=== PATIENT | female | born 1980 | race Caucasian/White ===

== ENCOUNTER 2016-05-07 18:23 | Inpatient (IN) | payer MEDICAID, OTHER ==
--- NOTE | 2016-05-07 19:07 | ED ---
Psych HPI - General Chief Complaint: Psychiatric Symptoms Stated Complaint: mental health Time Seen by Provider: 05/07/16 18:38 Source: patient, RN notes reviewed Mode of arrival: ambulatory - History of Present Illness Initial Comments: 35-year-old female presents emergency Department chief complaint of depression. Patient has had depression for the last month or so. Patient states it originally started when her children taken from her by CPS. She states now that she'll never get her children back. Patient states she has been abusing alcohol throughout this time.. Patient states that she started doctor and referred her here for evaluation. Patient states that this time she has no suicidal thoughts that she has had amount off throughout the last month. Patient denies any plan. Patient denies any homicidal ideation. Patient states she is not currently having any health concerns.Patient denies any recent fever, chills, shortness of breath, chest pain, back pain, abdominal pain , nausea vomiting, numbness or tingling, dysuria or hematuria, constipation or diarrhea, headaches or visual changes, or any other current symptoms. - Related Data Home Medications Medication Instructions Recorded Confirmed Cariprazine Hydrochloride [Vraylar] 3 mg PO DAILY 05/07/16 05/07/16 Diclofenac Potassium [Cataflam] 50 mg PO TID 05/07/16 05/07/16 Divalproex Sodium [Depakote] 1,000 mg PO DAILY 05/07/16 05/07/16 Furosemide [Lasix] 20 mg PO DAILY 05/07/16 05/07/16 Gabapentin [Neurontin] 300 mg PO TID 05/07/16 05/07/16 Naratriptan HCl 2.5 mg PO DAILY PRN 05/07/16 05/07/16 Venlafaxine HCl [Effexor XR] 150 mg PO DAILY 05/07/16 05/07/16 Allergies Allergy/AdvReac Type Severity Reaction Status Date / Time latex Allergy Rash/Hives Verified 05/07/16 19:25 Review of Systems ROS Statement: Those systems with pertinent positive or pertinent negative responses have been documented in the HPI. ROS Other: All systems not noted in ROS Statement are negative. Past Medical History Past Medical History: Fibromyalgia, Hypertension Additional Past Medical History / Comment(s): Arnold-Chiari malformation, migraine headaches, irritable bowel syndrome History of Any Multi-Drug Resistant Organisms: None Reported Past Surgical History: Tubal Ligation Additional Past Surgical History / Comment(s): brain sx- 2011 at [facility], uterine ablation Past Psychological History: Bipolar, Depression Smoking Status: Former smoker Past Alcohol Use History: Occasional Additional Past Alcohol Use History / Comment(s): Patient states that she smokes on and off for one pack per month and quit October 2014. She denies any street drugs, medical marijuana, marijuana use. She has history of alcohol abuse and quit drinking in October 2014 and recently relapsed. Patient is single and has 3 sons. Past Drug Use History: None Reported - Past Family History Father Family Medical History: Coronary Artery Disease (CAD) Additional Family Medical History / Comment(s): Father is age 65 and has history of coronary artery disease and depression Mother Additional Family Medical History / Comment(s): Mother is age 59 has clotting disorder. Patient has 1 brother with no major medical problems. She has 3 sons and one has bipolar disorder. General Exam Limitations: no limitations General appearance: alert, in no apparent distress Head exam: Present: atraumatic, normocephalic, normal inspection ENT exam: Present: normal exam, mucous membranes moist Neck exam: Present: normal inspection. Absent: tenderness, meningismus, lymphadenopathy Respiratory exam: Present: normal lung sounds bilaterally. Absent: respiratory distress, wheezes, rales, rhonchi, stridor Cardiovascular Exam: Present: regular rate, normal rhythm, normal heart sounds. Absent: systolic murmur, diastolic murmur, rubs, gallop, clicks Back exam: Present: normal inspection Neurological exam: Present: alert, oriented X3, CN II-XII intact. Absent: motor sensory deficit Psychiatric exam: Present: depressed. Absent: homicidal ideation, suicidal ideation Skin exam: Present: warm, dry, intact, normal color. Absent: rash Course Vital Signs 05/07/16 05/07/16 18:33 19:14 Temperature 98.4 F Pulse Rate 81 81 Respiratory 18 16 Rate Blood Pressure 178/118 153/95 O2 Sat by Pulse 99 98 Oximetry Medical Decision Making - Medical Decision Making 35-year-old female presents to the emergency Department chief complaint of depression. At this time the patient does not appear to be suffering from any acute medical emergencies. The patient is cleared to be evaluated by psychiatry. At this time the patient was evaluated by psychiatry. At this time the patient will be admitted. Discussed with the patient who is in agreement with the plan. - Lab Data Lab Results 05/07/16 Range/Units 19:15 Urine Opiates Screen Not Detected (NotDetected) Ur Oxycodone Screen Not Detected (NotDetected) Urine Methadone Screen Not Detected (NotDetected) Ur Propoxyphene Screen Not Detected (NotDetected) Ur Barbiturates Screen Not Detected (NotDetected) U Tricyclic Antidepress Not Detected (NotDetected) Ur Phencyclidine Scrn Not Detected (NotDetected) Ur Amphetamines Screen Not Detected (NotDetected) U Methamphetamines Scrn Not Detected (NotDetected) U Benzodiazepines Scrn Not Detected (NotDetected) Urine Cocaine Screen Not Detected (NotDetected) U Marijuana (THC) Screen Not Detected (NotDetected) Disposition Clinical Impression: Depression Disposition: TRANSFER TO PSYCH HOSP/UNIT Time of Disposition: 20:43
[2016-05-07] MEDS ORDERED: MAGNESIUM HYDROXIDE 2,400 MG/10 ML CUP PO PRN (23:02)
[2016-05-07] MEDS ORDERED: MAG HYDROX/AL HYDROX/SIMETH 30 ML CUP PO PRN (23:02)
[2016-05-07 23:38] VITALS: BMI 41.1
[2016-05-08] MEDS: ACETAMINOPHEN TAB 325 MG TAB PO PRN ×2 (08:19→13:28)
[2016-05-08 09:35] LABS: Basophils # (A) 0.1 k/uL (0-0.2); Basophils % (A) 2 %; CH 33.4; CHCM 35.1; Eosinophils # (A) 0.2 k/uL (0-0.7); Eosinophils % (A) 3 %; HCT 46.4 % (34.0-46.0); HDW 3.06; HGB 15.7 gm/dL (11.4-16.0); Luc # (Auto) 0.09; Luc % (Auto) 1; Lymphocytes # (A) 1.8 k/uL (1.0-4.8); Lymphocytes % (A) 27 %; MCH 32.3 pg (25.0-35.0); MCHC 33.8 g/dL (31.0-37.0); MCV 95.6 fL (80.0-100.0); Mean Platelet Volume 7.6; Monocytes # (A) 0.3 k/uL (0-1.0); Monocytes % (A) 5 %; Neutrophils # (A) 4.1 k/uL (1.3-7.7); Neutrophils % (A) 62 %; RBC 4.86 m/uL (3.80-5.40); RDW 13.5 % (11.5-15.5); WBC 6.6 k/uL (3.8-10.6); WBC (Perox) 6.53
[2016-05-08 10:09] LABS: ALT 34 U/L (9-52); AST 16 U/L (14-36); Alkaline Phosphatase 68 U/L (38-126); Anion Gap 14 mmol/L; Blood Urea Nitrogen 13 mg/dL (7-17); Calcium 9.3 mg/dL (8.4-10.2); Carbon Dioxide 26 mmol/L (22-30); Chloride 105 mmol/L (98-107); Glucose 108 mg/dL (74-99); Non-African American GFR(MDRD) >60 (>60 ml/min/1.73 sqM); Potassium 4.4 mmol/L (3.5-5.1); Sodium 145 mmol/L (137-145); Total Bilirubin 1.6 mg/dL (0.2-1.3); Total Protein 7.1 g/dL (6.3-8.2)
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
[2016-05-08] MEDS: VENLAFAXINE HCL ER 150 MG CAP PO SCH (11:38)
[2016-05-08] MEDS: LITHIUM CARBONATE 300 MG CAP PO SCH ×2 (11:38→20:47)
[2016-05-08] MEDS ORDERED: SUMAtriptan SUCCINATE 50 MG TAB PO PRN (16:58)
--- NOTE | 2016-05-08 20:17 | CONS ---
DATE OF CONSULTATION: 05/08/2016 Patient is a 35-year-old female who came in for bipolar depression and medicine was consulted regarding medical clearance and patient denied any chest pain, nausea, vomiting. Patient does have migraine. Patient is complaining of migrainous headache and I did order her Gabapentin and ( ) which is a migraine rescue medication and ( ). The patient denied any fever, chills. The patient denied any nausea, vomiting. Patient denied any abdominal pain. Patient denied any dysuria. REVIEW OF SYSTEMS: CONSTITUTIONAL: No fever, no malaise, no fatigue. HEENT: No recent visual problems or hearing problems. Denied any sore throat. CARDIOVASCULAR: No chest pain, orthopnea, PND, no palpitations, no syncope. PULMONARY: No shortness of breath, no cough, no hemoptysis. GASTROINTESTINAL: No diarrhea, no nausea, no vomiting, no abdominal pain. Normoactive bowel sounds. NEUROLOGICAL: No headaches, no weakness, no numbness. HEMATOLOGICAL: Denies any bleeding or petechiae. GENITOURINARY: Denies any burning micturition, frequency, or urgency. MUSCULOSKELETAL/RHEUMATOLOGICAL: Denies any joint pain, swelling, or any muscle pain. ENDOCRINE: Denies any polyuria or polydipsia. The rest of the 14 point review of systems is negative. Home medications include: 1. ( ) . 2. Divalproex. 3. Lasix. 4. Gabapentin. 5. Nortriptyline. 6. ( ). 7. Venlafaxine. ALLERGIES: LATEX. Past medical history is significant for fibromyalgia, hypertension, migraine and tubal ligation surgery. SOCIAL HISTORY: Former smoker. Quit smoking about a week ago. Denied any alcohol abuse and denied any drug abuse. Psychological history: Bipolar depression. FAMILY HISTORY: Father had coronary disease and mother age 59 with clotting disorder. PHYSICAL EXAMINATION: VITAL SIGNS: Temperature 98.4, pulse 71, respiratory rate of 18, blood pressure is 153/75, saturating at 98% on room air. GENERAL: The patient is alert and oriented x3, not in any acute distress. Well developed, well nourished. HEENT: Pupils are round and equally reacting to light. EOMI. No scleral icterus. No conjunctival pallor. Normocephalic, atraumatic. No pharyngeal erythema. No thyromegaly. CARDIOVASCULAR: S1 and S2 present. No murmurs, rubs, or gallops. PULMONARY: Chest is clear to auscultation, no wheezing or crackles. ABDOMEN: Soft, nontender, nondistended, normoactive bowel sounds. No palpable organomegaly. MUSCULOSKELETAL: No joint swelling or deformity. EXTREMITIES: No cyanosis, clubbing, or pedal edema. NEUROLOGICAL: Gross neurological examination did not reveal any focal deficits. SKIN: No rashes. LABORATORY DATA: CBC, CMP are essentially within normal limits except for mildly elevated WBC. No further testing necessary at this point of time. ASSESSMENT AND PLAN: 1. Depression, bipolar depression management as per primary service. 2. Migraine management as mentioned above, patient will be resumed on Gabapentin and ( ) as well as NSAID. 3. Hypertension with mildly elevated blood pressures not on any antihypertensives. 4. I recommend just monitoring. I do not recommend any medications at this point of time. Thank you for letting me participate in this patient's care. We will sign off at this point of time. Call back if needed.
[2016-05-08] MEDS: DIVALPROEX ER 500 MG TAB.ER.24H PO SCH (20:47)
[2016-05-08] MEDS: ETODOLAC 200 MG CAPSULE PO SCH (20:47)
[2016-05-08] MEDS: GABAPENTIN 300 MG CAP PO SCH (20:48)
[2016-05-08] MEDS: LORazepam 1 MG TAB PO PRN (20:51)
[2016-05-09] MEDS: FUROSEMIDE 20 MG TAB PO SCH (08:30)
[2016-05-09] MEDS: LITHIUM CARBONATE 300 MG CAP PO SCH ×2 (08:30→20:15)
[2016-05-09] MEDS: ETODOLAC 200 MG CAPSULE PO SCH ×3 (08:30→20:17)
[2016-05-09] MEDS: GABAPENTIN 300 MG CAP PO SCH ×3 (08:30→20:16)
[2016-05-09] MEDS: VENLAFAXINE HCL ER 150 MG CAP PO SCH (08:31)
[2016-05-09] MEDS ORDERED: VENLAFAXINE HCL ER 150 MG CAP PO SCH (09:00)
[2016-05-09] MEDS ORDERED: DIVALPROEX 500 MG TABLET.DR PO SCH (09:00)
[2016-05-09] MEDS: LOSARTAN 50 MG TAB PO SCH (13:13)
[2016-05-09] MEDS: LORazepam 1 MG TAB PO PRN (16:17)
--- NOTE | 2016-05-09 19:26 | P.PN ---
Progress Note - Text Interval history: Patient seen in cross coverage today for Dr. Byrd. She reports that her blood pressure was high literally her and she received a dose of Ativan. She feels like someone this may be referred have been related to anxiety. She has just been started on lithium. She does not seem to voice any current adverse psychotropic medication side effects. She does describe some this depression today and describes some mood fluctuations. Mental status exam: Patient is seen in the interview room with a visitor who she would like to accompany her during the interview. Her mood she describes some depression describe some mood fluctuation. She denies any current thoughts of harm to self or others. There is no evidence of active psychosis or agitation. Speech is fluent, not rapid or pressured. Plan: At this time we will maintain current psychotropic medications. We will monitor for any medication side effects we will look at rechecking her blood pressure after the administration of Ativan. We'll continue to cover this patient for Dr. Byrd through the weekend.
[2016-05-09] MEDS: DIVALPROEX ER 500 MG TAB.ER.24H PO SCH (20:15)
[2016-05-10] MEDS: LORazepam 1 MG TAB PO PRN (03:35)
[2016-05-10] MEDS: LOSARTAN 50 MG TAB PO SCH (08:48)
[2016-05-10] MEDS: GABAPENTIN 300 MG CAP PO SCH ×3 (08:49→20:51)
[2016-05-10] MEDS: ETODOLAC 200 MG CAPSULE PO SCH ×3 (08:49→20:50)
[2016-05-10] MEDS: LITHIUM CARBONATE 300 MG CAP PO SCH ×2 (08:49→20:51)
[2016-05-10] MEDS: FUROSEMIDE 20 MG TAB PO SCH (08:50)
[2016-05-10] MEDS: VENLAFAXINE HCL ER 150 MG CAP PO SCH (08:50)
--- NOTE | 2016-05-10 19:54 | P.PN ---
Progress Note - Text Interval history: Patient seen in cross coverage today in for Dr. Byrd. She states that she was having nightmares last night and states that today she woke up and had some thoughts of suicide until about noon. She did use her coping skills, was able to verbalize about things in a family meeting and then also did some journaling which helped her. She is encouraged regarding using coping skills. She does describe some lightheadedness/dizziness which may be a medication side effect but it does seem to be tolerable. Mental status exam: She is alert and cooperative with the interview. Her affect does show range. Her mood currently appears to be improved. She does not voice any current thoughts of suicide. She does not voice any thoughts of harm to others. She does relate that she had thoughts of suicide earlier today but used her coping skills to good effect. She does not show any active evidence of psychosis or agitation. Plan: We'll maintain current psychotropic medications. Continue to monitor for psychotropic medication side effects. Dr. Byrd resumed care this patient starting tomorrow continue to monitor regarding any thoughts of suicide.
[2016-05-10] MEDS: DIVALPROEX ER 500 MG TAB.ER.24H PO SCH (20:51)
[2016-05-11] MEDS: LOSARTAN 50 MG TAB PO SCH (08:33)
[2016-05-11] MEDS: VENLAFAXINE HCL ER 150 MG CAP PO SCH (08:33)
[2016-05-11] MEDS: FUROSEMIDE 20 MG TAB PO SCH (08:33)
[2016-05-11] MEDS: GABAPENTIN 300 MG CAP PO SCH ×3 (08:33→20:46)
[2016-05-11] MEDS: LITHIUM CARBONATE 300 MG CAP PO SCH ×2 (08:33→20:46)
[2016-05-11] MEDS: ETODOLAC 200 MG CAPSULE PO SCH ×3 (08:33→20:46)
--- NOTE | 2016-05-11 11:50 | P.PN ---
Progress Note - Text Interval history: The patient is found in her room she follows me to an interview room. She reports that her mood is been more down she's been having more suicidal thoughts and has had some bad dreams. She has been compliant with groups intermittently and feels that they are not helpful. She describes having some symptoms of constipation and we discussed that further. She did have a visit with a male friend and found that supportive. Mental status exam: The patient is an overweight female appearing her stated age. She is dressed in her own clothing hygiene adequate grooming fair. Eye contact is appropriate speech is fluent not very spontaneous today but does answer questions asked of her. She reports recent suicidal thoughts and she is concerned that her mood will not improve she endorses a depressed mood. She is reporting no homicidal ideation. Thought process is linear and there is no evidence of tangential thinking loose associations or flight of ideas. There is no evidence of psychosis. Insight and judgment limited. She demonstrates no verbal or physical aggressiveness. Affect is constricted to blunted. Plan: The patient will continue on her current medications we have recently started lithium we will anticipate getting a lithium level Wednesday. She is reporting continued hopelessness thoughts with suicidal ideation. She requires continued hospitalization. She is encouraged to fully participate in the milieu we will continue to monitor for safety.
[2016-05-11] MEDS: DIVALPROEX ER 500 MG TAB.ER.24H PO SCH (20:46)
[2016-05-12] MEDS: ETODOLAC 200 MG CAPSULE PO SCH ×3 (08:55→20:12)
[2016-05-12] MEDS: GABAPENTIN 300 MG CAP PO SCH ×3 (08:55→20:12)
[2016-05-12] MEDS: VENLAFAXINE HCL ER 150 MG CAP PO SCH (08:55)
[2016-05-12] MEDS: LOSARTAN 50 MG TAB PO SCH (08:55)
[2016-05-12] MEDS: FUROSEMIDE 20 MG TAB PO SCH (08:55)
[2016-05-12] MEDS: LITHIUM CARBONATE 300 MG CAP PO SCH ×2 (08:55→20:13)
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
[2016-05-12] MEDS: DIVALPROEX ER 500 MG TAB.ER.24H PO SCH (20:12)
[2016-05-12] MEDS: LORazepam 1 MG TAB PO PRN (20:13)
[2016-05-12 21:04] LABS: Appearance,Urine Cloudy (Clear); Bacteria,Urine Rare /hpf; Bilirubin,Urine 3+ (Negative); Glucose,Urine (UA) Negative (Negative); Ketones,Urine 1+ (Negative); Leukocyte Esterase,Urine Trace (Negative); Mucus,Urine Moderate /hpf; Nitrite,Urine Negative (Negative); PH, Urine 5.5 (5.0-8.0); Particle Count 10619; Protein,Urine Trace (Negative); RBC,Urine 2 /hpf (0-5); Specific Gravity,Urine 1.028 (1.001-1.035); Squamous Epithelial Cell,Urine 13 /hpf (0-4); UA Billing (MACRO vs. MICRO) MICRO; WBC,Urine 6 /hpf (0-5)
[2016-05-13] MEDS: ETODOLAC 200 MG CAPSULE PO SCH ×3 (08:35→20:39)
[2016-05-13] MEDS: FUROSEMIDE 20 MG TAB PO SCH (08:35)
[2016-05-13] MEDS: LOSARTAN 50 MG TAB PO SCH (08:36)
[2016-05-13] MEDS: VENLAFAXINE HCL ER 150 MG CAP PO SCH (08:36)
[2016-05-13] MEDS: LITHIUM CARBONATE 300 MG CAP PO SCH ×2 (08:36→20:38)
[2016-05-13] MEDS: GABAPENTIN 300 MG CAP PO SCH ×3 (08:36→20:40)
[2016-05-13] MEDS ORDERED: IBUPROFEN 800 MG TAB PO PRN (10:00)
[2016-05-13] MEDS ORDERED: VENLAFAXINE HCL ER 75 MG CAP PO ONE (10:01)
--- NOTE | 2016-05-13 10:06 | P.PN ---
Progress Note - Text Interval history: The patient is found in her room she follows me to an interview room. She reports her mood continues to be depressed she lacks energy and lacks motivation. She spoke with her outpatient therapist via phone and was encouraged to journal. She states she did not attend groups this morning as she has no goals to set. We discussed her medications further we are awaiting the lithium level result. We discussed titrating the Effexor XR further. She describes having some discomfort in her neck and asked for ice pack. Urinalysis came back suspicious for urinary tract infection. Mental status exam: The patient is an overweight female appearing her stated age. She is dressed in her own clothing. Hygiene grooming adequate. She endorses a depressed mood with hopelessness thinking and suicidal thoughts. She maintains a bland affect. She is not tearful during the session. Eye contact is appropriate speech is fluent spontaneous nonpressured. Thought process is linear there is no evidence of tangential thinking loose associations or flight of ideas. She reports no homicidal ideation. There is no evidence of hypomanic or manic symptoms there is no evidence of psychosis. Insight and judgment remain limited. There is no verbal or physical aggressiveness. Initially she demonstrates some psychomotor slowing. Plan: We will await the lithium level result. We may cautiously titrate that further keeping in mind that she is on Lasix. We will go ahead and treat for presumed UTI with Bactrim. I will increase her Effexor XR to 225 mg daily. We discussed appropriate goalsetting each day and the need for her to continue to push to try to develop coping skills when she is depressed. She requires continued psychiatric hospitalization for suicidal ideation. Vital signs reviewed.
[2016-05-13 10:30] LABS: Blood Urea Nitrogen 20 mg/dL (7-17); Lithium 0.3 mmol/L; Non-African American GFR(MDRD) >60 (>60 ml/min/1.73 sqM)
[2016-05-13] MEDS: SULFAMETHOX-TMP 800-160MG 1 EACH TAB PO SCH ×2 (11:12→20:38)
[2016-05-13] MEDS: DIVALPROEX ER 500 MG TAB.ER.24H PO SCH (20:39)
[2016-05-14] MEDS: ETODOLAC 200 MG CAPSULE PO SCH ×3 (09:16→20:15)
[2016-05-14] MEDS: SULFAMETHOX-TMP 800-160MG 1 EACH TAB PO SCH ×2 (09:16→20:15)
[2016-05-14] MEDS: GABAPENTIN 300 MG CAP PO SCH ×3 (09:16→20:15)
[2016-05-14] MEDS: LOSARTAN 50 MG TAB PO SCH (09:17)
[2016-05-14] MEDS: FUROSEMIDE 20 MG TAB PO SCH (09:17)
[2016-05-14] MEDS: LITHIUM CARBONATE 300 MG CAP PO SCH ×2 (09:17→20:15)
[2016-05-14] MEDS: VENLAFAXINE HCL ER 75 MG CAP PO SCH (09:17)
--- NOTE | 2016-05-14 09:50 | P.PN ---
Progress Note - Text Interval history: The patient is found at the front desk representative she follows me to an interview room. She states that her mood is improving. She reports having no suicidal thoughts today. She reports feeling more equipped to "handle the drama at home" we reviewed the recent lithium level which was 0.3. She is tolerating the titration of the Effexor XR. We discussed tapering down/ removing the Depakote ER but she would prefer to do that on an outpatient basis. She reports attending 2 groups yesterday and plans on attending groups today. Mental status exam: The patient is an overweight female she is dressed in her own clothing eye contact is appropriate. Speech is fluent and spontaneous nonpressured. Thought process is linear and goal directed there is no evidence of tangential thinking loose associations or flight of ideas. She is reporting a resolution of acute suicidal ideation she feels her mood is improving. Her affect is demonstrating a more appropriate range. Insight and judgment slowly improving. There is no evidence of hypomanic or manic symptoms no evidence of psychosis. There is no demonstration of verbal or physical aggressiveness. Plan: The patient will continue on her current medications we will monitor her for safety. If she remains clinically stable and demonstrates further clinical improvement over the next 24 hours we will consider discharge back to outpatient care. Social work will arrange outpatient follow-up. Vital signs reviewed.
[2016-05-14 11:47] VITALS: RESP 16
[2016-05-14] MEDS: DIVALPROEX ER 500 MG TAB.ER.24H PO SCH (20:15)
[2016-05-15 06:55] VITALS: BP 129/87; PULSE 70; TEMP 97.6
[2016-05-15] MEDS: ETODOLAC 200 MG CAPSULE PO SCH (08:26)
[2016-05-15] MEDS: FUROSEMIDE 20 MG TAB PO SCH (08:26)
[2016-05-15] MEDS: LOSARTAN 50 MG TAB PO SCH (08:27)
[2016-05-15] MEDS: LITHIUM CARBONATE 300 MG CAP PO SCH (08:27)
[2016-05-15] MEDS: VENLAFAXINE HCL ER 75 MG CAP PO SCH (08:27)
[2016-05-15] MEDS: SULFAMETHOX-TMP 800-160MG 1 EACH TAB PO SCH (08:27)
[2016-05-15] MEDS: GABAPENTIN 300 MG CAP PO SCH (08:27)
--- NOTE | 2016-05-15 09:29 | P.DS ---
Providers Date of admission: 05/07/16 20:46 Expected date of discharge: 05/15/16 Attending physician: Joaquin Byrd Consults: 05/07/16 23:02 Consult Physician Routine Consulting Provider: Sharon Hope Consult Reason/Comments: medical management Do you want consulting provider notified?: Already Contacted Primary care physician: Chidi Bolivar - Discharge Diagnosis(es) (1) Bipolar 2 disorder Current Visit: Yes Status: Acute Priority: High (2) Alcohol use disorder Current Visit: Yes Status: Acute Priority: High Hospital Course: This patient is a 35-year-old single female who was admitted to the mental health unit through the emergency room for suicidal ideation. The patient presented from her primary care physician's office. She endorsed a recently depressed mood with hopelessness thinking and feeling overwhelmed. She stated that her mood was on a "roller coaster". She endorsed tearfulness crying spells increased anxiety and sleep disturbance. She described a history of bipolar disorder specifically hypomanic episodes and history of depressive episodes. She recently describes having panic attacks in the context of her 9- year-old being taken away by child protective services. For full details please refer to my psychiatric evaluation dated 05/08/2016. Summary of hospital course: The patient was admitted to the mental health unit she did sign in voluntarily. We reviewed her medications and medication options. We decided to initiate lithium carbonate 300 mg twice daily to assist with stabilizing mood and trying to reduce suicidal thinking. She was maintained on her Depakote ER and we did titrate her Effexor XR to 225 mg daily. [place] level during hospitalization was 0.3. She tolerated the medication changes without any reported side effects. During the course of hospitalization she reported a progressive improvement of symptoms to the point of having no suicidal ideation and feeling hopeful again. She is now demonstrating future oriented thinking. She is willing to follow up with [facility] in that outpatient management will be arranged. She did have an abnormal urinalysis and was prescribed Bactrim DS. She demonstrated no agitated behavior she required no use of seclusion or restraint. We discussed her use of alcohol and recommended inpatient chemical dependency treatment. She states she will give this consideration as an outpatient but does not wish to commit to attending inpatient chemical dependency treatment. Mental status exam: The patient is an overweight female appearing her stated age. Hygiene grooming adequate. She is dressed in her own clothing she is wearing eyeglasses. Speech is fluent spontaneous nonpressured. Thought process is linear she demonstrates no circumstantial thinking tangential thinking loose associations or flight of ideas. She is reporting no suicidal or homicidal ideation intent or plan. There is no report or evidence of hallucinations or specific delusions. She does not appear hypomanic or manic. Insight and judgment grossly intact. Cognitively she remains stable she is alert and oriented to person place and date. Attention concentration and short- term memory appear to be grossly intact. There is no verbal or physical aggressiveness. Impressions 1. Bipolar 2 disorder most recent depressed, rule out panic disorder, history of learning disorder, alcohol use disorder 2. Borderline personality disorder traits 3. History of Arnold-Chiari malformation, hypertension, fibromyalgia, cephalgia , urinary tract infection 4. Psychosocial dysfunction due to psychiatric symptoms alcohol use termination of relationship with fianc and involvement of child protective services Plan: The patient will be discharged from mental health unit to return home. She will continue on Effexor XR 225 mg daily, lithium carbonate 300 mg twice daily, Depakote ER 1000 mg at bedtime. She will be scheduled for an intake with [facility] early next week. She is instructed not to use any alcohol or illicit drugs. Again she does not wish to attend inpatient chemical dependency treatment for her alcohol use. It is recommended that she attend at a minimum. She is reporting no firearms at home. There is no imminent safety risk she is appropriate for transition to outpatient psychiatric care. She is instructed to return to hospital if any acute safety concerns and she is agreeable. Patient Condition at Discharge: Stable Plan - Discharge Summary New Discharge Prescriptions: Divalproex ER [Depakote ER] 1,000 mg PO HS #60 tab.er.24h [place] Carbonate 300 mg PO BID #60 cap Sulfamethox-Tmp 800-160Mg [Bactrim DS 800-160 mg] 1 each PO BID #8 tab Venlafaxine HCl ER [Effexor XR] 225 mg PO DAILY #90 cap.er.24h Discharge Medication List Cariprazine Hydrochloride [Vraylar] 3 mg PO DAILY 05/07/16 [History] Diclofenac Potassium [Cataflam] 50 mg PO TID 05/07/16 [History] Furosemide [Lasix] 20 mg PO DAILY 05/07/16 [History] Gabapentin [Neurontin] 300 mg PO TID 05/07/16 [History] Naratriptan HCl 2.5 mg PO DAILY PRN 05/07/16 [History] Losartan Potassium [Cozaar] 100 mg PO DAILY 05/09/16 [History] Divalproex ER [Depakote ER] 1,000 mg PO HS #60 tab.er.24h 05/15/16 [Rx] [place] Carbonate 300 mg PO BID #60 cap 05/15/16 [Rx] Sulfamethox-Tmp 800-160Mg [Bactrim DS 800-160 mg] 1 each PO BID #8 tab 05/15/16 [Rx] Venlafaxine HCl ER [Effexor XR] 225 mg PO DAILY #90 cap.er.24h 05/15/16 [Rx] Follow up Appointment(s)/Referral(s): [facility] [Outside] - 05/21/16 9:00 am ([facility]) Chidi Bolivar MD [Primary Care Provider] - 1-2 days
== END 2016-05-15 10:20 | disposition home or self-care (01) | DRG 885 ==
LOC: EC 18:23 → 3MHU 20:46
PROVIDERS: ADMIT Psychiatry & Neurology Psychiatry; ATTEND Psychiatry & Neurology Psychiatry
DX: F31.81 Bipolar II disorder (principal); R45.851 Suicidal ideations; I10 Essential (primary) hypertension; N39.0 Urinary tract infection, site not specified; F41.0 Panic disorder [episodic paroxysmal anxiety]; F60.3 Borderline personality disorder; G43.909 Migraine, unspecified, not intractable, without status migrainosus; K58.9 Irritable bowel syndrome, unspecified; M79.7 Fibromyalgia; Z62.810 Personal history of physical and sexual abuse in childhood; Z81.8 Family history of other mental and behavioral disorders; Z82.49 Family history of ischemic heart disease and other diseases of the circulatory system; Z87.891 Personal history of nicotine dependence
CPT/HCPCS: 80053; 80178; 80306; 81001; 81025; 82075; 82565; 84443; 84520; 85025; 99285

== ENCOUNTER 2016-06-17 18:06 | Emergency (ER) | payer OTHER ==
[2016-06-17 18:47] VITALS: RESP 20
--- NOTE | 2016-06-17 19:47 | ED ---
General Adult HPI - General Chief complaint: Psychiatric Symptoms Stated complaint: mental health Time Seen by Provider: 06/17/16 19:27 Source: patient, RN notes reviewed, old records reviewed Mode of arrival: ambulatory Limitations: no limitations - History of Present Illness Initial comments: Chief complaint and history of present illness is a 35-year-old female here because she is depressed. Her counselors and [facility] people told her to come the emergency room for evaluation and possible admission to [facility] Patient spent one week in [facility] last month. Patient reports she is depressed , states many traumatic things have happened or including losing her children, fiance leaving her. She also reports that she self medicates with alcohol and is not taking her antipsychotic medications properly. - Related Data Home Medications Medication Instructions Recorded Confirmed Diclofenac Potassium [Cataflam] 50 mg PO TID 05/07/16 05/07/16 Furosemide [Lasix] 20 mg PO DAILY 05/07/16 05/07/16 Gabapentin [Neurontin] 300 mg PO TID 05/07/16 05/07/16 Naratriptan HCl 2.5 mg PO DAILY PRN 05/07/16 05/07/16 Losartan Potassium [Cozaar] 100 mg PO DAILY 05/09/16 05/09/16 Previous Rx's Medication Instructions Recorded Divalproex ER [Depakote ER] 1,000 mg PO HS #60 tab.er.24h 05/15/16 [place] Carbonate 300 mg PO BID #60 cap 05/15/16 Sulfamethox-Tmp 800-160Mg [Bactrim 1 each PO BID #8 tab 05/15/16 DS 800-160 mg] Venlafaxine HCl ER [Effexor XR] 225 mg PO DAILY #90 cap.er.24h 05/15/16 Allergies Allergy/AdvReac Type Severity Reaction Status Date / Time latex Allergy Rash/Hives Verified 06/17/16 18:46 Review of Systems ROS Statement: Those systems with pertinent positive or pertinent negative responses have been documented in the HPI. Review of systems. No visual acuity changes no headache no chest pain or shortness breath GI/ problems. Patient reports she is depressed over situational things as noted in the chief complaint. All systems were otherwise reviewed. Past medical problems significant for depression, fibromyalgia, hypertension, Arnold-Chiari malformation. Frequent headaches. Surgeries include brain surgery for Arnold-Chiari malformation, and tubal ligation. The patient's family history significant for mother's side having breast cancer. She has ALLERGIES to latex. She does smoke strongly encouraged stop, she drinks alcohol to self medicate herself she states she overuses it. States she does go to Alcoholics Anonymous ROS Other: All systems not noted in ROS Statement are negative. Past Medical History Past Medical History: Fibromyalgia, Hypertension Additional Past Medical History / Comment(s): Arnold-Chiari malformation, migraine headaches, irritable bowel syndrome History of Any Multi-Drug Resistant Organisms: None Reported Past Surgical History: Tubal Ligation Additional Past Surgical History / Comment(s): brain sx- 2011 at [facility], uterine ablation Past Psychological History: Bipolar, Depression Smoking Status: Current every day smoker Past Alcohol Use History: Daily Additional Past Alcohol Use History / Comment(s): Patient states that she smokes on and off for one pack per month and quit October 2014. She denies any street drugs, medical marijuana, marijuana use. She has history of alcohol abuse and quit drinking in October 2014 and recently relapsed. Patient is single and has 3 sons. Past Drug Use History: None Reported - Past Family History Father Family Medical History: Coronary Artery Disease (CAD) Additional Family Medical History / Comment(s): Father is age 65 and has history of coronary artery disease and depression Mother Additional Family Medical History / Comment(s): Mother is age 59 has clotting disorder. Patient has 1 brother with no major medical problems. She has 3 sons and one has bipolar disorder. General Exam - General Exam Comments Initial Comments: General: The patient is awake and alert, complains of being depressed, suicidal. Her plan would be to overdose on medications. Vital signs are temperature 98.1 pulse 74 story rate 20 pulse ox 90% room air blood pressure 133/88. Noted. Patient hospital evaluated by her family physician Eye: Pupils are equal, round and reactive to light, extra-ocular movements are intact ; there is normal conjunctiva bilaterally. No signs of icterus. Ears, nose, mouth and throat: There are moist mucous membranes and no oral lesions. Neck: The neck is supple, there is no tenderness , no anterior cervical lymphadenopathy, no carotid bruit, thyroid not palpable. Cardiovascular: There is a regular rate and rhythm. No murmur, rub or gallop is appreciated. Respiratory: Lungs are clear to auscultation, respirations are non-labored, breath sounds are equal. No wheezes, stridor, rales, or rhonchi. Gastrointestinal: Soft, non-distended, non-tender abdomen without masses or organomegaly noted. There is no rebound or guarding present. No CVA tenderness. Bowel sounds are unremarkable. Back: There is no tenderness to palpation in the midline. There is no obvious deformity. No rashes noted. Musculoskeletal: Normal ROM, no tenderness, There is no pedal edema. There is no calf tenderness or swelling. Sensation intact. Pulses equal bilaterally 2+. Neurological: CN II-XII intact, There are no obvious motor or sensory deficits. Coordination appears grossly intact. Speech is normal. No neuro deficits. Skin: Skin is warm and dry and no rashes or lesions are noted. Psychiatric: Cooperative, states she is depressed, suicidal, plan will be to overdose on medications. Denies drinking any alcohol today but she does self medicate using alcohol and abuses her scripture medications for depression. Limitations: no limitations Course Vital Signs 06/17/16 18:45 Temperature 98.1 F Pulse Rate 74 Respiratory 20 Rate Blood Pressure 133/88 O2 Sat by Pulse 98 Oximetry Medical Decision Making - Medical Decision Making Urine was clean no signs of infection. The patient's drug screen was negative. Negative for aspirin negative for Tylenol. A she had a long conversation with psychiatric nurse she spoke with the psychiatrist Kirstie times for the patient be discharged she will be following up with [facility]. Patient denies being depressed or suicidal at this time. - Lab Data Lab Results 06/17/16 06/17/16 Range/Units 19:51 19:51 Urine Color Yellow Urine Appearance Cloudy H (Clear) Urine pH 6.0 (5.0-8.0) Ur Specific [place] 1.027 (1.001-1.035) Urine Protein Trace H (Negative) Urine Glucose (UA) Negative (Negative) Urine Ketones 1+ H (Negative) Urine Blood Negative (Negative) Urine Nitrate Negative (Negative) Urine Bilirubin Negative (Negative) Urine Urobilinogen 6.0 (<2.0) mg/dL Ur Leukocyte Esterase Negative (Negative) Urine RBC 2 (0-5) /hpf Urine WBC 3 (0-5) /hpf Ur Squamous Epith Cells 13 H (0-4) /hpf Urine Mucus Few H (None) /hpf Salicylates <1.0 mg/dL Urine Opiates Screen Not Detected (NotDetected) Ur Oxycodone Screen Not Detected (NotDetected) Urine Methadone Screen Not Detected (NotDetected) Ur Propoxyphene Screen Not Detected (NotDetected) Acetaminophen <10.0 ug/mL Ur Barbiturates Screen Not Detected (NotDetected) U Tricyclic Antidepress Not Detected (NotDetected) Ur Phencyclidine Scrn Not Detected (NotDetected) Ur Amphetamines Screen Not Detected (NotDetected) U Methamphetamines Scrn Not Detected (NotDetected) U Benzodiazepines Scrn Not Detected (NotDetected) Urine Cocaine Screen Not Detected (NotDetected) U Marijuana (THC) Screen Not Detected (NotDetected) Disposition Clinical Impression: Depression Disposition: HOME SELF-CARE Condition: Fair Instructions: Depression (ED), Depression (ED) Additional Instructions: Return emergency room as needed. Follow-up with your counselor at [facility]. Continue with Alcoholics Anonymous. Do not smoke do not drink Time of Disposition: 21:11
[2016-06-17 20:00] LABS: Appearance,Urine Cloudy (Clear); Bilirubin,Urine Negative (Negative); Glucose,Urine (UA) Negative (Negative); Ketones,Urine 1+ (Negative); Leukocyte Esterase,Urine Negative (Negative); Mucus,Urine Few /hpf; Nitrite,Urine Negative (Negative); Particle Count 10664; Protein,Urine Trace (Negative); RBC,Urine 2 /hpf (0-5); Specific Gravity,Urine 1.027 (1.001-1.035); Squamous Epithelial Cell,Urine 13 /hpf (0-4); UA Billing (MACRO vs. MICRO) MICRO; WBC,Urine 3 /hpf (0-5)
[2016-06-17 20:12] LABS: Acetaminophen <10.0 ug/mL; Salicylate <1.0 mg/dL
[2016-06-17 21:28] VITALS: BP 124/60; PULSE 80; TEMP 98.7
== END 2016-06-17 21:28 | disposition home or self-care (01) ==
LOC: EC 18:06
DX: F53 Mental and behavioral disorders associated with the puerperium, not elsewhere classified (principal); M79.7 Fibromyalgia; I10 Essential (primary) hypertension; Z87.891 Personal history of nicotine dependence; Z79.899 Other long term (current) drug therapy; Z91.040 Latex allergy status
CPT/HCPCS: 36415; 80306; 81001; 82075; 83520; 99285

== ENCOUNTER 2016-07-16 15:34 | Emergency (ER) | payer OTHER ==
[2016-07-16 16:00] VITALS: BP 179/114; PULSE 74; RESP 16; TEMP 97.9
[2016-07-16] MEDS ORDERED: KETOROLAC 60 MG/2 ML VIAL IM STA (16:45)
[2016-07-16] MEDS ORDERED: ORPHENADRINE 30 MG/ML 2 ML VIAL IM STA (16:45)
--- NOTE | 2016-07-16 16:54 | ED ---
Headache HPI - General Chief Complaint: Headache Stated Complaint: Headache Time Seen by Provider: 07/16/16 16:40 Source: patient, RN notes reviewed Mode of arrival: ambulatory Limitations: no limitations - History of Present Illness Initial Comments: 35-year-old female presents emergency Department with chief complaint of muscle spasm and cervical region. Patient states she is getting a headache from this. Patient's chronic migraine headaches. Patient states that she does not have any nausea, vomiting, blurred vision, focal weakness. Patient states that this is on for last 2 days. Patient states that stretching does help. Patient states he might does help also. Patient has fever, chills. Patient has no chest pain or shortness breath. - Related Data Home Medications Medication Instructions Recorded Confirmed Diclofenac Potassium [Cataflam] 50 mg PO TID 05/07/16 05/07/16 Furosemide [Lasix] 20 mg PO DAILY 05/07/16 05/07/16 Gabapentin [Neurontin] 300 mg PO TID 05/07/16 05/07/16 Naratriptan HCl 2.5 mg PO DAILY PRN 05/07/16 05/07/16 Losartan Potassium [Cozaar] 100 mg PO DAILY 05/09/16 05/09/16 Previous Rx's Medication Instructions Recorded Divalproex ER [Depakote ER] 1,000 mg PO HS #60 tab.er.24h 05/15/16 [place] Carbonate 300 mg PO BID #60 cap 05/15/16 Sulfamethox-Tmp 800-160Mg [Bactrim 1 each PO BID #8 tab 05/15/16 DS 800-160 mg] Venlafaxine HCl ER [Effexor XR] 225 mg PO DAILY #90 cap.er.24h 05/15/16 Cyclobenzaprine [Flexeril] 10 mg PO TID PRN #15 tab 07/16/16 Allergies Allergy/AdvReac Type Severity Reaction Status Date / Time latex Allergy Rash/Hives Verified 07/16/16 16:00 Review of Systems ROS Statement: Those systems with pertinent positive or pertinent negative responses have been documented in the HPI. ROS Other: All systems not noted in ROS Statement are negative. Past Medical History Past Medical History: Fibromyalgia, Hypertension Additional Past Medical History / Comment(s): Arnold-Chiari malformation, migraine headaches, irritable bowel syndrome History of Any Multi-Drug Resistant Organisms: None Reported Past Surgical History: Tubal Ligation Additional Past Surgical History / Comment(s): brain sx- 2011 at [facility], uterine ablation Past Psychological History: Bipolar, Depression Smoking Status: Former smoker Past Alcohol Use History: None Reported Additional Past Alcohol Use History / Comment(s): Patient states that she smokes on and off for one pack per month and quit October 2014. She denies any street drugs, medical marijuana, marijuana use. She has history of alcohol abuse and quit drinking in October 2014 and recently relapsed. Patient is single and has 3 sons. Past Drug Use History: None Reported - Past Family History Father Family Medical History: Coronary Artery Disease (CAD) Additional Family Medical History / Comment(s): Father is age 65 and has history of coronary artery disease and depression Mother Additional Family Medical History / Comment(s): Mother is age 59 has clotting disorder. Patient has 1 brother with no major medical problems. She has 3 sons and one has bipolar disorder. General Exam Limitations: no limitations General appearance: alert, in no apparent distress Head exam: Present: atraumatic, normocephalic, normal inspection Eye exam: Present: normal appearance, PERRL, EOMI. Absent: scleral icterus, conjunctival injection, periorbital swelling ENT exam: Present: normal exam, normal oropharynx, mucous membranes moist, TM's normal bilaterally Neck exam: Present: normal inspection, tenderness (Mild right paraspinal tenderness, trapezius), full ROM. Absent: meningismus, lymphadenopathy Respiratory exam: Present: normal lung sounds bilaterally. Absent: respiratory distress, wheezes, rales, rhonchi, stridor Cardiovascular Exam: Present: regular rate, normal rhythm, normal heart sounds. Absent: systolic murmur, diastolic murmur, rubs, gallop, clicks Neurological exam: Present: alert, oriented X3, CN II-XII intact, reflexes normal. Absent: motor sensory deficit Course Vital Signs 07/16/16 15:58 Temperature 97.9 F Pulse Rate 74 Respiratory 16 Rate Blood Pressure 179/114 O2 Sat by Pulse 97 Oximetry Medical Decision Making - Medical Decision Making 35-year-old female presented for neck, headache. Patient has trapezius muscle spasm noted. Patient was given Toradol, Norflex. Patient be discharged with muscle relaxers. Patient has no neurological deficits. Patient has no meningismus and no fever. Patient will be discharged Disposition Clinical Impression: Cervical paraspinal muscle spasm, Headache Disposition: HOME SELF-CARE Condition: Stable Instructions: Spasmodic Torticollis (ED) Additional Instructions: Please return to the Emergency Department if symptoms worsen or any other concerns. Prescriptions: Cyclobenzaprine [Flexeril] 10 mg PO TID PRN #15 tab PRN Reason: Muscle Spasm Time of Disposition: 16:54
== END 2016-07-16 17:18 | disposition home or self-care (01) ==
LOC: EC 15:34
DX: G24.3 Spasmodic torticollis (principal); R51 Headache; M79.7 Fibromyalgia; I10 Essential (primary) hypertension; Z87.891 Personal history of nicotine dependence; Z79.899 Other long term (current) drug therapy; Z91.040 Latex allergy status; M62.838 Other muscle spasm
CPT/HCPCS: 99283; 96372 ×2; J2360; J1885

== ENCOUNTER 2016-08-23 18:16 | Emergency (ER) | payer OTHER ==
[2016-08-23] MEDS ORDERED: ORPHENADRINE 30 MG/ML 2 ML VIAL IVP STA (18:58)
[2016-08-23] MEDS ORDERED: SODIUM CHLORIDE 0.9% 1,000 ML IV STA (18:58)
[2016-08-23] MEDS ORDERED: KETOROLAC 30 MG/ML 1 ML VIAL IVP STA (18:58)
[2016-08-23] MEDS ORDERED: diphenhydrAMINE 50 MG/ML 1 ML VIAL IVP STA (18:58)
[2016-08-23] MEDS ORDERED: METOCLOPRAMIDE 5 MG/ML 2 ML VIAL IVP STA (18:58)
--- NOTE | 2016-08-23 19:01 | ED ---
Headache HPI - General Chief Complaint: Headache Stated Complaint: headache, vomiting Time Seen by Provider: 08/23/16 18:49 Source: RN notes reviewed, old records reviewed Mode of arrival: ambulatory Limitations: no limitations - History of Present Illness Initial Comments: Visit the 35-year-old patient with a chief complaint of a headache for approximately one day. Patient reports that she's also had a couple episodes of vomiting. This is consistent with her usual migraines. 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 Patient states that she did not take any Motrin Tylenol for headache as she was unable to hold anything down. Patient states that he is nauseated. States her headaches worse with bright lights or loud noises. She states that she has no changes in vision, dizziness, chest pain, shortness of breath. She states that usually she requires IV fluids swell some nausea medication. Medications through the IV. Patient states that she does have some spasms over her mid back which she attributes to the cause of the headache. She sees also had some sinus congestion over the past few days which may have made her headache worse today 2. - Related Data Home Medications Medication Instructions Recorded Confirmed [place] Carbonate 300 mg PO DAILY@1200 08/23/16 08/23/16 [place] Carbonate [[place] 450 mg PO BID 08/23/16 08/23/16 Carbonate ER] Naltrexone HCl [Revia] 50 mg PO DAILY 08/23/16 08/23/16 QUEtiapine [SEROquel] 100 mg PO HS 08/23/16 08/23/16 Venlafaxine HCl [Effexor XR] 150 mg PO BID 08/23/16 08/23/16 hydrOXYzine PAMOATE [Vistaril] 25 mg PO TID 08/23/16 08/23/16 Previous Rx's Medication Instructions Recorded Divalproex ER [Depakote ER] 1,000 mg PO HS #60 tab.er.24h 05/15/16 Allergies Allergy/AdvReac Type Severity Reaction Status Date / Time latex Allergy Rash/Hives Verified 08/23/16 19:16 Review of Systems ROS Statement: Those systems with pertinent positive or pertinent negative responses have been documented in the HPI. ROS Other: All systems not noted in ROS Statement are negative. Past Medical History Past Medical History: Fibromyalgia, Hypertension Additional Past Medical History / Comment(s): Amiari malformation, migraine headaches, irritable bowel syndrome History of Any Multi-Drug Resistant Organisms: None Reported Past Surgical History: Tubal Ligation Additional Past Surgical History / Comment(s): brain sx- 2011 at [facility], uterine ablation Past Psychological History: Bipolar, Depression Smoking Status: Former smoker Past Alcohol Use History: None Reported Additional Past Alcohol Use History / Comment(s): Patient states that she smokes on and off for one pack per month and quit October 2014. She denies any street drugs, medical marijuana, marijuana use. She has history of alcohol abuse and quit drinking in October 2014 and recently relapsed. Patient is single and has 3 sons. Past Drug Use History: None Reported - Past Family History Father Family Medical History: Coronary Artery Disease (CAD) Additional Family Medical History / Comment(s): Father is age 65 and has history of coronary artery disease and depression Mother Additional Family Medical History / Comment(s): Mother is age 59 has clotting disorder. Patient has 1 brother with no major medical problems. She has 3 sons and one has bipolar disorder. General Exam - General Exam Comments Initial Comments: Well-appearing 35-year-old female. Patient does not appear to be in any acute distress. Limitations: no limitations General appearance: alert, in no apparent distress Head exam: Present: atraumatic, normocephalic, normal inspection Eye exam: Present: normal appearance, PERRL, EOMI. Absent: scleral icterus, conjunctival injection, periorbital swelling ENT exam: Present: normal exam, normal oropharynx, mucous membranes moist Neck exam: Present: normal inspection. Absent: tenderness, meningismus, lymphadenopathy Respiratory exam: Present: normal lung sounds bilaterally. Absent: respiratory distress, wheezes, rales, rhonchi, stridor Cardiovascular Exam: Present: regular rate, normal rhythm, normal heart sounds. Absent: systolic murmur, diastolic murmur, rubs, gallop, clicks GI/Abdominal exam: Present: soft, normal bowel sounds. Absent: distended, tenderness, guarding, rebound, rigid Extremities exam: Present: normal inspection, full ROM, normal capillary refill. Absent: tenderness, pedal edema, joint swelling, calf tenderness Back exam: Present: normal inspection Neurological exam: Present: alert, oriented X3, CN II-XII intact Expanded Patient oriented to: Present: person, place, time Speech: Present: fluid speech Cranial nerves: EOM's Intact: Normal, Gag Reflex: Normal, Tongue Deviation: Normal, Facial Sensation: Normal Cerebellar function: Finger to Nose: Normal Upper motor neuron: Pronator Drift: Normal Sensory exam: Upper Extremity Light Touch: Normal, Lower Extremity Light Touch: Normal Motor strength exam: RUE: 5, LUE: 5, RLE: 5, LLE: 5 Eye Response: (4) open spontaneously Motor Response: (6) obeys commands Verbal Response: (5) oriented Julio Total: 15 Psychiatric exam: Present: normal affect, normal mood Skin exam: Present: warm, dry, intact, normal color. Absent: rash Course Vital Signs 08/23/16 08/23/16 18:30 20:00 Temperature 97.0 F L 98.0 F Pulse Rate 71 78 Respiratory 20 18 Rate Blood Pressure 180/110 167/80 O2 Sat by Pulse 98 99 Oximetry Medical Decision Making - Medical Decision Making Is a 35-year-old female history of migraines presenting with 1 day of nausea vomiting and migraine. Patient is given IV fluids, Reglan Benadryl and Toradol. Patient was reevaluated states her headache is much improved. blood pressure was reevaluated and is now 139/86. Patient had a lengthy discussion about appropriate medications for migraines. Discussed she may want a maintenance medication and to follow-up with her neurologist. Patient's neurological deficits or any other concerning signs shortness of time. Patient is comfortable the home. Patient received treatment plan will comply. Return parameters were discussed. Disposition Clinical Impression: Migraine Disposition: HOME SELF-CARE Condition: Good Instructions: Acute Headache (ED) Additional Instructions: Rest, remain hydrated. Follow-up with primary care provider regards to maintenance medications for migraine. Return to emergency Department if any alarming signs or symptoms occur. Referrals: Chidi Bolivar MD [Primary Care Provider] - 1-2 days Time of Disposition: 19:46
[2016-08-23 20:01] VITALS: BP 167/80; PULSE 78; RESP 18; TEMP 98
== END 2016-08-23 20:00 | disposition home or self-care (01) ==
LOC: EC 18:16
DX: G43.909 Migraine, unspecified, not intractable, without status migrainosus (principal); R11.2 Nausea with vomiting, unspecified; F31.9 Bipolar disorder, unspecified; Z87.891 Personal history of nicotine dependence; Z79.899 Other long term (current) drug therapy; Z91.040 Latex allergy status
CPT/HCPCS: 99283; 96374; 96375 ×3; 96361; J1200; J2360; J2765; J1885

== ENCOUNTER 2016-09-19 15:07 | Emergency (ER) | payer OTHER ==
[2016-09-19] MEDS ORDERED: KETOROLAC 60 MG/2 ML VIAL IM STA (15:24)
[2016-09-19] MEDS ORDERED: ORPHENADRINE 30 MG/ML 2 ML VIAL IM STA (15:24)
--- NOTE | 2016-09-19 15:27 | ED ---
Extremity Problem HPI - General Chief complaint: Extremity Problem,Nontraumatic Stated complaint: Right arm numbness/Light headed Time Seen by Provider: 09/19/16 15:17 Source: patient, RN notes reviewed Mode of arrival: ambulatory Limitations: no limitations - History of Present Illness Initial comments: 35-year-old female presents to the emergency room chief complaint of right- sided neck pain with radiation into the right arm. Patient states movement or touch seems to make the pain worse. There is been no nausea or vomiting. She states that is causing a mild headache. Patient states she went to her doctor they said it was a pinched nerve and she was sent home. Patient states it just is not getting any better so she thought that she should be seen. Patient denies any falls traumas or injuries. Patient denies history of this in the past. Patient denies any recent fever, chills, shortness of breath, chest pain, back pain, abdominal pain, nausea vomiting, dysuria or hematuria, constipation or diarrhea, headaches or visual changes, or any other current symptoms. - Related Data Home Medications Medication Instructions Recorded Confirmed [place] Carbonate 300 mg PO DAILY@1200 08/23/16 09/19/16 [place] Carbonate [[place] 450 mg PO BID 08/23/16 09/19/16 Carbonate ER] Naltrexone HCl [Revia] 50 mg PO DAILY 08/23/16 09/19/16 QUEtiapine [SEROquel] 100 mg PO HS 08/23/16 09/19/16 Venlafaxine HCl [Effexor XR] 150 mg PO BID 08/23/16 09/19/16 hydrOXYzine PAMOATE [Vistaril] 25 mg PO TID 08/23/16 09/19/16 Previous Rx's Medication Instructions Recorded Divalproex ER [Depakote ER] 1,000 mg PO HS #60 tab.er.24h 05/15/16 Ibuprofen [Motrin] 600 mg PO Q6HR PRN #20 tab 09/19/16 Orphenadrine [Norflex] 100 mg PO Q12H #10 tablet.er 09/19/16 predniSONE 50 mg PO DAILY #5 tab 09/19/16 Allergies Allergy/AdvReac Type Severity Reaction Status Date / Time latex Allergy Rash/Hives Verified 09/19/16 15:23 Review of Systems ROS Statement: Those systems with pertinent positive or pertinent negative responses have been documented in the HPI. ROS Other: All systems not noted in ROS Statement are negative. Past Medical History Past Medical History: Fibromyalgia, Hypertension Additional Past Medical History / Comment(s): Arnold-Chiari malformation, migraine headaches, irritable bowel syndrome History of Any Multi-Drug Resistant Organisms: None Reported Past Surgical History: Tubal Ligation Additional Past Surgical History / Comment(s): brain sx- 2011 at [facility], uterine ablation Past Psychological History: Bipolar, Depression Smoking Status: Former smoker Past Alcohol Use History: None Reported Additional Past Alcohol Use History / Comment(s): Patient states that she smokes on and off for one pack per month and quit October 2014. She denies any street drugs, medical marijuana, marijuana use. She has history of alcohol abuse and quit drinking in October 2014 and recently relapsed. Patient is single and has 3 sons. Past Drug Use History: None Reported - Past Family History Father Family Medical History: Coronary Artery Disease (CAD) Additional Family Medical History / Comment(s): Father is age 65 and has history of coronary artery disease and depression Mother Additional Family Medical History / Comment(s): Mother is age 59 has clotting disorder. Patient has 1 brother with no major medical problems. She has 3 sons and one has bipolar disorder. General Exam Limitations: no limitations General appearance: alert, in no apparent distress Head exam: Present: atraumatic, normocephalic, normal inspection ENT exam: Present: normal exam, mucous membranes moist Neck exam: Present: normal inspection, tenderness (Right lateral aspect of the neck), full ROM. Absent: lymphadenopathy Respiratory exam: Present: normal lung sounds bilaterally. Absent: respiratory distress, wheezes, rales, rhonchi, stridor Cardiovascular Exam: Present: regular rate, normal rhythm, normal heart sounds. Absent: systolic murmur, diastolic murmur, rubs, gallop, clicks Extremities exam: Present: normal inspection, full ROM, tenderness (Along the top of the right trapezius along the top shoulder with pain with full range of motion to the shoulder of the right.), normal capillary refill. Absent: pedal edema, joint swelling, calf tenderness Neurological exam: Present: alert, oriented X3 Psychiatric exam: Present: normal affect, normal mood Skin exam: Present: warm, dry, intact, normal color. Absent: rash Course Vital Signs 09/19/16 15:09 Temperature 97.3 F L Pulse Rate 78 Respiratory 18 Rate Blood Pressure 136/84 O2 Sat by Pulse 98 Oximetry Medical Decision Making - Medical Decision Making 35-year-old female presents with what appears to be cervical radiculopathy. At this time we'll start her on anti-inflammatories steroids and muscle relaxer home. We discussed close follow-up with her Dr. return parameters all the patient's questions. She stated she understood and she is negative plan. She will be discharged home. - Radiology Data Radiology results: report reviewed, image reviewed Disposition Clinical Impression: Cervical radiculopathy Disposition: HOME SELF-CARE Condition: Stable Instructions: Cervical Radiculopathy (ED) Additional Instructions: Please use medication as discussed. Please follow up with family doctor if symptoms have not improved over the next two days. Please return to the emergency room if your symptoms increase or worsen or for any other concerns. Prescriptions: Ibuprofen [Motrin] 600 mg PO Q6HR PRN #20 tab PRN Reason: Pain Orphenadrine [Norflex] 100 mg PO Q12H #10 tablet.er predniSONE 50 mg PO DAILY #5 tab Referrals: Chidi Bolivar MD [Primary Care Provider] - 1-2 days Time of Disposition: 16:07
--- NOTE | 2016-09-19 15:54 | XR ---
EXAMINATION TYPE: XR cervical spine comp DATE OF EXAM: 09/19/2016 3:43 PM COMPARISON: 05/14/2015 HISTORY: 35-year-old female right arm pain/tingling/numbness TECHNIQUE: 6 views FINDINGS: No predental space widening or prevertebral soft tissue swelling. On the left, there is mild bony neuroforaminal narrowing at C3-C4. On the right, there is mild to mod erate bony neuroforaminal narrowing at C3-C4. This is secondary to facet spurring. Normal odontoid view. There is normal alignment of the cervical spine. IMPRESSION: No acute osseous abnormality seen. Alignment is maintained. There is mild to moderate right C3-C4 travon roforaminal narrowing and mild on the left.
[2016-09-19 16:26] VITALS: BP 174/106; PULSE 83; RESP 20; TEMP 97.1
== END 2016-09-19 16:25 | disposition home or self-care (01) ==
LOC: EC 15:07
DX: M54.12 Radiculopathy, cervical region (principal); R51 Headache; M79.7 Fibromyalgia; I10 Essential (primary) hypertension; K58.9 Irritable bowel syndrome, unspecified; Q07.00 Arnold-Chiari syndrome without spina bifida or hydrocephalus; F31.9 Bipolar disorder, unspecified; Z87.891 Personal history of nicotine dependence; Z79.899 Other long term (current) drug therapy
CPT/HCPCS: 72050; 99283; 96372 ×2; J2360; J1885

== ENCOUNTER → 2016-10-16 | Outpatient (CLI) | payer OTHER ==
[2016-10-16 10:33] LABS: ALT 37 U/L (9-52); AST 21 U/L (14-36); Alkaline Phosphatase 75 U/L (38-126); Anion Gap 7 mmol/L; Blood Urea Nitrogen 14 mg/dL (7-17); Carbon Dioxide 27 mmol/L (22-30); Chloride 109 mmol/L (98-107); Cholesterol 124 mg/dL (<200); Glucose 79 mg/dL (74-99); HDL Cholesterol 39 mg/dL (40-60); Lithium 0.7 mmol/L; Non-African American GFR(MDRD) 57 (>60 ml/min/1.73 sqM); Potassium 4.5 mmol/L (3.5-5.1); Sodium 143 mmol/L (137-145); Total Protein 6.3 g/dL (6.3-8.2); Triglycerides 118 mg/dL (<150)
== END | disposition home or self-care (01) ==
LOC: LABWHC1 07:37
PROVIDERS: ATTEND Internal Medicine Endocrinology, Diabetes & Metabolism
DX: E55.9 Vitamin D deficiency, unspecified (principal); I10 Essential (primary) hypertension; E11.65 Type 2 diabetes mellitus with hyperglycemia; R53.82 Chronic fatigue, unspecified; Z79.899 Other long term (current) drug therapy
CPT/HCPCS: 36415; 80053; 80061; 80164; 80178; 82306; 84443

== ENCOUNTER 2016-11-06 18:09 | Emergency (ER) | payer OTHER ==
--- NOTE | 2016-11-06 20:18 | ED ---
Back Pain HPI - General Chief Complaint: Back Pain/Injury Stated Complaint: lower back pain, rt side Time Seen by Provider: 11/06/16 19:36 Source: patient Limitations: no limitations - History of Present Illness Initial Comments: This is a 35-year-old female with medical history significant for fibromyalgia and chronic pain syndrome presenting to the emergency department with complaints of right sided lumbar back pain. Patient states symptoms started approximately 10 days ago and has progressively gotten worse to the point where she has a difficult time sleeping secondary to pain. Patient currently rates pain 8 out of 10, described as sharp, exacerbated with walking and standing up, relieved with rest. Patient states she is taking Motrin for pain relief and has used a heating pad. No history of fevers, chills, nausea, vomiting, shortness of breath, chest pain, abdominal pain, urinary frequency, dysuria, hematuria. Patient denies urinary fecal incontinence. Patient denies numbness or tingling. Patient denies trauma. - Related Data Home Medications Medication Instructions Recorded Confirmed [place] Carbonate 300 mg PO DAILY@1200 08/23/16 09/19/16 [place] Carbonate [[place] 450 mg PO BID 08/23/16 09/19/16 Carbonate ER] Naltrexone HCl [Revia] 50 mg PO DAILY 08/23/16 09/19/16 QUEtiapine [SEROquel] 100 mg PO HS 08/23/16 09/19/16 Venlafaxine HCl [Effexor XR] 150 mg PO BID 08/23/16 09/19/16 hydrOXYzine PAMOATE [Vistaril] 25 mg PO TID 08/23/16 09/19/16 Cholecalciferol [Vitamin D3] 2,000 unit PO DAILY 09/19/16 09/19/16 Furosemide [Lasix] 10 mg PO DAILY PRN 09/19/16 09/19/16 Losartan Potassium [Cozaar] 100 mg PO DAILY 09/19/16 09/19/16 Previous Rx's Medication Instructions Recorded Divalproex ER [Depakote ER] 1,000 mg PO HS #60 tab.er.24h 05/15/16 Ibuprofen [Motrin] 600 mg PO Q6HR PRN #20 tab 09/19/16 Orphenadrine [Norflex] 100 mg PO Q12H #10 tablet.er 09/19/16 predniSONE 50 mg PO DAILY #5 tab 09/19/16 Ciprofloxacin HCl [Cipro] 500 mg PO Q12HR #13 tablet 11/06/16 Allergies Allergy/AdvReac Type Severity Reaction Status Date / Time latex Allergy Rash/Hives Verified 11/06/16 18:34 Review of Systems ROS Statement: Those systems with pertinent positive or pertinent negative responses have been documented in the HPI. ROS Other: All systems not noted in ROS Statement are negative. Past Medical History Past Medical History: Fibromyalgia, Hypertension Additional Past Medical History / Comment(s): Arnold-Chiari malformation, migraine headaches, irritable bowel syndrome History of Any Multi-Drug Resistant Organisms: None Reported Past Surgical History: Tubal Ligation Additional Past Surgical History / Comment(s): brain sx- 2011 at [facility], uterine ablation Past Psychological History: Bipolar, Depression Smoking Status: Former smoker Past Alcohol Use History: None Reported Past Drug Use History: None Reported - Past Family History Father Family Medical History: Coronary Artery Disease (CAD) Additional Family Medical History / Comment(s): Father is age 65 and has history of coronary artery disease and depression Mother Additional Family Medical History / Comment(s): Mother is age 59 has clotting disorder. Patient has 1 brother with no major medical problems. She has 3 sons and one has bipolar disorder. General Exam Limitations: no limitations General appearance: alert, in no apparent distress Head exam: Present: atraumatic, normocephalic, normal inspection Eye exam: Present: normal appearance. Absent: scleral icterus, conjunctival injection, periorbital swelling, periorbital tenderness ENT exam: Present: normal exam, mucous membranes moist, normal external ear exam Neck exam: Present: normal inspection, full ROM. Absent: tenderness, lymphadenopathy Respiratory exam: Present: normal lung sounds bilaterally. Absent: respiratory distress, wheezes, rales, rhonchi, stridor, chest wall tenderness Cardiovascular Exam: Present: regular rate, tachycardia, normal heart sounds. Absent: systolic murmur GI/Abdominal exam: Present: soft, normal bowel sounds. Absent: tenderness Extremities exam: Present: normal inspection Back exam: Present: full ROM (Painful), CVA tenderness (R), paraspinal tenderness. Absent: CVA tenderness (L), muscle spasm, vertebral tenderness, rash noted Expanded Back exam: Present: other (No foot drop noted). Absent: saddle anesthesia Back exam: Sciatic Notch Tenderness: Right, Negative Straight Leg Raising: Left , Right Neurological exam: Present: alert, oriented X3, abnormal gait, other (No foot drop noted) Psychiatric exam: Present: normal affect, normal mood Skin exam: Present: warm, dry, intact, normal color Course Vital Signs 11/06/16 11/06/16 18:32 21:26 Temperature 98.7 F 97.9 F Pulse Rate 104 H 91 Respiratory 20 18 Rate Blood Pressure 140/98 159/93 O2 Sat by Pulse 99 100 Oximetry Medical Decision Making - Medical Decision Making Urinary tract infection with possibly early pyelonephritis. Patient started on Cipro with first dose given in the emergency department. Patient instructed to increase fluid intake and continue Tylenol or Motrin with warm compresses for pain. Patient instructed to follow-up with primary care physician. Patient instructed to return to the emergency department with any new or worsening symptoms. Patient agrees to treatment plan. Discharged instructions and return parameters reviewed. - Lab Data Lab Results 11/06/16 11/06/16 Range/Units 19:57 19:57 Urine Color Yellow Urine Appearance Cloudy H (Clear) Urine pH 5.5 (5.0-8.0) Ur Specific [place] 1.021 (1.001-1.035) Urine Protein 1+ H (Negative) Urine Glucose (UA) Negative (Negative) Urine Ketones Negative (Negative) Urine Blood Moderate H (Negative) Urine Nitrite Negative (Negative) Urine Bilirubin Negative (Negative) Urine Urobilinogen <2.0 (<2.0) mg/dL Ur Leukocyte Esterase Large H (Negative) Urine RBC 3 (0-5) /hpf Urine WBC 32 H (0-5) /hpf Ur Squamous Epith Cells 28 H (0-4) /hpf Amorphous Sediment Rare H (None) /hpf Urine Bacteria Many H (None) /hpf Urine Mucus Many H (None) /hpf Urine HCG, Qual Not Detected (Not Detectd) - Radiology Data Radiology results: report reviewed X-ray lumbosacral spine: Lumbar vertebrae have normal spacing and alignment. Posterior elements are intact. Sacroiliac joints appear normal. Impression normal lumbar spine. There is 3 mm calcification inferior to the right transverse process of L2 on one view of uncertain significance per radiologist. Disposition Clinical Impression: Urinary tract infection Disposition: HOME SELF-CARE Condition: Good Instructions: Urinary Tract Infection in Women (ED) Additional Instructions: Please antibiotic as prescribed. Increase water intake to 6-8 glasses of water a day. Continue Motrin and heating pads for pain. Please follow-up with primary care physician. Please return to the emergency department with any new or worsening symptoms. Prescriptions: Ciprofloxacin HCl [Cipro] 500 mg PO Q12HR #13 tablet Referrals: Chidi Bolivar MD [Primary Care Provider] - 1-2 days Time of Disposition: 21:19
[2016-11-06 20:27] LABS: Amorphous Sediment,Urine Rare /hpf; Appearance,Urine Cloudy (Clear); Bacteria,Urine Many /hpf; Bilirubin,Urine Negative (Negative); Glucose,Urine (UA) Negative (Negative); Ketones,Urine Negative (Negative); Leukocyte Esterase,Urine Large (Negative); Mucus,Urine Many /hpf; Nitrite,Urine Negative (Negative); PH, Urine 5.5 (5.0-8.0); Particle Count 30364; Protein,Urine 1+ (Negative); RBC,Urine 3 /hpf (0-5); Specific Gravity,Urine 1.021 (1.001-1.035); Squamous Epithelial Cell,Urine 28 /hpf (0-4); UA Billing (MACRO vs. MICRO) MICRO; Urobilinogen,Urine <2.0 mg/dL (<2.0); WBC,Urine 32 /hpf (0-5)
--- NOTE | 2016-11-06 21:01 | XR ---
EXAMINATION TYPE: XR lumbosacral spine min 4V DATE OF EXAM: 11/06/2016 COMPARISON: NONE HISTORY: Back pain TECHNIQUE: 5 views FINDINGS: Lumbar vertebra have normal spacing and alignment. Posterior elements are intact. Sacroilia c joints appear normal. IMPRESSION: Normal lumbar spine. There is a 3 mm calcification inferior to the right transverse process of L2 on one view of uncertain significance.
[2016-11-06] MEDS ORDERED: CIPROFLOXACIN HCL 500 MG TAB PO STA (21:15)
[2016-11-06 21:27] VITALS: BP 159/93; PULSE 91; RESP 18; TEMP 97.9
== END 2016-11-06 21:28 | disposition home or self-care (01) ==
LOC: EC 18:09
DX: N39.0 Urinary tract infection, site not specified (principal); G89.4 Chronic pain syndrome; M79.7 Fibromyalgia; F31.9 Bipolar disorder, unspecified; I10 Essential (primary) hypertension; Z87.891 Personal history of nicotine dependence; Z79.891 Long term (current) use of opiate analgesic; Z79.899 Other long term (current) drug therapy; Z91.040 Latex allergy status
CPT/HCPCS: 72110; 81001; 81025; 87086; 99283

== ENCOUNTER → 2016-11-24 | Outpatient (CLI) | payer OTHER ==
--- NOTE | 2016-11-24 16:49 | US ---
EXAMINATION TYPE: US kidneys/renal and bladder DATE OF EXAM: 11/24/2016 COMPARISON: CT CLINICAL HISTORY: R10.9 ABD PAIN. rt flank pain EXAM MEASUREMENTS: Right Kidney: 11.0 x 4.1 x 5.2 cm Left Kidney: 10.0 x 5.0 x 5.2 cm Right Kidney: No hydronephrosis or masses seen Left Kidney: No hydronephrosis or masses seenlower pole partially obscured by bowel Bladder: wnl Bilateral Jets seen: Yes There is no evidence for hydronephrosis at this point in time. No nephrolithiasis is seen. No jorge a s are identified. The urinary bladder is anechoic. Bilateral ureteral jets are seen. IMPRESSION: Unremarkable study
== END | disposition home or self-care (01) ==
LOC: RADUSWWP 15:05
PROVIDERS: ATTEND Family Medicine
DX: R10.9 Unspecified abdominal pain (principal)
CPT/HCPCS: 76770

== ENCOUNTER → 2016-11-30 | Outpatient (CLI) | payer OTHER ==
[2016-11-30 10:55] LABS: Blood Urea Nitrogen 18 mg/dL (7-17); Lithium 0.2 mmol/L; Non-African American GFR(MDRD) >60 (>60 ml/min/1.73 sqM)
== END | disposition home or self-care (01) ==
LOC: LABWHC1 07:22
PROVIDERS: ATTEND Nurse Practitioner Family
DX: Z51.81 Encounter for therapeutic drug level monitoring (principal); Z79.899 Other long term (current) drug therapy
CPT/HCPCS: 36415; 80164; 80178; 82565; 84520

== ENCOUNTER 2017-01-13 08:34 | Emergency (ER) | payer OTHER ==
[2017-01-13] MEDS ORDERED: cloNIDine HCL 0.1 MG TAB PO STA (09:17)
--- NOTE | 2017-01-13 09:18 | ED ---
General Adult HPI - General Chief complaint: Extremity Injury, Lower Stated complaint: R ankle injury Time Seen by Provider: 01/13/17 08:59 Source: patient, RN notes reviewed Mode of arrival: ambulatory Limitations: no limitations - History of Present Illness Initial comments: Patient 36-year-old female who presents emergency room today with a chief complaint of right ankle pain. Patient states that she was walking out of her house yesterday twisted her right ankle. This pain to the lateral and medial aspect. Denies any other complaints or symptoms at this time. Patient admits to history of hypertension. Patient denies any recent fever, chills, shortness of breath, chest pain, back pain, abdominal pain, nausea or vomiting, numbness or tingling, dysuria or hematuria, constipation or diarrhea, headaches or visual changes, or any other complaints. - Related Data Home Medications Medication Instructions Recorded Confirmed [place] Carbonate 300 mg PO DAILY@1200 08/23/16 01/13/17 Bland Carbonate [Bland 450 mg PO BID 08/23/16 01/13/17 Carbonate ER] Naltrexone HCl [Revia] 50 mg PO DAILY 08/23/16 01/13/17 QUEtiapine [SEROquel] 100 mg PO HS 08/23/16 01/13/17 Venlafaxine HCl [Effexor XR] 150 mg PO BID 08/23/16 01/13/17 hydrOXYzine PAMOATE [Vistaril] 25 mg PO TID 08/23/16 01/13/17 Cholecalciferol [Vitamin D3] 2,000 unit PO DAILY 09/19/16 01/13/17 Furosemide [Lasix] 10 mg PO DAILY PRN 09/19/16 01/13/17 Losartan Potassium [Cozaar] 100 mg PO DAILY 09/19/16 01/13/17 Previous Rx's Medication Instructions Recorded Divalproex ER [Depakote ER] 1,000 mg PO HS #60 tab.er.24h 05/15/16 Ibuprofen [Motrin] 600 mg PO Q6HR PRN #20 tab 09/19/16 Orphenadrine [Norflex] 100 mg PO Q12H #10 tablet.er 09/19/16 Ibuprofen [Motrin] 600 mg PO Q6HR PRN #40 day 01/13/17 Allergies Allergy/AdvReac Type Severity Reaction Status Date / Time latex Allergy Rash/Hives Verified 01/13/17 09:02 Review of Systems ROS Statement: Those systems with pertinent positive or pertinent negative responses have been documented in the HPI. ROS Other: All systems not noted in ROS Statement are negative. Past Medical History Past Medical History: Fibromyalgia, Hypertension Additional Past Medical History / Comment(s): Arnold-Chiari malformation, migraine headaches, irritable bowel syndrome History of Any Multi-Drug Resistant Organisms: None Reported Past Surgical History: Tubal Ligation Additional Past Surgical History / Comment(s): brain sx- 2011 at [facility], uterine ablation Past Psychological History: Bipolar, Depression Smoking Status: Former smoker Past Alcohol Use History: None Reported Past Drug Use History: None Reported - Past Family History Father Family Medical History: Coronary Artery Disease (CAD) Additional Family Medical History / Comment(s): Father is age 65 and has history of coronary artery disease and depression Mother Additional Family Medical History / Comment(s): Mother is age 59 has clotting disorder. Patient has 1 brother with no major medical problems. She has 3 sons and one has bipolar disorder. General Exam - General Exam Comments Initial Comments: General: The patient is awake and alert, in no distress, and does not appear acutely ill. Neck: The neck is supple, there is no tenderness or JVD. Cardiovascular: There is a regular rate and rhythm. No murmur, rub or gallop is appreciated. Respiratory: Lungs are clear to auscultation, respirations are non-labored, breath sounds are equal. No wheezes, stridor, rales, or rhonchi. Musculoskeletal: Patient does have moderate swelling to the lateral aspect of the right ankle. She shows limited range of motion with both plantar and dorsiflexion due to pain. She does have tenderness over both medial and lateral malleolus. Mild tenderness over the fibular head and no tenderness on the right foot. Sensations intact with pulses equal bilaterally 2+. Neurological: A&O x 3. CN II-XII intact, There are no obvious motor or sensory deficits. Coordination appears grossly intact. Speech is normal. Skin: Skin is warm and dry and no rashes or lesions are noted. Psychiatric: Normal mood and affect. Limitations: no limitations Course Vital Signs 01/13/17 01/13/17 01/13/17 08:45 08:52 10:00 Temperature 98.0 F Pulse Rate 91 Respiratory 18 Rate Blood Pressure 211/131 175/102 213/119 O2 Sat by Pulse 99 Oximetry Medical Decision Making - Medical Decision Making X-ray reviewed negative for any acute fracture dislocation. Results were discussed with the patient. Patient's blood pressure just with patient given ankle brace here in emergency room and advised follow-up family doctor or orthopedics in 710 days for repeat x-rays symptoms persist. Advised continued ice elevate the affected area. Advised follow-up the family doctor states she has an appointment tomorrow. Advised to discuss blood pressure.Please use medication as discussed. Please follow-up with family doctor in the next 2 days of symptoms have not improved. Please return to emergency room if the symptoms increase or worsen or for any other concerns. States understanding and is in agreement. Disposition Clinical Impression: Ankle sprain, Hypertension Disposition: HOME SELF-CARE Condition: Good Instructions: Ankle Sprain (ED) Additional Instructions: Please follow-up with family doctor about blood pressure with your appointment tomorrow. Please follow-up the family doctor or orthopedics in 7-10 days if symptoms persist right ankle pain for repeat x-rays as discussed. Please continue to ice elevate and use brace when up and moving around. Please do not sleep with brace on. Please return for any other concerns Prescriptions: Ibuprofen [Motrin] 600 mg PO Q6HR PRN #40 day PRN Reason: Pain Referrals: Chidi Bolivar MD [Primary Care Provider] - 1-2 days Tray Kathleen MD [STAFF PHYSICIAN] - 1-2 days Time of Disposition: 10:19
--- NOTE | 2017-01-13 09:38 | XR ---
Right ankle and right leg HISTORY: Trauma and pain 3 views of the right ankle, 2 views of the right leg submitted on a total of 5 images. There is soft tissue swelling of the right ankle and right leg. Small ossific fragments are present d istal to the medial malleolus which are well corticated and not felt likely to be acute. Alignment an d bone mineralization are maintained. Spurring present at the tibiotalar joint and talar neck. Planta r calcaneal spur is noted. Difficult to exclude a small loose body on the oblique view of the ankle. IMPRESSION: No acute fracture or dislocation. Osteoarthritis may be due to remote trauma. Plantar stacey caneal spur. Possible loose bodies
[2017-01-13 10:24] VITALS: BP 180/103; PULSE 77; RESP 20; TEMP 98
== END 2017-01-13 10:36 | disposition home or self-care (01) ==
LOC: EC 08:34
DX: S93.401A Sprain of unspecified ligament of right ankle, initial encounter (principal); I10 Essential (primary) hypertension; F31.9 Bipolar disorder, unspecified; Z86.69 Personal history of other diseases of the nervous system and sense organs; Z98.890 Other specified postprocedural states; Z87.891 Personal history of nicotine dependence; Z79.899 Other long term (current) drug therapy; Z91.040 Latex allergy status; X50.1XXA Overexertion from prolonged static or awkward postures, initial encounter; Y93.01 Activity, walking, marching and hiking
CPT/HCPCS: 73590; 73610; 99283; L4350

== ENCOUNTER 2017-01-30 08:11 | Emergency (ER) | payer OTHER ==
[2017-01-30 08:18] VITALS: TEMP 98
[2017-01-30] MEDS ORDERED: LORazepam 1 MG TAB PO STA (08:35)
--- NOTE | 2017-01-30 08:38 | ED ---
General Adult HPI - General Chief complaint: Recheck/Abnormal Lab/Rx Stated complaint: HIGH BLOOD PRESSURE Time Seen by Provider: 01/30/17 08:15 Source: patient, RN notes reviewed Mode of arrival: wheelchair Limitations: no limitations - History of Present Illness Initial comments: This is a 36-year-old female who presents to the emergency department stating that she is under quite a bit of stress is having quite a bit of anxiety. Patient states she woke up throughout the night and kept taking her blood pressure was mildly high in the next time she took it was higher than expected was even higher and she believes it was related to the fact that she was becoming more and more anxious. Patient states she has a mild headache but it which is typical when she has high blood pressure. Patient states she had no chest pain no difficulty breathing or shortness of breath. Patient denies any recent fever chills or cough. Patient denies any numbness weakness. Patient denies any lightheadedness dizziness or near syncopal episode. Patient denies any abdominal pain patient denies nausea vomiting diarrhea. - Related Data Home Medications Medication Instructions Recorded Confirmed [place] Carbonate 300 mg PO DAILY@1200 08/23/16 01/13/17 [place] Carbonate [[place] 450 mg PO BID 08/23/16 01/13/17 Carbonate ER] Naltrexone HCl [Revia] 50 mg PO DAILY 08/23/16 01/13/17 QUEtiapine [SEROquel] 100 mg PO HS 08/23/16 01/13/17 Venlafaxine HCl [Effexor XR] 150 mg PO BID 08/23/16 01/13/17 hydrOXYzine PAMOATE [Vistaril] 25 mg PO TID 08/23/16 01/13/17 Cholecalciferol [Vitamin D3] 2,000 unit PO DAILY 09/19/16 01/13/17 Furosemide [Lasix] 10 mg PO DAILY PRN 09/19/16 01/13/17 Losartan Potassium [Cozaar] 100 mg PO DAILY 09/19/16 01/13/17 Previous Rx's Medication Instructions Recorded Divalproex ER [Depakote ER] 1,000 mg PO HS #60 tab.er.24h 05/15/16 Ibuprofen [Motrin] 600 mg PO Q6HR PRN #20 tab 09/19/16 Orphenadrine [Norflex] 100 mg PO Q12H #10 tablet.er 09/19/16 Ibuprofen [Motrin] 600 mg PO Q6HR PRN #40 day 01/13/17 Allergies Allergy/AdvReac Type Severity Reaction Status Date / Time latex Allergy Rash/Hives Verified 01/30/17 08:18 Review of Systems ROS Statement: Those systems with pertinent positive or pertinent negative responses have been documented in the HPI. ROS Other: All systems not noted in ROS Statement are negative. Past Medical History Past Medical History: Fibromyalgia, Hypertension Additional Past Medical History / Comment(s): Arnold-Chiari malformation, migraine headaches, irritable bowel syndrome History of Any Multi-Drug Resistant Organisms: None Reported Past Surgical History: Tubal Ligation Additional Past Surgical History / Comment(s): brain sx- [address] [facility], uterine ablation Past Psychological History: Bipolar, Depression Smoking Status: Former smoker Past Alcohol Use History: None Reported Past Drug Use History: None Reported - Past Family History Father Family Medical History: Coronary Artery Disease (CAD) Additional Family Medical History / Comment(s): Father is age 65 and has history of coronary artery disease and depression Mother Additional Family Medical History / Comment(s): Mother is age 59 has clotting disorder. Patient has 1 brother with no major medical problems. She has 3 sons and one has bipolar disorder. General Exam - General Exam Comments Initial Comments: GENERAL: Patient is well-developed and well-nourished. Patient is nontoxic and well- hydrated and is in no acute distress. ENT: Neck is soft and supple. No significant lymphadenopathy is noted. Oropharynx is clear. Moist mucous membranes. Neck has full range of motion without eliciting any pain. EYES: The sclera were anicteric and conjunctiva were pink and moist. Extraocular movements were intact and pupils were equal round and reactive to light. Eyelids were unremarkable. PULMONARY: Unlabored respirations. Good breath sounds bilaterally. No audible rales rhonchi or wheezing was noted. CARDIOVASCULAR: There is a regular rate and rhythm without any murmurs gallops or rubs. ABDOMEN: Soft and nontender with normal bowel sounds. No palpable organomegaly was noted. There is no palpable pulsatile mass. SKIN: Skin is clear with no lesions or rashes and otherwise unremarkable. NEUROLOGIC: Patient is alert and oriented x3. Cranial nerves II through XII are grossly intact. Motor and sensory are also intact. Normal speech, volume and content. Symmetrical smile. MUSCULOSKELETAL: Normal extremities with adequate strength and full range of motion. No lower extremity swelling or edema. No calf tenderness. LYMPHATICS: No significant lymphadenopathy is noted PSYCHIATRIC: Patient is moderately anxious Limitations: no limitations Course Vital Signs 01/30/17 01/30/17 01/30/17 08:16 08:23 09:16 Temperature 98.0 F Pulse Rate 82 89 Respiratory 18 16 20 Rate Blood Pressure 186/122 139/83 178/111 O2 Sat by Pulse 99 98 Oximetry Medical Decision Making - Medical Decision Making EKG shows normal sinus rhythm at 75 bpm LA interval is 150 QRS is 92 QT interval 398 QTC is 444. Patient's EKG shows some slight T-wave inversions in precordial leads. - Lab Data Result diagrams: 01/30/17 09:19 01/30/17 09:19 Lab Results 01/30/17 01/30/17 01/30/17 Range/Units 09:19 09:19 09:19 WBC 8.9 (3.8-10.6) k/uL RBC 4.57 (3.80-5.40) m/uL Hgb 15.7 (11.4-16.0) gm/dL Hct 44.5 (34.0-46.0) % MCV 97.5 (80.0-100.0) fL MCH 34.4 (25.0-35.0) pg MCHC 35.3 (31.0-37.0) g/dL RDW 14.7 (11.5-15.5) % Plt Count 279 (150-450) k/uL Neutrophils % 60 % Lymphocytes % 27 % Monocytes % 5 % Eosinophils % 5 % Basophils % 1 % Neutrophils # 5.3 (1.3-7.7) k/uL Lymphocytes # 2.4 (1.0-4.8) k/uL Monocytes # 0.4 (0-1.0) k/uL Eosinophils # 0.4 (0-0.7) k/uL Basophils # 0.1 (0-0.2) k/uL Sodium 144 (137-145) mmol/L Potassium 3.7 (3.5-5.1) mmol/L Chloride 108 H (98-107) mmol/L Carbon Dioxide 21 L (22-30) mmol/L Anion Gap 15 mmol/L BUN 12 (7-17) mg/dL Creatinine 0.80 (0.52-1.04) mg/dL Est GFR (MDRD) Af Amer >60 (>60 ml/min/1.73 sqM) Est GFR (MDRD) Non-Af >60 (>60 ml/min/1.73 sqM) Glucose 126 H (74-99) mg/dL Calcium 9.1 (8.4-10.2) mg/dL Magnesium 1.7 (1.6-2.3) mg/dL Total Bilirubin 1.0 (0.2-1.3) mg/dL AST 34 (14-36) U/L ALT 73 H (9-52) U/L Alkaline Phosphatase 84 (38-126) U/L Total Creatine Kinase 91 (30-135) U/L CK-MB (CK-2) 1.1 (0.0-2.4) ng/mL CK-MB (CK-2) Rel Index 1.2 Troponin I <0.012 (0.000-0.034) ng/mL Total Protein 7.3 (6.3-8.2) g/dL Albumin 4.2 (3.5-5.0) g/dL Disposition Clinical Impression: Anxiety, History of hypertension Disposition: HOME SELF-CARE Condition: Good Instructions: Anxiety (ED) Referrals: Chidi Bolivar MD [Primary Care Provider] - 1-2 days Time of Disposition: 11:03
[2017-01-30 09:43] LABS: Basophils # (A) 0.1 k/uL (0-0.2); Basophils % (A) 1 %; CH 34.4; CHCM 35.5; Eosinophils # (A) 0.4 k/uL (0-0.7); Eosinophils % (A) 5 %; HCT 44.5 % (34.0-46.0); HDW 3.07; HGB 15.7 gm/dL (11.4-16.0); Luc % (Auto) 2; Lymphocytes # (A) 2.4 k/uL (1.0-4.8); Lymphocytes % (A) 27 %; MCH 34.4 pg (25.0-35.0); MCHC 35.3 g/dL (31.0-37.0); MCV 97.5 fL (80.0-100.0); Monocytes # (A) 0.4 k/uL (0-1.0); Monocytes % (A) 5 %; Neutrophils # (A) 5.3 k/uL (1.3-7.7); Neutrophils % (A) 60 %; RBC 4.57 m/uL (3.80-5.40); RDW 14.7 % (11.5-15.5); WBC 8.9 k/uL (3.8-10.6); WBC (Perox) 8.56
[2017-01-30 09:47] LABS: ALT 73 U/L (9-52); AST 34 U/L (14-36); Alkaline Phosphatase 84 U/L (38-126); Anion Gap 15 mmol/L; Blood Urea Nitrogen 12 mg/dL (7-17); Calcium 9.1 mg/dL (8.4-10.2); Carbon Dioxide 21 mmol/L (22-30); Chloride 108 mmol/L (98-107); Glucose 126 mg/dL (74-99); Magnesium 1.7 mg/dL (1.6-2.3); Non-African American GFR(MDRD) >60 (>60 ml/min/1.73 sqM); Potassium 3.7 mmol/L (3.5-5.1); Sodium 144 mmol/L (137-145); Total Protein 7.3 g/dL (6.3-8.2)
[2017-01-30 09:59] LABS: Creatine Kinase 91 U/L (30-135)
[2017-01-30 10:11] LABS: Creatine Kinase MB 1.1 ng/mL (0.0-2.4); Troponin I <0.012 ng/mL (0.000-0.034)
[2017-01-30 11:05] VITALS: RESP 18
[2017-01-30 11:06] VITALS: BP 140/82; PULSE 88
== END 2017-01-30 11:11 | disposition home or self-care (01) ==
LOC: EC 08:11
DX: F41.9 Anxiety disorder, unspecified (principal); I10 Essential (primary) hypertension; F31.9 Bipolar disorder, unspecified; Z91.040 Latex allergy status; Z79.899 Other long term (current) drug therapy; Z87.891 Personal history of nicotine dependence
CPT/HCPCS: 36415; 80053; 82550; 82553; 83735; 84484; 85025; 93005; 99283

== ENCOUNTER → 2017-03-18 | Outpatient (CLI) | payer OTHER ==
--- NOTE | 2017-03-18 13:23 | CT ---
EXAMINATION TYPE: CT abdomen wo/w con DATE OF EXAM: 03/18/2017 COMPARISON: 11/04/2015 INDICATION: Hypertension DLP: 3843.5 mGycm, Automated exposure control for dose reduction was used. CONTRAST: 100 mL of Omnipaque 300. Study performed with Oral Contrast TECHNIQUE: Axial images are obtained from above the diaphragm to the iliac crests. Images were obtain ed at 5 mm thick sections. Pre and postcontrast imaging is performed. Delayed images were obtained. A drenal gland protocol was utilized. FINDINGS: Limited CT sections are obtained the lung bases. The lung bases are clear. CT ABDOMEN: Adrenal glands: The adrenal glands are normal. No masses are evident. No hyperdense or hypodense lesi ons are evident. No suspicious enhancement is evident. Findings appear stable from 11/04/2015. Liver: There is diminished density within the liver compatible with moderate fatty infiltration liver . No discrete masses or cysts are evident. Spleen: Normal Pancreas: Normal Gallbladder: Normal Kidneys: No masses are evident. No hydronephrosis is present. No cysts are present. Delayed images were obtained through the kidneys, which remain unremarkable. Aorta: Normal Inferior vena cava: Normal. Loops of bowel distended with oral contrast within the abdomen and pelvis appear normal. The appendix appears normal within the [id number]. There are loops of bowel lacking oral contrast limiting the ir evaluation. IMPRESSIONS: 1. Normal adrenal glands. 2. Moderate fatty infiltration liver.
== END | disposition home or self-care (01) ==
LOC: RADCTMAIN 07:33
PROVIDERS: ATTEND Internal Medicine Cardiovascular Disease
DX: I10 Essential (primary) hypertension (principal); K76.0 Fatty (change of) liver, not elsewhere classified; Z91.040 Latex allergy status
CPT/HCPCS: 74170; Q9967

== ENCOUNTER 2017-04-20 08:49 | Emergency (ER) | payer OTHER ==
[2017-04-20] MEDS ORDERED: METOCLOPRAMIDE 5 MG/ML 2 ML VIAL IVP STA (09:01)
[2017-04-20] MEDS ORDERED: KETOROLAC 30 MG/ML 1 ML VIAL IVP STA (09:01)
[2017-04-20] MEDS ORDERED: ORPHENADRINE 30 MG/ML 2 ML VIAL IVP STA (09:01)
[2017-04-20] MEDS ORDERED: SODIUM CHLORIDE 0.9% 500 ML IV ONE (09:01)
[2017-04-20] MEDS ORDERED: diphenhydrAMINE 50 MG/ML 1 ML VIAL IVP STA (09:01)
--- NOTE | 2017-04-20 09:03 | ED ---
Headache HPI - General Chief Complaint: Headache Stated Complaint: headache Time Seen by Provider: 04/20/17 08:56 Source: patient, RN notes reviewed Mode of arrival: ambulatory Limitations: no limitations - History of Present Illness Initial Comments: This is a 36-year-old female presents emergency Department with chief complaint migraine headache. Patient has chronic headaches and states that she's had surgery for Chiari malformation and thousand 13. Patient denies any fever, chills, dizziness, chest pain, shortness breath. She states she had she has a typical migraine headache not the worst headache of her life. She has not tried taking anything for for for the headache. She does not the some photophobia and nausea. Denies any focal weakness. - Related Data Home Medications Medication Instructions Recorded Confirmed [place] Carbonate 300 mg PO DAILY@1200 08/23/16 04/20/17 Percival Carbonate [Percival 450 mg PO BID 08/23/16 04/20/17 Carbonate ER] Naltrexone HCl [Revia] 50 mg PO DAILY 08/23/16 04/20/17 QUEtiapine [SEROquel] 100 mg PO HS 08/23/16 04/20/17 Venlafaxine HCl [Effexor XR] 150 mg PO BID 08/23/16 04/20/17 hydrOXYzine PAMOATE [Vistaril] 25 mg PO TID 08/23/16 04/20/17 Cholecalciferol [Vitamin D3] 2,000 unit PO DAILY 09/19/16 04/20/17 Furosemide [Lasix] 10 mg PO DAILY PRN 09/19/16 04/20/17 Losartan Potassium [Cozaar] 100 mg PO DAILY 09/19/16 04/20/17 Previous Rx's Medication Instructions Recorded Divalproex ER [Depakote ER] 1,000 mg PO HS #60 tab.er.24h 05/15/16 Orphenadrine [Norflex] 100 mg PO Q12H #10 tablet.er 09/19/16 Ibuprofen [Motrin] 600 mg PO Q6HR PRN #40 day 01/13/17 Allergies Allergy/AdvReac Type Severity Reaction Status Date / Time latex Allergy Rash/Hives Verified 04/20/17 08:55 Review of Systems ROS Statement: Those systems with pertinent positive or pertinent negative responses have been documented in the HPI. ROS Other: All systems not noted in ROS Statement are negative. Past Medical History Past Medical History: Fibromyalgia, Hypertension Additional Past Medical History / Comment(s): Arnold-Chiari malformation, migraine headaches, irritable bowel syndrome History of Any Multi-Drug Resistant Organisms: None Reported Past Surgical History: Tubal Ligation Additional Past Surgical History / Comment(s): brain sx- 2011 at [facility], uterine ablation Past Psychological History: Bipolar, Depression Smoking Status: Former smoker Past Alcohol Use History: None Reported Past Drug Use History: None Reported - Past Family History Father Family Medical History: Coronary Artery Disease (CAD) Additional Family Medical History / Comment(s): Father is age 65 and has history of coronary artery disease and depression Mother Additional Family Medical History / Comment(s): Mother is age 59 has clotting disorder. Patient has 1 brother with no major medical problems. She has 3 sons and one has bipolar disorder. General Exam Limitations: no limitations General appearance: alert, in no apparent distress Head exam: Present: atraumatic, normocephalic, normal inspection Eye exam: Present: normal appearance, PERRL, EOMI. Absent: scleral icterus, conjunctival injection, periorbital swelling ENT exam: Present: normal exam, normal oropharynx, mucous membranes moist, TM's normal bilaterally, normal external ear exam Neck exam: Present: full ROM. Absent: normal inspection (Old posterior neck scar noted), tenderness, meningismus, lymphadenopathy Respiratory exam: Present: normal lung sounds bilaterally. Absent: respiratory distress, wheezes, rales, rhonchi, stridor Cardiovascular Exam: Present: regular rate, normal rhythm, normal heart sounds. Absent: systolic murmur, diastolic murmur, rubs, gallop, clicks Extremities exam: Present: normal inspection, full ROM, normal capillary refill. Absent: tenderness, pedal edema, joint swelling, calf tenderness Back exam: Present: full ROM. Absent: tenderness Neurological exam: Present: alert, oriented X3, CN II-XII intact, reflexes normal, other (Finger to nose intact bilaterally without over shooting). Absent : motor sensory deficit Skin exam: Present: warm, dry, intact, normal color. Absent: rash Course Vital Signs 04/20/17 08:52 Temperature 97.0 F L Pulse Rate 82 Respiratory 18 Rate Blood Pressure 171/92 O2 Sat by Pulse 100 Oximetry Medical Decision Making - Medical Decision Making 36-year-old female presented from for headache. Patient states she feels improved at this time. Patient will be discharged. Disposition Clinical Impression: Migraine Disposition: HOME SELF-CARE Condition: Stable Instructions: Acute Headache (ED) Additional Instructions: Please return to the Emergency Department if symptoms worsen or any other concerns. Referrals: Chidi Bolivar MD [Primary Care Provider] - 1-2 days Time of Disposition: 10:14
[2017-04-20 10:28] VITALS: BP 168/100; PULSE 66; RESP 20; TEMP 97
== END 2017-04-20 10:28 | disposition home or self-care (01) ==
LOC: EC 08:49
DX: G43.909 Migraine, unspecified, not intractable, without status migrainosus (principal); I10 Essential (primary) hypertension; F32.9 Major depressive disorder, single episode, unspecified; Z87.891 Personal history of nicotine dependence; Z98.890 Other specified postprocedural states; Z79.899 Other long term (current) drug therapy; Z91.040 Latex allergy status
CPT/HCPCS: 99283; 96374; 96375 ×3; 96361; J1200; J2360; J2765; J1885

== ENCOUNTER → 2017-05-14 | Outpatient (CLI) | payer OTHER ==
[2017-05-14 08:44] VITALS: PULSE 76; RESP 16; TEMP 97.6
[2017-05-14 08:54] VITALS: BP 202/107
== END | disposition home or self-care (01) ==
LOC: PROCWHC3 07:52
PROVIDERS: ATTEND Internal Medicine Cardiovascular Disease
DX: I10 Essential (primary) hypertension (principal)
CPT/HCPCS: 82533; 36415; G0463; 82384; 99213

== ENCOUNTER 2017-05-19 00:55 | Emergency (ER) | payer OTHER ==
[2017-05-19 01:04] VITALS: RESP 20
[2017-05-19] MEDS ORDERED: IPRATROPIUM-ALBUTEROL 3 ML NEB INHALATION STA (01:20)
--- NOTE | 2017-05-19 01:30 | XR ---
EXAMINATION TYPE: XR chest 2V DATE OF EXAM: 05/19/2017 COMPARISON: NONE HISTORY: Cough and chest pain TECHNIQUE: Frontal and lateral views of the chest are obtained. FINDINGS: Heart and mediastinum are normal. Lungs are clear. Costophrenic angles are clear. Bony tho rax is intact. The pulmonary vascularity is normal. IMPRESSION: Normal chest
--- NOTE | 2017-05-19 01:38 | ED ---
URI HPI - General Chief Complaint: Upper Respiratory Infection Stated Complaint: ASAD Time Seen by Provider: 05/19/17 01:15 Source: patient, RN notes reviewed Mode of arrival: ambulatory Limitations: no limitations - History of Present Illness Initial Comments: This a 36-year-old female presents emergency Department chief complaint of cough congestion shortness with the last 4 days. Patient states that she is progressively getting worse cough is productive with phlegm. She denies any known fever chills or body aches. Patient's has not had any known exposure to influenza. Patient points of ear pressure, facial pressure and sore throat. Patient has not tried any [id number] cough and cold medications. Patient offers no other complaints at this time. - Related Data Home Medications Medication Instructions Recorded Confirmed [place] Carbonate 300 mg PO DAILY@1200 08/23/16 05/14/17 [place] Carbonate [[place] 450 mg PO BID 08/23/16 05/14/17 Carbonate ER] Naltrexone HCl [Revia] 50 mg PO DAILY 08/23/16 05/14/17 QUEtiapine [SEROquel] 100 mg PO HS 08/23/16 05/14/17 Venlafaxine HCl [Effexor XR] 150 mg PO BID 08/23/16 05/14/17 hydrOXYzine PAMOATE [Vistaril] 25 mg PO TID 08/23/16 05/14/17 Cholecalciferol [Vitamin D3] 2,000 unit PO DAILY 09/19/16 05/14/17 Furosemide [Lasix] 10 mg PO DAILY PRN 09/19/16 05/14/17 Losartan Potassium [Cozaar] 100 mg PO DAILY 09/19/16 05/14/17 Previous Rx's Medication Instructions Recorded Divalproex ER [Depakote ER] 1,000 mg PO HS #60 tab.er.24h 05/15/16 Orphenadrine [Norflex] 100 mg PO Q12H #10 tablet.er 09/19/16 Ibuprofen [Motrin] 600 mg PO Q6HR PRN #40 day 01/13/17 Levofloxacin [Levaquin] 500 mg PO DAILY #10 tab 05/19/17 predniSONE 50 mg PO DAILY #3 tab 05/19/17 Allergies Allergy/AdvReac Type Severity Reaction Status Date / Time latex Allergy Rash/Hives Verified 05/19/17 01:04 Review of Systems ROS Statement: Those systems with pertinent positive or pertinent negative responses have been documented in the HPI. ROS Other: All systems not noted in ROS Statement are negative. Past Medical History Past Medical History: Fibromyalgia, Hypertension Additional Past Medical History / Comment(s): Arnold-Chiari malformation, migraine headaches, irritable bowel syndrome History of Any Multi-Drug Resistant Organisms: None Reported Past Surgical History: Tubal Ligation Additional Past Surgical History / Comment(s): brain sx- 2011 at [facility], uterine ablation Past Psychological History: Bipolar, Depression Smoking Status: Former smoker Past Alcohol Use History: None Reported Past Drug Use History: None Reported - Past Family History Father Family Medical History: Coronary Artery Disease (CAD) Additional Family Medical History / Comment(s): Father is age 65 and has history of coronary artery disease and depression Mother Additional Family Medical History / Comment(s): Mother is age 59 has clotting disorder. Patient has 1 brother with no major medical problems. She has 3 sons and one has bipolar disorder. General Exam Limitations: no limitations General appearance: alert, in no apparent distress Head exam: Present: atraumatic, normocephalic, normal inspection Eye exam: Present: normal appearance, PERRL, EOMI. Absent: scleral icterus, conjunctival injection, periorbital swelling ENT exam: Present: mucous membranes moist, other (Sinus tenderness). Absent: normal oropharynx (Postnasal drainage ) Neck exam: Present: normal inspection, full ROM. Absent: tenderness, meningismus, lymphadenopathy Respiratory exam: Present: rhonchi (On the right mid to lower). Absent: respiratory distress, wheezes, rales, stridor Cardiovascular Exam: Present: regular rate, normal rhythm, normal heart sounds. Absent: systolic murmur, diastolic murmur, rubs, gallop, clicks Skin exam: Present: warm, dry, intact, normal color. Absent: rash Course Vital Signs 05/19/17 01:00 Temperature 98.9 F Pulse Rate 100 Respiratory 20 Rate Blood Pressure 198/96 O2 Sat by Pulse 99 Oximetry Medical Decision Making - Medical Decision Making 36-year-old female presents emergency Department chief complaint of cough congestion. Chest x-ray shows possible early infiltrate on the right. Patient was treated for pneumonia at this time. Patient given antibiotics, steroids. Return parameters discussed. Disposition Clinical Impression: Pneumonia, Bronchospasm, Sinusitis Disposition: HOME SELF-CARE Condition: Stable Instructions: Pneumonia (ED) Additional Instructions: Please return to the Emergency Department if symptoms worsen or any other concerns. Prescriptions: Levofloxacin [Levaquin] 500 mg PO DAILY #10 tab predniSONE 50 mg PO DAILY #3 tab Referrals: Chidi Bolivar MD [Primary Care Provider] - 1-2 days Time of Disposition: 01:36
[2017-05-19] MEDS ORDERED: LEVOFLOXACIN 500 MG TAB PO STA (01:41)
[2017-05-19 02:18] VITALS: BP 173/77; PULSE 97; TEMP 98.2
== END 2017-05-19 02:17 | disposition home or self-care (01) ==
LOC: EC 00:55
DX: J18.9 Pneumonia, unspecified organism (principal); J98.01 Acute bronchospasm; J32.9 Chronic sinusitis, unspecified; I10 Essential (primary) hypertension; F31.9 Bipolar disorder, unspecified; Z87.891 Personal history of nicotine dependence; Z91.040 Latex allergy status; Z79.899 Other long term (current) drug therapy
CPT/HCPCS: 71046; 94640; 99283

== ENCOUNTER 2017-05-21 23:14 | Emergency (ER) | payer OTHER ==
[2017-05-21 23:26] VITALS: TEMP 97.9
[2017-05-22] MEDS ORDERED: METOCLOPRAMIDE 5 MG/ML 2 ML VIAL IVP STA (00:06)
[2017-05-22] MEDS ORDERED: ACETAMINOPHEN TAB 500 MG TAB PO STA (00:06)
[2017-05-22] MEDS ORDERED: SODIUM CHLORIDE 0.9% 1,000 ML IV STA (00:06)
[2017-05-22] MEDS ORDERED: diphenhydrAMINE 50 MG/ML 1 ML VIAL IVP STA (00:06)
[2017-05-22] MEDS ORDERED: IPRATROPIUM-ALBUTEROL 3 ML NEB INHALATION STA (00:06)
[2017-05-22] MEDS ORDERED: KETOROLAC 30 MG/ML 1 ML VIAL IVP STA (00:06)
[2017-05-22] MEDS ORDERED: cloNIDine HCL 0.1 MG TAB PO STA (00:10)
--- NOTE | 2017-05-22 00:10 | ED ---
Headache HPI - General Chief Complaint: Headache Stated Complaint: Migraine Time Seen by Provider: 05/21/17 23:42 Source: RN notes reviewed, old records reviewed Mode of arrival: ambulatory Limitations: no limitations - History of Present Illness Initial Comments: This patient is a 36-year-old female presents to the ED to complain of migraine headache for the past day. She reports she was diagnosed with bronchitis. She was started on Levaquin, steroids and albuterol breathing treatments. She reports that she is continuing to cough. She states that she is still taking the anabiotic but is out of her steroids. Patient states that she has history of migraines. She reports of wraps from the occipital area of the scalp towards right denominational. She states she was seen in PCP and given 2 shots which helped her headache, but it continued afterward. MD Complaint: headache, "migraine" Onset/Timin -: days(s) Onset Description: gradual Location: diffuse Severity scale (1-10): 7 Quality: aching, throbbing Improves With: nothing Worsens With: none Context: occurred at rest Treatments Prior to Arrival: none - Related Data Home Medications Medication Instructions Recorded Confirmed [place] Carbonate 300 mg PO DAILY@1200 08/23/16 05/21/17 [place] Carbonate [[place] 450 mg PO BID 08/23/16 05/21/17 Carbonate ER] Naltrexone HCl [Revia] 50 mg PO DAILY 08/23/16 05/21/17 QUEtiapine [SEROquel] 100 mg PO HS 08/23/16 05/21/17 Venlafaxine HCl [Effexor XR] 150 mg PO BID 08/23/16 05/21/17 hydrOXYzine PAMOATE [Vistaril] 25 mg PO TID 08/23/16 05/21/17 Cholecalciferol [Vitamin D3] 2,000 unit PO DAILY 09/19/16 05/21/17 Furosemide [Lasix] 10 mg PO DAILY PRN 09/19/16 05/21/17 Losartan Potassium [Cozaar] 100 mg PO DAILY 09/19/16 05/21/17 Previous Rx's Medication Instructions Recorded Divalproex ER [Depakote ER] 1,000 mg PO HS #60 tab.er.24h 05/15/16 Orphenadrine [Norflex] 100 mg PO Q12H #10 tablet.er 09/19/16 Ibuprofen [Motrin] 600 mg PO Q6HR PRN #40 day 01/13/17 Albuterol Nebulized [Ventolin 2.5 mg INHALATION Q4H PRN #25 nebu 05/19/17 Nebulized] Levofloxacin [Levaquin] 500 mg PO DAILY #10 tab 05/19/17 predniSONE 50 mg PO DAILY #3 tab 05/19/17 predniSONE 50 mg PO DAILY #3 tab 05/22/17 Allergies Allergy/AdvReac Type Severity Reaction Status Date / Time latex Allergy Rash/Hives Verified 05/21/17 23:26 Review of Systems ROS Statement: Those systems with pertinent positive or pertinent negative responses have been documented in the HPI. ROS Other: All systems not noted in ROS Statement are negative. Past Medical History Past Medical History: Fibromyalgia, Hypertension Additional Past Medical History / Comment(s): Arnold-Chiari malformation, migraine headaches, irritable bowel syndrome History of Any Multi-Drug Resistant Organisms: None Reported Past Surgical History: Tubal Ligation Additional Past Surgical History / Comment(s): brain sx- 2010 at [facility], uterine ablation Past Psychological History: Bipolar, Depression Smoking Status: Former smoker Past Alcohol Use History: None Reported Past Drug Use History: None Reported - Past Family History Father Family Medical History: Coronary Artery Disease (CAD) Additional Family Medical History / Comment(s): Father is age 65 and has history of coronary artery disease and depression Mother Additional Family Medical History / Comment(s): Mother is age 59 has clotting disorder. Patient has 1 brother with no major medical problems. She has 3 sons and one has bipolar disorder. General Exam - General Exam Comments Initial Comments: This is a 36 year old female, no distress. Limitations: no limitations General appearance: alert, in no apparent distress Head exam: Present: atraumatic, normocephalic, normal inspection Eye exam: Present: normal appearance, PERRL, EOMI. Absent: scleral icterus, conjunctival injection, periorbital swelling ENT exam: Present: normal exam, mucous membranes moist Neck exam: Present: normal inspection. Absent: tenderness, meningismus, lymphadenopathy Respiratory exam: Present: normal lung sounds bilaterally, wheezes. Absent: rales, rhonchi, stridor Cardiovascular Exam: Present: regular rate, normal rhythm, normal heart sounds. Absent: systolic murmur, diastolic murmur, rubs, gallop, clicks GI/Abdominal exam: Present: soft, normal bowel sounds. Absent: distended, tenderness, guarding, rebound, rigid Extremities exam: Present: normal inspection, full ROM, normal capillary refill. Absent: tenderness, pedal edema, joint swelling, calf tenderness Back exam: Present: normal inspection Neurological exam: Present: alert, oriented X3, CN II-XII intact Course Vital Signs 05/21/17 05/22/17 05/22/17 23:22 00:19 00:22 Temperature 97.9 F Pulse Rate 82 78 84 Respiratory 18 18 Rate Blood Pressure 195/105 179/111 O2 Sat by Pulse 98 99 Oximetry 05/22/17 05/22/17 00:39 01:42 Temperature Pulse Rate 76 77 Respiratory 16 Rate Blood Pressure 148/76 O2 Sat by Pulse 97 Oximetry Medical Decision Making - Medical Decision Making This patient is a 36-year-old female presents to the ED to complain of migraine headache for the past day. She reports she was diagnosed with bronchitis. She was started on Levaquin, steroids and albuterol breathing treatments. She reports that she is continuing to cough. Patient has wheezing bilaterally. Given Duoneb treatment, IV fluids and migraine cocktail medication. Paitent CXR was reviewed and normal. Patient WBC within normal limits. No neurological deficits noted. PAtient reports she feels better after medication and wheezing improved. At this time I will continue patient steriods and have patient follow up with PCP. Return parameters discussed. - Lab Data Result diagrams: 05/22/17 00:20 05/22/17 00:20 Lab Results 05/22/17 05/22/17 Range/Units 00:20 00:20 WBC 6.9 (3.8-10.6) k/uL RBC 4.56 (3.80-5.40) m/uL Hgb 14.6 (11.4-16.0) gm/dL Hct 42.3 (34.0-46.0) % MCV 92.8 (80.0-100.0) fL MCH 32.0 (25.0-35.0) pg MCHC 34.5 (31.0-37.0) g/dL RDW 15.7 H (11.5-15.5) % Plt Count 204 (150-450) k/uL Neutrophils % 53 % Lymphocytes % 38 % Monocytes % 5 % Eosinophils % 2 % Basophils % 1 % Neutrophils # 3.6 (1.3-7.7) k/uL Lymphocytes # 2.6 (1.0-4.8) k/uL Monocytes # 0.4 (0-1.0) k/uL Eosinophils # 0.1 (0-0.7) k/uL Basophils # 0.1 (0-0.2) k/uL Sodium 141 (137-145) mmol/L Potassium 4.3 (3.5-5.1) mmol/L Chloride 109 H (98-107) mmol/L Carbon Dioxide 23 (22-30) mmol/L Anion Gap 9 mmol/L BUN 13 (7-17) mg/dL Creatinine 0.90 (0.52-1.04) mg/dL Est GFR (MDRD) Af Amer >60 (>60 ml/min/1.73 sqM) Est GFR (MDRD) Non-Af >60 (>60 ml/min/1.73 sqM) Glucose 111 H (74-99) mg/dL Calcium 8.8 (8.4-10.2) mg/dL - Radiology Data Radiology results: report reviewed CXR reviewed and within normal limits. Disposition Clinical Impression: Migraine, Bronchitis Disposition: HOME SELF-CARE Condition: Good Instructions: Acute Bronchitis (ED), Acute Headache (ED) Additional Instructions: Patient advised to follow-up with primary care physician. Continue to take the steroids. Recommended continue your breathing treatments as directed. Return to the emergency department if any alarming signs or symptoms occur. Prescriptions: predniSONE 50 mg PO DAILY #3 tab Referrals: Chidi Bolivar MD [Primary Care Provider] - 1-2 days Time of Disposition: 01:35
[2017-05-22 00:37] LABS: Basophils # (A) 0.1 k/uL (0-0.2); Basophils % (A) 1 %; Eosinophils # (A) 0.1 k/uL (0-0.7); Eosinophils % (A) 2 %; HCT 42.3 % (34.0-46.0); HGB 14.6 gm/dL (11.4-16.0); Lymphocytes # (A) 2.6 k/uL (1.0-4.8); Lymphocytes % (A) 38 %; MCHC 34.5 g/dL (31.0-37.0); MCV 92.8 fL (80.0-100.0); Mean Platelet Volume 7.6; Monocytes # (A) 0.4 k/uL (0-1.0); Monocytes % (A) 5 %; Neutrophils # (A) 3.6 k/uL (1.3-7.7); Neutrophils % (A) 53 %; Platelet Count 204 k/uL (150-450); RBC 4.56 m/uL (3.80-5.40); RDW 15.7 % (11.5-15.5); WBC 6.9 k/uL (3.8-10.6)
[2017-05-22 00:40] LABS: Anion Gap 9 mmol/L; Blood Urea Nitrogen 13 mg/dL (7-17); Calcium 8.8 mg/dL (8.4-10.2); Carbon Dioxide 23 mmol/L (22-30); Chloride 109 mmol/L (98-107); Glucose 111 mg/dL (74-99); Potassium 4.3 mmol/L (3.5-5.1); Sodium 141 mmol/L (137-145)
--- NOTE | 2017-05-22 00:51 | XR ---
EXAMINATION TYPE: XR chest 2V DATE OF EXAM: 05/22/2017 COMPARISON: 05/19/2017 HISTORY: Bronchitis TECHNIQUE: Frontal and lateral views of the chest are obtained. FINDINGS: Heart and mediastinum are normal. Lungs are clear. Diaphragm is normal. Bony thorax appear s normal. IMPRESSION: Normal chest. No change.
[2017-05-22 01:45] VITALS: BP 148/76; PULSE 77; RESP 16
== END 2017-05-22 01:47 | disposition home or self-care (01) ==
LOC: EC 23:14
DX: G43.909 Migraine, unspecified, not intractable, without status migrainosus (principal); J40 Bronchitis, not specified as acute or chronic; I10 Essential (primary) hypertension; F31.9 Bipolar disorder, unspecified; Z87.891 Personal history of nicotine dependence; Z91.040 Latex allergy status; Z79.899 Other long term (current) drug therapy
CPT/HCPCS: 99284; 96374; 96375 ×2; 96361; 36415; 94640; 80048; 85025; 87040; 71046; J1200; J2765; J1885

== ENCOUNTER 2017-06-24 15:45 | Emergency (ER) | payer OTHER ==
[2017-06-24] MEDS ORDERED: KETOROLAC 30 MG/ML 1 ML VIAL IVP STA (15:59)
[2017-06-24] MEDS ORDERED: METOCLOPRAMIDE 5 MG/ML 2 ML VIAL IVP STA (15:59)
[2017-06-24] MEDS ORDERED: diphenhydrAMINE 50 MG/ML 1 ML VIAL IVP STA (15:59)
[2017-06-24] MEDS ORDERED: SODIUM CHLORIDE 0.9% 1,000 ML IV STA (15:59)
--- NOTE | 2017-06-24 16:04 | ED ---
General Adult HPI - General Chief complaint: Headache Stated complaint: Migraine Time Seen by Provider: 06/24/17 15:55 Source: patient, RN notes reviewed Mode of arrival: ambulatory - History of Present Illness Initial comments: 36 yo female presents to the ER with cc of headache. Patient has a long history of migraines. She states that her migraine flared up this morning around 11:00 this am. She states that she tried her machine at home that they gave her to help with headaches with no improvement. She states sensitivity to light and sound. There is been no nausea or vomiting. Patient states that she otherwise is feeling well. She was concerned due to the continued headache so she thought that she should be seen. Patient denies any recent fever, chills, shortness of breath, chest pain, back pain, abdominal pain, nausea vomiting, numbness or tingling, dysuria or hematuria, constipation or diarrhea, visual changes, or any other current symptoms. - Related Data Home Medications Medication Instructions Recorded Confirmed Venlafaxine HCl [Effexor XR] 150 mg PO BID 08/23/16 05/21/17 hydrOXYzine PAMOATE [Vistaril] 25 mg PO TID 08/23/16 05/21/17 Carvedilol [Coreg] 25 mg PO BID 06/24/17 06/24/17 Diclofenac Potassium [Cataflam] 50 mg PO TID PRN 06/24/17 06/24/17 Diphenox-Atrop 2.5-0.025 mg 2 tab PO QID 06/24/17 06/24/17 [Lomotil] Ibuprofen [Motrin] 800 mg PO Q8H PRN 06/24/17 06/24/17 Ipratropium-Albuterol Nebulize 3 ml INHALATION QID 06/24/17 06/24/17 [Duoneb 0.5 mg-3 mg/3 ml Soln] [place] Carbonate 1,200 mg PO HS 06/24/17 06/24/17 Losartan/Hydrochlorothiazide 1 tab PO DAILY 06/24/17 06/24/17 [Hyzaar 100-25 Tablet] Metoclopramide [Reglan] 5 mg PO QID 06/24/17 06/24/17 QUEtiapine [SEROquel] 50 mg PO HS 06/24/17 06/24/17 amLODIPine [Norvasc] 10 mg PO DAILY 06/24/17 06/24/17 cloNIDine HCL [Catapres] 0.1 mg PO TID 06/24/17 06/24/17 Previous Rx's Medication Instructions Recorded Divalproex ER [Depakote ER] 1,000 mg PO HS #60 tab.er.24h 05/15/16 Allergies Allergy/AdvReac Type Severity Reaction Status Date / Time latex Allergy Rash/Hives Verified 06/24/17 16:07 Review of Systems ROS Statement: Those systems with pertinent positive or pertinent negative responses have been documented in the HPI. ROS Other: All systems not noted in ROS Statement are negative. Past Medical History Past Medical History: Fibromyalgia, Hypertension Additional Past Medical History / Comment(s): Arnold-Chiari malformation, migraine headaches, irritable bowel syndrome History of Any Multi-Drug Resistant Organisms: None Reported Past Surgical History: Tubal Ligation Additional Past Surgical History / Comment(s): brain sx- 2010 at [facility], uterine ablation Past Psychological History: Bipolar, Depression Smoking Status: Former smoker Past Alcohol Use History: None Reported Past Drug Use History: None Reported - Past Family History Father Family Medical History: Coronary Artery Disease (CAD) Additional Family Medical History / Comment(s): Father is age 65 and has history of coronary artery disease and depression Mother Additional Family Medical History / Comment(s): Mother is age 59 has clotting disorder. Patient has 1 brother with no major medical problems. She has 3 sons and one has bipolar disorder. General Exam General appearance: alert, in no apparent distress Eye exam: Present: normal appearance, PERRL, EOMI. Absent: scleral icterus, conjunctival injection, periorbital swelling Neck exam: Present: normal inspection. Absent: tenderness, meningismus, lymphadenopathy Respiratory exam: Present: normal lung sounds bilaterally. Absent: respiratory distress, wheezes, rales, rhonchi, stridor Cardiovascular Exam: Present: regular rate, normal rhythm, normal heart sounds. Absent: systolic murmur, diastolic murmur, rubs, gallop, clicks Neurological exam: Present: alert, oriented X3 Psychiatric exam: Present: normal affect, normal mood Skin exam: Present: warm, dry, intact, normal color. Absent: rash Course Vital Signs 06/24/17 15:49 Temperature 96.7 F L Pulse Rate 70 Respiratory 14 Rate Blood Pressure 190/105 O2 Sat by Pulse 99 Oximetry Medical Decision Making - Medical Decision Making 36-year-old female presents to the emergency department with a chief complaint of headache. Patient has long history of headaches much like her normal headache today. This time she has improved with the medications. We discussed continued follow-up with her neurologist as well as return parameters all questions. Patient stated that she understood and she is agreement this plan. All questions have been answered. She will be discharged. Disposition Clinical Impression: Migraine Disposition: HOME SELF-CARE Condition: Stable Instructions: Acute Headache (ED) Additional Instructions: Please use medication as discussed. Please follow up with family doctor if symptoms have not improved over the next two days. Please return to the emergency room if your symptoms increase or worsen or for any other concerns. Referrals: Chidi Bolivar MD [Primary Care Provider] - 1-2 days Time of Disposition: 17:26
[2017-06-24] MEDS ORDERED: ORPHENADRINE 30 MG/ML 2 ML VIAL IVP STA (17:26)
[2017-06-24] MEDS ORDERED: methylPREDNISolone SOD SUCCI 125 MG/2 ML VIAL IV STA (17:26)
[2017-06-24 18:50] VITALS: BP 170/102; PULSE 64; RESP 20; TEMP 97.8
== END 2017-06-24 18:49 | disposition home or self-care (01) ==
LOC: EC 15:45
DX: G43.909 Migraine, unspecified, not intractable, without status migrainosus (principal); I10 Essential (primary) hypertension; F31.9 Bipolar disorder, unspecified; Z87.891 Personal history of nicotine dependence; Z91.040 Latex allergy status; Z79.51 Long term (current) use of inhaled steroids; Z79.899 Other long term (current) drug therapy
CPT/HCPCS: 99283; 96374; 96375 ×4; 96361 ×2; J1200; J2360; J2765; J2930; J1885

== ENCOUNTER 2017-06-26 09:00 | Emergency (ER) | payer OTHER ==
[2017-06-26] MEDS ORDERED: KETOROLAC 30 MG/ML 1 ML VIAL IVP STA (09:27)
[2017-06-26] MEDS ORDERED: diphenhydrAMINE 50 MG/ML 1 ML VIAL IVP STA (09:27)
[2017-06-26] MEDS ORDERED: SODIUM CHLORIDE 0.9% 1,000 ML IV STA (09:27)
[2017-06-26] MEDS ORDERED: METOCLOPRAMIDE 5 MG/ML 2 ML VIAL IVP STA (09:27)
--- NOTE | 2017-06-26 09:50 | ED ---
General Adult HPI - General Chief complaint: Headache Stated complaint: migraine,dizziness Time Seen by Provider: 06/26/17 09:22 Source: patient, RN notes reviewed Mode of arrival: ambulatory Limitations: no limitations - History of Present Illness Initial comments: 36-year-old female presents to the emergency department with a chief complaint of flareup of her migraine. Patient chronically gets migraines and states that it flared up today. Patient states much like her normal migraine sensory light sound some dizziness. She's had nausea without vomiting. Patient was concerned due to her continued pain so she thought that she should be seen. She did not take anything at home to help the headache. Patient states she is not currently having any other symptoms. Patient states exactly like her typical migraine. Patient denies any recent fever, chills, shortness of breath, chest pain, back pain, abdominal pain, nausea vomiting, numbness or tingling, dysuria or hematuria, constipation or diarrhea, visual changes, or any other current symptoms. - Related Data Home Medications Medication Instructions Recorded Confirmed Venlafaxine HCl [Effexor XR] 150 mg PO BID 08/23/16 06/24/17 hydrOXYzine PAMOATE [Vistaril] 25 mg PO TID PRN 08/23/16 06/24/17 Carvedilol [Coreg] 25 mg PO BID 06/24/17 06/24/17 Diclofenac Potassium [Cataflam] 50 mg PO TID PRN 06/24/17 06/24/17 Diphenox-Atrop 2.5-0.025 mg 2 tab PO QID 06/24/17 06/24/17 [Lomotil] Ibuprofen [Motrin] 800 mg PO Q8H PRN 06/24/17 06/24/17 Ipratropium-Albuterol Nebulize 3 ml INHALATION QID 06/24/17 06/24/17 [Duoneb 0.5 mg-3 mg/3 ml Soln] [place] Carbonate 1,200 mg PO HS 06/24/17 06/24/17 Losartan/Hydrochlorothiazide 1 tab PO DAILY 06/24/17 06/24/17 [Hyzaar 100-25 Tablet] Metoclopramide [Reglan] 5 mg PO QID 06/24/17 06/24/17 QUEtiapine [SEROquel] 50 mg PO HS 06/24/17 06/24/17 amLODIPine [Norvasc] 10 mg PO DAILY 06/24/17 06/24/17 cloNIDine HCL [Catapres] 0.1 mg PO TID 06/24/17 06/24/17 Previous Rx's Medication Instructions Recorded Divalproex ER [Depakote ER] 1,000 mg PO HS #60 tab.er.24h 05/15/16 Allergies Allergy/AdvReac Type Severity Reaction Status Date / Time latex Allergy Rash/Hives Verified 06/26/17 09:04 Review of Systems ROS Statement: Those systems with pertinent positive or pertinent negative responses have been documented in the HPI. ROS Other: All systems not noted in ROS Statement are negative. Past Medical History Past Medical History: Fibromyalgia, Hypertension Additional Past Medical History / Comment(s): Arnold-Chiari malformation, migraine headaches, irritable bowel syndrome History of Any Multi-Drug Resistant Organisms: None Reported Past Surgical History: Tubal Ligation Additional Past Surgical History / Comment(s): brain sx- 2010 at [facility], uterine ablation Past Psychological History: Bipolar, Depression Smoking Status: Former smoker Past Alcohol Use History: None Reported Past Drug Use History: None Reported - Past Family History Father Family Medical History: Coronary Artery Disease (CAD) Additional Family Medical History / Comment(s): Father is age 65 and has history of coronary artery disease and depression Mother Additional Family Medical History / Comment(s): Mother is age 59 has clotting disorder. Patient has 1 brother with no major medical problems. She has 3 sons and one has bipolar disorder. General Exam - General Exam Comments Initial Comments: General: The patient is awake and alert, in no distress, and does not appear acutely ill. Eye: Pupils are equal, round and reactive to light, extra-ocular movements are intact; there is normal conjunctiva bilaterally. No signs of icterus. Ears, nose, mouth and throat: There are moist mucous membranes. Neck: The neck is supple, there is no tenderness. Cardiovascular: There is a regular rate and rhythm. No murmur, rub or gallop is appreciated. Respiratory: Lungs are clear to auscultation, respirations are non-labored, breath sounds are equal. No wheezes, stridor, rales, or rhonchi. Gastrointestinal: Soft, non-distended, non-tender abdomen without masses or organomegaly noted. There is no rebound or guarding present. No CVA tenderness. Bowel sounds are unremarkable. Back: There is no tenderness to palpation in the midline. There is no obvious deformity. No rashes noted. Musculoskeletal: Normal ROM, no tenderness, There is no pedal edema. There is no calf tenderness or swelling. Sensation intact. Pulses equal bilaterally 2+. Neurological: CN II-XII intact, There are no obvious motor or sensory deficits. Coordination appears grossly intact. Speech is normal. Skin: Skin is warm and dry and no rashes or lesions are noted. Psychiatric: Cooperative, appropriate mood & affect, normal judgment. Limitations: no limitations Course Vital Signs 06/26/17 09:02 Temperature 97.0 F L Pulse Rate 70 Respiratory 20 Rate Blood Pressure 177/94 O2 Sat by Pulse 100 Oximetry Medical Decision Making - Medical Decision Making 36-year-old female presents to the emergency department with chief complaint of headache. Patient states this is much like her typical headache. This time the patient is requesting discharge because she is feeling better. At this time we will discharge the patient home. We did discuss follow-up return parameters all questions. Patient stated that she understood and she is in agreement this plan. All questions have been answered. She will be discharged. Disposition Clinical Impression: Headache Disposition: HOME SELF-CARE Condition: Stable Instructions: Acute Headache (ED) Additional Instructions: Please use medication as discussed. Please follow up with family doctor if symptoms have not improved over the next two days. Please return to the emergency room if your symptoms increase or worsen or for any other concerns. Referrals: Chidi Bolivar MD [Primary Care Provider] - 1-2 days Time of Disposition: 10:35
[2017-06-26 10:46] VITALS: BP 172/79; PULSE 67; RESP 18; TEMP 97.7
== END 2017-06-26 10:46 | disposition home or self-care (01) ==
LOC: EC 09:00
DX: R51 Headache (principal); R42 Dizziness and giddiness; R11.0 Nausea; Q07.00 Arnold-Chiari syndrome without spina bifida or hydrocephalus; I10 Essential (primary) hypertension; F31.9 Bipolar disorder, unspecified; Z87.891 Personal history of nicotine dependence; Z79.899 Other long term (current) drug therapy; Z91.040 Latex allergy status
CPT/HCPCS: 99283; 96374; 96375 ×2; 96361; J1200; J2765; J1885

== ENCOUNTER 2017-06-27 15:28 | Emergency (ER) | payer OTHER ==
[2017-06-27 15:48] VITALS: RESP 18
[2017-06-27] MEDS ORDERED: SODIUM CHLORIDE 0.9% 1,000 ML IV STA (16:51)
[2017-06-27] MEDS ORDERED: METOCLOPRAMIDE 5 MG/ML 2 ML VIAL IVP STA (16:51)
[2017-06-27] MEDS ORDERED: KETOROLAC 30 MG/ML 1 ML VIAL IVP STA (16:51)
[2017-06-27] MEDS ORDERED: diphenhydrAMINE 50 MG/ML 1 ML VIAL IVP STA (16:51)
[2017-06-27] MEDS ORDERED: PROCHLORPERAZINE 5 MG TAB PO STA (16:56)
--- NOTE | 2017-06-27 17:04 | ED ---
General Adult HPI - General Chief complaint: Headache Stated complaint: migraine-revisit Time Seen by Provider: 06/27/17 16:17 Source: patient, RN notes reviewed, old records reviewed Mode of arrival: ambulatory Limitations: no limitations - History of Present Illness Initial comments: This is a 36-year-old female to the ER for evaluation of migraine headache. History of migraines. Rate is recent ER visit for migraine. PATIENT presents today for headache, no trauma. No neurological complaints. Patient states her headache is just persisted and returned even though to help better before discharge - Related Data Home Medications Medication Instructions Recorded Confirmed Venlafaxine HCl [Effexor XR] 150 mg PO BID 08/23/16 06/27/17 hydrOXYzine PAMOATE [Vistaril] 25 mg PO TID PRN 08/23/16 06/27/17 Carvedilol [Coreg] 25 mg PO BID 06/24/17 06/27/17 Diclofenac Potassium [Cataflam] 50 mg PO TID PRN 06/24/17 06/27/17 Diphenox-Atrop 2.5-0.025 mg 2 tab PO QID 06/24/17 06/27/17 [Lomotil] [place] Carbonate 1,200 mg PO HS 06/24/17 06/27/17 Losartan/Hydrochlorothiazide 1 tab PO DAILY 06/24/17 06/27/17 [Hyzaar 100-25 Tablet] Metoclopramide [Reglan] 5 mg PO QID 06/24/17 06/27/17 QUEtiapine [SEROquel] 50 mg PO HS 06/24/17 06/27/17 amLODIPine [Norvasc] 10 mg PO DAILY 06/24/17 06/27/17 cloNIDine HCL [Catapres] 0.1 mg PO TID 06/24/17 06/27/17 Previous Rx's Medication Instructions Recorded Divalproex ER [Depakote ER] 1,000 mg PO HS #60 tab.er.24h 05/15/16 Allergies Allergy/AdvReac Type Severity Reaction Status Date / Time latex Allergy Rash/Hives Verified 06/27/17 16:29 Review of Systems ROS Statement: Those systems with pertinent positive or pertinent negative responses have been documented in the HPI. ROS Other: All systems not noted in ROS Statement are negative. Past Medical History Past Medical History: Fibromyalgia, Hypertension Additional Past Medical History / Comment(s): Arnold-Chiari malformation, migraine headaches, irritable bowel syndrome History of Any Multi-Drug Resistant Organisms: None Reported Past Surgical History: Tubal Ligation Additional Past Surgical History / Comment(s): brain sx- 2011 at [facility], uterine ablation Past Psychological History: Bipolar, Depression Smoking Status: Former smoker Past Alcohol Use History: None Reported Past Drug Use History: None Reported - Past Family History Father Family Medical History: Coronary Artery Disease (CAD) Additional Family Medical History / Comment(s): Father is age 65 and has history of coronary artery disease and depression Mother Additional Family Medical History / Comment(s): Mother is age 59 has clotting disorder. Patient has 1 brother with no major medical problems. She has 3 sons and one has bipolar disorder. General Exam Limitations: no limitations General appearance: alert, in no apparent distress Head exam: Present: atraumatic, normocephalic, normal inspection Eye exam: Present: normal appearance, PERRL, EOMI. Absent: scleral icterus, conjunctival injection, periorbital swelling ENT exam: Present: normal exam, mucous membranes moist Neck exam: Present: normal inspection. Absent: tenderness, meningismus, lymphadenopathy Respiratory exam: Present: normal lung sounds bilaterally. Absent: respiratory distress, wheezes, rales, rhonchi, stridor Cardiovascular Exam: Present: regular rate, normal rhythm, normal heart sounds. Absent: systolic murmur, diastolic murmur, rubs, gallop, clicks GI/Abdominal exam: Present: soft, normal bowel sounds. Absent: distended, tenderness, guarding, rebound, rigid Extremities exam: Present: normal inspection, full ROM, normal capillary refill. Absent: tenderness, pedal edema, joint swelling, calf tenderness Back exam: Present: normal inspection Neurological exam: Present: alert, oriented X3, CN II-XII intact Psychiatric exam: Present: normal affect, normal mood Skin exam: Present: warm, dry, intact, normal color. Absent: rash Course Vital Signs 06/27/17 06/27/17 15:46 17:09 Temperature 97 F L 98.7 F Pulse Rate 81 84 Respiratory 18 18 Rate Blood Pressure 200/114 199/100 O2 Sat by Pulse 99 100 Oximetry Medical Decision Making - Medical Decision Making 36 female the ER for return and recurrent migraine headache, patient states that she needs to go home before prior treatment or testing. Patient discharged home Disposition Clinical Impression: Migraine Disposition: HOME SELF-CARE Condition: Good Instructions: Acute Headache (ED) Referrals: Chidi Bolivar MD [Primary Care Provider] - 1-2 days
[2017-06-27 17:11] VITALS: BP 199/100; PULSE 84; TEMP 98.7
[2017-06-27] MEDS ORDERED: methylPREDNISolone SOD SUCCI 250 MG in SODIUM CHLORIDE 0.9% 100 ML IVPB ONE (17:30)
== END 2017-06-27 17:09 | disposition home or self-care (01) ==
LOC: EC 15:28
DX: G43.909 Migraine, unspecified, not intractable, without status migrainosus (principal); Q07.00 Arnold-Chiari syndrome without spina bifida or hydrocephalus; I10 Essential (primary) hypertension; F31.9 Bipolar disorder, unspecified; Z87.891 Personal history of nicotine dependence; Z79.899 Other long term (current) drug therapy; Z91.040 Latex allergy status
CPT/HCPCS: 99283

== ENCOUNTER 2017-07-21 18:49 | Emergency (ER) | payer OTHER ==
[2017-07-21 18:56] VITALS: RESP 18
[2017-07-21] MEDS ORDERED: KETOROLAC 30 MG/ML 1 ML VIAL IVP STA (19:03)
[2017-07-21] MEDS ORDERED: diphenhydrAMINE 50 MG/ML 1 ML VIAL IVP STA (19:03)
[2017-07-21] MEDS ORDERED: METOCLOPRAMIDE 5 MG/ML 2 ML VIAL IVP STA (19:03)
[2017-07-21] MEDS ORDERED: SODIUM CHLORIDE 0.9% 1,000 ML IV STA (19:03)
--- NOTE | 2017-07-21 19:05 | ED ---
Headache HPI - General Chief Complaint: Headache Stated Complaint: MIGRAINE Time Seen by Provider: 07/21/17 18:58 Source: RN notes reviewed Mode of arrival: ambulatory Limitations: no limitations - History of Present Illness Initial Comments: This is a 36-year-old female who presents to the emergency department chief complaint of migraine headache. Patient reports a chronic history of migraines. Patient states that her migraine began this morning at 9 AM. It is constant and throbbing and is located in the back of her head. This is the same as patient's normal migraines. She states that she has a history of Arnold -Chiari and has physical therapy 2 times per week. She states that she usually has migraines after going through therapy. Patient states that lights and sound make the headache worse. Denies fevers or chills, chest pain shortness breath, nausea or vomiting. - Related Data Home Medications Medication Instructions Recorded Confirmed Venlafaxine HCl [Effexor XR] 150 mg PO BID 08/23/16 06/27/17 hydrOXYzine PAMOATE [Vistaril] 25 mg PO TID PRN 08/23/16 06/27/17 Carvedilol [Coreg] 25 mg PO BID 06/24/17 06/27/17 Diclofenac Potassium [Cataflam] 50 mg PO TID PRN 06/24/17 06/27/17 Diphenox-Atrop 2.5-0.025 mg 2 tab PO QID 06/24/17 06/27/17 [Lomotil] [place] Carbonate 1,200 mg PO HS 06/24/17 06/27/17 Losartan/Hydrochlorothiazide 1 tab PO DAILY 06/24/17 06/27/17 [Hyzaar 100-25 Tablet] Metoclopramide [Reglan] 5 mg PO QID 06/24/17 06/27/17 QUEtiapine [SEROquel] 50 mg PO HS 06/24/17 06/27/17 amLODIPine [Norvasc] 10 mg PO DAILY 06/24/17 06/27/17 cloNIDine HCL [Catapres] 0.1 mg PO TID 06/24/17 06/27/17 Previous Rx's Medication Instructions Recorded Divalproex ER [Depakote ER] 1,000 mg PO HS #60 tab.er.24h 05/15/16 Allergies Allergy/AdvReac Type Severity Reaction Status Date / Time latex Allergy Rash/Hives Verified 07/21/17 18:56 Review of Systems ROS Statement: Those systems with pertinent positive or pertinent negative responses have been documented in the HPI. ROS Other: All systems not noted in ROS Statement are negative. Past Medical History Past Medical History: Fibromyalgia, Hypertension Additional Past Medical History / Comment(s): Arnold-Chiari malformation, migraine headaches, irritable bowel syndrome History of Any Multi-Drug Resistant Organisms: None Reported Past Surgical History: Tubal Ligation Additional Past Surgical History / Comment(s): brain sx- 2011 at [facility], uterine ablation Past Psychological History: Bipolar, Depression Smoking Status: Former smoker Past Alcohol Use History: None Reported Past Drug Use History: None Reported - Past Family History Father Family Medical History: Coronary Artery Disease (CAD) Additional Family Medical History / Comment(s): Father is age 65 and has history of coronary artery disease and depression Mother Additional Family Medical History / Comment(s): Mother is age 59 has clotting disorder. Patient has 1 brother with no major medical problems. She has 3 sons and one has bipolar disorder. General Exam - General Exam Comments Initial Comments: General: Awake and alert, well-developed; in no apparent distress. HEENT: Head atraumatic, normocephalic. Pupils are equal, round and reactive to light. Extraocular movements intact. Oropharynx moist without erythema or exudate. Neck: Supple. Normal ROM. Cardiovascular: Regular rate and rhythm. No murmurs, rubs or gallops. Chest symmetrical. Respiratory: Lungs clear to auscultation bilaterally. No wheezes, rales or rhonchi. Normal respiratory effort with no use of accessory muscles. Musculoskeletal: Normal ROM, no tenderness bilateral upper and lower extremities. Ambulating normally. Skin: [place], warm and dry without rashes or lesions. Neurological: Alert and oriented x3. CN II-XII grossly intact. Speech is fluent and answers are appropriate. No focal neuro deficits. Psychiatric: Normal mood and affect. No overt signs of depression or anxiety noted. Limitations: no limitations Course Vital Signs 07/21/17 18:54 Temperature 97.9 F Pulse Rate 80 Respiratory 18 Rate Blood Pressure 177/112 O2 Sat by Pulse 99 Oximetry Medical Decision Making - Medical Decision Making This is a 36-year-old female with history of chronic migraines who presents to the emergency department with chief complaint of acute migraine. Patient states that current headache is same as her previous headaches. She was given IV fluids and headache cocktail in the emergency department. On reevaluation, patient states that she is feeling much better and would like to go home. Patient's vital signs have been stable and she is in no acute distress. She will be discharged home at this time. She is in agreement with plan and voices understanding. All questions were answered. Disposition Clinical Impression: Headache Disposition: HOME SELF-CARE Condition: Good Instructions: Acute Headache (ED) Additional Instructions: Please follow up with primary care provider within 1-2 days. Return to emergency department if symptoms should worsen or any concerns arise. Referrals: Chidi Bolivar MD [Primary Care Provider] - 1-2 days Time of Disposition: 19:52
[2017-07-21 20:11] VITALS: BP 155/88; PULSE 67; TEMP 98.2
== END 2017-07-21 20:15 | disposition home or self-care (01) ==
LOC: EC 18:49
DX: R51 Headache (principal); Q07.00 Arnold-Chiari syndrome without spina bifida or hydrocephalus; I10 Essential (primary) hypertension; F31.9 Bipolar disorder, unspecified; Z87.891 Personal history of nicotine dependence; Z79.899 Other long term (current) drug therapy; Z91.040 Latex allergy status; Z98.890 Other specified postprocedural states
CPT/HCPCS: 99283; 96374; 96375 ×2; 96361; J1200; J2765; J1885

== ENCOUNTER 2017-07-22 18:03 | Emergency (ER) | payer OTHER ==
[2017-07-22 18:24] VITALS: RESP 18; TEMP 98.9
[2017-07-22] MEDS ORDERED: ACETAMINOPHEN TAB 500 MG TAB PO STA (18:34)
[2017-07-22] MEDS ORDERED: METOCLOPRAMIDE 5 MG TAB PO STA (18:34)
[2017-07-22] MEDS ORDERED: cloNIDine HCL 0.1 MG TAB PO STA (18:52)
--- NOTE | 2017-07-22 18:52 | ED ---
General Adult HPI - General Source: patient, RN notes reviewed Mode of arrival: ambulatory Limitations: no limitations <Kandis Wei - Last Filed: 07/22/17 20:02> <Nathanael Mcgrath - Last Filed: 07/22/17 21:17> - General Chief complaint: Psychiatric Symptoms Stated complaint: mental health - depression Time Seen by Provider: 07/22/17 18:29 - History of Present Illness Initial comments: 36-year-old female presents to the emergency department with a chief complaint of depression. Patient states that leaving group today she just started feel very sad and depressed. She denies any suicidal homicidal ideation. She does see a counselor states she has appointment in the morning but she was concerned because of how depressed she felt today. Patient denies any homicidal or suicidal thoughts. Patient states that she does have history of migraines and does have a migraine at this time. We will treat her with oral medication. She denies any significant health concerns.Patient denies any recent fever, chills, shortness of breath, chest pain, back pain, abdominal pain, nausea vomiting, numbness or tingling, dysuria or hematuria, constipation or diarrhea, headaches or visual changes, or any other current symptoms. (Kandis Wei) - Related Data Home Medications Medication Instructions Recorded Confirmed Carvedilol [Coreg] 25 mg PO BID 06/24/17 07/22/17 Losartan/Hydrochlorothiazide 1 tab PO DAILY 06/24/17 07/22/17 [Hyzaar 100-25 Tablet] [place] Carbonate ER [Lithobid] 450 mg PO BID 07/21/17 07/22/17 Allergies Allergy/AdvReac Type Severity Reaction Status Date / Time latex Allergy Rash/Hives Verified 07/22/17 19:32 Review of Systems ROS Other: All systems not noted in ROS Statement are negative. <Kandis Wei - Last Filed: 07/22/17 20:02> ROS Other: All systems not noted in ROS Statement are negative. <Nathanael Mcgrath - Last Filed: 07/22/17 21:17> ROS Statement: Those systems with pertinent positive or pertinent negative responses have been documented in the HPI. Past Medical History Past Medical History: Fibromyalgia, Hypertension Additional Past Medical History / Comment(s): Arnold-Chiari malformation, migraine headaches, irritable bowel syndrome History of Any Multi-Drug Resistant Organisms: None Reported Past Surgical History: Tubal Ligation Additional Past Surgical History / Comment(s): brain sx- 2011 at [facility], uterine ablation Past Psychological History: Bipolar, Depression Smoking Status: Former smoker Past Alcohol Use History: None Reported Past Drug Use History: None Reported - Past Family History Father Family Medical History: Coronary Artery Disease (CAD) Additional Family Medical History / Comment(s): Father is age 65 and has history of coronary artery disease and depression Mother Additional Family Medical History / Comment(s): Mother is age 59 has clotting disorder. Patient has 1 brother with no major medical problems. She has 3 sons and one has bipolar disorder. <Kandis Wei - Last Filed: 07/22/17 20:02> General Exam Limitations: no limitations General appearance: alert, in no apparent distress Neck exam: Present: normal inspection. Absent: tenderness, meningismus, lymphadenopathy Respiratory exam: Present: normal lung sounds bilaterally. Absent: respiratory distress, wheezes, rales, rhonchi, stridor Cardiovascular Exam: Present: regular rate, normal rhythm, normal heart sounds. Absent: systolic murmur, diastolic murmur, rubs, gallop, clicks Neurological exam: Present: alert, oriented X3 Psychiatric exam: Present: depressed. Absent: homicidal ideation, suicidal ideation Skin exam: Present: warm, dry, intact, normal color. Absent: rash <Kandis Wei - Last Filed: 07/22/17 20:02> Course <Kandis Wei - Last Filed: 07/22/17 20:02> <Nathanael Mcgrath - Last Filed: 07/22/17 21:17> Vital Signs 07/22/17 07/22/17 18:19 19:58 Temperature 98.9 F Pulse Rate 84 Respiratory 18 Rate Blood Pressure 181/122 188/81 O2 Sat by Pulse 99 Oximetry - Reevaluation(s) Reevaluation #1: 07/22/17 20:02 This case will be signed out to Dr. Mcgrath. (Kandis Wei) Reevaluation #2: 07/22/17 21:17 The patient was evaluated by the psychiatric service found not to be wrist herself or anyone else at this time she'll be referred outpatient counseling. He is not suicidal (Nathanael Mcgrath) Medical Decision Making <Kandis Wei - Last Filed: 07/22/17 20:02> <Nathanael Mcgrath - Last Filed: 07/22/17 21:17> - Medical Decision Making 36-year-old female presents for depression. At this time she does not appear to be suffering from any acute medical emergencies. At this time the patient is cleared to be evaluated by psychiatry. (Kandis Wei) - Lab Data Lab Results 07/22/17 Range/Units 19:04 Urine Opiates Screen Not Detected (NotDetected) Ur Oxycodone Screen Not Detected (NotDetected) Urine Methadone Screen Not Detected (NotDetected) Ur Propoxyphene Screen Not Detected (NotDetected) Ur Barbiturates Screen Not Detected (NotDetected) U Tricyclic Antidepress Not Detected (NotDetected) Ur Phencyclidine Scrn Not Detected (NotDetected) Ur Amphetamines Screen Not Detected (NotDetected) U Methamphetamines Scrn Not Detected (NotDetected) U Benzodiazepines Scrn Not Detected (NotDetected) Urine Cocaine Screen Not Detected (NotDetected) U Marijuana (THC) Screen Not Detected (NotDetected) Disposition <Kandis Wei - Last Filed: 07/22/17 20:02> <Nathanael Mcgrath - Last Filed: 07/22/17 21:17> Clinical Impression: Depression Disposition: HOME SELF-CARE Condition: Good Instructions: Depression (ED) Referrals: Chidi Bolivar MD [Primary Care Provider] - 1-2 days
[2017-07-22 19:21] LABS: Amphetamine Screen,Urine Not Detected (NotDetected); Barbiturate Screen,Urine Not Detected (NotDetected); Benzodiazepines Screen,Urine Not Detected (NotDetected); Cocaine Screen,Urine Not Detected (NotDetected); Methadone Screen, Urine Not Detected (NotDetected); Opiate Screen,Urine Not Detected (NotDetected); Oxycodone Screen, Urine Not Detected (NotDetected); Phencyclidine Screen,Urine Not Detected (NotDetected); Tricyclic Antidepressant,Urine Not Detected (NotDetected); Urn Cannabinoid Scrn Not Detected (NotDetected)
[2017-07-22 21:31] VITALS: BP 160/70; PULSE 76
== END 2017-07-22 21:31 | disposition home or self-care (01) ==
LOC: EC 18:03
DX: F32.9 Major depressive disorder, single episode, unspecified (principal); G43.909 Migraine, unspecified, not intractable, without status migrainosus; I10 Essential (primary) hypertension; Z87.891 Personal history of nicotine dependence; Z79.02 Long term (current) use of antithrombotics/antiplatelets; Z79.899 Other long term (current) drug therapy
CPT/HCPCS: 80306; 82075; 99284

== ENCOUNTER 2017-08-18 17:35 | Emergency (ER) | payer OTHER ==
--- NOTE | 2017-08-18 19:34 | ED ---
Psych HPI - General Chief Complaint: Psychiatric Symptoms Stated Complaint: suicidal Time Seen by Provider: 08/18/17 18:32 Source: patient Mode of arrival: ambulatory - History of Present Illness Initial Comments: 36-year-old female patient presents to the emergency department today complaining of increased depression and anxiety. Patient states the symptoms have been worsening since Wednesday. States that she did see her counselor and her primary care physician today and does not feel any better after those visits. Patient states that she has been having suicidal thoughts, has contemplated crashing her car drinking bleach. She denies any homicidal ideation. Denies any hallucinations. States that she is not eating, states that she is not sleeping very much. States that she is taking medication however she restarted them last Wednesday after taking a self decided hiatus from the medications. She denies any alcohol or drug use. States that she has been admitted multiple times for mental health reasons. States that she has been diagnosed with depression, bipolar disorder, and anxiety. She denies any current physical symptoms. Patient denies any recent rash, fever, chills, shortness breath, chest pain, abdominal pain, nausea, vomiting, diarrhea, constipation, back pain, numbness, tingling, dizziness, weakness, hematuria, dysuria, urinary urgency, urinary frequency, headache, visual changes, or any other complaints. - Related Data Home Medications Medication Instructions Recorded Confirmed Carvedilol [Coreg] 25 mg PO BID 06/24/17 07/22/17 Losartan/Hydrochlorothiazide 1 tab PO DAILY 06/24/17 07/22/17 [Hyzaar 100-25 Tablet] [place] Carbonate ER [Lithobid] 450 mg PO BID 07/21/17 07/22/17 Allergies Allergy/AdvReac Type Severity Reaction Status Date / Time latex Allergy Rash/Hives Verified 08/18/17 18:09 Review of Systems ROS Statement: Those systems with pertinent positive or pertinent negative responses have been documented in the HPI. ROS Other: All systems not noted in ROS Statement are negative. Past Medical History Past Medical History: Fibromyalgia, Hypertension Additional Past Medical History / Comment(s): Arnold-Chiari malformation, migraine headaches, irritable bowel syndrome History of Any Multi-Drug Resistant Organisms: None Reported Past Surgical History: Tubal Ligation Additional Past Surgical History / Comment(s): brain sx- 2010 at [facility], uterine ablation Past Psychological History: Bipolar, Depression Smoking Status: Former smoker Past Alcohol Use History: None Reported Past Drug Use History: None Reported - Past Family History Father Family Medical History: Coronary Artery Disease (CAD) Additional Family Medical History / Comment(s): Father is age 65 and has history of coronary artery disease and depression Mother Additional Family Medical History / Comment(s): Mother is age 59 has clotting disorder. Patient has 1 brother with no major medical problems. She has 3 sons and one has bipolar disorder. General Exam Limitations: no limitations General appearance: alert, in no apparent distress, other (This is a well- developed, well-nourished adult female patient in no acute distress. Vital signs upon presentation are temperature 99.8F, pulse 79, respirations 18, blood pressure 180/91, pulse ox 96% on room air.) Eye exam: Present: normal appearance, PERRL, EOMI. Absent: scleral icterus, conjunctival injection, periorbital swelling ENT exam: Present: normal exam, normal oropharynx, mucous membranes moist Respiratory exam: Present: normal lung sounds bilaterally. Absent: respiratory distress, wheezes, rales, rhonchi, stridor Cardiovascular Exam: Present: regular rate, normal rhythm, normal heart sounds. Absent: systolic murmur, diastolic murmur, rubs, gallop, clicks Neurological exam: Present: alert, oriented X3, CN II-XII intact Psychiatric exam: Present: normal affect, normal mood Skin exam: Present: warm, dry, intact, normal color. Absent: rash Course Vital Signs 08/18/17 08/18/17 18:09 21:20 Temperature 99.8 F H 98.5 F Pulse Rate 79 75 Respiratory 18 16 Rate Blood Pressure 180/91 170/75 O2 Sat by Pulse 96 98 Oximetry Medical Decision Making - Medical Decision Making 36 year-old female patient presented to the emergency department today for complaints of increased depression and anxiety. Physical examination was unremarkable. Emergency psychiatric services was in to evaluate the patient. Patient is currently denying any suicidal ideation. Reported to EPS that she just wanted a break from her children. The psychiatrist does not feel she meets inpatient criteria at this time. Patient does follow with [facility] and emergency psych services has set up an appointment with a psychiatrist at their facility. Patient will be given the number for the mobile crisis unit. Return parameters discussed in detail. She is instructed to keep her appointment with Dr. Aldridge and her counselor. She is instructed to follow-up with her primary care physician. She verbalizes understanding and agrees this plan. - Lab Data Lab Results 08/18/17 08/18/17 Range/Units 19:00 19:00 Urine HCG, Qual Not Detected (Not Detectd) Urine Opiates Screen Not Detected (NotDetected) Ur Oxycodone Screen Not Detected (NotDetected) Urine Methadone Screen Not Detected (NotDetected) Ur Propoxyphene Screen Not Detected (NotDetected) Ur Barbiturates Screen Not Detected (NotDetected) U Tricyclic Antidepress Not Detected (NotDetected) Ur Phencyclidine Scrn Not Detected (NotDetected) Ur Amphetamines Screen Not Detected (NotDetected) U Methamphetamines Scrn Not Detected (NotDetected) U Benzodiazepines Scrn Not Detected (NotDetected) Urine Cocaine Screen Not Detected (NotDetected) U Marijuana (THC) Screen Not Detected (NotDetected) Disposition Clinical Impression: Depression, Anxiety Disposition: HOME SELF-CARE Condition: Good Instructions: Depression (ED), Suicide Prevention for Adults (ED) Additional Instructions: Follow up with [facility] as planned. Return immediately for any new, worsening, or concerning symptoms. Is patient prescribed a controlled substance at discharge?: No Referrals: Chidi Bolivar MD [Primary Care Provider] - 1-2 days Time of Disposition: 20:50
[2017-08-18 19:41] LABS: Amphetamine Screen,Urine Not Detected (NotDetected); Barbiturate Screen,Urine Not Detected (NotDetected); Benzodiazepines Screen,Urine Not Detected (NotDetected); Cocaine Screen,Urine Not Detected (NotDetected); Methadone Screen, Urine Not Detected (NotDetected); Opiate Screen,Urine Not Detected (NotDetected); Oxycodone Screen, Urine Not Detected (NotDetected); Phencyclidine Screen,Urine Not Detected (NotDetected); Tricyclic Antidepressant,Urine Not Detected (NotDetected); Urn Cannabinoid Scrn Not Detected (NotDetected)
[2017-08-18 21:21] VITALS: BP 170/75; PULSE 75; RESP 16; TEMP 98.5
== END 2017-08-18 21:26 | disposition home or self-care (01) ==
LOC: EC 17:35
DX: F41.9 Anxiety disorder, unspecified (principal); F31.9 Bipolar disorder, unspecified; R45.851 Suicidal ideations; I10 Essential (primary) hypertension; Z87.891 Personal history of nicotine dependence; Z91.040 Latex allergy status; Z79.899 Other long term (current) drug therapy; Z81.8 Family history of other mental and behavioral disorders
CPT/HCPCS: 80306; 81025; 82075; 99285

== ENCOUNTER → 2017-09-21 | Outpatient (CLI) | payer OTHER ==
--- NOTE | 2017-09-21 10:48 | MM ---
Reason for exam: screening (asymptomatic). Baseline mammogram. History: Family history of breast cancer in maternal grandmother. Took hormonal contraceptives beginning at age 15. Physical Findings: Nurse did not find any significant physical abnormalities on exam. MG Screening Mammo w CAD Bilateral CC and MLO view(s) were taken. There are scattered fibroglandular densities. There is no discrete abnormality. These results were verbally communicated with the patient and result sheet given to the patient on 09/21/17. ASSESSMENT: Negative, BI-RAD 1 RECOMMENDATION: Routine screening mammogram of both breasts at age 41.
== END | disposition home or self-care (01) ==
LOC: RADMAMWWP 08:50
PROVIDERS: ATTEND Obstetrics & Gynecology
DX: Z12.31 Encounter for screening mammogram for malignant neoplasm of breast (principal)
CPT/HCPCS: 77067

== ENCOUNTER → 2017-09-21 | Outpatient (CLI) | payer OTHER ==
--- NOTE | 2017-09-21 11:37 | US ---
EXAMINATION TYPE: US thyroid st tissue head/neck DATE OF EXAM: 09/21/2017 COMPARISON: NONE CLINICAL HISTORY: E04.1 Thyroid nodule. GLAND SIZE: Right Lobe: 4.8 x 1.4 x 1.6 cm Overall Parenchyma: homogenous Left Lobe: 4.7 x 1.2 x 1.3 cm Overall Parenchyma: homogeneous Isthmus Thickness: 0.4 cm NODULES RIGHT: # of nodules measured on right: 0 LEFT: # of nodules measured on left: 0 ISTHMUS: # of nodules measured in the isthmus: 0 Bilateral neck scanned, no evidence of lymphadenopathy. IMPRESSION: 1. Normal thyroid ultrasound
== END | disposition home or self-care (01) ==
LOC: RADUSWWP 08:53
PROVIDERS: ATTEND Family Medicine
DX: E04.1 Nontoxic single thyroid nodule (principal)
CPT/HCPCS: 76536

== ENCOUNTER 2017-10-02 21:05 | Emergency (ER) | payer OTHER ==
--- NOTE | 2017-10-02 21:39 | ED ---
SOB HPI - General Chief Complaint: Shortness of Breath Stated Complaint: HTN/ASAD Time Seen by Provider: 10/02/17 21:35 Source: patient Mode of arrival: ambulatory Limitations: no limitations - History of Present Illness Initial Comments: This patient is 36-year-old woman who presents to be evaluated for pain that she was having when she would take a deep breath. She states that the symptoms had started about 45 minutes ago, shortly after she had eaten a piece of pizza. She noticed that she was having pain to the area below the right scapula when she would take a deep breath. She states it felt like it was limiting her ability to breathe. The pain was an aching, moderate intensity, it has subsequently resolved. She states now she is symptom-free. She denies any other associated symptoms. MD Complaint: pain with inspiration Onset/Timin -: minutes(s) Radiation: back Severity: moderate Quality: aching Consistency: now resolved Improves With: nothing Worsens With: inspiration Associated Symptoms: denies other symptoms Treatments Prior to Arrival: none - Related Data Home Medications Medication Instructions Recorded Confirmed No Known Home Medications [No 10/02/17 10/02/17 Known Home Medications] Allergies Allergy/AdvReac Type Severity Reaction Status Date / Time latex Allergy Rash/Hives Verified 10/02/17 21:27 Review of Systems ROS Statement: Those systems with pertinent positive or pertinent negative responses have been documented in the HPI. ROS Other: All systems not noted in ROS Statement are negative. Constitutional: Denies: fever, chills Respiratory: Reports: as per HPI, dyspnea. Denies: cough Cardiovascular: Denies: chest pain, palpitations, dyspnea on exertion, orthopnea , edema, syncope Gastrointestinal: Denies: abdominal pain, vomiting, diarrhea Genitourinary: Denies: dysuria, hematuria Musculoskeletal: Reports: as per HPI, back pain Skin: Denies: rash Neurological: Denies: headache, weakness, numbness Past Medical History Past Medical History: Fibromyalgia, Hypertension Additional Past Medical History / Comment(s): Arnold-Chiari malformation, migraine headaches, irritable bowel syndrome History of Any Multi-Drug Resistant Organisms: None Reported Past Surgical History: Tubal Ligation Additional Past Surgical History / Comment(s): brain sx- 2010 at [facility], uterine ablation Past Psychological History: Bipolar, Depression Smoking Status: Former smoker Past Alcohol Use History: None Reported Past Drug Use History: None Reported - Past Family History Father Family Medical History: Coronary Artery Disease (CAD) Additional Family Medical History / Comment(s): Father is age 65 and has history of coronary artery disease and depression Mother Additional Family Medical History / Comment(s): Mother is age 59 has clotting disorder. Patient has 1 brother with no major medical problems. She has 3 sons and one has bipolar disorder. General Exam Limitations: no limitations General appearance: alert, in no apparent distress, obese Head exam: Present: atraumatic, normocephalic Eye exam: Present: normal appearance. Absent: scleral icterus, conjunctival injection ENT exam: Present: normal oropharynx Neck exam: Present: normal inspection Respiratory exam: Present: normal lung sounds bilaterally. Absent: respiratory distress, wheezes, rales, rhonchi, stridor, chest wall tenderness, accessory muscle use, decreased breath sounds, prolonged expiratory Cardiovascular Exam: Present: regular rate, normal rhythm, normal heart sounds. Absent: systolic murmur, diastolic murmur, rubs, gallop GI/Abdominal exam: Present: soft. Absent: distended, tenderness, guarding, rebound, mass, pulsatile mass Extremities exam: Present: normal inspection, normal capillary refill. Absent: pedal edema, calf tenderness Back exam: Present: normal inspection. Absent: CVA tenderness (R), CVA tenderness (L) Neurological exam: Present: alert Skin exam: Present: warm, dry, intact, normal color. Absent: rash Course Vital Signs 10/02/17 10/02/17 10/02/17 21:23 22:54 23:36 Temperature 98.2 F Pulse Rate 65 66 67 Respiratory 20 18 18 Rate Blood Pressure 218/135 210/97 173/96 O2 Sat by Pulse 99 99 100 Oximetry 10/03/17 00:33 Temperature 98.3 F Pulse Rate 87 Respiratory 18 Rate Blood Pressure 163/98 O2 Sat by Pulse 96 Oximetry Medical Decision Making - Medical Decision Making Patient's a 36-year-old woman presenting to be evaluated for subscapular pain developed shortly after she had eaten pizza. The pain has resolved. The workup is essentially negative. Discussed further care and follow-up as well as return parameters. The patient's urine does show a few white blood cells, but she denies any urinary symptoms. As she is following up in the next couple of days, will have the urine rechecked as well. - Lab Data Result diagrams: 10/02/17 21:57 10/02/17 21:57 Lab Results 10/02/17 10/02/17 10/02/17 Range/Units 21:57 21:57 21:57 WBC 8.2 (3.8-10.6) k/uL RBC 5.15 (3.80-5.40) m/uL Hgb 16.3 H (11.4-16.0) gm/dL Hct 48.4 H (34.0-46.0) % MCV 94.0 (80.0-100.0) fL MCH 31.7 (25.0-35.0) pg MCHC 33.8 (31.0-37.0) g/dL RDW 13.0 (11.5-15.5) % Plt Count 217 (150-450) k/uL Neutrophils % 54 % Lymphocytes % 35 % Monocytes % 5 % Eosinophils % 3 % Basophils % 1 % Neutrophils # 4.4 (1.3-7.7) k/uL Lymphocytes # 2.8 (1.0-4.8) k/uL Monocytes # 0.4 (0-1.0) k/uL Eosinophils # 0.3 (0-0.7) k/uL Basophils # 0.1 (0-0.2) k/uL D-Dimer (<0.60) mg/L FEU Sodium 143 (137-145) mmol/L Potassium 3.9 (3.5-5.1) mmol/L Chloride 110 H (98-107) mmol/L Carbon Dioxide 17 L (22-30) mmol/L Anion Gap 16 mmol/L BUN 10 (7-17) mg/dL Creatinine 0.90 (0.52-1.04) mg/dL Est GFR (CKD-EPI)AfAm >90 (>60 ml/min/1.73 sqM) Est GFR (CKD-EPI)NonAf 84 (>60 ml/min/1.73 sqM) Glucose 98 (74-99) mg/dL Calcium 9.2 (8.4-10.2) mg/dL Total Bilirubin 1.4 H (0.2-1.3) mg/dL AST 37 H (14-36) U/L ALT 50 (9-52) U/L Alkaline Phosphatase 79 (38-126) U/L Troponin I <0.012 (0.000-0.034) ng/mL Total Protein 6.8 (6.3-8.2) g/dL Albumin 4.0 (3.5-5.0) g/dL Amylase 57 (30-110) U/L Lipase 143 (23-300) U/L Urine Color Urine Appearance (Clear) Urine pH (5.0-8.0) Ur Specific [place] (1.001-1.035) Urine Protein (Negative) Urine Glucose (UA) (Negative) Urine Ketones (Negative) Urine Blood (Negative) Urine Nitrite (Negative) Urine Bilirubin (Negative) Urine Urobilinogen (<2.0) mg/dL Ur Leukocyte Esterase (Negative) Urine RBC (0-5) /hpf Urine WBC (0-5) /hpf Ur Squamous Epith Cells (0-4) /hpf Amorphous Sediment (None) /hpf Urine Bacteria (None) /hpf Urine Mucus (None) /hpf 10/02/17 10/02/17 Range/Units 22:10 22:48 WBC (3.8-10.6) k/uL RBC (3.80-5.40) m/uL Hgb (11.4-16.0) gm/dL Hct (34.0-46.0) % MCV (80.0-100.0) fL MCH (25.0-35.0) pg MCHC (31.0-37.0) g/dL RDW (11.5-15.5) % Plt Count (150-450) k/uL Neutrophils % % Lymphocytes % % Monocytes % % Eosinophils % % Basophils % % Neutrophils # (1.3-7.7) k/uL Lymphocytes # (1.0-4.8) k/uL Monocytes # (0-1.0) k/uL Eosinophils # (0-0.7) k/uL Basophils # (0-0.2) k/uL D-Dimer <0.17 (<0.60) mg/L FEU Sodium (137-145) mmol/L Potassium (3.5-5.1) mmol/L Chloride (98-107) mmol/L Carbon Dioxide (22-30) mmol/L Anion Gap mmol/L BUN (7-17) mg/dL Creatinine (0.52-1.04) mg/dL Est GFR (CKD-EPI)AfAm (>60 ml/min/1.73 sqM) Est GFR (CKD-EPI)NonAf (>60 ml/min/1.73 sqM) Glucose (74-99) mg/dL Calcium (8.4-10.2) mg/dL Total Bilirubin (0.2-1.3) mg/dL AST (14-36) U/L ALT (9-52) U/L Alkaline Phosphatase (38-126) U/L Troponin I (0.000-0.034) ng/mL Total Protein (6.3-8.2) g/dL Albumin (3.5-5.0) g/dL Amylase (30-110) U/L Lipase (23-300) U/L Urine Color Yellow Urine Appearance Cloudy H (Clear) Urine pH 5.0 (5.0-8.0) Ur Specific [place] 1.026 (1.001-1.035) Urine Protein 1+ H (Negative) Urine Glucose (UA) Negative (Negative) Urine Ketones Negative (Negative) Urine Blood Negative (Negative) Urine Nitrite Negative (Negative) Urine Bilirubin Negative (Negative) Urine Urobilinogen <2.0 (<2.0) mg/dL Ur Leukocyte Esterase Trace H (Negative) Urine RBC 3 (0-5) /hpf Urine WBC 12 H (0-5) /hpf Ur Squamous Epith Cells 15 H (0-4) /hpf Amorphous Sediment Rare H (None) /hpf Urine Bacteria Few H (None) /hpf Urine Mucus Many H (None) /hpf - EKG Data -: EKG Interpreted by Ak EKG shows normal: sinus rhythm, axis (normal), intervals (Normal ), QRS complexes (normal), ST-T waves (normal) Rate: normal (Rate 69 bpm) Interpretation: normal EKG Disposition Clinical Impression: Back pain, Hypertension Disposition: HOME SELF-CARE Condition: Good Instructions: Biliary Colic (ED), Hypertension (ED), Back Pain (ED) Is patient prescribed a controlled substance at d/c from ED?: No Referrals: Chidi Bolivar MD [Primary Care Provider] - 1-2 days
[2017-10-02 22:22] LABS: Basophils # (A) 0.1 k/uL (0-0.2); Basophils % (A) 1 %; Eosinophils # (A) 0.3 k/uL (0-0.7); Eosinophils % (A) 3 %; HCT 48.4 % (34.0-46.0); HGB 16.3 gm/dL (11.4-16.0); Lymphocytes # (A) 2.8 k/uL (1.0-4.8); Lymphocytes % (A) 35 %; MCH 31.7 pg (25.0-35.0); MCHC 33.8 g/dL (31.0-37.0); Mean Platelet Volume 7.5; Monocytes # (A) 0.4 k/uL (0-1.0); Monocytes % (A) 5 %; Neutrophils # (A) 4.4 k/uL (1.3-7.7); Neutrophils % (A) 54 %; Platelet Count 217 k/uL (150-450); RBC 5.15 m/uL (3.80-5.40); WBC 8.2 k/uL (3.8-10.6)
[2017-10-02 22:28] LABS: ALT 50 U/L (9-52); AST 37 U/L (14-36); Alkaline Phosphatase 79 U/L (38-126); Amylase 57 U/L (30-110); Anion Gap 16 mmol/L; Blood Urea Nitrogen 10 mg/dL (7-17); Calcium 9.2 mg/dL (8.4-10.2); Carbon Dioxide 17 mmol/L (22-30); Chloride 110 mmol/L (98-107); Glucose 98 mg/dL (74-99); Lipase 143 U/L (23-300); Potassium 3.9 mmol/L (3.5-5.1); Sodium 143 mmol/L (137-145); Total Bilirubin 1.4 mg/dL (0.2-1.3); Total Protein 6.8 g/dL (6.3-8.2)
[2017-10-02 22:55] VITALS: RESP 18
--- NOTE | 2017-10-02 22:58 | XR ---
EXAM: XR Chest, 2 Views CLINICAL HISTORY: ITS.REASON XR Reason: Pain TECHNIQUE: Frontal and lateral views of the chest. COMPARISON: No urinary 2017 FINDINGS: Lungs: Unremarkable. No consolidation. Pleural space: Unremarkable. No pneumothorax. Heart: Unremarkable. No cardiomegaly. Mediastinum: Unremarkable. Bones/joints: Unremarkable. IMPRESSION: Unremarkable chest x-ray. No significant change from prior study
[2017-10-02 23:45] LABS: Amorphous Sediment,Urine Rare /hpf; Appearance,Urine Cloudy (Clear); Bacteria,Urine Few /hpf; Bilirubin,Urine Negative (Negative); Blood,Urine Negative (Negative); Color,Urine Yellow; Glucose,Urine (UA) Negative (Negative); Ketones,Urine Negative (Negative); Leukocyte Esterase,Urine Trace (Negative); Mucus,Urine Many /hpf; Nitrite,Urine Negative (Negative); Protein,Urine 1+ (Negative); RBC,Urine 3 /hpf (0-5); Specific Gravity,Urine 1.026 (1.001-1.035); Squamous Epithelial Cell,Urine 15 /hpf (0-4); Urobilinogen,Urine <2.0 mg/dL (<2.0); WBC,Urine 12 /hpf (0-5)
[2017-10-03 00:34] VITALS: BP 163/98; PULSE 87; TEMP 98.3
== END 2017-10-03 00:33 | disposition home or self-care (01) ==
LOC: EC 21:05
DX: I10 Essential (primary) hypertension (principal); M54.9 Dorsalgia, unspecified; Z87.891 Personal history of nicotine dependence; Z91.040 Latex allergy status
CPT/HCPCS: 36415; 71046; 80053; 81001; 82150; 83690; 84484; 85025; 85379; 93005; 99285

== ENCOUNTER → 2017-10-13 | Outpatient (CLI) | payer OTHER ==
--- NOTE | 2017-10-13 09:16 | US ---
EXAMINATION TYPE: US abdomen complete DATE OF EXAM: 10/13/2017 COMPARISON: CT 03/18/17, US 06/19/15 CLINICAL HISTORY: R10.9 Abdominal Pain. Elevated liver enzymes, Chest/shoulder pain, SOB EXAM MEASUREMENTS: Liver Length: 16.9 cm Gallbladder Wall: 0.1 cm CBD: 0.4 cm Spleen: 11.4 cm Right Kidney: 10.6 x 5.2 x 4.3 cm Left Kidney: 11.6 x 5.0 x 4.8 cm Pancreas: wnl Liver: There is hyperechoic hepatic echotexture creating poor visualization of the portal triads, mo st commonly related to hepatic steatosis appearing mild in degree. This limits evaluation for underly ing hepatic masses. Gallbladder: wnl Evidence for sonographic Tan's sign: no CBD: wnl Spleen: wnl Right Kidney: wnl Left Kidney: wnl Upper IVC: wnl Abd Aorta: Unremarkable as imaged. The liver is homogenous. The intrahepatic portion of the IVC and proximal abdominal aorta are within normal limits. There is no evidence of cholelithiasis. Common bile duct is unremarkable. The visu alized portions of the pancreas are homogenous. The spleen is unremarkable. Kidneys are symmetric a nd free of hydronephrosis. No renal lesions are seen. IMPRESSION: Sonographic findings most compatible with mild degree hepatic steatosis.
== END | disposition home or self-care (01) ==
LOC: RADUSWWP 07:24
PROVIDERS: ATTEND Family Medicine
DX: R10.9 Unspecified abdominal pain (principal)
CPT/HCPCS: 76700

== ENCOUNTER 2017-10-19 17:48 | Emergency (ER) | payer OTHER ==
[2017-10-19] MEDS ORDERED: KETOROLAC 30 MG/ML 1 ML VIAL IVP STA (18:11)
[2017-10-19] MEDS ORDERED: SODIUM CHLORIDE 0.9% 1,000 ML IV STA (18:11)
--- NOTE | 2017-10-19 18:15 | ED ---
General Adult HPI - General Chief complaint: Extremity Problem,Nontraumatic Stated complaint: syncope, palpitations Time Seen by Provider: 10/19/17 17:58 Source: patient Mode of arrival: wheelchair Limitations: no limitations - History of Present Illness Initial comments: 36-year-old female patient presents the emergency department today for multiple complaints. Patient states that she is having some numbness and weakness to the right upper arm. States this started approximately one hour prior to arrival here. She states that she has also been lightheaded and dizzy throughout the day today. States that she has been recently diagnosed with gallbladder disease and is having outpatient workup, waiting for her HIDA scan to be scheduled. She states that she is having right upper quadrant abdominal pain. States that she is having right posterior shoulder pain. States that she has been nauseated however she does have a prescription for Zofran which does work for the nausea. She denies any vomiting. States that she has been tolerating a clear liquid diet. She denies any fevers or chills. States that she has been having sweats. States that she is urinating without difficulty and having normal bowel movements. Patient denies any recent rash, shortness breath, chest pain, diarrhea, constipation, back pain, hematuria, dysuria, urinary urgency, urinary frequency, headache, visual changes, or any other complaints. - Related Data Home Medications Medication Instructions Recorded Confirmed Diclofenac Sodium [Voltaren] 75 mg PO BID 10/19/17 10/19/17 [place] Carbonate 300 mg PO DAILY 10/19/17 10/19/17 Ondansetron HCl [Zofran] 8 mg PO BID 10/19/17 10/19/17 amLODIPine [Norvasc] 5 mg PO DAILY 10/19/17 10/19/17 Allergies Allergy/AdvReac Type Severity Reaction Status Date / Time latex Allergy Rash/Hives Verified 10/19/17 18:12 Review of Systems ROS Statement: Those systems with pertinent positive or pertinent negative responses have been documented in the HPI. ROS Other: All systems not noted in ROS Statement are negative. Past Medical History Past Medical History: Fibromyalgia, Hypertension Additional Past Medical History / Comment(s): Arnold-Chiari malformation, migraine headaches, irritable bowel syndrome History of Any Multi-Drug Resistant Organisms: None Reported Past Surgical History: Tubal Ligation Additional Past Surgical History / Comment(s): brain sx- 2010 at [facility], uterine ablation Past Psychological History: Bipolar, Depression Smoking Status: Former smoker Past Alcohol Use History: None Reported Past Drug Use History: None Reported - Past Family History Father Family Medical History: Coronary Artery Disease (CAD) Additional Family Medical History / Comment(s): Father is age 65 and has history of coronary artery disease and depression Mother Additional Family Medical History / Comment(s): Mother is age 59 has clotting disorder. Patient has 1 brother with no major medical problems. She has 3 sons and one has bipolar disorder. General Exam Limitations: no limitations General appearance: alert, in no apparent distress, other (This is a well- developed, well-nourished adult female patient in no acute distress. Vital signs upon presentation are temperature 98.4F, pulse 75, respirations 18, blood pressure 225/132, pulse ox 99% on room air.) Eye exam: Present: normal appearance, PERRL, EOMI. Absent: scleral icterus, conjunctival injection, periorbital swelling ENT exam: Present: normal exam, normal oropharynx, mucous membranes moist Respiratory exam: Present: normal lung sounds bilaterally. Absent: respiratory distress, wheezes, rales, rhonchi, stridor Cardiovascular Exam: Present: regular rate, normal rhythm, normal heart sounds. Absent: systolic murmur, diastolic murmur, rubs, gallop, clicks GI/Abdominal exam: Present: soft, tenderness (Midepigastric and right upper quadrant tenderness), normal bowel sounds. Absent: distended, guarding, rebound , rigid Back exam: Present: normal inspection Neurological exam: Present: alert, oriented X3, CN II-XII intact Expanded Speech: Present: fluid speech Cranial nerves: EOM's Intact: Normal, Tongue Deviation: Normal, Facial Sensation : Normal, Facial Palsy with Forehead Movement: Normal Upper motor neuron: Nikko Neglect: Normal, Pronator Drift: Normal, Sensory Extinction: Normal Motor strength exam: RUE: 4, LUE: 5, RLE: 5, LLE: 5 Eye Response: (4) open spontaneously Motor Response: (6) obeys commands Verbal Response: (5) oriented Julio Total: 15 Psychiatric exam: Present: normal affect, normal mood Skin exam: Present: warm, dry, intact, normal color. Absent: rash Course Vital Signs 06/10/19/17 10/19/17 17:54 18:34 19:10 Temperature 98.4 F Pulse Rate 75 62 65 Respiratory 18 18 18 Rate Blood Pressure 225/132 194/110 179/97 O2 Sat by Pulse 99 98 99 Oximetry 10/19/17 19:33 Temperature Pulse Rate 60 Respiratory 18 Rate Blood Pressure 166/91 O2 Sat by Pulse 98 Oximetry EKG Findings - EKG Comments: EKG Findings:: EKG obtained at 1817 shows normal sinus rhythm with a ventricular rate of 64, AR interval 144, QR holiness 94, QTc 412, QTC 425. No evidence of ST elevation or depression. Medical Decision Making - Medical Decision Making 36-year-old female patient presents the emergency department today for complaints of right upper quadrant and right shoulder pain. Physical examination is relatively unremarkable, she does report some mild tenderness to the right upper quadrant but no evidence of Tan's sign. Labs reviewed and did show mildly elevated bilirubin, liver enzymes are normal. Pancreatic enzymes are normal. Patient is afebrile, vital signs stable. I did discuss results and findings with the patient. She does have a HIDA scan scheduled, she is urged to keep this appointment. I did give Dr. Balderrama surgeon director council on aging all up. Return parameters discussed in detail. She verbalizes understanding and agrees with this plan. - Lab Data Result diagrams: 10/19/17 18:36 10/19/17 18:36 Lab Results 10/19/17 10/19/17 10/19/17 Range/Units 18:36 18:36 18:36 WBC 7.4 (3.8-10.6) k/uL RBC 4.77 (3.80-5.40) m/uL Hgb 15.7 (11.4-16.0) gm/dL Hct 43.9 (34.0-46.0) % MCV 91.9 (80.0-100.0) fL MCH 32.8 (25.0-35.0) pg MCHC 35.7 (31.0-37.0) g/dL RDW 13.8 (11.5-15.5) % Plt Count 192 (150-450) k/uL Neutrophils % 54 % Lymphocytes % 34 % Monocytes % 5 % Eosinophils % 3 % Basophils % 1 % Neutrophils # 4.0 (1.3-7.7) k/uL Lymphocytes # 2.5 (1.0-4.8) k/uL Monocytes # 0.4 (0-1.0) k/uL Eosinophils # 0.2 (0-0.7) k/uL Basophils # 0.0 (0-0.2) k/uL PT 10.0 (9.0-12.0) sec INR 1.0 (<1.2) APTT 25.1 (22.0-30.0) sec Sodium 141 (137-145) mmol/L Potassium 3.7 (3.5-5.1) mmol/L Chloride 109 H (98-107) mmol/L Carbon Dioxide 22 (22-30) mmol/L Anion Gap 10 mmol/L BUN 9 (7-17) mg/dL Creatinine 1.00 (0.52-1.04) mg/dL Est GFR (CKD-EPI)AfAm 85 (>60 ml/min/1.73 sqM) Est GFR (CKD-EPI)NonAf 74 (>60 ml/min/1.73 sqM) Glucose 85 (74-99) mg/dL Calcium 9.1 (8.4-10.2) mg/dL Total Bilirubin 1.6 H (0.2-1.3) mg/dL AST 22 (14-36) U/L ALT 43 (9-52) U/L Alkaline Phosphatase 77 (38-126) U/L Total Protein 6.6 (6.3-8.2) g/dL Albumin 4.0 (3.5-5.0) g/dL Amylase 46 (30-110) U/L Lipase 103 (23-300) U/L Urine Color Urine Appearance (Clear) Urine pH (5.0-8.0) Ur Specific [place] (1.001-1.035) Urine Protein (Negative) Urine Glucose (UA) (Negative) Urine Ketones (Negative) Urine Blood (Negative) Urine Nitrite (Negative) Urine Bilirubin (Negative) Urine Urobilinogen (<2.0) mg/dL Ur Leukocyte Esterase (Negative) Urine RBC (0-5) /hpf Urine WBC (0-5) /hpf Ur Squamous Epith Cells (0-4) /hpf Urine Bacteria (None) /hpf Urine Mucus (None) /hpf 10/19/17 Range/Units 19:00 WBC (3.8-10.6) k/uL RBC (3.80-5.40) m/uL Hgb (11.4-16.0) gm/dL Hct (34.0-46.0) % MCV (80.0-100.0) fL MCH (25.0-35.0) pg MCHC (31.0-37.0) g/dL RDW (11.5-15.5) % Plt Count (150-450) k/uL Neutrophils % % Lymphocytes % % Monocytes % % Eosinophils % % Basophils % % Neutrophils # (1.3-7.7) k/uL Lymphocytes # (1.0-4.8) k/uL Monocytes # (0-1.0) k/uL Eosinophils # (0-0.7) k/uL Basophils # (0-0.2) k/uL PT (9.0-12.0) sec INR (<1.2) APTT (22.0-30.0) sec Sodium (137-145) mmol/L Potassium (3.5-5.1) mmol/L Chloride (98-107) mmol/L Carbon Dioxide (22-30) mmol/L Anion Gap mmol/L BUN (7-17) mg/dL Creatinine (0.52-1.04) mg/dL Est GFR (CKD-EPI)AfAm (>60 ml/min/1.73 sqM) Est GFR (CKD-EPI)NonAf (>60 ml/min/1.73 sqM) Glucose (74-99) mg/dL Calcium (8.4-10.2) mg/dL Total Bilirubin (0.2-1.3) mg/dL AST (14-36) U/L ALT (9-52) U/L Alkaline Phosphatase (38-126) U/L Total Protein (6.3-8.2) g/dL Albumin (3.5-5.0) g/dL Amylase (30-110) U/L Lipase (23-300) U/L Urine Color Yellow Urine Appearance Cloudy H (Clear) Urine pH 5.5 (5.0-8.0) Ur Specific [place] 1.011 (1.001-1.035) Urine Protein 1+ H (Negative) Urine Glucose (UA) Negative (Negative) Urine Ketones Negative (Negative) Urine Blood Trace H (Negative) Urine Nitrite Negative (Negative) Urine Bilirubin Negative (Negative) Urine Urobilinogen <2.0 (<2.0) mg/dL Ur Leukocyte Esterase Negative (Negative) Urine RBC 5 (0-5) /hpf Urine WBC 3 (0-5) /hpf Ur Squamous Epith Cells 14 H (0-4) /hpf Urine Bacteria Occasional H (None) /hpf Urine Mucus Many H (None) /hpf - Radiology Data Radiology results: report reviewed, image reviewed Two-view x-ray of the chest was obtained. Heart and mediastinum are normal. Lungs are clear. Diaphragm is normal. Bony thorax appears normal. Impression by Dr. Singh shows normal chest with no change. Disposition Clinical Impression: Abdominal pain Disposition: HOME SELF-CARE Condition: Good Instructions: Low Fat Diet (ED), Abdominal Pain (ED) Additional Instructions: Follow-up with surgery for further evaluation. Have your HIDA scan as scheduled. Avoid fatty or greasy foods. Return here immediately for any new, worsening, or concerning symptoms. Is patient prescribed a controlled substance at d/c from ED?: No Referrals: Chidi Bolivar MD [Primary Care Provider] - 1-2 days Maryana Balderrama MD [STAFF PHYSICIAN] - 1-2 days Time of Disposition: 20:51
[2017-10-19 19:00] LABS: Basophils % (A) 1 %; Eosinophils # (A) 0.2 k/uL (0-0.7); Eosinophils % (A) 3 %; HCT 43.9 % (34.0-46.0); HGB 15.7 gm/dL (11.4-16.0); Lymphocytes # (A) 2.5 k/uL (1.0-4.8); Lymphocytes % (A) 34 %; MCH 32.8 pg (25.0-35.0); MCHC 35.7 g/dL (31.0-37.0); MCV 91.9 fL (80.0-100.0); Mean Platelet Volume 7.3; Monocytes # (A) 0.4 k/uL (0-1.0); Monocytes % (A) 5 %; Neutrophils % (A) 54 %; Platelet Count 192 k/uL (150-450); RBC 4.77 m/uL (3.80-5.40); RDW 13.8 % (11.5-15.5); WBC 7.4 k/uL (3.8-10.6)
[2017-10-19 19:10] LABS: Partial Thromboplastin Time 25.1 sec (22.0-30.0)
[2017-10-19 19:12] LABS: Calcium 9.1 mg/dL (8.4-10.2); Potassium 3.7 mmol/L (3.5-5.1); Total Bilirubin 1.6 mg/dL (0.2-1.3); Total Protein 6.6 g/dL (6.3-8.2)
[2017-10-19 19:19] LABS: Appearance,Urine Cloudy (Clear); Bacteria,Urine Occasional /hpf; Bilirubin,Urine Negative (Negative); Blood,Urine Trace (Negative); Color,Urine Yellow; Glucose,Urine (UA) Negative (Negative); Ketones,Urine Negative (Negative); Leukocyte Esterase,Urine Negative (Negative); Mucus,Urine Many /hpf; Nitrite,Urine Negative (Negative); PH, Urine 5.5 (5.0-8.0); Protein,Urine 1+ (Negative); RBC,Urine 5 /hpf (0-5); Specific Gravity,Urine 1.011 (1.001-1.035); Squamous Epithelial Cell,Urine 14 /hpf (0-4); Urobilinogen,Urine <2.0 mg/dL (<2.0); WBC,Urine 3 /hpf (0-5)
[2017-10-19] MEDS ORDERED: ENALAPRILAT 1.25 MG/ML 1 ML VIAL IVP STA (19:20)
--- NOTE | 2017-10-19 20:40 | XR ---
EXAMINATION TYPE: XR chest 2V DATE OF EXAM: 10/19/2017 COMPARISON: EXAMINATION TYPE: XR chest 2V DATE OF EXAM: 10/19/2017 COMPARISON: October 02, 2017 HISTORY: Chest pain TECHNIQUE: 2 views FINDINGS: Heart and mediastinum are normal. Lungs are clear. Diaphragm is normal. Bony thorax appears normal. IMPRESSION: Normal chest. No change.
[2017-10-19] MEDS ORDERED: amLODIPine 5 MG TAB PO STA (21:42)
[2017-10-19 21:48] VITALS: RESP 16
[2017-10-19 22:00] VITALS: BP 177/97; PULSE 69; TEMP 97.6
== END 2017-10-19 22:00 | disposition home or self-care (01) ==
LOC: EC 17:48
DX: R10.11 Right upper quadrant pain (principal); R10.13 Epigastric pain; M25.511 Pain in right shoulder; R00.2 Palpitations; R55 Syncope and collapse; R53.1 Weakness; R20.0 Anesthesia of skin; M79.7 Fibromyalgia; I10 Essential (primary) hypertension; Z86.69 Personal history of other diseases of the nervous system and sense organs; Z91.040 Latex allergy status; Z79.1 Long term (current) use of non-steroidal anti-inflammatories (NSAID); Z79.899 Other long term (current) drug therapy; Z87.891 Personal history of nicotine dependence
CPT/HCPCS: 99285; 96374; 96361; 36415; 93005; 80053; 82150; 83690; 85025; 85610; 85730; 81001; 71046; J1885

== ENCOUNTER → 2017-10-25 | Outpatient (CLI) | payer OTHER ==
--- NOTE | 2017-10-25 09:13 | NM ---
EXAMINATION TYPE: NM hepatobiliary w EF DATE OF EXAM: 10/25/2017 COMPARISON: NONE INDICATION: Abdominal pain TECHNIQUE: After the intravenous administration of 5.2 mCi Tc 99m Mebrofenin hepatobiliary scintigrap hy is performed. Images are obtained following injection. Ejection fraction was obtained following th e oral administration of ensure. FINDINGS: There is prompt uptake and excretion of radiotracer by the liver. Extrahepatic ducts are identified at 7 minutes. The gallbladder is visualized within 7 minutes. Small bowel activity is noted within 15 minutes. At one hour 8 ounces of oral ensure plus is given to mimic CCK and gallbladder ejection fraction is c alculated at 93 %, which is in the elevated range. Correlate for biliary hyperkinesia. (Normal >35% and <80%.). IMPRESSION: 1. Biliary hyperkinesia with an ejection fraction of 93%.
== END | disposition home or self-care (01) ==
LOC: RADNMMAIN 06:19
PROVIDERS: ATTEND Family Medicine
DX: R10.9 Unspecified abdominal pain (principal)
CPT/HCPCS: 78226; A9537

== ENCOUNTER 2017-11-19 11:23 | Day surgery (SDC) | payer OTHER ==
[2017-11-18 11:01] VITALS: BMI 42.3
--- NOTE | 2017-11-19 07:40 | P.GSHP ---
History of Present Illness H&P Date: 11/19/17 CHIEF COMPLAINT: Cholecystitis HISTORY OF PRESENT ILLNESS: The patient is a 37-year-old female who presents with history of epigastric including right upper quadrant abdominal pain. She underwent diagnostic studies for her gallbladder. Separately her clinical picture was consistent with cholecystitis. Now she presents for surgical intervention. PAST MEDICAL HISTORY: Please see list PAST SURGICAL HISTORY: Please see list MEDICATIONS: Please see list ALLERGIES: Denies. SOCIAL HISTORY: No illicit drug use or recent tobacco use FAMILY HISTORY: Pertinent for gallbladder disease REVIEW OF ORGAN SYSTEMS: CONSTITUTIONAL: No reports of fevers or chills. HEENT: Denies any troubles with the vision or hearing. ENDOCRINE: No reports of hypothyroidism. No diabetes. RESPIRATORY: No recent pneumonias. CARDIOVASCULAR: Denies chest pain or palpitations GI: No blood in stools or constipation. MUSCULOSKELETAL: Has occasional joint pain including back pain. NEURO: No seizure disorders or headaches. No recent stroke. PSYCH: No depression or suicidal ideation. HEMATOLOGIC: No personal or family history of DVTs or pulmonary emboli. PHYSICAL EXAM: VITAL SIGNS: Afebrile vital signs stable GENERAL: Well-developed pleasant in no acute distress. HEENT: No scleral icterus. Extraocular movements grossly intact. Moist buccal mucosa. NECK: Supple without lymphadenopathy. CHEST: Unlabored respirations. Equal bilateral excursions. CARDIOVASCULAR: Regular rate regular rhythm rhythm. Distal 2+ pulses. ABDOMEN: Soft, nondistended. Tender along the epigastrium and right upper quadrant. MUSCULOSKELETAL: No clubbing, cyanosis, or edema. NEURO: Cranial nerves II to XII within normal limits. No focal or lateralizing signs. PSYCH: Alert and oriented to person, place and time. ASSESSMENT: 1. Epigastric and right upper quadrant abdominal pain 2. Chronic cholecystitis 3. Symptomatic gallstones. PLAN: 1. Will need a robotic cholecystectomy possible open. Benefits and risks were described. 2. Heparin for DVT prophylaxis 5000 units. 3. Antibiotic prophylaxis. Past Medical History Past Medical History: Fibromyalgia, Hypertension, Sleep Apnea/CPAP/BIPAP Additional Past Medical History / Comment(s): Arnold-Chiari malformation, migraine headaches, irritable bowel syndrome, CPAP use, no meds for BP. History of Any Multi-Drug Resistant Organisms: None Reported Past Surgical History: Tubal Ligation, Uterine Ablation Additional Past Surgical History / Comment(s): Brain surgery for Arnold-Chiari Malformation - 2011 at [facility]. Past Anesthesia/Blood Transfusion Reactions: No Reported Reaction Past Psychological History: Anxiety, Bipolar, Depression Smoking Status: Former smoker Past Alcohol Use History: None Reported Additional Past Alcohol Use History / Comment(s): Quit smoking October 2014. Hx of alcohol abuse, quit drinking 18 months ago. Past Drug Use History: None Reported - Past Family History Father Family Medical History: Coronary Artery Disease (CAD) Additional Family Medical History / Comment(s): Father is age 65 and has history of coronary artery disease and depression Mother Family Medical History: Blood Disorder Additional Family Medical History / Comment(s): Mother is age 59 has clotting disorder. Patient has 1 brother with no major medical problems. She has 3 sons and one has bipolar disorder. Medications and Allergies Home Medications Medication Instructions Recorded Confirmed Type No Known Home Medications 11/18/17 11/18/17 History Allergies Allergy/AdvReac Type Severity Reaction Status Date / Time latex Allergy Rash/Hives Verified 11/18/17 11:02
[~2017-11-19 11:23] MED LIST: HEPARIN SODIUM,PORCINE 5,000 UNIT/ML 1 ML VIAL SQ ONE; INDOCYANINE GREEN 25 MG VIAL IV STA; LACTATED RINGERS 1,000 ML IV SCH; LIDOCAINE 1% 20 ML VIAL (10MG/ML) FOR IV START INTRADERMA PRN; ceFAZolin 3 GM in SODIUM CHLORIDE 0.9% 100 ML IVPB ONE
[2017-11-19 11:36] VITALS: RESP 16
[2017-11-19] MEDS ORDERED: DEXAMETHASONE SOD PHOS (MDV) 100 MG/10 ML VIAL IVP ONE (11:39)
[2017-11-19] MEDS ORDERED: ONDANSETRON 4 MG/2 ML VIAL IVP ONE (11:40)
[2017-11-19] MEDS ORDERED: MIDAZOLAM 2 MG/2 ML VIAL IVP ONE (11:50)
[2017-11-19] MEDS ORDERED: BUPIVACAINE (PF) 0.5% 30 ML VIAL SQ ONE ×2 (11:52→12:54)
--- NOTE | 2017-11-19 13:48 | P.OP ---
Date of Procedure: 11/19/17 Description of Procedure: SURGEON: MARYANA BALDERRAMA MD [employer]OMOTIONS ASSISTANT SALES MARKETING: PREOPERATIVE DIAGNOSES: 1. Chronic cholecystitis 2. Obstructive sleep apnea 3. Hypertensive heart disease 4. Morbid obesity due to excess calories, BMI 42.3 POSTOPERATIVE DIAGNOSES: 1. Chronic cholecystitis 2. Obstructive sleep apnea 3. Hypertensive heart disease 4. Morbid obesity due to excess calories, BMI 42.3 5. Fatty liver disease OPERATION: Robotic-assisted da King Xi laparoscopic cholecystectomy, multiport with FIREFLY ESTIMATED BLOOD LOSS: 5 mL. SPECIMENS REMOVED: Gallbladder. COMPLICATIONS: None. OPERATIVE FINDINGS: 1. Chronic cholecystitis INDICATIONS: The patient is a 37-year-old female who presents with cholelcystitis. Surgical intervention with a laparoscopic cholecystectomy was described at length including injury to the biliary tree, bleeding, infection, need for further surgery. Informed consent was obtained. Robotic assisted laparoscopic approach was described. Benefits and risks of the procedure including but not limited to bleeding, infection, injury to the biliary tree was described. Informed consent was obtained. DESCRIPTION OF PROCEDURE: Patient was brought to the operating room, placed in supine position. After general induction, the abdomen had been prepped and draped in standard sterile fashion. The robotic da King XI system was primed. After a timeout protocol was performed, the patient had been prepped and draped in standard sterile fashion. The patient was injected with indocyanine green. A 5 mm 0 degrees laparoscopic trocar entry was performed along the left upper quadrant. The abdomen insufflated to 15 mmHg pressure which she tolerated well. Diagnostic laparoscopy demonstrated no injury to bowel viscera or mesentery. The liver surface was unremarkable. Next, two 8 mm robotic ports were placed along the right upper abdomen. The camera 8-mm port was maintained along the epigastrium. Another 8 mm port was placed along the left upper abdominal wall after exchanging the 5 mm port. Please note that the ports were placed at least 10 to 15 cm away from the target anatomy of the gallbladder. The robot was docked along the left lateral abdomen. The patient was repositioned in reverse Trendelenburg position. Using a grasper for arm 3, a grasper for arm 4, including hook cautery for arm 1 , the robotic system was docked and primed as described. Instruments were interchanged by the supply assistant including hook cautery, Bovie cautery and clip appliers. I had sat at the console. Adhesions were identified along the infundibulum of the gallbladder and addressed using hook cautery. The gallbladder fundus was retracted over the dome of the liver. Initial attention was brought to the infundibulum which was gently retracted in the inferior lateral approach. Using a grasper, the cystic duct including the cystic artery was carefully skeletonized. FIREFLY was used to identify the cystic artery and cystic structures. Large PLASTIC clips were used throughout the entire case. Using a clip head waiter/waitress 2 clips were placed proximally, and 1 clip was placed distally along the cystic duct and then cauterized with the cautery. Again care was taken to avoid any injury to the biliary tree as the common bile duct was clearly visualized during this portion of dissection. Next, the cystic artery was similarly clipped and cauterized. Electro-Bovie cautery was used to remove the gallbladder from the hepatic fossa. Hemostasis was checked and found to be adequate. The robot was undocked. I re-scrubbed into the case. Using a 10 mm Endo Catch bag via the left upper quadrant incision, the specimen was removed from the abdominal cavity. All pneumoperitoneum instruments were evacuated from the abdominal cavity. The incisions were reapproximated using 4-0 Monocryl in an interrupted subcuticular fashion. Fascial defects were less than 8 mm in size. Please note along the trocar sites, local anesthetic was placed as a field block prior to insertion of all instruments. Liquid glue was applied to the skin. At the end of the procedure needle, sponge, and instrument count had been verified correct by the surgical coder. The patient was transferred to postanesthesia care unit in stable condition. Intraoperative films were shared with the patient's family who were very pleased with the level of care. Console time 14 minutes Plan - Discharge Summary Discharge Rx Participant: Yes New Discharge Prescriptions: New HYDROcodone/APAP 5-325MG [[place] 5-325] 1 tab PO Q4HR PRN 3 Days #18 tab PRN Reason: Pain Ibuprofen [Motrin] 600 mg PO Q8HR PRN #30 tab PRN Reason: Pain Discharge Medication List HYDROcodone/APAP 5-325MG [[place] 5-325] 1 tab PO Q4HR PRN 3 Days #18 tab [Rx] Ibuprofen [Motrin] 600 mg PO Q8HR PRN #30 tab 11/19/17 [Rx] Follow up Appointment(s)/Referral(s): Maryana Balderrama MD [STAFF PHYSICIAN] - 11/30/17 Patient Instructions/Handouts: Laparoscopic Cholecystectomy (DC) Activity/Diet/Wound Care/Special Instructions: Low-fat diet today. May shower. No bath tub soaks. No lifting over 4 pounds 2 weeks. Discharge Disposition: HOME SELF-CARE
[2017-11-19 13:58] VITALS: TEMP 97.7
[2017-11-19] MEDS: HYDROmorphone 0.5 MG/0.5 ML SYRINGE IVP PRN ×2 (14:40→14:51)
[2017-11-19] MEDS ORDERED: HYDROcodone/APAP 5-325MG 1 EACH TAB PO ONE (15:30)
[2017-11-19 15:53] VITALS: BP 137/84; PULSE 58
== END 2017-11-19 16:20 | disposition home or self-care (01) ==
LOC: OR 11:23
PROVIDERS: ATTEND Surgery Plastic and Reconstructive Surgery
DX: K81.1 Chronic cholecystitis (principal); G47.33 Obstructive sleep apnea (adult) (pediatric); I11.9 Hypertensive heart disease without heart failure; E66.01 Morbid (severe) obesity due to excess calories; Z68.41 Body mass index [BMI] 40.0-44.9, adult; K76.0 Fatty (change of) liver, not elsewhere classified; K66.0 Peritoneal adhesions (postprocedural) (postinfection); M79.7 Fibromyalgia; I10 Essential (primary) hypertension; G43.909 Migraine, unspecified, not intractable, without status migrainosus; K58.9 Irritable bowel syndrome, unspecified; F41.9 Anxiety disorder, unspecified; F31.9 Bipolar disorder, unspecified; Z99.89 Dependence on other enabling machines and devices; Z91.040 Latex allergy status; Z98.51 Tubal ligation status; Z87.891 Personal history of nicotine dependence
CPT/HCPCS: 81025; 88304; 47562; J2250; J1644; J0690; J2405; J1100; J1170

== ENCOUNTER 2018-01-09 08:47 | Emergency (ER) | payer OTHER ==
[2018-01-09 08:51] VITALS: TEMP 98.2
[2018-01-09] MEDS ORDERED: ORPHENADRINE 30 MG/ML 2 ML VIAL IM STA (09:22)
--- NOTE | 2018-01-09 09:25 | ED ---
Neck Injury/Pain HPI - General Chief Complaint: Neck Pain/Injury Stated Complaint: NECK AND BACK PAIN Time Seen by Provider: 01/09/18 09:06 Source: patient, RN notes reviewed Mode of arrival: ambulatory Limitations: no limitations - History of Present Illness Initial Comments: 37-year-old female presented to emergency Department chief complaint of right neck shoulder pain. Patient states has been present for 1 week it hurts worse with movement. 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 Patient denies any focal weakness denies any current headache she states she has chronic migraine headaches but is not bothered by it at this time. Patient denies any blurred vision, focal weakness, paresthesias. Patient did see PCP a couple days ago who gave her Toradol. Patient states that initially helped. But states that she feels stiff. She did notice when she puts ice on her neck and shoulder region and helps. - Related Data Previous Rx's Medication Instructions Recorded HYDROcodone/APAP 5-325MG [[place] 1 tab PO Q4HR PRN 3 Days #18 tab 11/19/17 5-325] Ibuprofen [Motrin] 600 mg PO Q8HR PRN #30 tab 11/19/17 Cyclobenzaprine [Flexeril] 10 mg PO TID PRN #15 tab 01/09/18 Allergies Allergy/AdvReac Type Severity Reaction Status Date / Time latex Allergy Rash/Hives Verified 01/09/18 08:51 Review of Systems ROS Statement: Those systems with pertinent positive or pertinent negative responses have been documented in the HPI. ROS Other: All systems not noted in ROS Statement are negative. Past Medical History Past Medical History: Fibromyalgia, Hypertension, Sleep Apnea/CPAP/BIPAP Additional Past Medical History / Comment(s): Arnold-Chiari malformation, migraine headaches, irritable bowel syndrome, CPAP use, no meds for BP. History of Any Multi-Drug Resistant Organisms: None Reported Past Surgical History: Tubal Ligation, Uterine Ablation Additional Past Surgical History / Comment(s): Brain surgery for Arnold-Chiari Malformation - 2012 at [facility]. Past Anesthesia/Blood Transfusion Reactions: No Reported Reaction Past Psychological History: Anxiety, Bipolar, Depression Smoking Status: Former smoker Past Alcohol Use History: None Reported Past Drug Use History: None Reported - Past Family History Father Family Medical History: Coronary Artery Disease (CAD) Additional Family Medical History / Comment(s): Father is age 65 and has history of coronary artery disease and depression Mother Family Medical History: Blood Disorder Additional Family Medical History / Comment(s): Mother is age 59 has clotting disorder. Patient has 1 brother with no major medical problems. She has 3 sons and one has bipolar disorder. General Exam Limitations: no limitations General appearance: alert, in no apparent distress Head exam: Present: atraumatic, normocephalic, normal inspection Eye exam: Present: normal appearance, PERRL, EOMI. Absent: scleral icterus, conjunctival injection, periorbital swelling ENT exam: Present: normal exam, normal oropharynx, mucous membranes moist, TM's normal bilaterally Neck exam: Present: normal inspection, full ROM (Moderate discomfort with left rotation and bending her neck to the right). Absent: tenderness, meningismus, lymphadenopathy Respiratory exam: Present: normal lung sounds bilaterally. Absent: respiratory distress, wheezes, rales, rhonchi, stridor Cardiovascular Exam: Present: regular rate, normal rhythm, normal heart sounds. Absent: systolic murmur, diastolic murmur, rubs, gallop, clicks Extremities exam: Present: normal inspection, full ROM, normal capillary refill , other (Mild discomfort with right shoulder range of motion ). Absent: tenderness, pedal edema, joint swelling, calf tenderness Neurological exam: Present: alert, oriented X3, CN II-XII intact, reflexes normal. Absent: motor sensory deficit Course Vital Signs 01/09/18 08:49 Temperature 98.2 F Pulse Rate 100 Respiratory 20 Rate Blood Pressure 185/118 O2 Sat by Pulse 99 Oximetry Medical Decision Making - Medical Decision Making Patient is a 37 show female presented for right shoulder neck pain. Patient has muscle spasm over her right trapezius tenderness of the right trapezius muscle. She has a normal neuro exam normal extremity exam. Patient will be given Norflex in the emergency Department discharge on Flexeril advised to apply warm compresses and to do daily gentle stretching. Return parameters were discussed. Disposition Clinical Impression: Strain of neck muscle, Trapezius muscle spasm Disposition: HOME SELF-CARE Condition: Stable Instructions: Cervical Strain (ED), Muscle Spasm (ED) Additional Instructions: Please return to the Emergency Department if symptoms worsen or any other concerns. Prescriptions: Cyclobenzaprine [Flexeril] 10 mg PO TID PRN #15 tab PRN Reason: Muscle Spasm Is patient prescribed a controlled substance at d/c from ED?: No Referrals: Chidi Bolivar MD [Primary Care Provider] - 1-2 days Time of Disposition: 09:25
[2018-01-09] MEDS ORDERED: LISINOPRIL 10 MG TAB PO STA (09:38)
[2018-01-09] MEDS ORDERED: cloNIDine HCL 0.1 MG TAB PO STA (09:39)
[2018-01-09 09:44] VITALS: RESP 16
[2018-01-09 10:15] VITALS: BP 204/98; PULSE 75
== END 2018-01-09 10:15 | disposition home or self-care (01) ==
LOC: EC 08:47
DX: S16.1XXA Strain of muscle, fascia and tendon at neck level, initial encounter (principal); M62.838 Other muscle spasm; G47.30 Sleep apnea, unspecified; Z99.89 Dependence on other enabling machines and devices; Z87.891 Personal history of nicotine dependence; Z91.040 Latex allergy status
CPT/HCPCS: 99283; 96372; J2360

== ENCOUNTER → 2018-01-13 | Outpatient (CLI) | payer OTHER ==
[2018-01-13 15:04] VITALS: BP 162/78; PULSE 78; TEMP 98.2; BMI 40.6
--- NOTE | 2018-01-13 15:25 | P.HPBAR ---
Bariatric H&P - History & Physicial H&P Date: 01/13/18 History & Physicial: Visit/CC: Patient initial contact: Initial weight: Initial weight in pounds: Height: Initial BMI: Last weight: Current weight: Current weight in pounds: Current BMI: Berk[place] body weight (based on NIH guidelines): Excess body weight loss: The patient is a 37 year-old F who presents for Bariatric Assessment. HPI: She presents for the bariatric evaluation. She recently had her gallbladder removed. She presents 252 pounds. Her highest weight was 310 pounds in 2016. She has asthma. She has lower back pain, hips, ankles, and knee pain from her weight. She wears a back brace for comfort. Her son also has troubles with his weight. She is looking for skin removal. No family history of stomach/esopheal cancer. No DVTs. She has intolerance to milk, soy, celery as she saw a food volunteer recruiter. She reports chronic diarrhea. She has Crohns, IBS in the family. She has sleep apnea. Has neck pain, lower back pain EXAM: MS: 1+ edema PLAN: 1. All options reviewed Past Medical History Past Medical History: Fibromyalgia, Hypertension, Sleep Apnea/CPAP/BIPAP Additional Past Medical History / Comment(s): Arnold-Chiari malformation, migraine headaches, irritable bowel syndrome, CPAP use, no meds for BP. History of Any Multi-Drug Resistant Organisms: None Reported Past Surgical History: Tubal Ligation, Uterine Ablation Additional Past Surgical History / Comment(s): Brain surgery for Arnold-Chiari Malformation - 2011 at [facility]. Past Anesthesia/Blood Transfusion Reactions: No Reported Reaction Past Psychological History: Anxiety, Bipolar, Depression Smoking Status: Former smoker Past Alcohol Use History: None Reported Past Drug Use History: None Reported - Past Family History Father Family Medical History: Coronary Artery Disease (CAD) Additional Family Medical History / Comment(s): Father is age 65 and has history of coronary artery disease and depression Mother Family Medical History: Blood Disorder Additional Family Medical History / Comment(s): Mother is age 59 has clotting disorder. Patient has 1 brother with no major medical problems. She has 3 sons and one has bipolar disorder. Bariatric Checklist Checklist: Plan: Checklist: EGD: 1. Hiatal hernia: 2. H. Pylori: HgbA1c: Vitamin D: Smoking: Former smoker Primary care physician referral: Chidi Bolivar MD Psychiatry clearance: Cardiology clearance: Sleep study: Diet journal: VTE risk score: VTE risk level: Rehab needs at discharge:
== END | disposition home or self-care (01) ==
LOC: BARWHC3 14:27
PROVIDERS: ATTEND Surgery Plastic and Reconstructive Surgery
DX: Z48.815 Encounter for surgical aftercare following surgery on the digestive system (principal); J45.909 Unspecified asthma, uncomplicated; M54.5 Low back pain; M25.559 Pain in unspecified hip; G47.30 Sleep apnea, unspecified; R19.7 Diarrhea, unspecified; M54.2 Cervicalgia; M25.579 Pain in unspecified ankle and joints of unspecified foot; M25.569 Pain in unspecified knee; Z90.49 Acquired absence of other specified parts of digestive tract; Z87.891 Personal history of nicotine dependence
CPT/HCPCS: 99211

== ENCOUNTER → 2018-01-26 | Outpatient (CLI) | payer OTHER ==
[2018-01-26 13:34] LABS: HCT 50.2 % (34.0-46.0); HGB 16.7 gm/dL (11.4-16.0); MCH 30.8 pg (25.0-35.0); MCHC 33.3 g/dL (31.0-37.0); MCV 92.7 fL (80.0-100.0); Platelet Count 248 k/uL (150-450); RBC 5.42 m/uL (3.80-5.40); RDW 13.4 % (11.5-15.5)
[2018-01-26 13:48] LABS: ALT 38 U/L (9-52); AST 25 U/L (14-36); Albumin 4.2 g/dL (3.5-5.0); Alkaline Phosphatase 81 U/L (38-126); Anion Gap 8 mmol/L; Blood Urea Nitrogen 9 mg/dL (7-17); Calcium 9.7 mg/dL (8.4-10.2); Carbon Dioxide 28 mmol/L (22-30); Chloride 108 mmol/L (98-107); Cholesterol 139 mg/dL (<200); Glucose 85 mg/dL (74-99); HDL Cholesterol 44 mg/dL (40-60); LDL Cholesterol,Calculated 58 mg/dL (0-99); Potassium 4.1 mmol/L (3.5-5.1); Sodium 144 mmol/L (137-145); Total Bilirubin 1.7 mg/dL (0.2-1.3); Total Protein 7.4 g/dL (6.3-8.2); Triglycerides 186 mg/dL (<150)
[2018-01-26 19:01] LABS: Iron Saturation 27.09 (12.00-45.00)
[2018-01-26 19:10] LABS: Vitamin D 25 Hydroxy 27.6 ng/mL (30.0-100.0)
[2018-01-26 19:13] LABS: Folate, Serum 6.2 ng/mL
[2018-01-26 21:36] LABS: Hemoglobin A1C 4.4 % (4.0-6.0)
[2018-01-29 14:04] LABS: Anabasine Urine <2.0 ng/mL (<2.0)
== END ==
LOC: LABWHC1 12:31
PROVIDERS: ATTEND Surgery Plastic and Reconstructive Surgery
DX: Z48.815 Encounter for surgical aftercare following surgery on the digestive system (principal); E66.01 Morbid (severe) obesity due to excess calories; D50.8 Other iron deficiency anemias; E44.0 Moderate protein-calorie malnutrition; I11.9 Hypertensive heart disease without heart failure; G47.33 Obstructive sleep apnea (adult) (pediatric); Z68.42 Body mass index [BMI] 45.0-49.9, adult; Z98.84 Bariatric surgery status
CPT/HCPCS: 84425; 80061; 80053; 82607; 82728; 82746; 83540; 83550; 84443; 85027; 82306; 83036; 36415; G0480; 80323

== ENCOUNTER → 2018-02-10 | Outpatient (CLI) | payer OTHER | END | disposition home or self-care (01) | LOC: LABWHC1 07:19 | PROVIDERS: ATTEND Surgery Plastic and Reconstructive Surgery | DX: E88.81 Metabolic syndrome and other insulin resistance (principal); D50.8 Other iron deficiency anemias; E44.0 Moderate protein-calorie malnutrition; I11.9 Hypertensive heart disease without heart failure; G47.30 Sleep apnea, unspecified | CPT/HCPCS: 36415; 93005 ==

== ENCOUNTER 2018-03-01 22:30 | Emergency (ER) | payer OTHER ==
[2018-03-01 22:37] VITALS: RESP 16
--- NOTE | 2018-03-01 22:54 | ED ---
Headache HPI - General Chief Complaint: Headache Stated Complaint: Migraine Time Seen by Provider: 03/01/18 22:51 Mode of arrival: ambulatory Limitations: no limitations - History of Present Illness Initial Comments: Ernestina is a 37-year-old female with a history of chronic headaches and hypertension who presents the emergency department today for evaluation of headache. Patient reports that she has suffered from migraines for a long period of time, she had Chiari malformation 1 surgery in 2011 with no improvement in her chronic migraines. Patient reports that she's been having a migraine for the past 2 days. The headache began suddenly and is identical in nature to her previous migraines. She described as a throbbing in her occiput. Patient reports that this is similar to every migraine she's had in the past. Patient states that she has taken [id number] Tylenol with no improvement in her pain. She is not tried any other medications. Patient reports that in the past years she is followed with neurology and been on multiple medications but none have improved her chronic headaches. Patient states that she has a history of hypertension but has not been on medications. She states that she is just noncompliant with her medications. Patient does report that she is under a lot of social stress at this time. Patient states that on Wednesday of this week her children were removed from her home by child protective services. Patient is scheduled to enroll in alcohol rehab on Wednesday of next week. Patient reports that she has a chronic alcoholic her last drink was 2 days ago but she does not feel she is going through withdrawal. - Related Data Home Medications Medication Instructions Recorded Confirmed No Known Home Medications 03/01/18 03/01/18 Allergies Allergy/AdvReac Type Severity Reaction Status Date / Time latex Allergy Rash/Hives Verified 03/01/18 22:47 Review of Systems ROS Statement: Those systems with pertinent positive or pertinent negative responses have been documented in the HPI. ROS Other: All systems not noted in ROS Statement are negative. Past Medical History Past Medical History: Fibromyalgia, Hypertension, Sleep Apnea/CPAP/BIPAP Additional Past Medical History / Comment(s): Arnold-Chiari malformation, migraine headaches, irritable bowel syndrome, sleep apnea with CPAP use, History of Any Multi-Drug Resistant Organisms: None Reported Past Surgical History: Tubal Ligation, Uterine Ablation Additional Past Surgical History / Comment(s): Brain surgery for Arnold-Chiari Malformation - 2012 at [facility]. Past Anesthesia/Blood Transfusion Reactions: No Reported Reaction Past Psychological History: Anxiety, Bipolar, Depression Smoking Status: Former smoker Past Alcohol Use History: None Reported Past Drug Use History: None Reported - Past Family History Father Family Medical History: Coronary Artery Disease (CAD) Additional Family Medical History / Comment(s): Father is age 65 and has history of coronary artery disease and depression Mother Family Medical History: Blood Disorder Additional Family Medical History / Comment(s): Mother is age 59 has clotting disorder. Patient has 1 brother with no major medical problems. She has 3 sons and one has bipolar disorder. General Exam - General Exam Comments Initial Comments: Physical Exam GENERAL: Patient is well-developed and well-nourished. Patient is nontoxic and well- hydrated and is in no distress. HENT: Normocephalic, Atraumatic. EYES: PERRL, EOMI PULMONARY: Unlabored respirations. No audible rales rhonchi or wheezing was noted. CARDIOVASCULAR: There is a regular rate and rhythm without any murmurs gallops or rubs. ABDOMEN: Obese, Soft and nontender with normal bowel sounds. SKIN: Skin is clear with no lesions or rashes and otherwise unremarkable. : Deferred NEUROLOGIC: Patient is alert and oriented x3. Cranial nerves II through XII grossly intact Moving all extremities spontaneously MUSCULOSKELETAL: Normal extremities with adequate strength and full range of motion. No lower extremity swelling or edema. No calf tenderness. PSYCHIATRIC: Depressed, not suicidal, not homicidal Limitations: no limitations Limitations: no limitations Course Vital Signs 03/01/18 03/01/18 03/02/18 22:35 23:32 00:40 Temperature 98.4 F 98.2 F Pulse Rate 80 72 Respiratory 16 Rate Blood Pressure 199/129 153/134 147/87 O2 Sat by Pulse 100 97 96 Oximetry 03/02/18 03/02/18 03/02/18 01:00 01:20 01:58 Temperature 98.0 F Pulse Rate 76 Respiratory 16 Rate Blood Pressure 140/91 146/89 129/84 O2 Sat by Pulse 98 97 Oximetry Medical Decision Making - Medical Decision Making Patient was seen and evaluated, history is obtained from the patient She with a history of chronic migraines. Reports that they have resolved in the past with IM Toradol. Patient also with a history of hypertension for which she admits to being noncompliant with her home lisinopril. Patient complaining of a headache but no vision changes, headache was not sudden in onset, not associated with any focal neurologic deficits. Patient describes it as feeling as though her occipital scalp is tender. Reports this is identical to previous headaches. Treat the patient's headache with IM Toradol and will treat her uncontrolled hypertension with by mouth clonidine Patient received medications, was noted to be sleeping comfortably in the ER gurney Blood pressure improved significantly. Patient was reevaluated and states that she is feeling much better. Patient states that she has lisinopril at home, she was encouraged to take it. Patient states she like to be discharged home to sleep at this time her headache has improved and she is feeling comfortable. All questions pertaining to care were answered best my ability patient was discharged home in stable condition. Disposition Clinical Impression: Migraine, Headache, Hypertension Disposition: HOME SELF-CARE Condition: Good Instructions: Acute Headache (ED) Is patient prescribed a controlled substance at d/c from ED?: No Referrals: Chidi Bolivar MD [Primary Care Provider] - 1-2 days
[2018-03-01] MEDS ORDERED: KETOROLAC 30 MG/ML 1 ML VIAL IM STA (23:02)
[2018-03-01] MEDS ORDERED: cloNIDine HCL 0.1 MG TAB PO STA (23:02)
[2018-03-02 01:59] VITALS: BP 129/84; PULSE 76; TEMP 98
== END 2018-03-02 01:59 | disposition home or self-care (01) ==
LOC: EC 22:30
DX: G43.909 Migraine, unspecified, not intractable, without status migrainosus (principal); I10 Essential (primary) hypertension; Z91.040 Latex allergy status; Z87.891 Personal history of nicotine dependence
CPT/HCPCS: 99283; 96372; J1885

== ENCOUNTER 2018-03-02 16:17 | Emergency (ER) | payer OTHER ==
[2018-03-02] MEDS ORDERED: DEXAMETHASONE SOD PHOSPHATE 10 MG/ML 1 ML VIAL IM STA (16:50)
[2018-03-02] MEDS ORDERED: KETOROLAC 30 MG/ML 1 ML VIAL IM STA (16:50)
[2018-03-02] MEDS ORDERED: METOCLOPRAMIDE 5 MG/ML 2 ML VIAL IM STA (16:51)
--- NOTE | 2018-03-02 16:53 | ED ---
General Adult HPI - General Chief complaint: Headache Stated complaint: migraine Time Seen by Provider: 03/02/18 16:28 Source: patient, RN notes reviewed, old records reviewed Mode of arrival: ambulatory Limitations: no limitations - History of Present Illness Initial comments: 37-year-old female with history of Arnold-Chiari malformation and chronic headache presents for evaluation of occipital headache. Patient was in the emergency department yesterday with similar headache, she was given pain medication and discharged home. She states her headache has been persistent throughout the day today. It is exactly the same as her chronic headache. No new features. She has some mild nausea, no significant vomiting. Denies focal weakness or numbness. Denies fever or chills. - Related Data Home Medications Medication Instructions Recorded Confirmed No Known Home Medications 03/01/18 03/01/18 Allergies Allergy/AdvReac Type Severity Reaction Status Date / Time latex Allergy Rash/Hives Verified 03/02/18 16:21 Review of Systems ROS Statement: Those systems with pertinent positive or pertinent negative responses have been documented in the HPI. ROS Other: All systems not noted in ROS Statement are negative. Past Medical History Past Medical History: Fibromyalgia, Hypertension, Sleep Apnea/CPAP/BIPAP Additional Past Medical History / Comment(s): Arnold-Chiari malformation, migraine headaches, irritable bowel syndrome, sleep apnea with CPAP use, History of Any Multi-Drug Resistant Organisms: None Reported Past Surgical History: Tubal Ligation, Uterine Ablation Additional Past Surgical History / Comment(s): Brain surgery for Arnold-Chiari Malformation - 2012 at [facility]. Past Anesthesia/Blood Transfusion Reactions: No Reported Reaction Past Psychological History: Anxiety, Bipolar, Depression Smoking Status: Former smoker Past Alcohol Use History: None Reported Past Drug Use History: None Reported - Past Family History Father Family Medical History: Coronary Artery Disease (CAD) Additional Family Medical History / Comment(s): Father is age 65 and has history of coronary artery disease and depression Mother Family Medical History: Blood Disorder Additional Family Medical History / Comment(s): Mother is age 59 has clotting disorder. Patient has 1 brother with no major medical problems. She has 3 sons and one has bipolar disorder. General Exam Limitations: no limitations General appearance: alert, in no apparent distress Head exam: Present: atraumatic, normocephalic Eye exam: Present: normal appearance, PERRL, EOMI ENT exam: Present: normal exam Neck exam: Present: normal inspection. Absent: tenderness, meningismus Respiratory exam: Present: normal lung sounds bilaterally. Absent: respiratory distress, wheezes Cardiovascular Exam: Present: regular rate, normal rhythm GI/Abdominal exam: Present: soft. Absent: distended Extremities exam: Present: normal inspection, normal capillary refill. Absent: pedal edema Back exam: Present: normal inspection Neurological exam: Present: alert, oriented X3, CN II-XII intact Psychiatric exam: Present: normal affect, normal mood Skin exam: Present: warm, dry, intact. Absent: cyanosis, diaphoretic Course Vital Signs 03/02/18 16:19 Temperature 98.1 F Pulse Rate 90 Respiratory 20 Rate Blood Pressure 159/105 O2 Sat by Pulse 100 Oximetry - Reevaluation(s) Reevaluation #1: 03/02/18 16:52 Patient is offered IV medication, she declines, prefers intramuscular medication. Medical Decision Making - Medical Decision Making 37 yo female with chronic headache. Patient is given intramuscular pain medication and she is reevaluated, does feel somewhat better although not completely resolved headache. She is offered IV and further headache treatment and evaluation, she declines. She prefers to be discharged home to rest at home in her own bed. Patient's neurologic examination is nonfocal, she is overall well-appearing. She will return with worsening or changing symptoms. Disposition Clinical Impression: Migraine, Headache Disposition: HOME SELF-CARE Condition: Good Instructions: Migraine Headache (ED) Is patient prescribed a controlled substance at d/c from ED?: No Referrals: Chidi Bolivar MD [Primary Care Provider] - 1-2 days Time of Disposition: 17:41
[2018-03-02 18:27] VITALS: BP 144/94; PULSE 72; RESP 16; TEMP 97.4
== END 2018-03-02 18:25 | disposition home or self-care (01) ==
LOC: EC 16:17
DX: G43.909 Migraine, unspecified, not intractable, without status migrainosus (principal); G47.30 Sleep apnea, unspecified; Z99.89 Dependence on other enabling machines and devices; Z87.891 Personal history of nicotine dependence; Z91.040 Latex allergy status
CPT/HCPCS: 99283; 96372 ×3; J1100; J2765; J1885

== ENCOUNTER 2018-03-10 16:55 | Emergency (ER) | payer OTHER ==
[2018-03-10 17:04] VITALS: TEMP 97.8
[2018-03-10] MEDS ORDERED: KETOROLAC 30 MG/ML 1 ML VIAL IM STA (18:40)
[2018-03-10] MEDS ORDERED: diphenhydrAMINE 50 MG/ML 1 ML VIAL IM STA (18:40)
[2018-03-10] MEDS ORDERED: METOCLOPRAMIDE 5 MG/ML 2 ML VIAL IM STA (18:40)
--- NOTE | 2018-03-10 18:52 | ED ---
Headache HPI - General Chief Complaint: Headache Stated Complaint: Migraine Time Seen by Provider: 03/10/18 18:11 Mode of arrival: ambulatory Limitations: no limitations - History of Present Illness Initial Comments: 37 year-old female patient presents to the emergency department today for evaluation of migraine headache. Patient states that she does get migraines frequently. Current headache started 4 days ago. She has also been having difficulty keeping her blood pressure under control since starting rehab for alcohol and opiates. Patient states that the pain is at the base of her skull and radiates into her neck. She states she is having some mild blurred vision. She reports light sensitivity and sound sensitivity. She denies any nausea, vomiting, dizziness, weakness, numbness, or tingling. States that her symptoms are consistent with her usual migraine pattern. She denies any new symptoms. Patient states that she does take medication for blood pressure and she does have an appointment with her primary care physician tomorrow to adjust these. Patient denies any recent rash, fever, chills, shortness breath, chest pain, abdominal pain, diarrhea, constipation, back pain, hematuria, dysuria, urinary urgency, urinary frequency, or any other complaints. - Related Data Home Medications Medication Instructions Recorded Confirmed No Known Home Medications 03/01/18 03/10/18 Allergies Allergy/AdvReac Type Severity Reaction Status Date / Time latex Allergy Rash/Hives Verified 03/10/18 18:16 Review of Systems ROS Statement: Those systems with pertinent positive or pertinent negative responses have been documented in the HPI. ROS Other: All systems not noted in ROS Statement are negative. Past Medical History Past Medical History: Fibromyalgia, Hypertension, Sleep Apnea/CPAP/BIPAP Additional Past Medical History / Comment(s): Arnold-Chiari malformation, migraine headaches, irritable bowel syndrome, sleep apnea with CPAP use, History of Any Multi-Drug Resistant Organisms: None Reported Past Surgical History: Tubal Ligation, Uterine Ablation Additional Past Surgical History / Comment(s): Brain surgery for Arnold-Chiari Malformation - 2011 at [facility]. Past Anesthesia/Blood Transfusion Reactions: No Reported Reaction Past Psychological History: Anxiety, Bipolar, Depression Smoking Status: Former smoker Past Alcohol Use History: Abuse Past Drug Use History: None Reported - Past Family History Father Family Medical History: Coronary Artery Disease (CAD) Additional Family Medical History / Comment(s): Father is age 65 and has history of coronary artery disease and depression Mother Family Medical History: Blood Disorder Additional Family Medical History / Comment(s): Mother is age 59 has clotting disorder. Patient has 1 brother with no major medical problems. She has 3 sons and one has bipolar disorder. General Exam Limitations: no limitations General appearance: alert, in no apparent distress, other (This is a well- developed, well-nourished adult female patient in no acute distress. Vital signs upon presentation are temperature 97.8F, pulse 86, respirations 18, blood pressure 160/112, pulse ox 98% on room air.) Eye exam: Present: normal appearance, PERRL, EOMI. Absent: scleral icterus, conjunctival injection, nystagmus, periorbital swelling ENT exam: Present: normal exam, normal oropharynx, mucous membranes moist Respiratory exam: Present: normal lung sounds bilaterally. Absent: respiratory distress, wheezes, rales, rhonchi, stridor Cardiovascular Exam: Present: regular rate, normal rhythm, normal heart sounds. Absent: systolic murmur, diastolic murmur, rubs, gallop, clicks GI/Abdominal exam: Present: soft, normal bowel sounds. Absent: distended, tenderness, guarding, rebound, rigid Neurological exam: Present: alert, oriented X3, CN II-XII intact, other ( Strength in all 4 extremities is 5/5.) Psychiatric exam: Present: normal affect, normal mood Skin exam: Present: warm, dry, intact, normal color. Absent: rash Course Vital Signs 03/10/18 03/10/18 17:01 19:05 Temperature 97.8 F Pulse Rate 86 81 Respiratory 18 16 Rate Blood Pressure 160/112 162/96 O2 Sat by Pulse 98 97 Oximetry Medical Decision Making - Medical Decision Making 37 year-old female patient presented to the emergency department today for complaints of headache and elevated blood pressure. Physical examination is unremarkable. Patient is neurologically intact with no focal deficits. Patient symptoms are consistent with her usual migraine pattern, she does not report any new symptoms. Patient requesting intramuscular injections of medication to be discharged. We did give Reglan, Benadryl, and Toradol. Blood pressure is 162/96 that lasted in the emergency department, she does have an appointment with her primary care physician tomorrow to discuss blood pressure. We will discharge without treatment at this time and she is encouraged to keep this appointment. She is instructed to return immediately for any new, worsening, or concerning symptoms. She verbalizes understanding and agrees with this plan. Disposition Clinical Impression: Migraine headache Disposition: HOME SELF-CARE Condition: Good Instructions: Migraine Headache (ED) Additional Instructions: Increase fluids. Rest. Keep appointment with her primary physician as you have planned tomorrow. Return immediately for any new, worsening, or concerning symptoms. Is patient prescribed a controlled substance at d/c from ED?: No Referrals: Chidi Bolivar MD [Primary Care Provider] - 1-2 days Time of Disposition: 19:17
[2018-03-10 19:06] VITALS: BP 162/96; PULSE 81; RESP 16
== END 2018-03-10 20:05 | disposition home or self-care (01) ==
LOC: EC 16:55
DX: G43.909 Migraine, unspecified, not intractable, without status migrainosus (principal); I10 Essential (primary) hypertension; G47.30 Sleep apnea, unspecified; Q07.00 Arnold-Chiari syndrome without spina bifida or hydrocephalus; Z99.89 Dependence on other enabling machines and devices; Z87.891 Personal history of nicotine dependence; Z98.51 Tubal ligation status; Z98.890 Other specified postprocedural states; Z91.040 Latex allergy status
CPT/HCPCS: 99283; 96372 ×3; J1200; J2765; J1885

== ENCOUNTER 2018-04-21 15:26 | Emergency (ER) | payer OTHER ==
[2018-04-21 15:53] VITALS: RESP 18
[2018-04-21] MEDS ORDERED: IBUPROFEN 600 MG TAB PO STA (16:02)
--- NOTE | 2018-04-21 16:31 | XR ---
EXAMINATION TYPE: XR chest 2V DATE OF EXAM: 04/21/2018 COMPARISON: Chest x-ray October 19, 2017. HISTORY: Chest pain causing left arm weakness. TECHNIQUE: Frontal and lateral views of the chest are obtained. FINDINGS: There is no focal air space opacity, pleural effusion, or pneumothorax seen. The cardiac silhouette size is within normal limits. The osseous structures are intact. IMPRESSION: No acute process. No significant change from prior.
--- NOTE | 2018-04-21 16:32 | XR ---
EXAMINATION TYPE: XR elbow complete LT DATE OF EXAM: 04/21/2018 CLINICAL HISTORY: Left arm weakness, elbow pain TECHNIQUE: Frontal, lateral and oblique images of the left elbow are obtained. COMPARISON: None FINDINGS: There is no acute fracture/dislocation evident in the left elbow. No abnormal fat pad sig ns are seen. The overlying soft tissue appears unremarkable. IMPRESSION: Unremarkable study.
--- NOTE | 2018-04-21 17:35 | ED ---
General Adult HPI - General Chief complaint: Extremity Injury, Upper Stated complaint: Back pain Time Seen by Provider: 04/21/18 15:55 Source: patient Mode of arrival: ambulatory Limitations: physical limitation - History of Present Illness Initial comments: 37 year-old female patient presents to the emergency department today for evaluation of left elbow pain radiates down to her hand. Patient states that the pain encompasses the entire elbow and forearm with no radicular type pain. Patient is also reporting a sharp pain to the left upper back. Patient states the pain does worsen with deep breathing however she denies any increased pain with movement or palpation of the area. Patient denies any fevers or chills. 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 Patient has past medical history significant for hypertension, takes lisinopril. Patient denies any recent rash, abdominal pain, nausea, vomiting, diarrhea, constipation , back pain, numbness, tingling, dizziness, weakness, hematuria, dysuria, urinary urgency, urinary frequency, headache, visual changes, or any other complaints. - Related Data Previous Rx's Medication Instructions Recorded Azithromycin [Zithromax Z-pack] 0 mg PO DIRECTED #6 tab 04/21/18 Ibuprofen [Motrin] 600 mg PO Q8HR PRN #30 tab 04/21/18 predniSONE 50 mg PO DAILY #5 tablet 04/21/18 Allergies Allergy/AdvReac Type Severity Reaction Status Date / Time latex Allergy Rash/Hives Verified 04/21/18 15:53 Review of Systems ROS Statement: Those systems with pertinent positive or pertinent negative responses have been documented in the HPI. ROS Other: All systems not noted in ROS Statement are negative. Past Medical History Past Medical History: Fibromyalgia, Hypertension, Sleep Apnea/CPAP/BIPAP Additional Past Medical History / Comment(s): Arnold-Chiari malformation, migraine headaches, irritable bowel syndrome, sleep apnea with CPAP use, History of Any Multi-Drug Resistant Organisms: None Reported Past Surgical History: Tubal Ligation, Uterine Ablation Additional Past Surgical History / Comment(s): Brain surgery for Arnold-Chiari Malformation - 2012 at [facility]. Past Anesthesia/Blood Transfusion Reactions: No Reported Reaction Past Psychological History: Anxiety, Bipolar, Depression Smoking Status: Former smoker Past Alcohol Use History: Abuse Past Drug Use History: None Reported - Past Family History Father Family Medical History: Coronary Artery Disease (CAD) Additional Family Medical History / Comment(s): Father is age 65 and has history of coronary artery disease and depression Mother Family Medical History: Blood Disorder Additional Family Medical History / Comment(s): Mother is age 59 has clotting disorder. Patient has 1 brother with no major medical problems. She has 3 sons and one has bipolar disorder. General Exam Limitations: physical limitation General appearance: alert, in no apparent distress, other (This is a well- developed, well-nourished adult female patient in no acute distress. Vital signs upon presentation are temperature 98.3F, pulse 89, respirations 18, blood pressure 186/111, pulse ox 100% on room air.) Eye exam: Present: normal appearance, PERRL, EOMI. Absent: scleral icterus, conjunctival injection, periorbital swelling ENT exam: Present: normal exam, normal oropharynx, mucous membranes moist Respiratory exam: Present: normal lung sounds bilaterally. Absent: respiratory distress, wheezes, rales, rhonchi, stridor Cardiovascular Exam: Present: regular rate, normal rhythm, normal heart sounds. Absent: systolic murmur, diastolic murmur, rubs, gallop, clicks GI/Abdominal exam: Present: soft, normal bowel sounds. Absent: distended, tenderness, guarding, rebound, rigid Extremities exam: Present: normal inspection, full ROM, normal capillary refill , other (Skin to the left elbow is pink, warm, dry. Cap refills less than 3 seconds. Radial pulses 2+ and equal bilaterally. Patient has no swelling or erythema noted over the elbow. Strength in the upper extremities is strong and equal.). Absent: tenderness, pedal edema, joint swelling, calf tenderness Back exam: Present: normal inspection. Absent: paraspinal tenderness, vertebral tenderness Neurological exam: Present: alert, oriented X3, CN II-XII intact Psychiatric exam: Present: normal affect, normal mood Skin exam: Present: warm, dry, intact, normal color. Absent: rash Course Vital Signs 04/21/18 04/21/18 04/21/18 15:50 17:25 18:51 Temperature 98.3 F 98.0 F Pulse Rate 89 69 61 Respiratory 18 18 18 Rate Blood Pressure 186/111 146/94 176/84 O2 Sat by Pulse 100 98 98 Oximetry EKG Findings - EKG Comments: EKG Findings:: EKG obtained at 1712 shows normal sinus rhythm with a ventricular rate of 63, ND interval 160, QRS duration 94, QT 410, QTC 419. No evidence of ST elevation or depression. Medical Decision Making - Medical Decision Making 37-year-old female patient presented to the emergency department today for evaluation of left elbow pain and left upper back pain. Physical examination was relatively unremarkable. Patient no elbow tenderness. She did report increased pain with movement. Patient had no tenderness to the left upper back , increased pain with deep breaths only, not reproducible. Chest x-ray showed no acute cardiopulmonary process. X-ray of the left elbow showed no acute osseous abnormalities, no joint effusion, no fat pad signs. Given patient's left upper back pain and presence of hypertension we did perform labs which showed no concerning findings. CTA of the chest was performed to rule out both pulmonary embolism and dissection, this was negative except for pneumonia she seen in the right lung and pleural reaction in the left lung. Did discuss findings and results with the patient. We will treat for community-acquired pneumonia with a azithromycin. She'll be given a course of steroids for her elbow pain which is felt to be related to some form of nerve impingement. She is instructed to follow-up with her primary care physician for recheck in 1-2 days. Return parameters were discussed in detail. She verbalizes understanding and agrees with this plan. - Lab Data Result diagrams: 04/21/18 17:17 04/21/18 17:17 Lab Results 04/21/18 04/21/18 04/21/18 Range/Units 17:17 17:17 17:17 WBC 7.3 (3.8-10.6) k/uL RBC 4.81 (3.80-5.40) m/uL Hgb 15.0 (11.4-16.0) gm/dL Hct 43.7 (34.0-46.0) % MCV 91.0 (80.0-100.0) fL MCH 31.2 (25.0-35.0) pg MCHC 34.3 (31.0-37.0) g/dL RDW 13.5 (11.5-15.5) % Plt Count 195 (150-450) k/uL Neutrophils % 70 % Lymphocytes % 23 % Monocytes % 5 % Eosinophils % 2 % Basophils % 0 % Neutrophils # 5.1 (1.3-7.7) k/uL Lymphocytes # 1.6 (1.0-4.8) k/uL Monocytes # 0.3 (0-1.0) k/uL Eosinophils # 0.1 (0-0.7) k/uL Basophils # 0.0 (0-0.2) k/uL PT (9.0-12.0) sec INR (<1.2) APTT (22.0-30.0) sec Sodium 141 (137-145) mmol/L Potassium 3.9 (3.5-5.1) mmol/L Chloride 109 H (98-107) mmol/L Carbon Dioxide 23 (22-30) mmol/L Anion Gap 9 mmol/L BUN 10 (7-17) mg/dL Creatinine 0.87 (0.52-1.04) mg/dL Est GFR (CKD-EPI)AfAm >90 (>60 ml/min/1.73 sqM) Est GFR (CKD-EPI)NonAf 86 (>60 ml/min/1.73 sqM) Glucose 89 (74-99) mg/dL Calcium 9.2 (8.4-10.2) mg/dL Magnesium 2.0 (1.6-2.3) mg/dL Total Bilirubin 2.0 H (0.2-1.3) mg/dL AST 18 (14-36) U/L ALT 31 (9-52) U/L Alkaline Phosphatase 73 (38-126) U/L Total Creatine Kinase 85 (30-135) U/L CK-MB (CK-2) 0.8 (0.0-2.4) ng/mL CK-MB (CK-2) Rel Index 0.9 Troponin I <0.012 (0.000-0.034) ng/mL Total Protein 7.0 (6.3-8.2) g/dL Albumin 4.1 (3.5-5.0) g/dL 04/21/18 Range/Units 17:17 WBC (3.8-10.6) k/uL RBC (3.80-5.40) m/uL Hgb (11.4-16.0) gm/dL Hct (34.0-46.0) % MCV (80.0-100.0) fL MCH (25.0-35.0) pg MCHC (31.0-37.0) g/dL RDW (11.5-15.5) % Plt Count (150-450) k/uL Neutrophils % % Lymphocytes % % Monocytes % % Eosinophils % % Basophils % % Neutrophils # (1.3-7.7) k/uL Lymphocytes # (1.0-4.8) k/uL Monocytes # (0-1.0) k/uL Eosinophils # (0-0.7) k/uL Basophils # (0-0.2) k/uL PT 10.3 (9.0-12.0) sec INR 1.0 (<1.2) APTT 25.8 (22.0-30.0) sec Sodium (137-145) mmol/L Potassium (3.5-5.1) mmol/L Chloride (98-107) mmol/L Carbon Dioxide (22-30) mmol/L Anion Gap mmol/L BUN (7-17) mg/dL Creatinine (0.52-1.04) mg/dL Est GFR (CKD-EPI)AfAm (>60 ml/min/1.73 sqM) Est GFR (CKD-EPI)NonAf (>60 ml/min/1.73 sqM) Glucose (74-99) mg/dL Calcium (8.4-10.2) mg/dL Magnesium (1.6-2.3) mg/dL Total Bilirubin (0.2-1.3) mg/dL AST (14-36) U/L ALT (9-52) U/L Alkaline Phosphatase (38-126) U/L Total Creatine Kinase (30-135) U/L CK-MB (CK-2) (0.0-2.4) ng/mL CK-MB (CK-2) Rel Index Troponin I (0.000-0.034) ng/mL Total Protein (6.3-8.2) g/dL Albumin (3.5-5.0) g/dL - Radiology Data Radiology results: report reviewed, image reviewed CT chest with contrast was obtained. Report was reviewed in its entirety. Impression by Dr. Singh shows no evidence of pulmonary embolism. Small right lower lobe pneumonia. Small area of atelectasis and pleural reaction at the left posterior lung base. Complete x-ray of the left elbow was obtained, 3 views, shows no acute fracture or dislocation evident in the left elbow. No abnormal fat pad signs are seen. The overlying soft tissue appears unremarkable. Impression by Dr. Nascimento shows unremarkable study. Two-view x-ray of the chest is obtained. Report was reviewed in its entirety. Impression by Dr. Alves shows no acute process. No significant change from prior Disposition Clinical Impression: Pneumonia, Elbow pain Disposition: HOME SELF-CARE Condition: Good Instructions: Community Acquired Pneumonia (ED) Additional Instructions: Complete antibiotic as directed. Increase fluids. Take medications as directed. Follow-up through primary care physician for recheck in 1-2 days. Prescriptions: Azithromycin [Zithromax Z-pack] 0 mg PO DIRECTED #6 tab Ibuprofen [Motrin] 600 mg PO Q8HR PRN #30 tab PRN Reason: Pain predniSONE 50 mg PO DAILY #5 tablet Is patient prescribed a controlled substance at d/c from ED?: No Referrals: Chidi Bolivar MD [Primary Care Provider] - 1-2 days Time of Disposition: 18:44
[2018-04-21 17:47] LABS: Basophils % (A) 0 %; Eosinophils # (A) 0.1 k/uL (0-0.7); Eosinophils % (A) 2 %; HCT 43.7 % (34.0-46.0); Lymphocytes # (A) 1.6 k/uL (1.0-4.8); Lymphocytes % (A) 23 %; MCH 31.2 pg (25.0-35.0); MCHC 34.3 g/dL (31.0-37.0); Mean Platelet Volume 6.8; Monocytes # (A) 0.3 k/uL (0-1.0); Monocytes % (A) 5 %; Neutrophils # (A) 5.1 k/uL (1.3-7.7); Neutrophils % (A) 70 %; Platelet Count 195 k/uL (150-450); RBC 4.81 m/uL (3.80-5.40); RDW 13.5 % (11.5-15.5); WBC 7.3 k/uL (3.8-10.6)
[2018-04-21 17:50] LABS: Partial Thromboplastin Time 25.8 sec (22.0-30.0); Prothrombin Time 10.3 sec (9.0-12.0)
[2018-04-21 17:52] LABS: ALT 31 U/L (9-52); AST 18 U/L (14-36); Albumin 4.1 g/dL (3.5-5.0); Alkaline Phosphatase 73 U/L (38-126); Anion Gap 9 mmol/L; Blood Urea Nitrogen 10 mg/dL (7-17); Calcium 9.2 mg/dL (8.4-10.2); Carbon Dioxide 23 mmol/L (22-30); Chloride 109 mmol/L (98-107); Glucose 89 mg/dL (74-99); Potassium 3.9 mmol/L (3.5-5.1); Sodium 141 mmol/L (137-145)
[2018-04-21 17:53] LABS: Creatine Kinase 85 U/L (30-135)
[2018-04-21 18:06] LABS: Creatine Kinase MB 0.8 ng/mL (0.0-2.4); Troponin I <0.012 ng/mL (0.000-0.034)
--- NOTE | 2018-04-21 18:24 | CT ---
EXAMINATION TYPE: CT angio chest DATE OF EXAM: 04/21/2018 6:06 PM COMPARISON: None HISTORY: Upper back and left arm pain CT DLP: 691.3 mGycm Automated exposure control for dose reduction was used. CONTRAST: CTA scan of the thorax is performed with IV Contrast, patient injected with 100 mL of Isovue 370, pul monary embolism protocol. There are 3-D post processed images.. FINDINGS: There is no mediastinal adenopathy. Thoracic aorta shows no evidence of aneurysm or dissection. There are no hilar masses. Heart size is normal per there is no pericardial effusion. There is normal contrast opacification of the pulmonary arteries. There are no filling defects. There is a 4 cm patchy area of airspace infiltrate in the superior segment right lower lobe right par aspinal region. There is minimal pleural thickening and subsegmental atelectasis left lung base. Ther e is no pleural effusion. Upper abdominal soft tissues are unremarkable. The bony thorax is intact. IMPRESSION: NO EVIDENCE OF PULMONARY EMBOLISM. SMALL RIGHT LOWER LOBE PNEUMONIA. SMALL AREA OF ATELECTASIS AND PL EURAL REACTION AT THE LEFT POSTERIOR LUNG BASE.
[2018-04-21] MEDS ORDERED: AZITHROMYCIN 500 MG TAB PO STA (18:41)
[2018-04-21 18:52] VITALS: BP 176/84; PULSE 61; TEMP 98
== END 2018-04-21 18:52 | disposition home or self-care (01) ==
LOC: EC 15:26
DX: M25.522 Pain in left elbow (principal); J18.1 Lobar pneumonia, unspecified organism; J98.11 Atelectasis; J94.8 Other specified pleural conditions; M54.9 Dorsalgia, unspecified; I10 Essential (primary) hypertension; G47.30 Sleep apnea, unspecified; Z87.891 Personal history of nicotine dependence; Z91.040 Latex allergy status; Z79.899 Other long term (current) drug therapy; Z82.49 Family history of ischemic heart disease and other diseases of the circulatory system; Z99.89 Dependence on other enabling machines and devices; Z87.728 Personal history of other specified (corrected) congenital malformations of nervous system and sense organs
CPT/HCPCS: 36415; 93005; 80053; 82550; 82553; 83735; 84484; 85025; 85610; 85730; 73080; 71046; 71275; 99284; Q9967

== ENCOUNTER 2018-04-24 18:40 | Emergency (ER) | payer OTHER ==
[2018-04-24 19:02] VITALS: BP 135/86; PULSE 79; RESP 18; TEMP 97.9
[2018-04-24] MEDS ORDERED: KETOROLAC 30 MG/ML 1 ML VIAL IM STA (19:22)
[2018-04-24] MEDS ORDERED: LIDOCAINE 5% PATCH TOPICAL STA (19:22)
--- NOTE | 2018-04-24 19:41 | ED ---
General Adult HPI - General Chief complaint: Back Pain/Injury Stated complaint: Back pain Time Seen by Provider: 04/24/18 19:04 Source: patient, RN notes reviewed Mode of arrival: ambulatory Limitations: no limitations - History of Present Illness Initial comments: 37-year-old female with a past medical history Chiari formation, fibromyalgia, migraines, hypertension presents to the emergency department for a chief complaint of lower back pain. Patient states this started this morning. Patient describes the pain as a dull achy pain across her bilateral lower back. Patient states aggravating factors include movement. She states alleviating factors include resting, but states she is a very active person so has difficulty resting. Patient denies any injuries. Patient denies any bladder or bowel changes, saddle anesthesia, or numbness/weakness in the legs. She denies any radiating pain into the legs. Patient denies any dysuria, urinary urgency, urinary frequency, or suprapubic pressure. Patient does admit to working for the past 6 days and states this may have exacerbated the pain. Patient took a Motrin 12 hours ago but has not taken anything since. Patient has no other complaints at this time including shortness of breath, chest pain, abdominal pain, nausea or vomiting, headache, or visual changes. - Related Data Home Medications Medication Instructions Recorded Confirmed Azithromycin [Zithromax Z-pack] See Taper PO DAILY 04/24/18 04/24/18 Cariprazine HCl [Vraylar] 6 mg PO DAILY 04/24/18 04/24/18 Losartan Potassium 100 mg PO DAILY 04/24/18 04/24/18 Previous Rx's Medication Instructions Recorded Ibuprofen [Motrin] 600 mg PO Q8HR PRN #30 tab 04/21/18 predniSONE 50 mg PO DAILY #5 tablet 04/21/18 Allergies Allergy/AdvReac Type Severity Reaction Status Date / Time latex Allergy Rash/Hives Verified 04/24/18 19:09 Review of Systems ROS Statement: Those systems with pertinent positive or pertinent negative responses have been documented in the HPI. ROS Other: All systems not noted in ROS Statement are negative. Past Medical History Past Medical History: Fibromyalgia, Hypertension, Sleep Apnea/CPAP/BIPAP Additional Past Medical History / Comment(s): Arnold-Chiari malformation, migraine headaches, irritable bowel syndrome, sleep apnea with CPAP use, History of Any Multi-Drug Resistant Organisms: None Reported Past Surgical History: Tubal Ligation, Uterine Ablation Additional Past Surgical History / Comment(s): Brain surgery for Arnold-Chiari Malformation - 2012 at [facility]. Past Anesthesia/Blood Transfusion Reactions: No Reported Reaction Past Psychological History: Anxiety, Bipolar, Depression Smoking Status: Former smoker Past Alcohol Use History: None Reported, Abuse Past Drug Use History: None Reported - Past Family History Father Family Medical History: Coronary Artery Disease (CAD) Additional Family Medical History / Comment(s): Father is age 65 and has history of coronary artery disease and depression Mother Family Medical History: Blood Disorder Additional Family Medical History / Comment(s): Mother is age 59 has clotting disorder. Patient has 1 brother with no major medical problems. She has 3 sons and one has bipolar disorder. General Exam Limitations: no limitations General appearance: alert, in no apparent distress Head exam: Present: atraumatic, normocephalic, normal inspection Eye exam: Present: normal appearance, PERRL, EOMI. Absent: scleral icterus, conjunctival injection, periorbital swelling ENT exam: Present: normal exam, mucous membranes moist Neck exam: Present: normal inspection, full ROM. Absent: tenderness, meningismus, lymphadenopathy Respiratory exam: Present: normal lung sounds bilaterally. Absent: respiratory distress, wheezes, rales, rhonchi, stridor Cardiovascular Exam: Present: regular rate, normal rhythm, normal heart sounds. Absent: systolic murmur, diastolic murmur, rubs, gallop, clicks GI/Abdominal exam: Present: soft, normal bowel sounds. Absent: distended, tenderness, guarding, rebound, rigid Extremities exam: Present: normal capillary refill (capillary refill less than 2 seconds and DP pulse 2+ in bilateral lower extremities) Back exam: Present: tenderness (Mild tenderness noted across patient's lower back including paraspinal muscles.), paraspinal tenderness (Bilateral paraspinal lumbar tenderness), vertebral tenderness (Generalized tenderness of the lumbar back, however no pinpoint vertebral tenderness.). Absent: full ROM ( Patient has about 90 flexion of the lower spine which increases pain.), CVA tenderness (R), CVA tenderness (L) Neurological exam: Present: alert, oriented X3, CN II-XII intact, normal gait. Absent: motor sensory deficit (Sensation in bilateral lower extremities. Full strength in bilateral lower extremities) Psychiatric exam: Present: normal affect, normal mood Course Vital Signs 04/24/18 18:59 Temperature 97.9 F Pulse Rate 79 Respiratory 18 Rate Blood Pressure 135/86 O2 Sat by Pulse 97 Oximetry Medical Decision Making - Medical Decision Making 37-year-old female with a past medical history fibromyalgia, GRE malformation, migraines, hypertension presents to the emergency department for a chief complaint of lower back pain. Patient states this started this morning. It is across her lower back bilaterally. Patient states aggravated factors include movement and it feels better at rest. She denies any injuries. No bladder or bowel changes, saddle anesthesia, numbness or weakness in the legs, or pain radiating into the legs. No dysuria. On exam patient does have some bilateral paraspinal lumbar tenderness with mild lumbar spine tenderness. No pinpoint lumbar spine tenderness. She is ambulatory without difficulty. Decent range of motion with 90 flexion. Patient is well appearing on exam. Patient was recently diagnosed with pneumonia as she had sharp left sided back pain and CT was ordered. She started on azithromycin 2 days ago. She states this is improving. Patient denies ever having fevers associated with this. She is afebrile in the emergency department with a temperature 97.9. I did recheck this and it was 97.8. Blood pressure is acceptable 135/86. At this time pain in the lumbar area appears musculoskeletal. Patient was given Toradol which did improve her pain. She was also given a lidocaine patch. She will follow up with primary care in 1-2 days. She'll return here if she has worsening symptoms or develops fevers. Symptoms were discussed with her in detail. Disposition Clinical Impression: Mechanical back pain Disposition: HOME SELF-CARE Condition: Good Instructions: Acute Low Back Pain (ED) Additional Instructions: Please take Motrin and Tylenol for pain. Please follow-up with primary care in 1-2 days. Return to the emergency department if you've any worsening symptoms or fevers. Is patient prescribed a controlled substance at d/c from ED?: No Referrals: Chidi Bolivar MD [Primary Care Provider] - 1-2 days Time of Disposition: 20:04
== END 2018-04-24 20:12 | disposition home or self-care (01) ==
LOC: EC 18:40
DX: M54.5 Low back pain (principal); I10 Essential (primary) hypertension; F31.9 Bipolar disorder, unspecified; G47.30 Sleep apnea, unspecified; Z99.89 Dependence on other enabling machines and devices; Z87.891 Personal history of nicotine dependence; Z79.899 Other long term (current) drug therapy; Z91.040 Latex allergy status
CPT/HCPCS: 99283; 96372; J1885

== ENCOUNTER 2018-05-16 07:45 | Day surgery (SDC) | payer OTHER ==
[2018-05-11 15:13] VITALS: BMI 38.3
--- NOTE | 2018-05-15 15:23 | P.GSHP ---
History of Present Illness H&P Date: 05/16/18 CHIEF COMPLAINT: GERD HISTORY OF PRESENT ILLNESS: The patient is a 37-year-old female who presents reports gastroesophageal reflux disease. Upper endoscopy was offered for further evaluation and management. PAST MEDICAL HISTORY: Please see list. PAST SURGICAL HISTORY: Please see list. MEDICATIONS: Please see list. ALLERGIES: Please see list. SOCIAL HISTORY: No illicit drug use FAMILY HISTORY: No reports of Crohn disease or ulcerative colitis. REVIEW OF ORGAN SYSTEMS: CONSTITUTIONAL: No reports of fevers or chills. GI: Denies any blood in stools or constipation. PHYSICAL EXAM: VITAL SIGNS: Stable GENERAL: Well-developed and pleasant in no acute distress. HEENT: No scleral icterus. Extraocular movements grossly intact. Moist buccal mucosa. NECK: Supple without lymphadenopathy. CHEST: Unlabored respirations. Equal bilateral excursions. CARDIOVASCULAR: Regular rate and rhythm. Distal 2+ pulses. ABDOMEN: Soft, nondistended. MUSCULOSKELETAL: No clubbing, cyanosis, or edema. ASSESSMENT: 1. Gastroesophageal reflux disease PLAN: 1. Recommend proceeding with an upper endoscopy Past Medical History Past Medical History: Fibromyalgia, Hypertension, Sleep Apnea/CPAP/BIPAP Additional Past Medical History / Comment(s): Arnold-Chiari malformation, migraine headaches, irritable bowel syndrome, sleep apnea with CPAP use, History of Any Multi-Drug Resistant Organisms: None Reported Past Surgical History: Cholecystectomy, Tubal Ligation, Uterine Ablation Additional Past Surgical History / Comment(s): Brain surgery for Arnold-Chiari Malformation - 2012 at [facility]. Past Anesthesia/Blood Transfusion Reactions: No Reported Reaction Smoking Status: Former smoker - Past Family History Father Family Medical History: Coronary Artery Disease (CAD) Additional Family Medical History / Comment(s): Father is age 65 and has history of coronary artery disease and depression Mother Family Medical History: Blood Disorder Additional Family Medical History / Comment(s): Mother is age 59 has clotting disorder. Patient has 1 brother with no major medical problems. She has 3 sons and one has bipolar disorder. Medications and Allergies Home Medications Medication Instructions Recorded Confirmed Type Cariprazine HCl [Vraylar] 6 mg PO DAILY 04/24/18 05/11/18 History Losartan Potassium 100 mg PO DAILY 04/24/18 05/11/18 History Allergies Allergy/AdvReac Type Severity Reaction Status Date / Time latex Allergy Rash/Hives Verified 05/11/18 15:09
[~2018-05-16 07:45] MED LIST changes: -HEPARIN SODIUM,PORCINE 5,000 UNIT/ML 1 ML VIAL SQ ONE; -INDOCYANINE GREEN 25 MG VIAL IV STA; -ceFAZolin 3 GM in SODIUM CHLORIDE 0.9% 100 ML IVPB ONE
[2018-05-16 08:07] VITALS: TEMP 98
[2018-05-16] MEDS ORDERED: fentaNYL (PF) 50 MCG/ML 2 ML AMP ONE (10:02)
[2018-05-16] MEDS ORDERED: PROPOFOL 10 MG/ML 20 ML VIAL IV ONE (10:02)
[2018-05-16] MEDS ORDERED: LIDOCAINE 1% INJ 10MG/ML (20 ML MDV) ONE (10:02)
--- NOTE | 2018-05-16 10:22 | P.PCN ---
Date of Procedure: 05/16/18 Description of Procedure: PREOPERATIVE DIAGNOSIS: Gastroesophageal reflux disease. Morbid obesity. POSTOPERATIVE DIAGNOSIS: Morbid obesity. Gastritis. Gastroesophageal reflux disease. Diaphragmatic hiatal hernia OPERATION: Esophagogastroduodenoscopy with biopsies along antrum. SURGEON: Maryana Balderrama MD ANESTHESIA: MAC. INDICATIONS: The patient is a 37-year-old female who presents with a history of reflux disease. Benefits and risks of the procedure were described. Informed consent was obtained. DESCRIPTION: The patient was brought into the endoscopy suite and laid in the left lateral decubitus position. An Olympus gastroscope was passed along the posterior oropharynx down to the distal esophagus where the squamocolumnar junction was encountered at 40 cm from the incisors. The stomach was entered and no bile reflux was found. Additional findings are listed below. Biopsies with cold forceps were obtained of the antrum. The first through third portion of the duodenum was examined and unremarkable. Retroflexion of the scope confirmed Hill grade 3 lower esophageal valve. The squamocolumnar junction demonstrated LA grade B erosive esophagitis. The stomach was desufflated. The patient tolerated the procedure well. FINDINGS: Squamocolumnar junction 37 cm from the incisors. Diaphragmatic hiatus at 40 cm. Hiatal hernia, 3 cm Hill grade 3 lower esophageal valve. LA grade B erosive esophagitis. No active duodenitis. Chronic gastritis RECOMMENDATIONS: Upper endoscopy as needed. Plan - Discharge Summary New Discharge Prescriptions: No Action Cariprazine HCl [Vraylar] 6 mg PO DAILY Losartan Potassium 100 mg PO DAILY Discharge Medication List Cariprazine HCl [Vraylar] 6 mg PO DAILY 04/24/18 [History] Losartan Potassium 100 mg PO DAILY 04/24/18 [History] Patient Instructions/Handouts: *Surgery [facility] - (Anesthesia) Endoscopy Discharge Instructions, Hiatal Hernia (DC), Gastritis (DC), Upper Endoscopy (DC)
[2018-05-16 10:37] VITALS: BP 109/69; PULSE 60; RESP 20
== END 2018-05-16 11:04 | disposition home or self-care (01) ==
LOC: ORWHC2ENDO 07:45
PROVIDERS: ATTEND Surgery Plastic and Reconstructive Surgery
DX: K21.0 Gastro-esophageal reflux disease with esophagitis (principal); K44.9 Diaphragmatic hernia without obstruction or gangrene; K29.50 Unspecified chronic gastritis without bleeding; E66.01 Morbid (severe) obesity due to excess calories; Z68.38 Body mass index [BMI] 38.0-38.9, adult; F32.9 Major depressive disorder, single episode, unspecified; Q07.00 Arnold-Chiari syndrome without spina bifida or hydrocephalus; M79.7 Fibromyalgia; I10 Essential (primary) hypertension; G47.30 Sleep apnea, unspecified; Z99.89 Dependence on other enabling machines and devices; Z79.899 Other long term (current) drug therapy; Z91.040 Latex allergy status
CPT/HCPCS: 81025; 88305; 43239; J2001; J3010; J2704

== ENCOUNTER 2018-05-20 10:40 | Emergency (ER) | payer OTHER ==
[2018-05-20 10:56] VITALS: RESP 18
--- NOTE | 2018-05-20 11:16 | ED ---
General Adult HPI - General Chief complaint: Psychiatric Symptoms Stated complaint: mental health Time Seen by Provider: 05/20/18 11:00 Source: family, RN notes reviewed, old records reviewed Mode of arrival: ambulatory Limitations: no limitations - History of Present Illness Initial comments: 37 -year-old female presenting for suicidal ideation and depression. Patient has had increasing thoughts of hopelessness and thoughts of wanting to harm herself. No specific plan. She does have history of mental illness and has been admitted for psychiatric treatment in the past. Not currently on any medication. Denies suicide attempt today. No physical complaints. - Related Data Home Medications Medication Instructions Recorded Confirmed Losartan Potassium 100 mg PO DAILY 04/24/18 05/20/18 Albuterol Inhaler [Ventolin Hfa 1 puff INHALATION RT-Q4H 05/20/18 05/20/18 Inhaler] Celecoxib [CeleBREX] 200 mg PO BID 05/20/18 05/20/18 Cetirizine HCl [Zyrtec] 10 mg PO DAILY 05/20/18 05/20/18 Doxepin HCl 50 mg PO HS 05/20/18 05/20/18 Hydrocortisone Cream 1 applic TOPICAL BID 05/20/18 05/20/18 [Hydrocortisone 2.5% Cream] Montelukast [Singulair] 10 mg PO DAILY 05/20/18 05/20/18 Previous Rx's Medication Instructions Recorded Omeprazole 40 mg PO DAILY #14 capsule. 05/16/18 Allergies Allergy/AdvReac Type Severity Reaction Status Date / Time latex Allergy Rash/Hives Verified 05/20/18 11:14 Review of Systems ROS Statement: Those systems with pertinent positive or pertinent negative responses have been documented in the HPI. ROS Other: All systems not noted in ROS Statement are negative. Past Medical History Past Medical History: Fibromyalgia, Hypertension, Sleep Apnea/CPAP/BIPAP Additional Past Medical History / Comment(s): Arnold-Chiari malformation, migraine headaches, irritable bowel syndrome, sleep apnea with CPAP use, History of Any Multi-Drug Resistant Organisms: None Reported Past Surgical History: Tubal Ligation, Uterine Ablation Additional Past Surgical History / Comment(s): Brain surgery for Arnold-Chiari Malformation - 2012 at [facility]. Past Anesthesia/Blood Transfusion Reactions: No Reported Reaction Past Psychological History: Anxiety, Bipolar, Depression Smoking Status: Former smoker Past Alcohol Use History: None Reported Past Drug Use History: None Reported - Past Family History Father Family Medical History: Coronary Artery Disease (CAD) Additional Family Medical History / Comment(s): Father is age 65 and has history of coronary artery disease and depression Mother Family Medical History: Blood Disorder Additional Family Medical History / Comment(s): Mother is age 59 has clotting disorder. Patient has 1 brother with no major medical problems. She has 3 sons and one has bipolar disorder. General Exam Limitations: no limitations General appearance: alert, in no apparent distress Head exam: Present: atraumatic, normocephalic Eye exam: Present: normal appearance, PERRL ENT exam: Present: normal exam Neck exam: Present: normal inspection. Absent: tenderness, meningismus Respiratory exam: Present: normal lung sounds bilaterally. Absent: respiratory distress Cardiovascular Exam: Present: regular rate, normal rhythm GI/Abdominal exam: Present: soft. Absent: distended, tenderness, guarding Back exam: Present: normal inspection Neurological exam: Present: alert, oriented X3, CN II-XII intact. Absent: motor sensory deficit Psychiatric exam: Present: depressed, suicidal ideation Skin exam: Present: warm, dry, intact. Absent: cyanosis, diaphoretic Course Vital Signs 05/20/18 10:53 Temperature 97.9 F Pulse Rate 69 Respiratory 18 Rate Blood Pressure 177/129 O2 Sat by Pulse 99 Oximetry Medical Decision Making - Medical Decision Making 37 -year-old female presenting with depression with suicidal ideation. Patient is medically cleared and evaluated by EPS. Patient is stable for outpatient follow-up and can be discharged. She has appointment with Dr. Bolivar, therapist, and the mobile crisis unit. Patient is agreeable with discharge. She declines suicidal ideation at the time of discharge. - Lab Data Lab Results 05/20/18 Range/Units 12:22 Urine Opiates Screen Not Detected (NotDetected) Ur Oxycodone Screen Not Detected (NotDetected) Urine Methadone Screen Not Detected (NotDetected) Ur Propoxyphene Screen Not Detected (NotDetected) Ur Barbiturates Screen Not Detected (NotDetected) U Tricyclic Antidepress Not Detected (NotDetected) Ur Phencyclidine Scrn Not Detected (NotDetected) Ur Amphetamines Screen Not Detected (NotDetected) U Methamphetamines Scrn Not Detected (NotDetected) U Benzodiazepines Scrn Not Detected (NotDetected) Urine Cocaine Screen Not Detected (NotDetected) U Marijuana (THC) Screen Not Detected (NotDetected) Disposition Clinical Impression: Depression Disposition: HOME SELF-CARE Condition: Good Instructions: Depression (ED) Is patient prescribed a controlled substance at d/c from ED?: No Referrals: Chidi Bolivar MD [Primary Care Provider] - 1-2 days Time of Disposition: 16:27
[2018-05-20 12:57] LABS: Amphetamine Screen,Urine Not Detected (NotDetected); Barbiturate Screen,Urine Not Detected (NotDetected); Benzodiazepines Screen,Urine Not Detected (NotDetected); Cocaine Screen,Urine Not Detected (NotDetected); Methadone Screen, Urine Not Detected (NotDetected); Opiate Screen,Urine Not Detected (NotDetected); Oxycodone Screen, Urine Not Detected (NotDetected); Phencyclidine Screen,Urine Not Detected (NotDetected); Tricyclic Antidepressant,Urine Not Detected (NotDetected); Urn Cannabinoid Scrn Not Detected (NotDetected)
[2018-05-20 16:56] VITALS: BP 135/90; PULSE 73; TEMP 97.6
== END 2018-05-20 16:38 | disposition home or self-care (01) ==
LOC: EC 10:40
DX: R45.851 Suicidal ideations (principal); M79.7 Fibromyalgia; I10 Essential (primary) hypertension; G47.30 Sleep apnea, unspecified; Z99.89 Dependence on other enabling machines and devices; F31.9 Bipolar disorder, unspecified; F41.9 Anxiety disorder, unspecified; Z87.891 Personal history of nicotine dependence; Z79.1 Long term (current) use of non-steroidal anti-inflammatories (NSAID); Z79.899 Other long term (current) drug therapy; Z91.040 Latex allergy status
CPT/HCPCS: 80306; 99285

== ENCOUNTER → 2018-06-29 | Outpatient (CLI) | payer OTHER ==
[2018-06-29 09:53] LABS: Basophils # (A) 0.1 k/uL (0-0.2); Basophils % (A) 1 %; Eosinophils # (A) 0.2 k/uL (0-0.7); Eosinophils % (A) 3 %; HCT 47.7 % (34.0-46.0); HGB 16.4 gm/dL (11.4-16.0); Lymphocytes # (A) 1.8 k/uL (1.0-4.8); Lymphocytes % (A) 30 %; MCH 32.3 pg (25.0-35.0); MCHC 34.4 g/dL (31.0-37.0); MCV 94.1 fL (80.0-100.0); Mean Platelet Volume 6.7; Monocytes # (A) 0.3 k/uL (0-1.0); Monocytes % (A) 5 %; Neutrophils # (A) 3.6 k/uL (1.3-7.7); Neutrophils % (A) 60 %; Platelet Count 227 k/uL (150-450); RBC 5.07 m/uL (3.80-5.40); RDW 13.4 % (11.5-15.5); WBC 6.1 k/uL (3.8-10.6)
[2018-06-29 16:44] LABS: Albumin 4.3 g/dL (3.80-4.90); Albumin/Globulin Ratio 1.87 (1.60-3.17); Anion Gap 7.5 mmol/L (4.00-12.00); Calcium 8.9 mg/dL (8.7-10.3); Carbon Dioxide 25.5 mmol/L (21.6-31.8); Globulin 2.3 g/dL (1.6-3.3); Potassium 4.3 mmol/L (3.5-5.5); Total Bilirubin 1.8 mg/dL (0.3-1.2); Total Protein 6.6 g/dL (6.2-8.2)
[2018-06-29 17:01] LABS: Folate, Serum 6.7 ng/mL; Vitamin D 25 Hydroxy 29.8 ng/mL (30.0-100.0)
[2018-06-29 17:36] LABS: Hemoglobin A1C 4.5 % (4.0-6.0)
== END | disposition home or self-care (01) ==
LOC: LABWHC1 08:53
PROVIDERS: ATTEND Family Medicine
DX: F31.9 Bipolar disorder, unspecified (principal); R20.0 Anesthesia of skin
CPT/HCPCS: 36415; 80053; 82306; 82607; 82746; 83036; 85025

== ENCOUNTER → 2018-09-06 | Outpatient (CLI) | payer OTHER ==
[2018-09-06 17:35] LABS: Anion Gap 8.3 mmol/L (4.00-12.00); Calcium 8.9 mg/dL (8.7-10.3); Carbon Dioxide 24.7 mmol/L (21.6-31.8); Potassium 4.2 mmol/L (3.5-5.5)
== END | disposition home or self-care (01) ==
LOC: LABWHC1 09:36
PROVIDERS: ATTEND Internal Medicine Cardiovascular Disease
DX: I10 Essential (primary) hypertension (principal)
CPT/HCPCS: 36415; 80048

== ENCOUNTER 2018-10-08 15:10 | Emergency (ER) | payer OTHER ==
[2018-10-08 15:24] VITALS: RESP 16
[2018-10-08 15:53] VITALS: TEMP 98
--- NOTE | 2018-10-08 16:04 | ED ---
Chest Pain HPI - General Chief Complaint: Chest Pain Stated Complaint: back pain Time Seen by Provider: 10/08/18 15:35 Source: patient Mode of arrival: ambulatory Limitations: no limitations - History of Present Illness Initial Comments: 37-year-old female presenting for multiple complaints. Patient states that early this morning at 2 AM 4 AM she had chest pain while lying flat. She states it is a lower aspect of the chest and radiated towards her back. Patient states it felt similar to when she had gallstones. Patient states she has had her gall bladder removed. Patient states that the pain is sharp in nature. She states the pain has subsided and has not returned. She denies any ripping tearing sensations. Patient states that she has had back pain chronically and has history of kidney stones, she states she noticed blood in her urine, and thought that this might be due to stone-presenting to the ER. Pt denies fever or chills night sweats proptosis leg swelling dizziness headache vomiting nausea epigastric pain abdominal pain dysuria urgency frequency. Remaining ROS (-) Upon appears well, no acute distress--waiting comfortably. - Related Data Home Medications Medication Instructions Recorded Confirmed Albuterol Inhaler [Ventolin Hfa 2 puff INHALATION RT-Q4H PRN 05/20/18 10/08/18 Inhaler] Montelukast [Singulair] 10 mg PO DAILY 05/20/18 10/08/18 Cariprazine HCl [Vraylar] 3 mg PO DAILY 10/08/18 10/08/18 Cholecalciferol [Vitamin D3 (25 1,000 unit PO DAILY 10/08/18 10/08/18 Mcg = 1000 Iu)] Losartan/Hydrochlorothiazide 1 tab PO DAILY 10/08/18 10/08/18 [Losartan-Hctz 100-25 mg Tab] Lurasidone [Latuda] 40 mg PO DAILY 10/08/18 10/08/18 Spironolact/Hydrochlorothiazid 1 tab PO DAILY 10/08/18 10/08/18 [Aldactazide 25-25 MG] Thiamine [Vitamin B-1] 100 mg PO TID 10/08/18 10/08/18 amLODIPine [Norvasc] 10 mg PO DAILY 10/08/18 10/08/18 Previous Rx's Medication Instructions Recorded Omeprazole 40 mg PO DAILY #14 capsule. 05/16/18 Allergies Allergy/AdvReac Type Severity Reaction Status Date / Time animal dander Allergy Rash/Hives Verified 10/08/18 16:43 celery Allergy Rash/Hives Verified 10/08/18 16:43 latex Allergy Rash/Hives Verified 10/08/18 16:43 lettuce Allergy Rash/Hives Verified 10/08/18 16:43 mold Allergy Rash/Hives Verified 10/08/18 16:43 shellfish derived [Shellfish] Allergy Rash/Hives Verified 10/08/18 16:43 tomato Allergy Rash/Hives Verified 10/08/18 16:43 Review of Systems ROS Statement: Those systems with pertinent positive or pertinent negative responses have been documented in the HPI. ROS Other: All systems not noted in ROS Statement are negative. Past Medical History Past Medical History: Fibromyalgia, Hypertension, Sleep Apnea/CPAP/BIPAP Additional Past Medical History / Comment(s): Arnold-Chiari malformation, migraine headaches, irritable bowel syndrome, sleep apnea with CPAP use, History of Any Multi-Drug Resistant Organisms: None Reported Past Surgical History: Tubal Ligation, Uterine Ablation Additional Past Surgical History / Comment(s): Brain surgery for Arnold-Chiari Malformation - 2012 at [facility]. Past Anesthesia/Blood Transfusion Reactions: No Reported Reaction Past Psychological History: Anxiety, Bipolar, Depression Smoking Status: Former smoker Past Alcohol Use History: None Reported Past Drug Use History: None Reported - Past Family History Father Family Medical History: Coronary Artery Disease (CAD) Additional Family Medical History / Comment(s): Father is age 65 and has history of coronary artery disease and depression Mother Family Medical History: Blood Disorder Additional Family Medical History / Comment(s): Mother is age 59 has clotting disorder. Patient has 1 brother with no major medical problems. She has 3 sons and one has bipolar disorder. General Exam - General Exam Comments Initial Comments: General: The patient is awake and alert, in no distress, and does not appear acutely ill. Eye: +3 mm pupils are equal, round and reactive to light, extra-ocular movements are intact. No nystagmus. There is normal conjunctiva bilaterally. No signs of icterus. Ears, nose, mouth and throat: There are moist mucous membranes and no oral lesions. Neck: The neck is supple, there is no tenderness or JVD. Cardiovascular: There is a regular rate and rhythm. No murmur, rub or gallop is appreciated. Respiratory: Lungs are clear to auscultation, respirations are non-labored, breath sounds are equal. No wheezes, stridor, rales, or rhonchi. Gastrointestinal: Soft, non-distended, non-tender abdomen without masses or organomegaly noted. There is no rebound or guarding present. No CVA tenderness. Bowel sounds are unremarkable. Musculoskeletal: Normal ROM, no tenderness. Strength 5/5. Sensation intact. Radial annd DP pulses equal bilaterally 2+. Neurological: A&O x 3. CN II-XII intact, There are no obvious motor or sensory deficits. Coordination appears grossly intact. Speech is normal. Skin: Skin is warm and dry and no rashes or lesions are noted. No LE edema. Psychiatric: Cooperative, appropriate mood & affect, normal judgment. Limitations: no limitations Course Vital Signs 10/08/18 10/08/18 10/08/18 15:22 15:52 17:01 Temperature 97.6 F 98 F Pulse Rate 78 73 66 Respiratory 16 16 16 Rate Blood Pressure 122/92 145/105 116/79 O2 Sat by Pulse 99 98 100 Oximetry 10/08/18 18:24 Temperature Pulse Rate 67 Respiratory 16 Rate Blood Pressure 129/91 O2 Sat by Pulse 99 Oximetry Chest Pain MDM - MDM 37-year-old female presenting for back pain with hematuria. Patient states she has history of kidney stones. Patient states she also has chronic pain. She states that she is more concerned about the hematuria. She states she did have an upset chest pain between 2 and 4 AM. She states this has subsided not return. Patient EKG WNL, D-dimer undetectable. Troponin (-). CXR no acute findings. No hematuria on UA. Mild increase in bili, fatty liver on US no disease of biliary tree. I discussed patient case and findings at length with attending provider Dr. Patel at length, including history, PMH, PE findings-- we feel at this time is stable for discharge. Patient upon reevaluation was requesting discharge stating she was told by her boss she has the day off and would like to go home now. Patient is educated and return parameters including immediate return for any chest pain. The importance of primary care follow-up and discussed at length the patient verbalizes understanding. Patient was discharged appearing well Disposition Clinical Impression: Back pain, Chest pain Disposition: HOME SELF-CARE Condition: Good Instructions (If sedation given, give patient instructions): Chest Pain (ED), Acute Low Back Pain (ED) Additional Instructions: Please use medication as discussed. Please follow-up with family doctor in the next 2 days- for evaluation of elevated blood pressure. Please return to emergency room if the symptoms increase or worsen or for any other concerns. Is patient prescribed a controlled substance at d/c from ED?: No Referrals: Chidi Bolivar MD [Primary Care Provider] - 1-2 days Time of Disposition: 19:20
[2018-10-08 16:21] LABS: Basophils # (A) 0.1 k/uL (0-0.2); Basophils % (A) 1 %; Eosinophils # (A) 0.1 k/uL (0-0.7); Eosinophils % (A) 1 %; HCT 48.3 % (34.0-46.0); HGB 16.9 gm/dL (11.4-16.0); Lymphocytes # (A) 2.5 k/uL (1.0-4.8); Lymphocytes % (A) 26 %; MCH 31.9 pg (25.0-35.0); MCHC 34.9 g/dL (31.0-37.0); MCV 91.5 fL (80.0-100.0); Mean Platelet Volume 6.8; Monocytes # (A) 0.4 k/uL (0-1.0); Monocytes % (A) 5 %; Neutrophils # (A) 6.2 k/uL (1.3-7.7); Neutrophils % (A) 66 %; Platelet Count 264 k/uL (150-450); RBC 5.28 m/uL (3.80-5.40); RDW 13.7 % (11.5-15.5); WBC 9.3 k/uL (3.8-10.6)
[2018-10-08 16:31] LABS: Albumin 4.4 g/dL (3.5-5.0); Calcium 9.5 mg/dL (8.4-10.2); Magnesium 2.3 mg/dL (1.6-2.3); Potassium 4.1 mmol/L (3.5-5.1); Total Bilirubin 3.4 mg/dL (0.2-1.3); Total Protein 7.4 g/dL (6.3-8.2)
[2018-10-08 16:32] LABS: Appearance,Urine Cloudy (Clear); Bilirubin,Urine Negative (Negative); Blood,Urine Negative (Negative); Color,Urine Yellow; Glucose,Urine (UA) Negative (Negative); Hyaline Casts,Urine 52 /lpf (0-2); Ketones,Urine Negative (Negative); Leukocyte Esterase,Urine Negative (Negative); Mucus,Urine Occasional /hpf; Nitrite,Urine Negative (Negative); PH, Urine 5.5 (5.0-8.0); Protein,Urine Negative (Negative); RBC,Urine 1 /hpf (0-5); Specific Gravity,Urine 1.022 (1.001-1.035); Squamous Epithelial Cell,Urine 5 /hpf (0-4); Urobilinogen,Urine <2.0 mg/dL (<2.0); WBC,Urine 4 /hpf (0-5)
--- NOTE | 2018-10-08 16:34 | XR ---
EXAMINATION TYPE: XR chest 2V DATE OF EXAM: 10/08/2018 COMPARISON: 04/21/2018 HISTORY: Chest pain TECHNIQUE: Frontal and lateral views of the chest are obtained. FINDINGS: Heart and mediastinum are normal. Lungs are clear. Diaphragm is normal. Bony thorax appear s normal. IMPRESSION: Normal chest. No change.
[2018-10-08 16:38] LABS: D-Dimer <0.17 mg/L FEU (<0.60); INR 0.9 (<1.2); Partial Thromboplastin Time 24.6 sec (22.0-30.0)
[2018-10-08] MEDS ORDERED: SODIUM CHLORIDE 0.9% 500 ML 500 ML IV ONE (16:56)
[2018-10-08] MEDS ORDERED: SODIUM CHLORIDE 0.9% 1,000 ML IV ONE (16:56)
--- NOTE | 2018-10-08 18:53 | US ---
EXAMINATION TYPE: US abd limited kidneys/bladder DATE OF EXAM: 10/08/2018 COMPARISON: CLINICAL HISTORY: increased bili. abn labs, GB removed x last year EXAM MEASUREMENTS: Liver Length: 17.8 cm CBD: 0.4 cm CHD: 0.3 cm Right Kidney: 10.6 x 5.7 x 4.6 cm Left Kidney: 9.9 x 4.4 x 4.7 cm Pancreas: Echogenic in appearance Liver: Increased attenuation, decreased visualization of vessels suggestive of fatty infiltrate Gallbladder: Surgically absent CBD: wnl CHD: wnl Right Kidney: wnl Left Kidney: wnl Bladder: wnl, distended Bilateral Jets Seen IMPRESSION: No evidence of renal mass or obstruction. No dilated ducts. No free fluid. No abnormality seen in the liver and pancreas and spleen.
[2018-10-08 19:34] VITALS: BP 139/87; PULSE 66
== END 2018-10-08 19:38 | disposition home or self-care (01) ==
LOC: EC 15:10
DX: M54.9 Dorsalgia, unspecified (principal); R07.9 Chest pain, unspecified; R31.9 Hematuria, unspecified; K76.0 Fatty (change of) liver, not elsewhere classified; G89.29 Other chronic pain; I10 Essential (primary) hypertension; G47.30 Sleep apnea, unspecified; F31.9 Bipolar disorder, unspecified; F41.9 Anxiety disorder, unspecified; Z87.442 Personal history of urinary calculi; Z87.891 Personal history of nicotine dependence; Z91.018 Allergy to other foods; Z91.013 Allergy to seafood; Z91.048 Other nonmedicinal substance allergy status; Z91.040 Latex allergy status; Z87.728 Personal history of other specified (corrected) congenital malformations of nervous system and sense organs; Z79.899 Other long term (current) drug therapy; Z90.49 Acquired absence of other specified parts of digestive tract; Z82.49 Family history of ischemic heart disease and other diseases of the circulatory system; Z99.89 Dependence on other enabling machines and devices
CPT/HCPCS: 36415; 71046; 76705; 76770; 80053; 81001; 81025; 83690; 83735; 84484; 85025; 85379; 85610; 85730; 93005; 96360; 96361; 99285

== ENCOUNTER 2018-10-19 19:32 | Emergency (ER) | payer OTHER ==
[2018-10-19 19:39] VITALS: BP 145/98; PULSE 92; RESP 18; TEMP 98.4
== END 2018-10-19 20:08 | disposition left against medical advice (07) ==
LOC: EC 19:32
DX: R51 Headache (principal); Z53.21 Procedure and treatment not carried out due to patient leaving prior to being seen by health care provider
CPT/HCPCS: 99499

== ENCOUNTER → 2018-10-28 | Outpatient (CLI) | payer OTHER ==
--- NOTE | 2018-10-28 18:51 | US ---
EXAMINATION TYPE: US pelvis complete transvag DATE OF EXAM: 10/28/2018 COMPARISON: NONE CLINICAL HISTORY: 37-year-old female N93.9 abnormal vaginal bleeding. TECHNIQUE: Transabdominal sonographic images of the pelvis were acquired. Transvaginal sonographic images were medically necessary to better assess the following anatomy: endometrium, left ovary Date of LMP: Patient had ablation 13 years prior, currently having intermittent bleeding FINDINGS: EXAM MEASUREMENTS: Uterus: 9.8 x 4.1 x 6.7cm Endometrial Stripe: 0.4 cm Right Ovary: 3.8 x 1.9 x 1.8 cm Left Ovary: not visualized due to overlying bowel 1. Uterus: Anteverted. Myometrium is heterogeneous with a poorly defined 2.6 x 0.9 cm hypoechoic are a along the anterior lower uterine segment abutting the endometrial stripe. 2. Endometrium: small amount of ff in lower uterine segment measuring 0.4cm. There also appears to b e a 1.2 cm cervical nabothian cyst just below. 3. Right Ovary: wnl 4. Left Ovary: Obscured by overlying bowel gas 5. Bilateral Adnexa: wnl 6. Posterior cul-de-sac: wnl IMPRESSION: 1. Small amount of fluid along the cavity of the lower uterine segment. Adjacent 1.2 cm cervical nabo thian cyst just below. 2. A 2.6 x 0.9 cm hypoechoic area along the anterior lower uterine segment abutting the endometrium. Given the myometrial heterogeneity, consider adenomyosis/adenomyoma. Female pelvic MRI can further ev aluate if indicated. MRI could also provide further assessment for any potential hematometra. 3. Unable to visualize the left ovary.
== END | disposition home or self-care (01) ==
LOC: RADUSWWP 14:53
PROVIDERS: ATTEND Nurse Practitioner Adult Health
DX: N88.8 Other specified noninflammatory disorders of cervix uteri (principal)
CPT/HCPCS: 76830; 76856

== ENCOUNTER 2018-11-20 19:28 | Emergency (ER) | payer OTHER ==
[2018-11-20] MEDS ORDERED: KETOROLAC 30 MG/ML 1 ML VIAL IVP STA (20:29)
[2018-11-20] MEDS ORDERED: diphenhydrAMINE 50 MG/ML 1 ML VIAL IVP STA (20:29)
[2018-11-20] MEDS ORDERED: SODIUM CHLORIDE 0.9% 1,000 ML IV ONE (20:29)
[2018-11-20] MEDS ORDERED: METOCLOPRAMIDE 5 MG/ML 2 ML VIAL IVP STA (20:29)
--- NOTE | 2018-11-20 20:50 | ED ---
Headache HPI - General Chief Complaint: Headache Stated Complaint: Migraine Time Seen by Provider: 11/20/18 20:08 Mode of arrival: ambulatory Limitations: no limitations - History of Present Illness Initial Comments: 38-year-old female patient with past medical history significant for frequent migraine headaches and Chiari malformation status post surgical repair in 2011 presents to the emergency department today for evaluation of headache. Patient states that she has had this headache for the last 2 days. States it is mostly at the base of her skull. States that she does have flashes in her vision with this. She is reporting some nausea, light sensitivity, and sound sensitivity. States her symptoms are consistent with her usual migraine pattern she has no new symptoms. Patient states that she has taken Reglan and [id number] medications at home which have not been helping for her headache. Patient is awaiting appointment with neurologist and an screw eye assembler. Patient denies any recent rash, fever, chills, shortness breath, chest pain, abdominal pain, diarrhea, constipation, back pain, numbness, tingling, dizziness, weakness, hematuria, dysuria, urinary urgency, urinary frequency, or any other complaints. - Related Data Home Medications Medication Instructions Recorded Confirmed Albuterol Inhaler [Ventolin Hfa 2 puff INHALATION RT-Q4H PRN 05/20/18 10/19/18 Inhaler] Montelukast [Singulair] 10 mg PO DAILY 05/20/18 10/19/18 Losartan/Hydrochlorothiazide 1 tab PO DAILY 10/08/18 10/19/18 [Losartan-Hctz 100-25 mg Tab] Lurasidone [Latuda] 40 mg PO DAILY 10/08/18 10/19/18 Spironolact/Hydrochlorothiazid 1 tab PO DAILY 10/08/18 10/19/18 [Aldactazide 25-25 MG] amLODIPine [Norvasc] 10 mg PO DAILY 10/08/18 10/19/18 Celecoxib [CeleBREX] 200 mg PO BID 10/19/18 10/19/18 Cetirizine HCl 10 mg PO DAILY 10/19/18 10/19/18 Cyclobenzaprine [Flexeril] 5 mg PO TID PRN 10/19/18 10/19/18 Doxepin HCl 50 mg PO HS 10/19/18 10/19/18 Famotidine [Pepcid] 20 mg PO BID 10/19/18 10/19/18 Nicotine 14Mg/24Hr Patch [Habitrol 1 patch TRANSDERM DAILY 10/19/18 10/19/18 14Mg/24Hr Patch] Previous Rx's Medication Instructions Recorded Omeprazole 40 mg PO DAILY #14 capsule. 05/16/18 Allergies Allergy/AdvReac Type Severity Reaction Status Date / Time animal dander Allergy Rash/Hives Verified 10/19/18 19:44 celery Allergy Rash/Hives Verified 10/19/18 19:44 Iodinated Contrast- Oral and Allergy Rash/Hives Verified 10/19/18 19:44 IV Dye latex Allergy Rash/Hives Verified 10/19/18 19:44 lettuce Allergy Rash/Hives Verified 10/19/18 19:44 mold Allergy Rash/Hives Verified 10/19/18 19:44 shellfish derived [Shellfish] Allergy Rash/Hives Verified 10/19/18 19:44 tomato Allergy Rash/Hives Verified 10/19/18 19:44 Review of Systems ROS Statement: Those systems with pertinent positive or pertinent negative responses have been documented in the HPI. ROS Other: All systems not noted in ROS Statement are negative. Past Medical History Past Medical History: Fibromyalgia, Hypertension, Sleep Apnea/CPAP/BIPAP Additional Past Medical History / Comment(s): Arnold-Chiari malformation, migraine headaches, irritable bowel syndrome, sleep apnea with CPAP use, History of Any Multi-Drug Resistant Organisms: None Reported Past Surgical History: Tubal Ligation, Uterine Ablation Additional Past Surgical History / Comment(s): Brain surgery for Arnold-Chiari Malformation - 2011 at [facility]. Past Anesthesia/Blood Transfusion Reactions: No Reported Reaction Past Psychological History: Anxiety, Bipolar, Depression, PTSD Smoking Status: Former smoker Past Alcohol Use History: Occasional Past Drug Use History: None Reported - Past Family History Father Family Medical History: Coronary Artery Disease (CAD) Additional Family Medical History / Comment(s): Father is age 65 and has history of coronary artery disease and depression Mother Family Medical History: Blood Disorder Additional Family Medical History / Comment(s): Mother is age 59 has clotting disorder. Patient has 1 brother with no major medical problems. She has 3 sons and one has bipolar disorder. General Exam Limitations: no limitations General appearance: alert, in no apparent distress, other (There is a well- developed, well-nourished adult female patient in no acute distress. Vital signs upon presentation are temperature 98.0F, pulse 60, respiration 16, blood pressure 174/108, pulse ox 97% on room air.) Eye exam: Present: normal appearance, PERRL, EOMI. Absent: scleral icterus, conjunctival injection, nystagmus, periorbital swelling ENT exam: Present: normal exam, normal oropharynx, mucous membranes moist Respiratory exam: Present: normal lung sounds bilaterally. Absent: respiratory distress, wheezes, rales, rhonchi, stridor Cardiovascular Exam: Present: regular rate, normal rhythm, normal heart sounds. Absent: systolic murmur, diastolic murmur, rubs, gallop, clicks GI/Abdominal exam: Present: soft, normal bowel sounds. Absent: distended, tenderness, guarding, rebound, rigid Neurological exam: Present: alert, oriented X3, CN II-XII intact, other (Strength in all 4 extremities is 5/5.) Psychiatric exam: Present: normal affect, normal mood Skin exam: Present: warm, dry, intact, normal color. Absent: rash Course Vital Signs 11/20/18 11/20/18 19:36 22:07 Temperature 98.0 F 97.9 F Pulse Rate 60 54 L Respiratory 16 18 Rate Blood Pressure 174/108 166/103 O2 Sat by Pulse 97 98 Oximetry Medical Decision Making - Medical Decision Making 38 year old female patient with past medical history significant for migraine headache and urinary malformation presents to the emergency department today for evaluation of headache at the base of her skull. Physical examination is unremarkable. She is neurologically intact with no focal deficits. Patient vang s have history of migraines and states her symptoms are consistent with her usual migraine pattern. She denies any new symptoms. This is not the worst headache of her life. She was given IV fluids, IV medications. Upon reevaluation states her pain is now 2 out of 10 and she would like to be discharged home. She will be discharged this time to follow-up with her primary care physician, she does have appointment coming up with her neurologist and an screw eye assembler, she is urged to keep these appointments. Return parameters were discussed in detail. She verbalizes understanding and agrees this plan. Disposition Clinical Impression: Migraine headache Disposition: HOME SELF-CARE Condition: Good Instructions (If sedation given, give patient instructions): Migraine Headache (ED) Additional Instructions: Increase fluids. Follow-up through primary care physician and your neurologist for recheck as soon as possible. Return to the emergency department immediately for any new, worsening, or concerning symptoms. Is patient prescribed a controlled substance at d/c from ED?: No Referrals: Chidi Bolivar MD [Primary Care Provider] - 1-2 days Time of Disposition: 21:49
[2018-11-20 22:12] VITALS: BP 166/103; PULSE 54; RESP 18; TEMP 97.9
== END 2018-11-20 22:15 | disposition home or self-care (01) ==
LOC: EC 19:28
DX: G43.909 Migraine, unspecified, not intractable, without status migrainosus (principal); I10 Essential (primary) hypertension; G47.30 Sleep apnea, unspecified; F31.9 Bipolar disorder, unspecified; F41.9 Anxiety disorder, unspecified; Z87.891 Personal history of nicotine dependence; Z91.013 Allergy to seafood; Z91.018 Allergy to other foods; Z91.040 Latex allergy status; Z91.041 Radiographic dye allergy status; Z91.048 Other nonmedicinal substance allergy status; Z79.1 Long term (current) use of non-steroidal anti-inflammatories (NSAID); Z79.899 Other long term (current) drug therapy; Z87.728 Personal history of other specified (corrected) congenital malformations of nervous system and sense organs; Z99.89 Dependence on other enabling machines and devices; Z98.890 Other specified postprocedural states
CPT/HCPCS: 99283; 96374; 96375 ×2; 96361; J1200; J2765; J1885

== ENCOUNTER 2019-01-15 03:50 | Emergency (ER) | payer OTHER ==
[2019-01-15 03:59] VITALS: RESP 20; TEMP 98.1
[2019-01-15] MEDS ORDERED: METOCLOPRAMIDE 5 MG/ML 2 ML VIAL IVP STA (04:36)
[2019-01-15] MEDS ORDERED: diphenhydrAMINE 50 MG/ML 1 ML VIAL IVP STA (04:36)
[2019-01-15] MEDS ORDERED: SODIUM CHLORIDE 0.9% 1,000 ML IV ONE (04:36)
[2019-01-15] MEDS ORDERED: KETOROLAC 30 MG/ML 1 ML VIAL IVP STA (04:36)
--- NOTE | 2019-01-15 05:02 | ED ---
Headache HPI - General Mode of arrival: ambulatory Limitations: no limitations <Farrah Dewitt - Last Filed: 01/15/19 04:59> <Lucretia Weller - Last Filed: 01/15/19 06:37> - General Chief Complaint: Headache Stated Complaint: headache Time Seen by Provider: 01/15/19 04:25 - History of Present Illness Initial Comments: 38-year-old female patient with past medical history significant for migraine headache, chiari malformation status post surgical repair presents to the emergency department today for evaluation of migraine headache. Patient states that headache has been present for the last 12 hours. States she did take her home medications without relief. Patient is reporting intermittent blurred vision. Nausea, light sensitivity, and sound sensitivity. Patient states that the symptoms are consistent with her usual migraine pattern. She denies this being the worst headache of her life. She denies fever, chills, or neck stiffness. Patient does have an appointment with a neurologist coming up in 2 weeks and recently had evaluation by ophthalmology. They're concerned she may have nerve damage and increased pressure behind the left eye and are considering shunt placement. Patient denies any recent rash, shortness breath, chest pain, abdominal pain, diarrhea, constipation, back pain, numbness, tingling, dizzine ss, weakness, hematuria, dysuria, urinary urgency, urinary frequency, or any other complaints. (Farrah Dewitt) - Related Data Home Medications Medication Instructions Recorded Confirmed Albuterol Inhaler [Ventolin Hfa 2 puff INHALATION RT-Q4H PRN 05/20/18 10/19/18 Inhaler] Montelukast [Singulair] 10 mg PO DAILY 05/20/18 10/19/18 Losartan/Hydrochlorothiazide 1 tab PO DAILY 10/08/18 10/19/18 [Losartan-Hctz 100-25 mg Tab] Lurasidone [Latuda] 40 mg PO DAILY 10/08/18 10/19/18 Spironolact/Hydrochlorothiazid 1 tab PO DAILY 10/08/18 10/19/18 [Aldactazide 25-25 MG] amLODIPine [Norvasc] 10 mg PO DAILY 10/08/18 10/19/18 Celecoxib [CeleBREX] 200 mg PO BID 10/19/18 10/19/18 Cetirizine HCl 10 mg PO DAILY 10/19/18 10/19/18 Cyclobenzaprine [Flexeril] 5 mg PO TID PRN 10/19/18 10/19/18 Doxepin HCl 50 mg PO HS 10/19/18 10/19/18 Famotidine [Pepcid] 20 mg PO BID 10/19/18 10/19/18 Nicotine 14Mg/24Hr Patch [Habitrol 1 patch TRANSDERM DAILY 10/19/18 10/19/18 14Mg/24Hr Patch] Previous Rx's Medication Instructions Recorded Omeprazole 40 mg PO DAILY #14 capsule. 05/16/18 Allergies Allergy/AdvReac Type Severity Reaction Status Date / Time animal dander Allergy Rash/Hives Verified 01/15/19 03:59 celery Allergy Rash/Hives Verified 01/15/19 03:59 Iodinated Contrast- Oral and Allergy Rash/Hives Verified 01/15/19 03:59 IV Dye latex Allergy Rash/Hives Verified 01/15/19 03:59 lettuce Allergy Rash/Hives Verified 01/15/19 03:59 mold Allergy Rash/Hives Verified 01/15/19 03:59 shellfish derived [Shellfish] Allergy Rash/Hives Verified 01/15/19 03:59 tomato Allergy Rash/Hives Verified 01/15/19 03:59 Review of Systems ROS Other: All systems not noted in ROS Statement are negative. <Farrah Dewitt M - Last Filed: 01/15/19 04:59> ROS Other: All systems not noted in ROS Statement are negative. <Lucretia Weller - Last Filed: 01/15/19 06:37> ROS Statement: Those systems with pertinent positive or pertinent negative responses have been documented in the HPI. Past Medical History Past Medical History: Fibromyalgia, Hypertension, Sleep Apnea/CPAP/BIPAP Additional Past Medical History / Comment(s): Arnold-Chiari malformation, migraine headaches, irritable bowel syndrome, sleep apnea with CPAP use, History of Any Multi-Drug Resistant Organisms: None Reported Past Surgical History: Tubal Ligation, Uterine Ablation Additional Past Surgical History / Comment(s): Brain surgery for Arnold-Chiari Malformation - 2012 at [facility]. Past Anesthesia/Blood Transfusion Reactions: No Reported Reaction Past Psychological History: Anxiety, Bipolar, Depression, PTSD Smoking Status: Former smoker Past Alcohol Use History: Occasional Past Drug Use History: None Reported - Past Family History Father Family Medical History: Coronary Artery Disease (CAD) Additional Family Medical History / Comment(s): Father is age 65 and has history of coronary artery disease and depression Mother Family Medical History: Blood Disorder Additional Family Medical History / Comment(s): Mother is age 59 has clotting disorder. Patient has 1 brother with no major medical problems. She has 3 sons and one has bipolar disorder. <Farrah Dewitt M - Last Filed: 01/15/19 04:59> General Exam Limitations: no limitations General appearance: alert, in no apparent distress, other (This is a well- developed, well-nourished adult female patient in no acute distress. Vital signs upon presentation are temperature 98.1F, pulse 77, respirations 20, blood pressure 184/145, pulse ox 98% on room air.) Eye exam: Present: normal appearance, PERRL, EOMI. Absent: scleral icterus, conjunctival injection, periorbital swelling ENT exam: Present: normal exam, normal oropharynx, mucous membranes moist Respiratory exam: Present: normal lung sounds bilaterally. Absent: respiratory distress, wheezes, rales, rhonchi, stridor Cardiovascular Exam: Present: regular rate, normal rhythm, normal heart sounds. Absent: systolic murmur, diastolic murmur, rubs, gallop, clicks GI/Abdominal exam: Present: soft, normal bowel sounds. Absent: distended, tenderness, guarding, rebound, rigid Neurological exam: Present: alert, oriented X3, CN II-XII intact, other (Strength in all 4 extremities is 5/5.) Psychiatric exam: Present: normal affect, normal mood Skin exam: Present: warm, dry, intact, normal color. Absent: rash <Farrah Dewitt M - Last Filed: 01/15/19 04:59> Course Vital Signs 01/15/19 01/15/19 01/15/19 03:58 05:25 05:53 Temperature 98.1 F Pulse Rate 77 67 70 Respiratory 20 20 Rate Blood Pressure 184/145 174/110 157/97 O2 Sat by Pulse 98 97 Oximetry Medical Decision Making <Lucretia Weller P - Last Filed: 01/15/19 06:37> - Medical Decision Making June is a 38-year-old female with chronic migraines who presented to the ER today with a migraine that had not responded to her home medications. Patient care was signed out to me at 4 AM, patient was reevaluated after receiving medications reported resolution of her headache and would like to be discharged home at this time. (Lucretia Weller) Disposition <Farrah Dewitt - Last Filed: 01/15/19 04:59> Is patient prescribed a controlled substance at d/c from ED?: No <Lucretia Weller - Last Filed: 01/15/19 06:37> Clinical Impression: Headache Disposition: HOME SELF-CARE Condition: Stable Instructions (If sedation given, give patient instructions): Acute Headache (ED) Referrals: Chidi Bolivar MD [Primary Care Provider] - 1-2 days
[2019-01-15 05:54] VITALS: BP 157/97; PULSE 70
== END 2019-01-15 06:22 | disposition home or self-care (01) ==
LOC: EC 03:50
DX: G43.709 Chronic migraine without aura, not intractable, without status migrainosus (principal); I10 Essential (primary) hypertension; G47.30 Sleep apnea, unspecified; F31.9 Bipolar disorder, unspecified; F41.9 Anxiety disorder, unspecified; Z79.1 Long term (current) use of non-steroidal anti-inflammatories (NSAID); Z79.899 Other long term (current) drug therapy; Z91.09 Other allergy status, other than to drugs and biological substances; Z91.018 Allergy to other foods; Z91.040 Latex allergy status; Z91.041 Radiographic dye allergy status; Z91.013 Allergy to seafood; Z87.891 Personal history of nicotine dependence
CPT/HCPCS: 99283; 96374; 96375 ×2; 96361; J1200; J2765; J1885

== ENCOUNTER → 2019-12-14 | Outpatient (CLI) | payer OTHER ==
--- NOTE | 2019-12-18 08:30 | MM ---
Reason for exam: screening (asymptomatic). Last mammogram was performed 2 years and 3 months ago. History: Family history of breast cancer in maternal grandmother. Took hormonal contraceptives beginning at age 15. Physical Findings: A clinical breast exam by your physician is recommended on an annual basis and results should be correlated with mammographic findings. MG Screening Mammo w CAD Bilateral CC and MLO view(s) were taken. Prior study comparison: September 21, 2017, bilateral MG screening mammo w CAD. There are scattered fibroglandular densities. No significant changes when compared with prior studies. ASSESSMENT: Negative, BI-RAD 1 RECOMMENDATION: Routine screening mammogram of both breasts at age 41.
== END | disposition home or self-care (01) ==
LOC: RADMAMWWP 15:37
PROVIDERS: ATTEND Family Medicine
DX: Z12.31 Encounter for screening mammogram for malignant neoplasm of breast (principal)
CPT/HCPCS: 77067

== ENCOUNTER 2020-01-20 14:15 | Emergency (ER) | payer OTHER ==
[2020-01-20 14:32] VITALS: RESP 18
[2020-01-20] MEDS ORDERED: KETOROLAC 15 MG/ML 1 ML VIAL IM STA (14:50)
--- NOTE | 2020-01-20 15:05 | ED ---
Headache HPI - General Chief Complaint: Headache Stated Complaint: Dizziness Time Seen by Provider: 01/20/20 14:35 Mode of arrival: ambulatory Limitations: no limitations - History of Present Illness Initial Comments: Patient is a 39-year-old female, with history of Arnold-Chiari malformation, presenting to the emergency Department with complaints of a migraine 3 days. Patient states she is taking a migraine medication that is subcu, she does not remember the name of it. Patient states this does feel like her normal migraines. She also reports some mild dizziness and states that she also gets that feeling with her migraines as well. She denies any new falls or trauma. She does admit to some light sensitivity. She denies any fever, chills, nausea or vomiting, no diarrhea or chest pain. She denies any blurry vision. She states that this simply feels like her normal migraines. She states that when she gets these and has to come to the hospital she typically gets Toradol which helps. She denies being this time. She has no further complaints. Upon arrival to the ER, patient's blood pressure is elevated at 185/118, her respiratory vitals are normal. Patient states her PCP did start her on a blood pressure medication within the past week, she does not remember the name of it. - Related Data Home Medications Medication Instructions Recorded Confirmed Migraine Med(Unknown Name) 1 dose IM Q30D 12/29/19 12/29/19 Allergies Allergy/AdvReac Type Severity Reaction Status Date / Time animal dander Allergy Rash/Hives Verified 01/20/20 14:32 celery Allergy Rash/Hives Verified 01/20/20 14:32 Iodinated Contrast Media Allergy Rash/Hives Verified 01/20/20 14:32 [Iodinated Contrast- Oral and IV Dye] latex Allergy Rash/Hives Verified 01/20/20 14:32 lettuce Allergy Rash/Hives Verified 01/20/20 14:32 mold Allergy Rash/Hives Verified 01/20/20 14:32 shellfish derived [Shellfish] Allergy Rash/Hives Verified 01/20/20 14:32 tomato Allergy Rash/Hives Verified 01/20/20 14:32 Review of Systems ROS Statement: Those systems with pertinent positive or pertinent negative responses have been documented in the HPI. ROS Other: All systems not noted in ROS Statement are negative. Past Medical History Past Medical History: Fibromyalgia, Hypertension, Sleep Apnea/CPAP/BIPAP Additional Past Medical History / Comment(s): Arnold-Chiari malformation, migraine headaches, irritable bowel syndrome, sleep apnea with CPAP use, currently having blood in stool. History of Any Multi-Drug Resistant Organisms: None Reported Past Surgical History: Hysterectomy, Tubal Ligation, Uterine Ablation Additional Past Surgical History / Comment(s): Brain surgery for Arnold-Chiari Malformation - 2012 at [facility]. Past Anesthesia/Blood Transfusion Reactions: No Reported Reaction Past Psychological History: Anxiety, Bipolar, Depression, PTSD Smoking Status: Former smoker Past Alcohol Use History: None Reported Past Drug Use History: None Reported - Past Family History Father Family Medical History: Coronary Artery Disease (CAD) Additional Family Medical History / Comment(s): Father is age 65 and has history of coronary artery disease and depression. Mother Family Medical History: Blood Disorder Additional Family Medical History / Comment(s): Mother is age 59, has clotting disorder. Patient has 1 brother with no major medical problems. She has 3 sons and one has bipolar disorder. General Exam - General Exam Comments Initial Comments: GENERAL: Patient is well-developed and well-nourished. Patient is nontoxic and in no acute distress. She is sitting in a dark room. HEAD: Atraumatic, normocephalic. EYES: Pupils equal round and reactive to light, extraocular movements intact, sclera anicteric, conjunctiva are normal. Eyelids were unremarkable. ENT: TMs normal, nares patent, oropharynx clear without exudates. Moist mucous membranes. NECK: Normal range of motion, supple without lymphadenopathy or JVD. LUNGS: Unlabored respirations. Breath sounds clear to auscultation bilaterally and equal. No wheezes rales or rhonchi. HEART: Regular rate and rhythm without murmurs, rubs or gallops. ABDOMEN: Soft, nontender, normoactive bowel sounds. No guarding, no rebound. No masses appreciated. : Deferred MUSCULOSKELETAL: Normal extremities with adequate strength and normal range of motion, no pitting or edema. No clubbing or cyanosis. NEUROLOGICAL: Patient is alert and oriented x 3. Motor and sensory are also intact. Cranial nerves II through XII grossly intact. Symmetrical smile. Normal speech, normal gait. PSYCH: Normal mood, normal affect. SKIN: Warm, Dry, normal turgor, no rashes or lesions noted. Limitations: no limitations Course Vital Signs 01/20/20 01/20/20 14:30 15:07 Temperature 98.4 F Pulse Rate 73 Respiratory 18 Rate Blood Pressure 185/118 181/99 O2 Sat by Pulse 98 Oximetry Medical Decision Making - Medical Decision Making Patient is a 39-year-old female presenting with a migraine 3 days. She does have history of migraines and this feels similar. She states she normally just gets an injection of Toradol which does help. She denies any nausea or vomiting, fever or chills. Her blood pressure is elevated upon arrival, she was just started on a blood pressure medication last week, she does not remember the name of it. Her exam is unremarkable, no neural deficits. Patient was given some Toradol, her blood pressure did decrease some. She states she is feeling better and is requesting to be discharged. She is no longer having diz ziness. She is also requesting a work note. She is stable for discharge. Return parameters were discussed with the patient she verbalized understanding. She'll follow up with her PCP. Disposition Clinical Impression: Migraine Disposition: HOME SELF-CARE Condition: Stable Instructions (If sedation given, give patient instructions): Acute Headache (ED) Additional Instructions: Please return to the Emergency Department if symptoms worsen or any other concerns. Follow-up with PCP as discussed. Is patient prescribed a controlled substance at d/c from ED?: No Referrals: Chidi Bolivar MD [Primary Care Provider] - 1-2 days
[2020-01-20 16:19] VITALS: BP 164/96; PULSE 69; TEMP 98.6
== END 2020-01-20 16:19 | disposition home or self-care (01) ==
LOC: EC 14:15
DX: G43.909 Migraine, unspecified, not intractable, without status migrainosus (principal); G47.33 Obstructive sleep apnea (adult) (pediatric); I10 Essential (primary) hypertension; Z79.899 Other long term (current) drug therapy; Z91.013 Allergy to seafood; Z91.018 Allergy to other foods; Z91.041 Radiographic dye allergy status; Z91.048 Other nonmedicinal substance allergy status; Z99.89 Dependence on other enabling machines and devices; Z87.891 Personal history of nicotine dependence
CPT/HCPCS: 96372; 99283; J1885

== ENCOUNTER → 2020-01-30 | Outpatient (CLI) | payer OTHER ==
[2020-01-30 10:16] LABS: Basophils # (A) 0.1 k/uL (0-0.2); Basophils % (A) 1 %; Eosinophils # (A) 0.2 k/uL (0-0.7); Eosinophils % (A) 3 %; HCT 47.3 % (34.0-46.0); HGB 16.1 gm/dL (11.4-16.0); Lymphocytes # (A) 2.3 k/uL (1.0-4.8); Lymphocytes % (A) 33 %; MCH 30.7 pg (25.0-35.0); MCHC 34.1 g/dL (31.0-37.0); MCV 90.2 fL (80.0-100.0); Mean Platelet Volume 6.9; Monocytes # (A) 0.4 k/uL (0-1.0); Monocytes % (A) 5 %; Neutrophils % (A) 57 %; Platelet Count 228 k/uL (150-450); RBC 5.25 m/uL (3.80-5.40); RDW 12.7 % (11.5-15.5)
[2020-01-30 17:32] LABS: African American GFR (CKD) 108.4 (60.0-200.0); Albumin 4.1 g/dL (3.80-4.90); Albumin/Globulin Ratio 2.05 (1.60-3.17); Anion Gap 10.4 mmol/L (4.00-12.00); Calcium 9.1 mg/dL (8.7-10.3); Carbon Dioxide 23.6 mmol/L (21.6-31.8); Magnesium 1.9 mg/dL (1.5-2.4); Non-African American GFR(CKD) 93.5 (60.0-200.0); Potassium 4.2 mmol/L (3.5-5.5); Total Bilirubin 1.7 mg/dL (0.2-1.2); Total Protein 6.1 g/dL (6.2-8.2)
== END | disposition home or self-care (01) ==
LOC: LABWHC1 09:24
PROVIDERS: ATTEND Nurse Practitioner Adult Health
DX: R19.7 Diarrhea, unspecified (principal); Z11.59 Encounter for screening for other viral diseases
CPT/HCPCS: 36415; 80053; 83735; 85025; 86803

== ENCOUNTER 2020-03-17 15:41 | Emergency (ER) | payer OTHER ==
[2020-03-17 15:45] VITALS: RESP 18; TEMP 97.3
[2020-03-17] MEDS ORDERED: LIDOCAINE VISCOUS 2% 15 ML CUP MUCOUS MEM ONE (16:22)
--- NOTE | 2020-03-17 16:45 | XR ---
EXAMINATION TYPE: XR chest 2V DATE OF EXAM: 03/17/2020 COMPARISON: 10/08/2018 HISTORY: Cough. Pain. TECHNIQUE: FINDINGS: Heart and mediastinum are normal. Lungs are clear. Diaphragm is normal. Bony thorax appears normal. IMPRESSION: Normal chest. No change.
[2020-03-17] MEDS ORDERED: IBUPROFEN 600 MG TAB PO STA (17:07)
--- NOTE | 2020-03-17 17:13 | ED ---
SOB HPI - General Chief Complaint: Shortness of Breath Stated Complaint: INHALED BLEACH FUMES Time Seen by Provider: 03/17/20 15:45 Source: patient Mode of arrival: ambulatory Limitations: no limitations - History of Present Illness Initial Comments: 31-year-old female presents emergency department after she had exposure to bleach while at work. Patient states around 2:45 PM she was exposed to bleach mixed with water and had sudden onset of bronchospasm, rhinorrhea with deep breathing. Patient quickly exited the environment in presents emergency d epartment for further evaluation. Reports that her work of breathing is improved at this time however does have significant discomfort in the back of her throat due to a burning sensation. Patient denies any chest pain. There was no ingestion the chemical. Denies exposure to any other chemicals. for . Denies any nausea or vomiting. Admits to a mild 2 out of 10 headache. No alleviating, precipitating or modifying factors - Related Data Home Medications Medication Instructions Recorded Confirmed Migraine Med(Unknown Name) 1 dose IM Q30D 12/29/19 02/02/20 amLODIPine BESYLATE 10 mg PO DAILY 02/02/20 02/02/20 Previous Rx's Medication Instructions Recorded Albuterol Sulfate [Proair Hfa] 1 - 2 puff INHALATION Q6HR PRN #1 03/17/20 inhaler Phenol [Chloraseptic] 1 spray MUCOUS MEM TID PRN #1 03/17/20 bottle Allergies Allergy/AdvReac Type Severity Reaction Status Date / Time animal dander Allergy Rash/Hives Verified 03/17/20 15:43 celery Allergy Rash/Hives Verified 03/17/20 15:43 Iodinated Contrast Media Allergy Rash/Hives Verified 03/17/20 15:43 [Iodinated Contrast- Oral and IV Dye] latex Allergy Rash/Hives Verified 03/17/20 15:43 lettuce Allergy Rash/Hives Verified 03/17/20 15:43 mold Allergy Rash/Hives Verified 03/17/20 15:43 shellfish derived [Shellfish] Allergy Rash/Hives Verified 03/17/20 15:43 tomato Allergy Rash/Hives Verified 03/17/20 15:43 Review of Systems ROS Statement: Those systems with pertinent positive or pertinent negative responses have been documented in the HPI. ROS Other: All systems not noted in ROS Statement are negative. Past Medical History Past Medical History: Fibromyalgia, GI Bleed, Hypertension, Sleep Apnea/CPAP/BIPAP Additional Past Medical History / Comment(s): Arnold-Chiari malformation, migraine headaches, IBS poss - hx loose stools, Sleep Apnea with CPAP use, currently having blood in stool on/off History of Any Multi-Drug Resistant Organisms: None Reported Past Surgical History: Hysterectomy, Tubal Ligation, Uterine Ablation Additional Past Surgical History / Comment(s): Brain surgery for Arnold-Chiari Malformation - 2011 at [facility]. Colonoscopy 2010 Past Anesthesia/Blood Transfusion Reactions: No Reported Reaction Past Psychological History: Anxiety, Bipolar, Depression, PTSD Smoking Status: Former smoker Past Alcohol Use History: None Reported Past Drug Use History: None Reported - Past Family History Father Family Medical History: Coronary Artery Disease (CAD) Additional Family Medical History / Comment(s): Father is age 65 and has history of coronary artery disease and depression. Mother Family Medical History: Blood Disorder Additional Family Medical History / Comment(s): Mother is age 59, has clotting disorder. Patient has 1 brother with no major medical problems. She has 3 sons and one has bipolar disorder. Maternal grandmother - breast cancer General Exam Limitations: no limitations General appearance: alert, in no apparent distress Head exam: Present: atraumatic, normocephalic, normal inspection Eye exam: Present: normal appearance, PERRL, EOMI. Absent: scleral icterus, conjunctival injection, periorbital swelling ENT exam: Present: normal exam, mucous membranes moist Neck exam: Present: normal inspection. Absent: tenderness, meningismus, lymphadenopathy Respiratory exam: Present: normal lung sounds bilaterally. Absent: respiratory distress, wheezes, rales, rhonchi, stridor Cardiovascular Exam: Present: regular rate, normal rhythm, normal heart sounds. Absent: systolic murmur, diastolic murmur, rubs, gallop, clicks GI/Abdominal exam: Present: soft, normal bowel sounds. Absent: distended, tenderness, guarding, rebound, rigid Extremities exam: Present: normal inspection, full ROM, normal capillary refill. Absent: tenderness, pedal edema, joint swelling, calf tenderness Back exam: Present: normal inspection Neurological exam: Present: alert, oriented X3, CN II-XII intact Psychiatric exam: Present: normal affect, normal mood Skin exam: Present: warm, dry, intact, normal color. Absent: rash Course Vital Signs 03/17/20 03/17/20 15:43 17:39 Temperature 97.3 F L Pulse Rate 90 79 Respiratory 18 18 Rate Blood Pressure 182/111 123/76 O2 Sat by Pulse 97 99 Oximetry Medical Decision Making - Medical Decision Making Upon arrival patient is placed in room 28. A thorough history and physical exam was performed. Patient presents with no signs of respiratory distress. She is placed on 2 L of oxygen. Chest x-ray was performed. Patient was provided with viscous lidocaine for her throat discomfort which she does not tolerate. Poison control was contacted and states that there are no further recommendations for the patient's exposure. She is reevaluated after an hour time and states she continues to have burning pain in the back of her throat. He did recommend treatment with Cepacol spray. She given Motrin for her headache. Side effect profile discussed the patient. Per prescription will be sent to the pharmacy. He will also be prescribed an inhaler because of her bronchospastic cough. Results of the x-ray were discussed with the patient. She is to take Motrin and Tylenol alternating for pain control. Follow up with her primary care doctor in 2 to 4 days. Return to the emergency room for any new or worsening symptoms. Patient was discharged in stable condition Disposition Clinical Impression: Accidental exposure to bleach, Cough, Bronchospasm Disposition: HOME SELF-CARE Condition: Stable Instructions (If sedation given, give patient instructions): Bronchospasm (ED) Additional Instructions: Please follow up with your primary care doctor in 2-4 days. Take Motrin and Tylenol alternating for pain and fever. Return to the emergency room for any new or worsening symptoms Prescriptions: Phenol [Chloraseptic] 1 spray MUCOUS MEM TID PRN #1 bottle PRN Reason: Sore Throat Albuterol Sulfate [Proair Hfa] 1 - 2 puff INHALATION Q6HR PRN #1 inhaler PRN Reason: Cough Is patient prescribed a controlled substance at d/c from ED?: No Referrals: Chidi Bolivar MD [Primary Care Provider] - 1-2 days Time of Disposition: 17:13
[2020-03-17 17:40] VITALS: BP 123/76; PULSE 79
== END 2020-03-17 17:38 | disposition home or self-care (01) ==
LOC: EC 15:41
DX: J98.01 Acute bronchospasm (principal); R05 Cough; I10 Essential (primary) hypertension; G47.33 Obstructive sleep apnea (adult) (pediatric); Z79.899 Other long term (current) drug therapy; Z99.89 Dependence on other enabling machines and devices; Z91.013 Allergy to seafood; Z91.018 Allergy to other foods; Z91.040 Latex allergy status; Z91.048 Other nonmedicinal substance allergy status; Z86.69 Personal history of other diseases of the nervous system and sense organs; Z87.891 Personal history of nicotine dependence; Z77.098 Contact with and (suspected) exposure to other hazardous, chiefly nonmedicinal, chemicals
CPT/HCPCS: 71046; 99284

== ENCOUNTER → 2020-05-30 | Day surgery (SDC) | payer OTHER ==
[2020-05-28 12:46] VITALS: BMI 39.9
[~2020-05-30] MED LIST changes: +LIDOCAINE 1% (10MG/ML) FOR IV START INTRADERMA PRN; -LIDOCAINE 1% 20 ML VIAL (10MG/ML) FOR IV START INTRADERMA PRN; +PROPOFOL 10 MG/ML 20 ML VIAL IV ONE
[2020-05-30 10:07] VITALS: TEMP 97.5
[2020-05-30 11:32] VITALS: RESP 18
--- NOTE | 2020-05-30 11:35 | P.PCN ---
Date of Procedure: 05/30/20 Description of Procedure: BRIEF HISTORY: Patient is a 39-year-old female presenting for outpatient colonoscopy for evaluation of diarrhea. Patient reports frequent loose stools. Previous colonoscopy in 2010. PROCEDURE PERFORMED: Colonoscopy with biopsy and polypectomy. PREOPERATIVE DIAGNOSIS: Diarrhea, last colonoscopy 2010. ESTIMATED BLOOD LOSS: Minimal. IV sedation per Anesthesia. PROCEDURE: After informed consent was obtained, the patient, was brought into the endoscopy unit. IV sedation was administered by Anesthesia under continuous monitoring. Digital rectal examination was normal. Initially the Olympus CF-190 flexible video colonoscope was then inserted in the rectum, gradually advanced into the cecum without any difficulty. Careful examination was performed as the scope was gradually being withdrawn. Ileocecal valve and the appendiceal orifice were vi sualized and appeared normal. Prep was excellent. Mucosa of the cecum, ascending colon, transverse colon, descending colon, sigmoid colon, and rectum appeared normal, with random biopsies taken of the right and left colon and a normal-appearing terminal ileum. Diminutive 2 mm ascending colon polyp removed with cold forcep polypectomy. Small 3 mm descending colon polyp removed with cold snare polypectomy. Large 2 cm pedunculated sigmoid polyp removed with hot snare polypectomy with Endo Clip placed at the polyp stalk for hemostasis, located approximately 32 cm from the anal verge. Retroflexion was performed in the rectum and no lesions were seen, internal hemorrhoids. The patient tolerated the procedure well. IMPRESSION: Large pedunculated sigmoid colon polyp removed with hot snare polypectomy with Endo Clip placement. Diminutive ascending colon polyp removed with cold forcep polypectomy. Small descending colon polyp removed with cold snare polypectomy. Otherwise normal-appearing colon from rectum to cecum with normal-appearing the terminal ileum and random biopsies taken of the terminal ileum, right and left colon. Internal hemorrhoids. RECOMMENDATIONS: Findings of this examination were discussed with the patient . Okay to resume diet. Okay to resume medications. Await pathology from biopsies and polypectomy. Patient instructed to follow-up in the GI clinic in the next 1-2 weeks for results of biopsies and further management. Recommendation is for repeat colonoscopy in 3 years for high risk colon polyps pending pathology from polypectomy.
[2020-05-30 11:44] VITALS: BP 126/76; PULSE 77
== END ==
LOC: ORWHC2ENDO 09:31
PROVIDERS: ATTEND Internal Medicine
DX: D12.2 Benign neoplasm of ascending colon (principal); D12.5 Benign neoplasm of sigmoid colon; K64.8 Other hemorrhoids; I10 Essential (primary) hypertension; G47.33 Obstructive sleep apnea (adult) (pediatric); G43.909 Migraine, unspecified, not intractable, without status migrainosus; F41.9 Anxiety disorder, unspecified; F31.9 Bipolar disorder, unspecified; F43.10 Post-traumatic stress disorder, unspecified; Z98.890 Other specified postprocedural states; Z87.891 Personal history of nicotine dependence; Z90.710 Acquired absence of both cervix and uterus; Z91.018 Allergy to other foods; Z91.09 Other allergy status, other than to drugs and biological substances; Z91.013 Allergy to seafood; Z91.041 Radiographic dye allergy status; Z99.89 Dependence on other enabling machines and devices; Z87.19 Personal history of other diseases of the digestive system; Z79.899 Other long term (current) drug therapy; Z87.798 Personal history of other (corrected) congenital malformations; Z98.51 Tubal ligation status
CPT/HCPCS: 45385; 45380; 88305; J2704; 45382

== ENCOUNTER → 2020-07-08 | Outpatient (CLI) | payer OTHER ==
[2020-07-08 14:34] LABS: Basophils # (A) 0.05 X 10*3/uL (0.00-0.10); Basophils % (A) 0.7 %; Eosinophils # (A) 0.18 X 10*3/uL (0.04-0.35); Eosinophils % (A) 2.6 %; HCT 46.2 % (37.2-46.3); Lymphocytes # (A) 2.26 X 10*3/uL (0.90-5.00); Lymphocytes % (A) 32.4 %; MCH 31.9 pg (27.0-32.0); MCHC 34.6 g/dL (32.0-37.0); MCV 92.2 fL (80.0-97.0); Mean Platelet Volume 10.4 fL (9.5-12.2); Monocytes # (A) 0.41 X 10*3/uL (0.20-1.00); Monocytes % (A) 5.9 %; Neutrophils # (A) 4.06 X 10*3/uL (1.80-7.70); Neutrophils % (A) 58.1 %; Platelet Count 256 X 10*3/uL (140-440); RBC 5.01 X 10*6/uL (4.10-5.20); RDW 12.6 % (11.5-14.5); WBC 6.98 X 10*3/uL (4.50-10.00)
[2020-07-08 16:51] LABS: % Iron Saturation 38.43 (12.00-45.00); African American GFR (CKD) 82.8 (60.0-200.0); Albumin 4.4 g/dL (3.80-4.90); Albumin/Globulin Ratio 1.91 (1.60-3.17); Anion Gap 5.2 mmol/L (4.00-12.00); Calcium 9.4 mg/dL (8.7-10.3); Carbon Dioxide 28.8 mmol/L (21.6-31.8); Globulin 2.3 g/dL (1.6-3.3); Non-African American GFR(CKD) 71.4 (60.0-200.0); Potassium 4.5 mmol/L (3.5-5.5); Total Bilirubin 1.8 mg/dL (0.2-1.2); Total Protein 6.7 g/dL (6.2-8.2)
[2020-07-08 16:59] LABS: Ferritin 183.9 ng/mL (10.0-291.0)
[2020-07-08 17:01] LABS: Folate, Serum 8.3 ng/mL
[2020-07-08 18:31] LABS: Erythrocyte Sedimentation Rate 6 mm/Hr (0-20)
== END | disposition home or self-care (01) ==
LOC: LABWHC1 09:03
PROVIDERS: ATTEND Family Medicine
DX: L65.9 Nonscarring hair loss, unspecified (principal)
CPT/HCPCS: 36415; 80053; 82306; 82607; 82728; 82746; 83540; 83550; 84439; 84443; 85025; 85652; 86038

== ENCOUNTER 2020-07-26 10:51 | Emergency (ER) | payer OTHER ==
[2020-07-26 11:01] VITALS: TEMP 97.9
[2020-07-26] MEDS ORDERED: LABETALOL 5 MG/ML VIAL MDV IVP STA ×2 (11:13→12:36)
--- NOTE | 2020-07-26 11:16 | ED ---
General Adult HPI - General Chief complaint: Recheck/Abnormal Lab/Rx Stated complaint: High BP Time Seen by Provider: 07/26/20 11:07 Source: patient, RN notes reviewed Mode of arrival: wheelchair Limitations: no limitations - History of Present Illness Initial comments: Patient is a 31-year-old female that presents to emergency department complaining of migraine type headache with elevated blood pressure. She noted that this morning she woke up around 1 AM with some blurry vision and a headache so she took her blood pressure medications at this point. She noted that she woke up again around 4:30 on her fianc left for work and took a migraine pill that was given to her by her primary care. She noted that every time she wake up she woke up with blurry vision and some other aura symptoms. She stated that she felt fine while sitting up in bed during the exam interview while in the emergency Department. She has no other complaints or issues. She said she was contemplating between, ER or contact her [facility]. S he denied any headache, vision change while sitting in bed. She denied any shortness of breath chest pain nausea vomiting diarrhea constipation fever fatigue chills. - Related Data Home Medications Medication Instructions Recorded Confirmed Migraine Med(Unknown Name) 1 dose IM Q30D 12/29/19 05/28/20 amLODIPine BESYLATE 10 mg PO DAILY 02/02/20 05/28/20 Allergies Allergy/AdvReac Type Severity Reaction Status Date / Time animal dander Allergy Rash/Hives Verified 05/30/20 10:03 celery Allergy Rash/Hives Verified 05/30/20 10:03 Iodinated Contrast Media Allergy Rash/Hives Verified 05/30/20 10:03 [Iodinated Contrast- Oral and IV Dye] latex Allergy Rash/Hives Verified 05/30/20 10:03 lettuce Allergy Rash/Hives Verified 05/30/20 10:03 mold Allergy Rash/Hives Verified 05/30/20 10:03 shellfish derived [Shellfish] Allergy Rash/Hives Verified 05/30/20 10:03 tomato Allergy Rash/Hives Verified 05/30/20 10:03 Review of Systems ROS Statement: Those systems with pertinent positive or pertinent negative responses have been documented in the HPI. ROS Other: All systems not noted in ROS Statement are negative. Past Medical History Past Medical History: Fibromyalgia, GI Bleed, Hypertension, Sleep Apnea/CPAP/BIPAP Additional Past Medical History / Comment(s): Arnold-Chiari malformation, migraine headaches, IBS poss - hx loose stools, Sleep Apnea with CPAP use, currently having blood in stool on/off History of Any Multi-Drug Resistant Organisms: None Reported Past Surgical History: Hysterectomy, Tubal Ligation, Uterine Ablation Additional Past Surgical History / Comment(s): Brain surgery for Arnold-Chiari Malformation - 2012 at [facility]. Colonoscopy 2010 Past Anesthesia/Blood Transfusion Reactions: No Reported Reaction Past Psychological History: Anxiety, Bipolar, Depression, PTSD Smoking Status: Former smoker Past Alcohol Use History: None Reported Past Drug Use History: None Reported - Past Family History Father Family Medical History: Coronary Artery Disease (CAD) Additional Family Medical History / Comment(s): Father is age 65 and has history of coronary artery disease and depression. Mother Family Medical History: Blood Disorder Additional Family Medical History / Comment(s): Mother is age 59, has clotting disorder. Patient has 1 brother with no major medical problems. She has 3 sons and one has bipolar disorder. Maternal grandmother - breast cancer General Exam Limitations: no limitations General appearance: alert, in no apparent distress, obese Head exam: Present: atraumatic, normocephalic, normal inspection Eye exam: Present: normal appearance, PERRL, EOMI. Absent: scleral icterus, conjunctival injection, periorbital swelling ENT exam: Present: normal exam, mucous membranes moist Neck exam: Present: normal inspection. Absent: tenderness, meningismus, lymphadenopathy Respiratory exam: Present: normal lung sounds bilaterally. Absent: respiratory distress, wheezes, rales, rhonchi, stridor Cardiovascular Exam: Present: regular rate, normal rhythm, normal heart sounds. Absent: systolic murmur, diastolic murmur, rubs, gallop, clicks GI/Abdominal exam: Present: soft, normal bowel sounds. Absent: distended, tenderness, guarding, rebound, rigid Extremities exam: Present: normal inspection, full ROM, normal capillary refill. Absent: tenderness, pedal edema, joint swelling, calf tenderness Neurological exam: Present: alert, oriented X3, CN II-XII intact Psychiatric exam: Present: normal affect, normal mood Skin exam: Present: warm, dry, intact, normal color. Absent: rash Course Vital Signs 07/26/20 07/26/20 07/26/20 10:56 12:00 12:11 Temperature 97.9 F Pulse Rate 76 66 Respiratory 16 18 Rate Blood Pressure 180/137 178/126 172/114 O2 Sat by Pulse 99 Oximetry 07/26/20 07/26/20 12:42 13:05 Temperature Pulse Rate 65 67 Respiratory Rate Blood Pressure 171/106 144/89 O2 Sat by Pulse Oximetry Medical Decision Making - Medical Decision Making 31-year-old female complaining of migraine type headache with aura and increased blood pressure. CBC, CMP, 20 mg of labetalol, conveyor monitor ordered. Line CT of the brain ordered. CT negative for any abnormality. Labs unremarkable. Patient still asymptomatic with elevated blood pressure. She states she will follow-up with her internet developer. Case discussed with Dr. Carney, patient can discharge home with follow-up. - Lab Data Result diagrams: 07/26/20 11:30 07/26/20 11:30 Lab Results 07/26/20 07/26/20 Range/Units 11:30 11:30 WBC 8.1 (3.8-10.6) k/uL RBC 5.09 (3.80-5.40) m/uL Hgb 16.3 H (11.4-16.0) gm/dL Hct 46.4 H (34.0-46.0) % MCV 91.2 (80.0-100.0) fL MCH 32.0 (25.0-35.0) pg MCHC 35.1 (31.0-37.0) g/dL RDW 14.2 (11.5-15.5) % Plt Count 238 (150-450) k/uL MPV 7.4 Neutrophils % 66 % Lymphocytes % 26 % Monocytes % 5 % Eosinophils % 2 % Basophils % 1 % Neutrophils # 5.3 (1.3-7.7) k/uL Lymphocytes # 2.1 (1.0-4.8) k/uL Monocytes # 0.4 (0-1.0) k/uL Eosinophils # 0.1 (0-0.7) k/uL Basophils # 0.0 (0-0.2) k/uL Sodium 139 (137-145) mmol/L Potassium 4.4 (3.5-5.1) mmol/L Chloride 107 (98-107) mmol/L Carbon Dioxide 25 (22-30) mmol/L Anion Gap 7 mmol/L BUN 12 (7-17) mg/dL Creatinine 0.83 (0.52-1.04) mg/dL Est GFR (CKD-EPI)AfAm >90 (>60 ml/min/1.73 sqM) Est GFR (CKD-EPI)NonAf >90 (>60 ml/min/1.73 sqM) Glucose 89 (74-99) mg/dL Calcium 9.0 (8.4-10.2) mg/dL Total Bilirubin 1.8 H (0.2-1.3) mg/dL AST 23 (14-36) U/L ALT 19 (4-34) U/L Alkaline Phosphatase 74 (38-126) U/L Total Protein 6.9 (6.3-8.2) g/dL Albumin 4.0 (3.5-5.0) g/dL - Radiology Data Radiology results: report reviewed, image reviewed CT of the brain: No acute intracranial process seen at this time. Disposition Clinical Impression: Hypertension, Migraine Disposition: HOME SELF-CARE Condition: Stable Instructions (If sedation given, give patient instructions): Hypertension (ED) Additional Instructions: Please return to the Emergency Department if symptoms worsen or any other concerns. Follow-up with internet developer as soon as possible. Discussed medication dosages and possible adding a third medication. Increase oral fluid intake. Continue to take at home medications as prescribed. Is patient prescribed a controlled substance at d/c from ED?: No Referrals: Chidi Bolivar MD [Primary Care Provider] - 1-2 days Time of Disposition: 13:19
--- NOTE | 2020-07-26 12:05 | CT ---
EXAMINATION TYPE: CT brain wo con DATE OF EXAM: 07/26/2020 COMPARISON: 11/04/2015 HISTORY: Headache with visual disturbance and vomiting. History of migraines CT DLP: 1188.[address] of the brain was performed. The ventricles, basal cisterns and sulci overlying the cerebral convexities demonstrate a normal appe arance. There is no evidence for intracranial hemorrhage or sulcal effacement. No mass effects are seen. Occipital calvarial decompression procedure noted. If symptoms persist consider MRI as clinically warranted. IMPRESSION: 1. No acute intracranial process is seen at this time.
[2020-07-26 12:11] VITALS: RESP 18
[2020-07-26 12:11] LABS: ALT 19 U/L (4-34); AST 23 U/L (14-36); African American GFR (CKD) >90 (>60 ml/min/1.73 sqM); Alkaline Phosphatase 74 U/L (38-126); Anion Gap 7 mmol/L; Blood Urea Nitrogen 12 mg/dL (7-17); Carbon Dioxide 25 mmol/L (22-30); Chloride 107 mmol/L (98-107); Glucose 89 mg/dL (74-99); Non-African American GFR(CKD) >90 (>60 ml/min/1.73 sqM); Potassium 4.4 mmol/L (3.5-5.1); Sodium 139 mmol/L (137-145); Total Bilirubin 1.8 mg/dL (0.2-1.3); Total Protein 6.9 g/dL (6.3-8.2)
[2020-07-26 12:47] LABS: Basophils % (A) 1 %; Eosinophils # (A) 0.1 k/uL (0-0.7); Eosinophils % (A) 2 %; HCT 46.4 % (34.0-46.0); HGB 16.3 gm/dL (11.4-16.0); Lymphocytes # (A) 2.1 k/uL (1.0-4.8); Lymphocytes % (A) 26 %; MCHC 35.1 g/dL (31.0-37.0); MCV 91.2 fL (80.0-100.0); Mean Platelet Volume 7.4; Monocytes # (A) 0.4 k/uL (0-1.0); Monocytes % (A) 5 %; Neutrophils # (A) 5.3 k/uL (1.3-7.7); Neutrophils % (A) 66 %; Platelet Count 238 k/uL (150-450); RBC 5.09 m/uL (3.80-5.40); RDW 14.2 % (11.5-15.5); WBC 8.1 k/uL (3.8-10.6)
[2020-07-26 13:05] VITALS: BP 144/89; PULSE 67
== END 2020-07-26 13:15 | disposition home or self-care (01) ==
LOC: EC 10:51
DX: I10 Essential (primary) hypertension (principal); G43.909 Migraine, unspecified, not intractable, without status migrainosus; G47.30 Sleep apnea, unspecified; Z79.899 Other long term (current) drug therapy; Z91.048 Other nonmedicinal substance allergy status; Z91.041 Radiographic dye allergy status; Z91.040 Latex allergy status; Z91.013 Allergy to seafood; Z91.018 Allergy to other foods; Z99.89 Dependence on other enabling machines and devices; Z87.891 Personal history of nicotine dependence
CPT/HCPCS: 36415; 70450; 80053; 85025; 96374; 99283

== ENCOUNTER → 2020-09-18 | Outpatient (CLI) | payer OTHER ==
--- NOTE | 2020-09-18 17:08 | CT ---
EXAMINATION TYPE: CT angio abdomen DATE OF EXAM: 09/18/2020 3:34 PM COMPARISON: None HISTORY: 39-year-old female with hypertension, I77.3, FMD. CT DLP: 909.7 mGycm Automated exposure control for dose reduction was used. TECHNIQUE: CT of the abdomen after IV contrast administration. Patient injected with 100 mL of Isovue 370. Coronal sagittal MIP reconstructions performed. 3-D reconstructions generated on a dedicated in dependent workstation. FINDINGS: Heart normal size without pericardial effusion. Lung bases clear without pleural effusion. Tiny hiatal hernia. Liver enlarged measuring 21.1 cm weight diffuse low attenuation. There are no focal lesion. No biliar y ductal dilatation. Arterial phase imaging limits assessment of the portal venous system. Gallbladder surgically absent. Adrenal glands, kidneys, spleen, and pancreas within normal limits. No dilated small bowel, free fluid, or free air. No mesenteric or retroperitoneal lymphadenopathy. Normal appendix. Mild to moderate stool within the right side of the colon. No pericolic inflammatory change. No significant adverse chronic changes in the abdominal aorta. The celiac axis and SMA are patent. Vela bilateral renal arteries. No significant stenosis of the renal arteries. No morphologic adelina nges to the renal artery contour to suggest FMD. VENKATA is patent. Pelvis not imaged. There is an incidental dropped surgical clip near the right common iliac artery bi furcation. Bones: Mild facet arthropathy mid to lower lumbar spine. IMPRESSION: 1. NO RENAL ARTERY STENOSIS ON EITHER SIDE. NO MORPHOLOGIC CHANGES TO THE RENAL ARTERY CONTOUR TO SUG GEST FMD. 2. 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
== END | disposition home or self-care (01) ==
LOC: RADCTMAIN 14:44
PROVIDERS: ATTEND Internal Medicine
DX: K76.0 Fatty (change of) liver, not elsewhere classified (principal); R16.0 Hepatomegaly, not elsewhere classified
CPT/HCPCS: 74175; Q9967

== ENCOUNTER → 2021-02-12 | Outpatient (CLI) | payer OTHER ==
[2021-02-12 19:40] LABS: Basophils # (A) 0.07 X 10*3/uL (0.00-0.10); Basophils % (A) 0.9 %; Eosinophils # (A) 0.13 X 10*3/uL (0.04-0.35); Eosinophils % (A) 1.7 %; HCT 45.5 % (37.2-46.3); HGB 15.7 g/dL (12.0-15.0); Lymphocytes % (A) 30.7 %; MCH 31.4 pg (27.0-32.0); MCHC 34.5 g/dL (32.0-37.0); Mean Platelet Volume 10.6 fL (9.5-12.2); Monocytes # (A) 0.44 X 10*3/uL (0.20-1.00); Monocytes % (A) 5.6 %; Neutrophils # (A) 4.77 X 10*3/uL (1.80-7.70); Neutrophils % (A) 60.8 %; Platelet Count 231 X 10*3/uL (140-440); WBC 7.83 X 10*3/uL (4.50-10.00)
[2021-02-12 21:22] LABS: Erythrocyte Sedimentation Rate 8 mm/Hr (0-20)
[2021-02-13 13:48] LABS: % Iron Saturation 37.21 (12.00-45.00); African American GFR (CKD) 83.6 (60.0-200.0); Albumin 4.2 g/dL (3.8-4.9); Albumin/Globulin Ratio 1.73 (1.60-3.17); Anion Gap 16.3 mmol/L (4.00-12.00); BUN/Creat Ratio 13.89 Ratio (12.00-20.00); Blood Urea Nitrogen 13.7 mg/dL (9.0-27.0); Calcium 9.1 mg/dL (8.7-10.3); Carbon Dioxide 19.1 mmol/L (21.6-31.8); Folate, Serum 9.6 ng/mL (4.40-31.00); Globulin 2.5 g/dL (1.6-3.3); Non-African American GFR(CKD) 72.1 (60.0-200.0); T4, Free (Free Thyroxine) 1.08 ng/dL (0.800-1.800); Total Bilirubin 1.1 mg/dL (0.30-1.20); Total Protein 6.7 g/dL (6.2-8.2)
== END | disposition home or self-care (01) ==
LOC: LABWHC1 12:50
PROVIDERS: ATTEND Family Medicine
DX: R53.83 Other fatigue (principal)
CPT/HCPCS: 36415; 80053; 82306; 82607; 82728; 82746; 83540; 83550; 84439; 84443; 85025; 85652

== ENCOUNTER 2021-02-18 20:41 | Emergency (ER) | payer OTHER ==
[2021-02-18 20:58] VITALS: TEMP 98
--- NOTE | 2021-02-18 22:22 | ED ---
General Adult HPI - General Chief complaint: Headache Stated complaint: High BP, Headache Time Seen by Provider: 02/18/21 21:54 Source: family Mode of arrival: ambulatory Limitations: no limitations - History of Present Illness Initial comments: 40 year-old female patient presents to the emergency department for evaluation of headache and high blood pressure. Patient states that she developed headache this morning and took her usual headache medications. She states that while driving in the car earlier today she developed some double vision. States she is being evaluated by an lock installer for this and is awaiting MRI. Patient states that while waiting in the waiting room her symptoms did resolve. States she no longer has a headache. Her vision is clear. States she did take her blood pressure medication earlier in the day. States takes his blood pressure medication as needed only for when she develops headaches. She believes it is Norvasc. She denies any numbness, tingling, weakness to the arms or legs. States she has not had sleep in the past 2 days she thinks this may be contributing to her symptoms. Patient denies any recent rash, fever, chills, cough, shortness of breath, chest pain, abdominal pain, nausea, vomiting, diarrhea, constipation, back pain, hematuria, dysuria, urinary urgency, urinary frequency, or any other complaints. - Related Data Home Medications Medication Instructions Recorded Confirmed Migraine Med(Unknown Name) 1 dose IM Q30D 12/29/19 05/28/20 amLODIPine BESYLATE 10 mg PO DAILY 02/02/20 05/28/20 Allergies Allergy/AdvReac Type Severity Reaction Status Date / Time animal dander Allergy Rash/Hives Verified 02/18/21 20:58 celery Allergy Rash/Hives Verified 02/18/21 20:58 Iodinated Contrast Media Allergy Rash/Hives Verified 02/18/21 20:58 [Iodinated Contrast- Oral and IV Dye] latex Allergy Rash/Hives Verified 02/18/21 20:58 lettuce Allergy Rash/Hives Verified 02/18/21 20:58 mold Allergy Rash/Hives Verified 02/18/21 20:58 shellfish derived [Shellfish] Allergy Rash/Hives Verified 02/18/21 20:58 tomato Allergy Rash/Hives Verified 02/18/21 20:58 Review of Systems ROS Statement: Those systems with pertinent positive or pertinent negative responses have been documented in the HPI. ROS Other: All systems not noted in ROS Statement are negative. Past Medical History Past Medical History: Fibromyalgia, GI Bleed, Hypertension, Sleep Apnea/CPAP/BIPAP Additional Past Medical History / Comment(s): Arnold-Chiari malformation, migraine headaches, IBS poss - hx loose stools, Sleep Apnea with CPAP use, currently having blood in stool on/off History of Any Multi-Drug Resistant Organisms: None Reported Past Surgical History: Hysterectomy, Tubal Ligation, Uterine Ablation Additional Past Surgical History / Comment(s): Brain surgery for Arnold-Chiari Malformation - 2011 at [facility]. Colonoscopy 2010 Past Anesthesia/Blood Transfusion Reactions: No Reported Reaction Past Psychological History: Anxiety, Bipolar, Depression, PTSD Smoking Status: Former smoker Past Alcohol Use History: None Reported Past Drug Use History: None Reported - Past Family History Father Family Medical History: Coronary Artery Disease (CAD) Additional Family Medical History / Comment(s): Father is age 65 and has history of coronary artery disease and depression. Mother Family Medical History: Blood Disorder Additional Family Medical History / Comment(s): Mother is age 59, has clotting disorder. Patient has 1 brother with no major medical problems. She has 3 sons and one has bipolar disorder. Maternal grandmother - breast cancer General Exam Limitations: no limitations General appearance: alert, in no apparent distress, other (This is a well-developed, well-nourished adult female patient in no acute distress. Vital signs upon presentation are temperature 98.2F, pulse 71, respirations 18, blood pressure 223/109, pulse ox 98% on room air.) ENT exam: Present: normal exam, normal oropharynx, mucous membranes moist Respiratory exam: Present: normal lung sounds bilaterally. Absent: respiratory distress, wheezes, rales, rhonchi, stridor Cardiovascular Exam: Present: regular rate, normal rhythm, normal heart sounds. Absent: systolic murmur, diastolic murmur, rubs, gallop, clicks GI/Abdominal exam: Present: soft, normal bowel sounds. Absent: distended, tenderness, guarding, rebound, rigid Neurological exam: Present: alert, oriented X3, CN II-XII intact Psychiatric exam: Present: normal affect, normal mood Skin exam: Present: warm, dry, intact, normal color. Absent: rash Course Vital Signs 02/18/21 02/18/21 20:56 22:39 Temperature 98.0 F Pulse Rate 71 89 Respiratory 18 19 Rate Blood Pressure 223/109 233/130 O2 Sat by Pulse 98 97 Oximetry Medical Decision Making - Medical Decision Making 40-year-old female patient presented to the emergency department today for evaluation of headache and high blood pressure. Patient states the symptoms are common for her. She has Arnold-Chiari malformation. She does take medications for migraine. Physical examination was unremarkable. She is neurologically intact with no focal deficits. She states all symptoms have resolved and she would like to be discharged home so she can go to sleep. We did recheck blood pressure which remained elevated here. He is advised she received treatment for this. She again stated she would just like to be discharged. States she does have a pressure medication ALLERGIES 1 to take this when she arrives. She is instructed to follow-up with her primary care physician for recheck in 1-2 days. Return parameters were discussed in detail. She verbalizes understanding and agrees with this plan. Case is discussed with my attending Dr. Squires. Disposition Clinical Impression: Hypertension, Headache Disposition: HOME SELF-CARE Condition: Good Instructions (If sedation given, give patient instructions): Acute Headache (ED), Hypertension (ED) Additional Instructions: Take a dose of your blood pressure medication when he got home. Follow-up with your primary care physician for recheck in 1-2 days. Return for any new, worsening, or concerning symptoms. Is patient prescribed a controlled substance at d/c from ED?: No Referrals: Chidi Bolivar MD [Primary Care Provider] - 1-2 days Time of Disposition: 22:22
[2021-02-18 22:41] VITALS: BP 233/130; PULSE 89; RESP 19
== END 2021-02-18 22:41 | disposition home or self-care (01) ==
LOC: EC 20:41
DX: G43.909 Migraine, unspecified, not intractable, without status migrainosus (principal); I10 Essential (primary) hypertension; H53.2 Diplopia; Z87.891 Personal history of nicotine dependence; Z79.899 Other long term (current) drug therapy; Z88.8 Allergy status to other drugs, medicaments and biological substances; Z91.040 Latex allergy status; Z91.018 Allergy to other foods; Z91.013 Allergy to seafood; Z91.09 Other allergy status, other than to drugs and biological substances
CPT/HCPCS: 99283

== ENCOUNTER 2021-03-06 07:23 | Emergency (ER) | payer OTHER ==
[2021-03-06 07:29] VITALS: RESP 18; TEMP 97.9
[2021-03-06] MEDS ORDERED: SODIUM CHLORIDE 0.9% 1,000 ML IV STA (07:55)
[2021-03-06] MEDS ORDERED: ONDANSETRON 4 MG/2 ML VIAL IVP STA (07:55)
[2021-03-06] MEDS ORDERED: KETOROLAC 15 MG/ML 1 ML VIAL IVP STA (07:55)
[2021-03-06] MEDS ORDERED: diphenhydrAMINE 50 MG/ML 1 ML VIAL IVP STA (07:55)
[2021-03-06 08:20] LABS: Basophils % (A) 0 %; Eosinophils # (A) 0.2 k/uL (0-0.7); Eosinophils % (A) 2 %; HGB 16.6 gm/dL (11.4-16.0); Lymphocytes # (A) 1.4 k/uL (1.0-4.8); Lymphocytes % (A) 16 %; MCH 31.8 pg (25.0-35.0); MCHC 34.6 g/dL (31.0-37.0); Mean Platelet Volume 7.6; Monocytes # (A) 0.4 k/uL (0-1.0); Monocytes % (A) 5 %; Neutrophils # (A) 6.6 k/uL (1.3-7.7); Neutrophils % (A) 75 %; Platelet Count 199 k/uL (150-450); RBC 5.22 m/uL (3.80-5.40); RDW 13.2 % (11.5-15.5); WBC 8.7 k/uL (3.8-10.6)
[2021-03-06 08:33] LABS: INR 0.9 (<1.2); Partial Thromboplastin Time 24.3 sec (22.0-30.0); Prothrombin Time 10.1 sec (9.0-12.0)
[2021-03-06 08:35] LABS: ALT 21 U/L (4-34); AST 20 U/L (14-36); African American GFR (CKD) >90 (>60 ml/min/1.73 sqM); Albumin 3.9 g/dL (3.5-5.0); Alkaline Phosphatase 76 U/L (38-126); Anion Gap 11 mmol/L; Blood Urea Nitrogen 11 mg/dL (7-17); Calcium 9.4 mg/dL (8.4-10.2); Carbon Dioxide 22 mmol/L (22-30); Chloride 105 mmol/L (98-107); Glucose 149 mg/dL (74-99); Non-African American GFR(CKD) >90 (>60 ml/min/1.73 sqM); Potassium 4.1 mmol/L (3.5-5.1); Sodium 138 mmol/L (137-145); Total Bilirubin 1.8 mg/dL (0.2-1.3); Total Protein 7.1 g/dL (6.3-8.2)
--- NOTE | 2021-03-06 09:20 | ED ---
General Adult HPI - General Chief complaint: Recheck/Abnormal Lab/Rx Stated complaint: High BP/Headache Time Seen by Provider: 03/06/21 07:40 Source: patient, RN notes reviewed Mode of arrival: ambulatory Limitations: no limitations - History of Present Illness Initial comments: Patient is a 40-year-old female that presents to the emergency room complaining of headache with elevated blood pressure. She no she checked her blood pressure this morning and it was 190s over 140s. She notes that she has not had her blood pressure cuff calibrated by her rug cutter helper or primary care. She notes that she recently saw her primary care who added another blood pressure medication. She notes she is currently on amlodipine and valsartan hydralazine and spironolactone. She notes that she does not take any of those prior to arrival to emergency. She'll she does follow-up with rug cutter helper and try calling her office but they weren't in when she called. She notes she does have a neurologist every 4 she follows for her arm harrison felix. Patient notes that she did not take her blood pressure medications because she does not trust her primary care physician Asst. because she has not Dr. or rug cutter helper. Patient denied any chest pain shortness of breath nausea vomiting diarrhea constipation fever fatigue chills. - Related Data Home Medications Medication Instructions Recorded Confirmed Migraine Med(Unknown Name) 1 dose IM Q30D 12/29/19 05/28/20 amLODIPine BESYLATE 10 mg PO DAILY 02/02/20 05/28/20 Allergies Allergy/AdvReac Type Severity Reaction Status Date / Time animal dander Allergy Rash/Hives Verified 03/06/21 07:29 celery Allergy Rash/Hives Verified 03/06/21 07:29 Iodinated Contrast Media Allergy Rash/Hives Verified 03/06/21 07:29 [Iodinated Contrast- Oral and IV Dye] latex Allergy Rash/Hives Verified 03/06/21 07:29 lettuce Allergy Rash/Hives Verified 03/06/21 07:29 mold Allergy Rash/Hives Verified 03/06/21 07:29 shellfish derived [Shellfish] Allergy Rash/Hives Verified 03/06/21 07:29 tomato Allergy Rash/Hives Verified 03/06/21 07:29 Review of Systems ROS Statement: Those systems with pertinent positive or pertinent negative responses have been documented in the HPI. ROS Other: All systems not noted in ROS Statement are negative. Past Medical History Past Medical History: Fibromyalgia, GI Bleed, Hypertension, Sleep Apnea/CPAP/BIPAP Additional Past Medical History / Comment(s): Arnold-Chiari malformation, migraine headaches, IBS poss - hx loose stools, Sleep Apnea with CPAP use, currently having blood in stool on/off History of Any Multi-Drug Resistant Organisms: None Reported Past Surgical History: Hysterectomy, Tubal Ligation, Uterine Ablation Additional Past Surgical History / Comment(s): Brain surgery for Arnold-Chiari Malformation - 2012 at [facility]. Colonoscopy 2010 Past Anesthesia/Blood Transfusion Reactions: No Reported Reaction Past Psychological History: Anxiety, Bipolar, Depression, PTSD Smoking Status: Former smoker Past Alcohol Use History: None Reported Past Drug Use History: None Reported - Past Family History Father Family Medical History: Coronary Artery Disease (CAD) Additional Family Medical History / Comment(s): Father is age 65 and has history of coronary artery disease and depression. Mother Family Medical History: Blood Disorder Additional Family Medical History / Comment(s): Mother is age 59, has clotting disorder. Patient has 1 brother with no major medical problems. She has 3 sons and one has bipolar disorder. Maternal grandmother - breast cancer General Exam Limitations: no limitations General appearance: alert, in no apparent distress, obese Head exam: Present: atraumatic, normocephalic, normal inspection Eye exam: Present: normal appearance, PERRL, EOMI. Absent: scleral icterus, conjunctival injection, periorbital swelling ENT exam: Present: normal exam, mucous membranes moist Neck exam: Present: normal inspection Respiratory exam: Present: normal lung sounds bilaterally. Absent: respiratory distress, wheezes, rales, rhonchi, stridor Cardiovascular Exam: Present: regular rate, normal rhythm, normal heart sounds. Absent: systolic murmur, diastolic murmur, rubs, gallop, clicks GI/Abdominal exam: Present: soft, normal bowel sounds. Absent: distended, tenderness, guarding, rebound, rigid Extremities exam: Present: normal inspection, full ROM, normal capillary refill. Absent: tenderness, pedal edema, joint swelling, calf tenderness Neurological exam: Present: alert, oriented X3 Psychiatric exam: Present: normal affect, normal mood Skin exam: Present: warm, dry, intact, normal color. Absent: rash Course Vital Signs 03/06/21 03/06/21 07:25 08:18 Temperature 97.9 F Pulse Rate 100 94 Respiratory 18 18 Rate Blood Pressure 175/105 175/119 O2 Sat by Pulse 99 98 Oximetry EKG Findings - EKG Comments: EKG Findings:: Ventricular rate 89 bpm, OH interval 142 ms, QRS duration 86 ms, QTC 455 ms, PRT axes 57/4/41, normal sinus rhythm, normal ECG. Medical Decision Making - Medical Decision Making 40-year-old female complaining of high blood pressure and headache, both normal with no new symptoms. Labs, 1 L normal saline, 15 mg of Toradol, 50 g Benadryl, 4 mg of Zofran ordered. Labs: Slightly elevated hemoglobin and hematocrit, rest labs unremarkable. Troponin negative EKG within normal limits. Patient was instructed to take her blood pressure medications that she brought with her. Case discussed with Dr. Mcgrath, patient can discharge home with follow-up to rug cutter helper as planned. - Lab Data Result diagrams: 03/06/21 08:08 03/06/21 08:08 Lab Results 03/06/21 03/06/21 03/06/21 Range/Units 08:08 08:08 08:08 WBC 8.7 (3.8-10.6) k/uL RBC 5.22 (3.80-5.40) m/uL Hgb 16.6 H (11.4-16.0) gm/dL Hct 48.0 H (34.0-46.0) % MCV 92.0 (80.0-100.0) fL MCH 31.8 (25.0-35.0) pg MCHC 34.6 (31.0-37.0) g/dL RDW 13.2 (11.5-15.5) % Plt Count 199 (150-450) k/uL MPV 7.6 Neutrophils % 75 % Lymphocytes % 16 % Monocytes % 5 % Eosinophils % 2 % Basophils % 0 % Neutrophils # 6.6 (1.3-7.7) k/uL Lymphocytes # 1.4 (1.0-4.8) k/uL Monocytes # 0.4 (0-1.0) k/uL Eosinophils # 0.2 (0-0.7) k/uL Basophils # 0.0 (0-0.2) k/uL PT 10.1 (9.0-12.0) sec INR 0.9 (<1.2) APTT 24.3 (22.0-30.0) sec Sodium 138 (137-145) mmol/L Potassium 4.1 (3.5-5.1) mmol/L Chloride 105 (98-107) mmol/L Carbon Dioxide 22 (22-30) mmol/L Anion Gap 11 mmol/L BUN 11 (7-17) mg/dL Creatinine 0.75 (0.52-1.04) mg/dL Est GFR (CKD-EPI)AfAm >90 (>60 ml/min/1.73 sqM) Est GFR (CKD-EPI)NonAf >90 (>60 ml/min/1.73 sqM) Glucose 149 H (74-99) mg/dL Calcium 9.4 (8.4-10.2) mg/dL Total Bilirubin 1.8 H (0.2-1.3) mg/dL AST 20 (14-36) U/L ALT 21 (4-34) U/L Alkaline Phosphatase 76 (38-126) U/L Troponin I (0.000-0.034) ng/mL Total Protein 7.1 (6.3-8.2) g/dL Albumin 3.9 (3.5-5.0) g/dL 03/06/21 Range/Units 08:08 WBC (3.8-10.6) k/uL RBC (3.80-5.40) m/uL Hgb (11.4-16.0) gm/dL Hct (34.0-46.0) % MCV (80.0-100.0) fL MCH (25.0-35.0) pg MCHC (31.0-37.0) g/dL RDW (11.5-15.5) % Plt Count (150-450) k/uL MPV Neutrophils % % Lymphocytes % % Monocytes % % Eosinophils % % Basophils % % Neutrophils # (1.3-7.7) k/uL Lymphocytes # (1.0-4.8) k/uL Monocytes # (0-1.0) k/uL Eosinophils # (0-0.7) k/uL Basophils # (0-0.2) k/uL PT (9.0-12.0) sec INR (<1.2) APTT (22.0-30.0) sec Sodium (137-145) mmol/L Potassium (3.5-5.1) mmol/L Chloride (98-107) mmol/L Carbon Dioxide (22-30) mmol/L Anion Gap mmol/L BUN (7-17) mg/dL Creatinine (0.52-1.04) mg/dL Est GFR (CKD-EPI)AfAm (>60 ml/min/1.73 sqM) Est GFR (CKD-EPI)NonAf (>60 ml/min/1.73 sqM) Glucose (74-99) mg/dL Calcium (8.4-10.2) mg/dL Total Bilirubin (0.2-1.3) mg/dL AST (14-36) U/L ALT (4-34) U/L Alkaline Phosphatase (38-126) U/L Troponin I <0.012 (0.000-0.034) ng/mL Total Protein (6.3-8.2) g/dL Albumin (3.5-5.0) g/dL - EKG Data -: EKG Interpreted by Nm EKG shows normal: sinus rhythm Rate: normal EKG Comments: Ventricular rate 89 bpm, OH interval 142 ms, QRS duration 86 ms, QTC 455 ms, PRT axes 57/4/41, normal sinus rhythm, normal ECG. Disposition Clinical Impression: Hypertension, Headache Disposition: HOME SELF-CARE Condition: Stable Instructions (If sedation given, give patient instructions): Chronic Hypertension (ED) Additional Instructions: Please return to the Emergency Department if symptoms worsen or any other concerns. Follow-up with primary care 1-2 days. Follow-up with rug cutter helper as planned. Continue take medications as prescribed until follow-up or adjustments. Increase fluids. Is patient prescribed a controlled substance at d/c from ED?: No Referrals: Chidi Bolivar MD [Primary Care Provider] - 1-2 days Time of Disposition: 09:20
[2021-03-06 10:20] VITALS: BP 165/101; PULSE 80
== END 2021-03-06 10:20 | disposition home or self-care (01) ==
LOC: EC 07:23
DX: G43.909 Migraine, unspecified, not intractable, without status migrainosus (principal); I10 Essential (primary) hypertension; Z87.891 Personal history of nicotine dependence; Z88.8 Allergy status to other drugs, medicaments and biological substances; Z91.040 Latex allergy status; Z91.041 Radiographic dye allergy status; Z91.09 Other allergy status, other than to drugs and biological substances; Z91.018 Allergy to other foods; Z91.013 Allergy to seafood; Z79.899 Other long term (current) drug therapy
CPT/HCPCS: 36415; 93005; 80053; 84484; 85025; 85610; 85730; 99283; 96374; 96375; 96361; J1200; J2405; J1885

== ENCOUNTER 2021-06-14 16:01 | Emergency (ER) | payer OTHER ==
[2021-06-14 17:01] VITALS: TEMP 98.3
[2021-06-14] MEDS ORDERED: KETOROLAC 15 MG/ML 1 ML VIAL IM STA (18:17)
[2021-06-14] MEDS ORDERED: CYCLOBENZAPRINE 10 MG TAB PO STA (18:28)
--- NOTE | 2021-06-14 18:44 | ED ---
General Adult HPI - General Chief complaint: Extremity Injury, Lower Stated complaint: Back Pain Time Seen by Provider: 06/14/21 17:41 Source: patient Mode of arrival: ambulatory Limitations: no limitations - History of Present Illness Initial comments: Patient is a 40-year-old female who presents to the emergency department with chief complaint of lower back pain. Patient states the pain started last night in the lumbar region with a shooting sensation down her right leg. Patient also reports right hip pain when moving the right thigh. No known mechanism of injury. Reports numbness and tingling of the right lower extremity from her right hip to her toes. Patient denies saddle anesthesia, urinary retention, or incontinence. She also denies fever, chills, headache, shortness of breath, chest pain, palpitations, dizziness, abdominal pain, nausea, vomiting, diarrhea. 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 Patient reports activity level was high at this time. She has not taken any new medications. Of note patient does have left knee brace on for alleged bone spurs and reports she is getting MRI of the left knee next week. - Related Data Home Medications Medication Instructions Recorded Confirmed Migraine Med(Unknown Name) 1 dose IM Q30D 12/29/19 06/12/21 amLODIPine BESYLATE 10 mg PO DAILY 02/02/20 06/12/21 Previous Rx's Medication Instructions Recorded Cyclobenzaprine [Flexeril] 5 mg PO TID PRN 7 Days #21 tab 06/14/21 Ibuprofen [Motrin] 600 mg PO Q8HR PRN 7 Days #21 tab 06/14/21 Allergies Allergy/AdvReac Type Severity Reaction Status Date / Time animal dander Allergy Rash/Hives Verified 06/14/21 17:02 celery Allergy Rash/Hives Verified 06/14/21 17:02 Iodinated Contrast Media Allergy Rash/Hives Verified 06/14/21 17:02 [Iodinated Contrast- Oral and IV Dye] latex Allergy Rash/Hives Verified 06/14/21 17:02 lettuce Allergy Rash/Hives Verified 06/14/21 17:02 mold Allergy Rash/Hives Verified 06/14/21 17:02 shellfish derived [Shellfish] Allergy Rash/Hives Verified 06/14/21 17:02 tomato Allergy Rash/Hives Verified 06/14/21 17:02 Review of Systems ROS Statement: Those systems with pertinent positive or pertinent negative responses have been documented in the HPI. ROS Other: All systems not noted in ROS Statement are negative. Past Medical History Past Medical History: Fibromyalgia, GI Bleed, Hypertension, Sleep Apnea/CPAP/BIPAP Additional Past Medical History / Comment(s): Arnold-Chiari malformation, migraine headaches, IBS poss - hx loose stools, Sleep Apnea with CPAP use, currently having blood in stool on/off History of Any Multi-Drug Resistant Organisms: None Reported Past Surgical History: Hysterectomy, Tubal Ligation, Uterine Ablation Additional Past Surgical History / Comment(s): Brain surgery for Arnold-Chiari Malformation - 2011 at [facility]. Colonoscopy 2010 Past Anesthesia/Blood Transfusion Reactions: No Reported Reaction Past Psychological History: Anxiety, Bipolar, Depression, PTSD Smoking Status: Former smoker Past Alcohol Use History: None Reported Past Drug Use History: None Reported - Past Family History Father Family Medical History: Coronary Artery Disease (CAD) Additional Family Medical History / Comment(s): Father is age 65 and has history of coronary artery disease and depression. Mother Family Medical History: Blood Disorder Additional Family Medical History / Comment(s): Mother is age 59, has clotting disorder. Patient has 1 brother with no major medical problems. She has 3 sons and one has bipolar disorder. Maternal grandmother - breast cancer General Exam Limitations: no limitations General appearance: alert, in no apparent distress Head exam: Present: atraumatic, normocephalic, normal inspection Eye exam: Present: normal appearance, PERRL Neck exam: Present: normal inspection Respiratory exam: Present: normal lung sounds bilaterally. Absent: respiratory distress, wheezes, rales, rhonchi, stridor Cardiovascular Exam: Present: regular rate, normal rhythm, normal heart sounds. Absent: systolic murmur, diastolic murmur, rubs, gallop, clicks GI/Abdominal exam: Present: soft. Absent: distended, tenderness Extremities exam: Present: normal inspection, full ROM. Absent: tenderness (No tenderness with palpation of the right thigh, right knee, right leg, and right foot) Right Hip exam: Present: normal inspection, full ROM (Pain with flexion of the right hip). Absent: tenderness, swelling, dislocation, erythema Upper Leg exam: Present: normal inspection, full ROM. Absent: tenderness, swelling, erythema Knee exam: Present: normal inspection, full ROM. Absent: tenderness Lower Leg exam: Present: normal inspection, full ROM. Absent: tenderness Ankle exam: Present: normal inspection, full ROM. Absent: tenderness, swelling Foot/Toe exam: Present: normal inspection, full ROM. Absent: tenderness, swelling Neurovascular tendon exam: Present: no vascular compromise Back exam: Present: normal inspection, full ROM, paraspinal tenderness (bilaterally lumbar and sacral region), vertebral tenderness (Lumbar and sacral region). Absent: CVA tenderness (R), CVA tenderness (L) Neurological exam: Present: alert, oriented X3, CN II-XII intact Psychiatric exam: Present: normal affect, normal mood Skin exam: Present: warm, dry, intact, normal color. Absent: rash, diaphoretic Course Vital Signs 06/14/21 06/14/21 16:55 20:11 Temperature 98.3 F Pulse Rate 82 74 Respiratory 18 20 Rate Blood Pressure 128/98 129/91 O2 Sat by Pulse 99 100 Oximetry Medical Decision Making - Medical Decision Making Patient is a 40-year-old female who presents to the emergency department with a chief complaint of lower back pain. Thorough history and examination were performed. Patient given Toradol and Flexeril for pain as she states she has had a hysterectomy and will not be driving home. Lumbosacral x-ray reveals normal lumbar spine. Hip x-ray reveals normal right hip. Results discussed with patient who already has an it training specialist she sees. Patient instructed to follow-up with it training specialist for further evaluation. Return parameters discussed. Disposition Clinical Impression: Lumbar pain with radiation down right leg Disposition: HOME SELF-CARE Condition: Good Additional Instructions: Take medication as prescribed. Do not drink or operate a vehicle or machinery while taking Flexeril. Follow-up with it training specialist 1 to 2 days. Return to the emergency department if you experience new, concerning, or worsening symptoms. Is patient prescribed a controlled substance at d/c from ED?: No Referrals: Chidi Bolivar MD [Primary Care Provider] - 1-2 days Decision Time: 20:26
--- NOTE | 2021-06-14 19:12 | XR ---
EXAMINATION TYPE: XR lumbosacral spine min 4V DATE OF EXAM: 06/14/2021 COMPARISON: NONE HISTORY: Back pain TECHNIQUE: 6 views FINDINGS: Lumbar vertebra is normal spacing and alignment. Posterior elements are intact. Sacroiliac joints appear normal. There is no evidence of a fracture. IMPRESSION: Normal lumbar spine exam.
--- NOTE | 2021-06-14 19:16 | XR ---
EXAMINATION TYPE: XR Hip Complete RT DATE OF EXAM: 06/14/2021 COMPARISON: NONE HISTORY: Pain TECHNIQUE: 2 views FINDINGS: The proximal right femur appears normal. Acetabulum appears intact. There is no fracture no r dislocation. IMPRESSION: Normal right hip exam.
[2021-06-14 20:13] VITALS: BP 129/91; PULSE 74; RESP 20
== END 2021-06-14 20:45 | disposition home or self-care (01) ==
LOC: EC 16:01
DX: M54.41 Lumbago with sciatica, right side (principal); I10 Essential (primary) hypertension; Z87.891 Personal history of nicotine dependence; Z91.013 Allergy to seafood; Z91.09 Other allergy status, other than to drugs and biological substances; Z91.018 Allergy to other foods; Z91.041 Radiographic dye allergy status; Z88.7 Allergy status to serum and vaccine
CPT/HCPCS: 72110; 73502; 99283; 96372; J1885

== ENCOUNTER → 2021-07-22 | Outpatient (CLI) | payer OTHER ==
--- NOTE | 2021-07-22 16:34 | P.SLEEP ---
History of Present Illness H&P Date: 07/22/21 this is a very pleasant 40-year-old female patient is coming in again for a reevaluation of obstructive sleep apnea. I have known this patient back in 2013. At that time, the patient underwent a screening polysomnogram and the patient was diagnosed having obstructive/central sleep apnea predominantly obstructive. At that time, the sleep study showed a high arousal index of 41 and the patient had abnormal sleep architecture, as sleep efficiency of 91%, and apnea hypoxia index of 24 and she also demonstrated mild nocturnal oxygen desaturation. No evidence of any restless leg syndrome. The patient was given CPAP which she uses for a short period of time and she was unable to tolerate she ended up quitting the treatment. Her symptoms have gotten significantly worse over the years and she is coming in for an evaluation. Note that at the time of original polysomnography back in , the patient used to weigh 276 pounds. Currently, her weight is at 269. She is snoring. She is quitting breathing at night. She is quite restless. She grinds her teeth. She wakes up tired and fatigued and sleepy during the day. She is having problems with memory and concentration. She goes to bed at around 9 PM. Wakes up 5 AM in the morning. The patient has an [place] sleepiness scale of 6. She is awake on several times in the middle of the night and his sleep remains fragmented. She will occasionally sleep talks. She pressors to sleep in different body positions. She does not take any naps during the day. She has extensive number of medical problems and comorbidities and she wants a reevaluation at this point in time. No substance abuse. No alcoholism. She has history of Arnold-Chiari malformation and she has undergone brain surgery. She has history of obesity, chronic anxiety, bipolar disorder/depression along with history of migraine and hypertension. She also has chronic nonalcoholic liver disease. Review of Systems Constitutional: Reports chronic pain, Reports daytime sleepiness, Reports fatigue, Reports weight gain Eyes: denies as per HPI, denies blurred vision, denies bulging eye, denies decreased vision, denies diplopia, denies discharge, denies dry eye, denies irritation, denies itching, denies pain, denies photophobia, denies loss of peripheral vision, denies loss of vision, denies tunnel vision/blind spots Ears: deny: decreased hearing, ear discharge, earache, tinnitus Ears, nose, mouth and throat: Reports as per HPI Breasts: absent: as per HPI, change in shape, gynecomastia, masses, nipple discharge, pain, skin changes, swelling Cardiovascular: Reports decreased exercise tolerance Respiratory: Reports sleep apnea, Reports snoring Gastrointestinal: Reports as per HPI Genitourinary: Reports as per HPI Menstruation: Reports as per HPI Musculoskeletal: Reports as per HPI, Reports limitation of motion, Reports muscle weakness Musculoskeletal: absent: ankle pain, ankle stiffness, ankle swelling Neurological: Reports weakness Psychiatric: Reports as per HPI, Reports anxiety, Reports depression Endocrine: Reports fatigue Hematologic/Lymphatic: Reports as per HPI Allergic/Immunologic: Reports as per HPI Past Medical History Past Medical History: Fibromyalgia, GI Bleed, Hypertension, Sleep Apnea/CPAP/BIPAP Additional Past Medical History / Comment(s): Arnold-Chiari malformation, migraine headaches, IBS poss - hx loose stools, Sleep Apnea , the patient used to use CPAP therapy in the past, none for now, obesity, bipolar disorder, anxiety, history of opiate dependence, history of alcohol abuse, depression, migraines, hypertension, chronic nonalcoholic liver disease, coronary malformation, History of Any Multi-Drug Resistant Organisms: None Reported Past Surgical History: Hysterectomy, Tubal Ligation, Uterine Ablation Additional Past Surgical History / Comment(s): Brain surgery for Arnold-Chiari Malformation - 2011 at [facility]. Colonoscopy 2010 Past Anesthesia/Blood Transfusion Reactions: No Reported Reaction Past Psychological History: Anxiety, Bipolar, Depression, PTSD Smoking Status: Former smoker Past Alcohol Use History: None Reported Past Drug Use History: None Reported - Past Family History Father Family Medical History: Coronary Artery Disease (CAD) Additional Family Medical History / Comment(s): Father is age 65 and has history of coronary artery disease and depression. Mother Family Medical History: Blood Disorder Additional Family Medical History / Comment(s): Mother is age 59, has clotting disorder. Patient has 1 brother with no major medical problems. She has 3 sons and one has bipolar disorder. Maternal grandmother - breast cancer Medications and Allergies Home Medications Medication Instructions Recorded Confirmed Type Migraine Med(Unknown Name) 1 dose IM Q30D 12/29/19 06/12/21 History amLODIPine BESYLATE 10 mg PO DAILY 02/02/20 06/12/21 History Cyclobenzaprine [Flexeril] 5 mg PO TID PRN 7 Days #21 tab 06/14/21 Rx Ibuprofen [Motrin] 600 mg PO Q8HR PRN 7 Days #21 tab 06/14/21 Rx Allergies Allergy/AdvReac Type Severity Reaction Status Date / Time animal dander Allergy Rash/Hives Verified 06/25/21 13:08 celery Allergy Rash/Hives Verified 06/25/21 13:08 Iodinated Contrast Media Allergy Rash/Hives Verified 06/25/21 13:08 [Iodinated Contrast- Oral and IV Dye] latex Allergy Rash/Hives Verified 06/25/21 13:08 lettuce Allergy Rash/Hives Verified 06/25/21 13:08 mold Allergy Rash/Hives Verified 06/25/21 13:08 shellfish derived [Shellfish] Allergy Rash/Hives Verified 06/25/21 13:08 tomato Allergy Rash/Hives Verified 06/25/21 13:08 Physical Exam BP is 188/114 with a pulse of 74 and a respiration of 18 with a temperature of 97 4. The patient has a BMI of 42.1. Weight is 269. Height is 57. His 19-3/4 of an inch. Saturations 98% on room air oxygen. [place] sleepiness scale is at 6. Gen. appearance the patient is morbidly obese, comfortable no acute distress.The patient appeared well nourished and normally developed. Vital signs as documented. Head exam is unremarkable. No scleral icterus or corneal arcus noted. Neck is without jugular venous distension, thyromegaly, or carotid bruits.the patient is a Mallampati class IV. Carotid upstrokes are brisk bilaterally. Lungs are clear to auscultation and percussion. Cardiac exam reveals the PMI to be normally sized and situated. Rhythm is regular. First and second heart sounds normal. No murmurs, rubs or gallops. Abdominal exam reveals normal bowel sounds, no masses, no organomegaly and no aortic enlargement. Extremities are nonedematous and both femoral and pedal pulses are normal.Examination of the skin revealed no evidence of significant rashes, suspicious appearing nevi or other concerning lesions.Neurologically, the patient is awake and alert and the patient does not have any focal neurological deficit. Cranial nerves are essentially intact. Assessment and Plan Plan: 1 history of sleep apnea, predominantly obstructive with some mild central component and based on the previous polysomnogram that the patient had been 08/02/2013, the patient had mild disease with an AHI of 24. The patient was given CPAP therapy and she was nontolerant and she end up quitting the treatment. Currently she is coming for reevaluationas the patient has become much more symptomatic over the past 8 years and she is interested in treatment. 2 chronic hypersomnia 3 obesity with a body mass index of 42.1 4 migraines 5 Arnold chiari malformation, surgically treated 6 hypertension with poorly controlled blood pressure. 7 irritable bowel disease 8 history of nonalcoholic liver disease 9 chronic anxiety/depression Plan We'll proceed with another screening polysomnogram to reevaluate the presence and severity obstructive sleep apnea versus central sleep apnea. Will encourage losing weight. Sleep hygiene measures is in generally good. Treat comorbidities and proceed with treatment options based on the results of the screening polysomnogram. Sleep Note - Sleep Note Sleep Note: Temperature: Pulse Rate: Respiratory Rate: Blood Pressure: SpO2: Height: Weight: BMI: Neck Circumference:
== END | disposition home or self-care (01) ==
LOC: SLEEP 15:42
PROVIDERS: ATTEND Internal Medicine Critical Care Medicine
DX: G47.33 Obstructive sleep apnea (adult) (pediatric) (principal); G47.10 Hypersomnia, unspecified; E66.9 Obesity, unspecified; G43.909 Migraine, unspecified, not intractable, without status migrainosus; I10 Essential (primary) hypertension; K58.9 Irritable bowel syndrome, unspecified; Z86.39 Personal history of other endocrine, nutritional and metabolic disease; Z68.41 Body mass index [BMI] 40.0-44.9, adult
CPT/HCPCS: 99211

== ENCOUNTER → 2021-09-16 | Outpatient (CLI) | payer OTHER ==
[2021-09-16 08:37] LABS: INR 0.9 (<1.2); Prothrombin Time 10.2 sec (9.0-12.0)
[2021-09-16 10:44] LABS: HCT 41.6 % (37.2-46.3); HGB 14.6 g/dL (12.0-15.0); MCH 32.3 pg (27.0-32.0); MCHC 35.1 g/dL (32.0-37.0); Mean Platelet Volume 9.9 fL (9.5-12.2); NRBC Per 100 WBC 0 /100 WBCS (0.0-0.0); Platelet Count 232 X 10*3/uL (140-440); RBC 4.52 X 10*6/uL (4.10-5.20); RDW 13.2 % (11.5-14.5); WBC 5.26 X 10*3/uL (4.50-10.00)
[2021-09-16 11:04] LABS: % Iron Saturation 37.17 (12.00-45.00); ALT 29 U/L (8-44); AST 20 U/L (13-35); African American GFR (CKD) 93.4 (60.0-200.0); Albumin 4.1 g/dL (3.8-4.9); Albumin/Globulin Ratio 1.71 (1.60-3.17); Alkaline Phosphatase 69 U/L (41-126); BUN/Creat Ratio 8.89 Ratio (12.00-20.00); Calcium 8.7 mg/dL (8.7-10.3); Carbon Dioxide 20.5 mmol/L (20.0-27.5); Chloride 108 mmol/L (96-109); Globulin 2.4 g/dL (1.6-3.3); Glucose 93 mg/dL (70-110); Iron 95 ug/dL (50-170); Magnesium 2.1 mg/dL (1.5-2.4); Non-African American GFR(CKD) 80.5 (60.0-200.0); Phosphorus 3.2 mg/dL (2.4-5.1); Potassium 3.6 mmol/L (3.5-5.5); Sodium 142 mmol/L (135-145); Total Iron Binding Capacity 255 ug/dL (228-460); Total Protein 6.5 g/dL (6.2-8.2)
[2021-09-16 11:17] LABS: Chol/HDL Ratio 3.54 Ratio; LDL Cholesterol,Calculated 94.7 mg/dL (0.0-131.0); Prealbumin 22.8 mg/dL (18.0-42.0); VLDL Calculation 17.18 mg/dL (5.00-40.00)
[2021-09-17 12:03] LABS: Zinc, Serum 68 ug/dL (60-130)
[2021-09-18 06:12] LABS: Vitamin A 40 ug/dL (38-106)
[2021-09-18 06:36] LABS: Vit B1(Thiamine) 62 ug/L (38-122)
[2021-09-18 14:10] LABS: Anabasine Urine <2.0 ng/mL (<2.0)
[2021-09-19 11:53] LABS: Selenium 143 mcg/L (63-160)
== END | disposition home or self-care (01) ==
LOC: LABWHC1 07:05
PROVIDERS: ATTEND Surgery Plastic and Reconstructive Surgery
DX: E66.01 Morbid (severe) obesity due to excess calories (principal); D50.8 Other iron deficiency anemias; D50.9 Iron deficiency anemia, unspecified; K91.2 Postsurgical malabsorption, not elsewhere classified; E44.0 Moderate protein-calorie malnutrition; E44.1 Mild protein-calorie malnutrition; E45 Retarded development following protein-calorie malnutrition; E46 Unspecified protein-calorie malnutrition; N19 Unspecified kidney failure; K74.1 Hepatic sclerosis; Z71.51 Drug abuse counseling and surveillance of drug abuser
CPT/HCPCS: 84255; 84134; 84425; 80061; 80053; 82607; 82728; 82525; 82746; 83540; 83550; 83735; 84100; 84443; 84590; 84630; 85027; 85610; 85730; 82306; 83970; 83036; 80307; 36415; G0480; 80323

== ENCOUNTER 2021-10-13 07:21 | Day surgery (SDC) | payer OTHER ==
[2021-10-10 10:07] VITALS: BMI 42.1
--- NOTE | 2021-10-13 07:39 | P.GSHP ---
History of Present Illness H&P Date: 10/13/21 CHIEF COMPLAINT: Change in bowel habits HISTORY OF PRESENT ILLNESS: The patient is a 40-year-old female who presents for colon screen. Lower endoscopy was offered for further evaluation and management. PAST MEDICAL HISTORY: Please see list. PAST SURGICAL HISTORY: Please see list. MEDICATIONS: Please see list. ALLERGIES: Please see list. SOCIAL HISTORY: No illicit drug use FAMILY HISTORY: No reports of Crohn disease or ulcerative colitis. REVIEW OF ORGAN SYSTEMS: CONSTITUTIONAL: No reports of fevers or chills. PHYSICAL EXAM: VITAL SIGNS: Stable GENERAL: Well-developed pleasant in no acute distress. HEENT: No scleral icterus. Extraocular movements grossly intact. Moist buccal mucosa. NECK: Supple without lymphadenopathy. CHEST: Unlabored respirations. Equal bilateral excursions. CARDIOVASCULAR: Regular rate and rhythm. Distal 2+ pulses. ABDOMEN: Soft, nontender, nondistended. MUSCULOSKELETAL: No clubbing, cyanosis, or edema. ASSESSMENT: 1. Change in bowel habits PLAN: 1. Recommend proceeding with a lower endoscopy Past Medical History Past Medical History: Fibromyalgia, GI Bleed, Hypertension, Sleep Apnea/CPAP/BIPAP Additional Past Medical History / Comment(s): Arnold-Chiari malformation, migraine headaches, IBS poss - hx loose stools, Sleep Apnea , the patient used to use CPAP therapy in the past, none for now, obesity, bipolar disorder, anxiety, history of opiate dependence, history of alcohol abuse, depression, migraines, hypertension, chronic nonalcoholic liver disease, coronary malformation, c/o blood in stool History of Any Multi-Drug Resistant Organisms: None Reported Past Surgical History: Hysterectomy, Tubal Ligation, Uterine Ablation Additional Past Surgical History / Comment(s): Brain surgery for Arnold-Chiari Malformation - 2011 at [facility]. Colonoscopy 2010, EGD 09/08/21 Past Anesthesia/Blood Transfusion Reactions: No Reported Reaction Smoking Status: Former smoker - Past Family History Father Family Medical History: Coronary Artery Disease (CAD) Additional Family Medical History / Comment(s): Father is age 65 and has history of coronary artery disease and depression. Mother Family Medical History: Blood Disorder Additional Family Medical History / Comment(s): Mother is age 59, has clotting disorder. Patient has 1 brother with no major medical problems. She has 3 sons and one has bipolar disorder. Maternal grandmother - breast cancer Medications and Allergies Home Medications Medication Instructions Recorded Confirmed Type amLODIPine BESYLATE 10 mg PO QAM 02/02/20 10/10/21 History Losartan Potassium 100 mg PO QAM 09/04/21 10/10/21 History Rimegepant Sulfate [Nurtec Odt] 75 mg SL DIRECTED PRN 09/04/21 10/10/21 History Spironolactone 50 mg PO DAILY PRN 09/04/21 10/10/21 History cloNIDine HCL [Catapres] 0.1 mg PO QAM 09/04/21 10/10/21 History hydroCHLOROthiazide [Hydrodiuril] 25 mg PO QAM 09/04/21 10/10/21 History Omeprazole [PriLOSEC] 40 mg PO DAILY #14 cap 09/08/21 10/10/21 Rx Naproxen [Naprosyn] 375 mg PO Q12HR PRN 09/17/21 10/10/21 History Allergies Allergy/AdvReac Type Severity Reaction Status Date / Time animal dander Allergy Rash/Hives Verified 10/10/21 09:51 celery Allergy Rash/Hives Verified 10/10/21 09:51 Iodinated Contrast Media Allergy Rash/Hives Verified 10/10/21 09:51 [Iodinated Contrast- Oral and IV Dye] latex Allergy Rash/Hives Verified 10/10/21 09:51 lettuce Allergy Rash/Hives Verified 10/10/21 09:51 mold Allergy Rash/Hives Verified 10/10/21 09:51 shellfish derived [Shellfish] Allergy Rash/Hives Verified 10/10/21 09:51 tomato Allergy Rash/Hives Verified 10/10/21 09:51
[2021-10-13] MEDS ORDERED: LACTATED RINGERS 1,000 ML IV SCH (07:46)
[2021-10-13 07:50] VITALS: RESP 16; TEMP 97.5
[2021-10-13] MEDS ORDERED: PROPOFOL 10 MG/ML 50 ML VIAL IV ONE (08:39)
--- NOTE | 2021-10-13 09:08 | P.PCN ---
Date of Procedure: 10/13/21 Description of Procedure: PREOPERATIVE DIAGNOSIS: Change in bowel habits History of gastrointestinal bleeding Colitis POSTOPERATIVE DIAGNOSIS: Change in bowel habits History of gastrointestinal bleeding OPERATION: Colonoscopy to the cecum, ileocecal valve and appendiceal orifice. Colonoscopy with random cold forceps biopsy for microscopic colitis. SURGEON: Maryana Balderrama MD. ANESTHESIA: MAC. INDICATIONS: The patient is a 40-year-old female who presents with change in bowel habits, gastrointestinal bleeding and colitis. Benefits and risks were described and informed consent was obtained. DESCRIPTION OF PROCEDURE: The patient had undergone Sutab prep. The patient had been brought into the operating room and laid in the left lateral decubitus position. After adequate intravenous sedation, the rectum was examined with 2% lidocaine jelly. No external hemorrhoids were encountered. The rectal tone was within normal limits. No lesions were palpated in the rectal vault. An Olympus colonoscope was advanced until the cecum, ileocecal valve and appendiceal orifice were viewed. The prep was poor limiting view of the mucosa for colonic polyps. No large scattered diverticulosis was encountered. Random cold forceps biopsies are obtained for colitis. Retroflexion of the scope demonstrated grade 1 internal hemorrhoids without active bleeding or inflammation. The colon was desufflated. The patient had tolerated the procedure well. Withdrawal time was over 6 minutes. FINDINGS: Aronchick preparation quality scale 4 (1-5) Internal hemorrhoids, grade 1 No external prolapsed hemorrhoids. Random biopsies obtained with cold forceps for colitis. RECOMMENDATIONS: Lower endoscopy as needed. Plan - Discharge Summary Discharge Rx Participant: No New Discharge Prescriptions: Continue amLODIPine BESYLATE 10 mg PO QAM Losartan Potassium 100 mg PO QAM cloNIDine HCL [Catapres] 0.1 mg PO QAM Omeprazole [PriLOSEC] 40 mg PO DAILY #14 cap Naproxen [Naprosyn] 375 mg PO Q12HR PRN PRN Reason: Pain Spironolactone 50 mg PO DAILY PRN PRN Reason: LEG SWELLING hydroCHLOROthiazide [Hydrodiuril] 25 mg PO QAM Rimegepant Sulfate [Nurtec Odt] 75 mg SL DIRECTED PRN PRN Reason: MIGRAINES Discharge Medication List amLODIPine BESYLATE 10 mg PO QAM 02/02/20 [History] Losartan Potassium 100 mg PO QAM 09/04/21 [History] Rimegepant Sulfate [Nurtec Odt] 75 mg SL DIRECTED PRN 09/04/21 [History] Spironolactone 50 mg PO DAILY PRN 09/04/21 [History] cloNIDine HCL [Catapres] 0.1 mg PO QAM 09/04/21 [History] hydroCHLOROthiazide [Hydrodiuril] 25 mg PO QAM 09/04/21 [History] Omeprazole [PriLOSEC] 40 mg PO DAILY #14 cap 09/08/21 [Rx] Naproxen [Naprosyn] 375 mg PO Q12HR PRN 09/17/21 [History] [facility] [place] [facility] Patient Instructions/Handouts: *Sur[facility] - (Anesthesia) Endoscopy Discharge Instructions, Colonoscopy (DC) Discharge Disposition: HOME SELF-CARE
[2021-10-13 09:19] VITALS: BP 138/89; PULSE 76
== END 2021-10-13 10:35 | disposition home or self-care (01) ==
LOC: ORWHC2ENDO 07:21
PROVIDERS: ATTEND Surgery Plastic and Reconstructive Surgery
DX: K52.9 Noninfective gastroenteritis and colitis, unspecified (principal); G47.30 Sleep apnea, unspecified; I10 Essential (primary) hypertension; M79.7 Fibromyalgia; Z79.1 Long term (current) use of non-steroidal anti-inflammatories (NSAID); Z80.3 Family history of malignant neoplasm of breast; Z82.49 Family history of ischemic heart disease and other diseases of the circulatory system; Z91.040 Latex allergy status; Z87.891 Personal history of nicotine dependence; Z88.8 Allergy status to other drugs, medicaments and biological substances
CPT/HCPCS: 88305; 45380; J2704

== ENCOUNTER → 2022-01-06 | Outpatient (CLI) | payer OTHER ==
[2022-01-06 11:10] LABS: African American GFR (CKD) 94.1 (60.0-200.0); Albumin 4.2 g/dL (3.8-4.9); Albumin/Globulin Ratio 1.72 (1.60-3.17); Anion Gap 9.8 mmol/L (10.00-18.00); BUN/Creat Ratio 10.91 Ratio (12.00-20.00); Blood Urea Nitrogen 9.7 mg/dL (9.0-27.0); Calcium 9.1 mg/dL (8.7-10.3); Carbon Dioxide 23.4 mmol/L (20.0-27.5); Globulin 2.4 g/dL (1.6-3.3); Non-African American GFR(CKD) 81.2 (60.0-200.0); Potassium 4.1 mmol/L (3.5-5.5); Total Bilirubin 1.6 mg/dL (0.30-1.20); Total Protein 6.6 g/dL (6.2-8.2)
== END | disposition home or self-care (01) ==
LOC: LABWHC1 07:28
PROVIDERS: ATTEND Nurse Practitioner Adult Health
DX: Z13.1 Encounter for screening for diabetes mellitus (principal); R60.9 Edema, unspecified
CPT/HCPCS: 36415; 80053; 83036; 83880

== ENCOUNTER 2022-03-15 16:02 | Emergency (ER) | payer OTHER ==
[2022-03-15] MEDS ORDERED: cloNIDine HCL 0.1 MG TAB PO STA (16:51)
--- NOTE | 2022-03-15 16:53 | ED ---
General Adult HPI - General Chief complaint: Chest Pain Stated complaint: Chest Pain,SOB Time Seen by Provider: 03/15/22 16:20 Source: patient, RN notes reviewed Mode of arrival: ambulatory Limitations: no limitations - History of Present Illness Initial comments: 5-year-old female presents to the emergency department for evaluation of right sided chest pain that occurred intermittently throughout the day today. States that has since resolved and not returned. SHe also complains of mild right flank/back pain. 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 Did not take anything to treat her symptoms prior to the resolution. Patient does have high blood pressure which she states is normal for her. Identifies goal BP 200/100. States she did take Tylenol this morning for headache. Denies fever, chills, dizziness, blurry vision, shortness of breath, difficulty breathing, abdominal pain, nausea, vomiting, diarrhea, dysuria, or hematuria. - Related Data Home Medications Medication Instructions Recorded Confirmed Losartan Potassium 100 mg PO DAILY 09/04/21 03/15/22 Rimegepant Sulfate [Nurtec Odt] 75 mg SL DAILY PRN 09/04/21 03/15/22 Spironolactone 50 mg PO DAILY 09/04/21 03/15/22 cloNIDine HCL [Catapres] 0.1 mg PO DAILY 09/04/21 03/15/22 Naproxen [Naprosyn] 375 mg PO TID PRN 09/17/21 03/15/22 amLODIPine [Norvasc] 5 mg PO DAILY 03/15/22 03/15/22 hydrOXYzine HCL [Atarax] 25 mg PO HS 03/15/22 03/15/22 hydroCHLOROthiazide 12.5 mg PO DAILY 03/15/22 03/15/22 Allergies Allergy/AdvReac Type Severity Reaction Status Date / Time animal dander Allergy Rash/Hives Verified 03/15/22 19:22 celery Allergy Rash/Hives Verified 03/15/22 19:22 Iodinated Contrast Media Allergy Rash/Hives Verified 03/15/22 19:22 [Iodinated Contrast- Oral and IV Dye] latex Allergy Rash/Hives Verified 03/15/22 19:22 lettuce Allergy Rash/Hives Verified 03/15/22 19:22 mold Allergy Rash/Hives Verified 03/15/22 19:22 shellfish derived [Shellfish] Allergy Rash/Hives Verified 03/15/22 19:22 tomato Allergy Rash/Hives Verified 03/15/22 19:22 Review of Systems ROS Statement: Those systems with pertinent positive or pertinent negative responses have been documented in the HPI. ROS Other: All systems not noted in ROS Statement are negative. Past Medical History Past Medical History: Fibromyalgia, GI Bleed, Hypertension, Sleep Apnea/CPAP/BIPAP Additional Past Medical History / Comment(s): Arnold-Chiari malformation, migraine headaches, IBS poss - hx loose stools, Sleep Apnea , the patient used to use CPAP therapy in the past, none for now, obesity, bipolar disorder, anxiety, history of opiate dependence, history of alcohol abuse, depression, migraines, hypertension, chronic nonalcoholic liver disease, coronary malformation, c/o blood in stool History of Any Multi-Drug Resistant Organisms: None Reported Past Surgical History: Hysterectomy, Tubal Ligation, Uterine Ablation Additional Past Surgical History / Comment(s): Brain surgery for Arnold-Chiari Malformation - 2011 at [facility]. Colonoscopy 2010, EGD 09/08/21 Past Anesthesia/Blood Transfusion Reactions: No Reported Reaction Past Psychological History: Anxiety, Bipolar, Depression, PTSD Smoking Status: Former smoker Past Alcohol Use History: None Reported Past Drug Use History: None Reported - Past Family History Father Family Medical History: Coronary Artery Disease (CAD) Additional Family Medical History / Comment(s): Father is age 65 and has history of coronary artery disease and depression. Mother Family Medical History: Blood Disorder Additional Family Medical History / Comment(s): Mother is age 59, has clotting disorder. Patient has 1 brother with no major medical problems. She has 3 sons and one has bipolar disorder. Maternal grandmother - breast cancer General Exam Limitations: no limitations General appearance: alert, in no apparent distress Eye exam: Present: normal appearance, PERRL, EOMI. Absent: scleral icterus, conjunctival injection, periorbital swelling Respiratory exam: Present: normal lung sounds bilaterally. Absent: respiratory distress, wheezes, rales, rhonchi, stridor Cardiovascular Exam: Present: regular rate, normal rhythm, normal heart sounds. Absent: systolic murmur, diastolic murmur, rubs, gallop, clicks GI/Abdominal exam: Present: soft, normal bowel sounds. Absent: distended, tenderness, guarding, rebound, rigid Back exam: Absent: CVA tenderness (R), CVA tenderness (L) Neurological exam: Present: alert, oriented X3, CN II-XII intact Psychiatric exam: Present: normal affect, normal mood Skin exam: Present: warm, dry, intact, normal color. Absent: rash Course Vital Signs 03/15/22 03/15/22 03/15/22 16:16 17:20 17:30 Temperature 98.5 F 98.4 F Pulse Rate 74 61 Pulse Rate [ 60 Pulse Oximetery ] Respiratory 20 16 Rate Blood Pressure 228/122 219/117 O2 Sat by Pulse 99 100 Oximetry 03/15/22 03/15/22 03/15/22 18:00 18:30 19:02 Temperature Pulse Rate 67 64 63 Pulse Rate [ Pulse Oximetery ] Respiratory 16 17 16 Rate Blood Pressure 200/115 202/130 207/126 O2 Sat by Pulse 100 100 100 Oximetry 03/15/22 03/15/22 03/15/22 19:35 20:30 20:46 Temperature 98.1 F 98.1 F Pulse Rate 64 65 62 Pulse Rate [ Pulse Oximetery ] Respiratory 16 18 16 Rate Blood Pressure 198/119 178/116 158/112 O2 Sat by Pulse 99 98 98 Oximetry 03/15/22 21:29 Temperature 98.2 F Pulse Rate 62 Pulse Rate [ Pulse Oximetery ] Respiratory 16 Rate Blood Pressure 152/82 O2 Sat by Pulse 98 Oximetry - Reevaluation(s) Reevaluation #1: 03/15/22 18:09 Upon reassessment, patient reports she continues to feel fine and is resting pain-free. States "I feel like I could run a marathon." Spoke with patient at length about concerns with elevated blood pressure accompanied by chest pain and back pain, despite the fact that those symptoms have resolved. Patient is aware of the reasons sustained high blood pressure is concerning. States she does not see a local master deputy sheriff court security, but has one at [facility]. Though I would like to admit this patient, in shared decision making we plan to repeat BP check at 6:30 then will DC after that with follow up care encouraged tomorrow morning for further management of of BP control. Current BP 200/115. 03/15/22 19:00 Subsequent half-hour blood pressure measurements continued to rise. Again discussed hospital admission. Patient's spouse is present at bedside and encourage this patient to strongly consider this. Patient is agreeable with plan of care to admit. 03/15/22 21:20 Notified that patient is no longer willing to stay in the hospital. Discussed concerns. In effort to maintain shared decision making, patient will be discharged home with strict return parameters and implored to follow up with her physician of choice to manage this elevated blood pressure. Explained risks associated with sustained, persistent hypertension. Patient verbalizes understanding. Medical Decision Making - Medical Decision Making This is a 41-year-old female with a past medical history of hypertension presents to the emergency department for evaluation of right-sided chest and right flank and back pain. Pain resolved prior to arrival. Upon exam, patient is found to be significantly hypertensive. Discussed elevated blood pressure readings at length and patient insists this is baseline for her. We talked about hospital admission with which patient was agreeable for a brief time. However, she ultimately decided to leave and will follow-up with her cardiologis t tomorrow. Discussed concerns about sustained, persistent hypertension at length. Patient verbalizes understanding. Strict return parameters were discussed in detail. Patient is agreeable with this plan of care. Attending: Amanda. - Lab Data Result diagrams: 03/15/22 16:48 03/15/22 16:48 Lab Results 03/15/22 03/15/22 03/15/22 Range/Units 16:48 16:48 16:48 WBC 8.8 (3.8-10.6) k/uL RBC 5.05 (3.80-5.40) m/uL Hgb 16.2 H (11.4-16.0) gm/dL Hct 44.8 (34.0-46.0) % MCV 88.7 (80.0-100.0) fL MCH 32.0 (25.0-35.0) pg MCHC 36.1 (31.0-37.0) g/dL RDW 12.7 (11.5-15.5) % Plt Count 222 (150-450) k/uL MPV 7.8 Neutrophils % 65 % Lymphocytes % 26 % Monocytes % 4 % Eosinophils % 3 % Basophils % 1 % Neutrophils # 5.7 (1.3-7.7) k/uL Lymphocytes # 2.3 (1.0-4.8) k/uL Monocytes # 0.4 (0-1.0) k/uL Eosinophils # 0.2 (0-0.7) k/uL Basophils # 0.1 (0-0.2) k/uL PT 10.4 (9.0-12.0) sec INR 1.0 (<1.2) APTT 25.7 (22.0-30.0) sec D-Dimer 0.23 (<0.60) mg/L FEU Sodium 137 (137-145) mmol/L Potassium 3.4 L (3.5-5.1) mmol/L Chloride 106 (98-107) mmol/L Carbon Dioxide 24 (22-30) mmol/L Anion Gap 7 mmol/L BUN 15 (7-17) mg/dL Creatinine 0.87 (0.52-1.04) mg/dL Est GFR (CKD-EPI)AfAm >90 (>60 ml/min/1.73 sqM) Est GFR (CKD-EPI)NonAf 84 (>60 ml/min/1.73 sqM) Glucose 89 (74-99) mg/dL Calcium 9.0 (8.4-10.2) mg/dL Magnesium 2.1 (1.6-2.3) mg/dL Total Bilirubin 1.9 H (0.2-1.3) mg/dL AST 21 (14-36) U/L ALT 24 (4-34) U/L Alkaline Phosphatase 86 (38-126) U/L Troponin I (0.000-0.034) ng/mL Total Protein 6.8 (6.3-8.2) g/dL Albumin 4.0 (3.5-5.0) g/dL Urine Color Urine Appearance (Clear) Urine pH (5.0-8.0) Ur Specific [place] (1.001-1.035) Urine Protein (Negative) Urine Glucose (UA) (Negative) Urine Ketones (Negative) Urine Blood (Negative) Urine Nitrite (Negative) Urine Bilirubin (Negative) Urine Urobilinogen (<2.0) mg/dL Ur Leukocyte Esterase (Negative) Urine RBC (0-5) /hpf Urine WBC (0-5) /hpf Ur Squamous Epith Cells (0-4) /hpf Urine Bacteria (None) /hpf Urine Mucus (None) /hpf Urine HCG, Qual (Not Detectd) 03/15/22 03/15/22 03/15/22 Range/Units 16:48 16:48 16:48 WBC (3.8-10.6) k/uL RBC (3.80-5.40) m/uL Hgb (11.4-16.0) gm/dL Hct (34.0-46.0) % MCV (80.0-100.0) fL MCH (25.0-35.0) pg MCHC (31.0-37.0) g/dL RDW (11.5-15.5) % Plt Count (150-450) k/uL MPV Neutrophils % % Lymphocytes % % Monocytes % % Eosinophils % % Basophils % % Neutrophils # (1.3-7.7) k/uL Lymphocytes # (1.0-4.8) k/uL Monocytes # (0-1.0) k/uL Eosinophils # (0-0.7) k/uL Basophils # (0-0.2) k/uL PT (9.0-12.0) sec INR (<1.2) APTT (22.0-30.0) sec D-Dimer (<0.60) mg/L FEU Sodium (137-145) mmol/L Potassium (3.5-5.1) mmol/L Chloride (98-107) mmol/L Carbon Dioxide (22-30) mmol/L Anion Gap mmol/L BUN (7-17) mg/dL Creatinine (0.52-1.04) mg/dL Est GFR (CKD-EPI)AfAm (>60 ml/min/1.73 sqM) Est GFR (CKD-EPI)NonAf (>60 ml/min/1.73 sqM) Glucose (74-99) mg/dL Calcium (8.4-10.2) mg/dL Magnesium (1.6-2.3) mg/dL Total Bilirubin (0.2-1.3) mg/dL AST (14-36) U/L ALT (4-34) U/L Alkaline Phosphatase (38-126) U/L Troponin I <0.012 (0.000-0.034) ng/mL Total Protein (6.3-8.2) g/dL Albumin (3.5-5.0) g/dL Urine Color Light Yellow Urine Appearance Cloudy H (Clear) Urine pH 5.0 (5.0-8.0) Ur Specific [place] 1.019 (1.001-1.035) Urine Protein Negative (Negative) Urine Glucose (UA) Negative (Negative) Urine Ketones Negative (Negative) Urine Blood Negative (Negative) Urine Nitrite Negative (Negative) Urine Bilirubin Negative (Negative) Urine Urobilinogen <2.0 (<2.0) mg/dL Ur Leukocyte Esterase Negative (Negative) Urine RBC <1 (0-5) /hpf Urine WBC 1 (0-5) /hpf Ur Squamous Epith Cells 13 H (0-4) /hpf Urine Bacteria Rare H (None) /hpf Urine Mucus Rare H (None) /hpf Urine HCG, Qual Not Detected (Not Detectd) - EKG Data EKG shows normal: sinus rhythm Rate: normal EKG Comments: EKG obtained at 1626 shows sinus rhythm with possible left atrial enlargement. Ventricular rate 69, [place] interval 173, QRS duration 100, QT/QTC 390/409. Interpretation borderline ECG. I see no ST segment and T wave abnormality. Compared with previous EKG. No significant changes. - Radiology Data Radiology results: report reviewed, image reviewed Interpreted by me: Upon initial evaluation, I see no evidence of cardiomegaly or infiltrates. Two-view chest x-ray was obtained. Report was reviewed in its entirety. Impression per Dr. Trujillo is normal chest. No change. Disposition Clinical Impression: Hypertensive urgency, Chest pain Disposition: HOME SELF-CARE Condition: Fair Instructions (If sedation given, give patient instructions): Hypertension (ED) Additional Instructions: It is incredibly important to find with your master deputy sheriff court security for reevaluation and blood pressure management plan. Return to the emergency department with any new, worsening, or concerning symptoms. Is patient prescribed a controlled substance at d/c from ED?: No Referrals: Chidi Bolivar MD [Primary Care Provider] - 1-2 days Time of Disposition: 21:20 Decision Date: 03/15/22 Decision Time: 20:18
[2022-03-15 17:01] LABS: Appearance,Urine Cloudy (Clear); Bacteria,Urine Rare /hpf; Bilirubin,Urine Negative (Negative); Blood,Urine Negative (Negative); Color,Urine Light Yellow; Glucose,Urine (UA) Negative (Negative); Ketones,Urine Negative (Negative); Leukocyte Esterase,Urine Negative (Negative); Mucus,Urine Rare /hpf; Nitrite,Urine Negative (Negative); Protein,Urine Negative (Negative); RBC,Urine <1 /hpf (0-5); Specific Gravity,Urine 1.019 (1.001-1.035); Squamous Epithelial Cell,Urine 13 /hpf (0-4); Urobilinogen,Urine <2.0 mg/dL (<2.0); WBC,Urine 1 /hpf (0-5)
[2022-03-15 17:30] LABS: Basophils # (A) 0.1 k/uL (0-0.2); Basophils % (A) 1 %; Eosinophils # (A) 0.2 k/uL (0-0.7); Eosinophils % (A) 3 %; HCT 44.8 % (34.0-46.0); HGB 16.2 gm/dL (11.4-16.0); Lymphocytes # (A) 2.3 k/uL (1.0-4.8); Lymphocytes % (A) 26 %; MCHC 36.1 g/dL (31.0-37.0); MCV 88.7 fL (80.0-100.0); Mean Platelet Volume 7.8; Monocytes # (A) 0.4 k/uL (0-1.0); Monocytes % (A) 4 %; Neutrophils # (A) 5.7 k/uL (1.3-7.7); Neutrophils % (A) 65 %; Platelet Count 222 k/uL (150-450); RBC 5.05 m/uL (3.80-5.40); RDW 12.7 % (11.5-15.5); WBC 8.8 k/uL (3.8-10.6)
--- NOTE | 2022-03-15 17:41 | XR ---
EXAMINATION TYPE: XR chest 2V DATE OF EXAM: 03/15/2022 COMPARISON: 03/17/2020 HISTORY: Chest pain TECHNIQUE: FINDINGS: Heart and mediastinum are normal. Lungs are clear. Diaphragm is normal. Bony thorax is inta ct. IMPRESSION: Normal chest. No change.
[2022-03-15 17:43] LABS: ALT 24 U/L (4-34); AST 21 U/L (14-36); African American GFR (CKD) >90 (>60 ml/min/1.73 sqM); Alkaline Phosphatase 86 U/L (38-126); Anion Gap 7 mmol/L; Blood Urea Nitrogen 15 mg/dL (7-17); Carbon Dioxide 24 mmol/L (22-30); Chloride 106 mmol/L (98-107); Glucose 89 mg/dL (74-99); Magnesium 2.1 mg/dL (1.6-2.3); Non-African American GFR(CKD) 84 (>60 ml/min/1.73 sqM); Partial Thromboplastin Time 25.7 sec (22.0-30.0); Potassium 3.4 mmol/L (3.5-5.1); Prothrombin Time 10.4 sec (9.0-12.0); Sodium 137 mmol/L (137-145); Total Bilirubin 1.9 mg/dL (0.2-1.3); Total Protein 6.8 g/dL (6.3-8.2)
[2022-03-15] MEDS ORDERED: hydrALAZINE HCL 20 MG/ML 1 ML VIAL IVP STA (20:16)
[2022-03-15] MEDS ORDERED: cloNIDine HCL 0.2 MG TAB PO PRN (20:23)
[2022-03-15] MEDS ORDERED: HYDROmorphone 0.5 MG/0.5 ML SYRINGE IVP PRN (20:25)
[2022-03-15] MEDS ORDERED: IBUPROFEN 400 MG TAB PO PRN (20:25)
[2022-03-15] MEDS ORDERED: ONDANSETRON 4 MG/2 ML VIAL IVP PRN (20:25)
[2022-03-15] MEDS ORDERED: NALOXONE 0.4 MG/ML 1 ML VIAL IV PRN (20:25)
[2022-03-15] MEDS ORDERED: ACETAMINOPHEN TAB 325 MG TAB PO PRN (20:25)
[2022-03-15 20:46] VITALS: PULSE 62; RESP 16
[2022-03-15] MEDS ORDERED: hydrOXYzine HCL 25 MG TAB PO SCH (21:00)
[2022-03-15 21:30] VITALS: BP 152/82; TEMP 98.2
[2022-03-16] MEDS ORDERED: cloNIDine HCL 0.1 MG TAB PO SCH (09:00)
[2022-03-16] MEDS ORDERED: amLODIPine 5 MG TAB PO SCH (09:00)
[2022-03-16] MEDS ORDERED: amLODIPine 10 MG TAB PO SCH (09:00)
[2022-03-16] MEDS ORDERED: LOSARTAN 50 MG TAB PO SCH (09:00)
[2022-03-16] MEDS ORDERED: hydroCHLOROthiazide 12.5 MG CAP PO SCH (09:00)
[2022-03-16] MEDS ORDERED: SPIRONOLACTONE 25 MG TAB PO SCH (09:00)
== END 2022-03-15 21:40 | disposition home or self-care (01) ==
LOC: EC 16:02
DX: I16.0 Hypertensive urgency (principal); R07.9 Chest pain, unspecified; I10 Essential (primary) hypertension; G47.30 Sleep apnea, unspecified; F41.9 Anxiety disorder, unspecified; F31.9 Bipolar disorder, unspecified; Z87.891 Personal history of nicotine dependence; Z79.811 Long term (current) use of aromatase inhibitors; Z79.899 Other long term (current) drug therapy; Z91.018 Allergy to other foods; Z91.040 Latex allergy status; Z91.013 Allergy to seafood; Z91.041 Radiographic dye allergy status; Z88.8 Allergy status to other drugs, medicaments and biological substances
CPT/HCPCS: 99285 ×2; 96374 ×2; 36415; 93005; 85379; 80053; 83735; 84484; 85025; 85610; 85730; 81001; 81025; 71046; J0360

== ENCOUNTER 2024-01-19 18:43 | Emergency (ER) | payer OTHER ==
[2024-01-19 18:51] VITALS: TEMP 98.2
--- NOTE | 2024-01-19 19:08 | ED ---
Recheck HPI - General Chief Complaint: Recheck/Abnormal Lab/Rx Stated Complaint: high blood pressure Time Seen by Provider: 01/19/24 19:01 Source: patient, RN notes reviewed Mode of arrival: ambulatory Limitations: no limitations - History of Present Illness Initial Comments: Quick [id number] female history of hypertension presents emergency depart ment chief complaint of hypertension. Patient was evaluated at urgent care yesterday for left foot pain and was found to have elevated blood pressure and was urged to go to the emergency department however she declined. Patient states that her blood pressure has been running elevated today and she has been experiencing headaches and chest tightness. Denies personal history of NV or CVA. No blood thinner use. She has been taking antihypertensives as prescribed. - Related Data Home Medications Medication Instructions Recorded Confirmed Rimegepant Sulfate [Nurtec Odt] 75 mg SL DAILY PRN 09/04/21 01/19/24 Albuterol Inhaler [Ventolin Hfa 2 puff INHALATION RT-Q6H PRN 01/19/24 01/19/24 Inhaler] Ibuprofen [Motrin] 800 mg PO TID PRN 01/19/24 01/19/24 Semaglutide [Wegovy] 0.5 mg SQ TU 01/19/24 01/19/24 Triamterene/Hydrochlorothiazid 1 cap PO DAILY 01/19/24 01/19/24 [Triamterene-Hctz 37.5-25 mg Cp] methylPREDNISolone Dose Pack See Taper PO DIRECTED 01/19/24 01/19/24 [Medrol Dose Pack] Allergies Allergy/AdvReac Type Severity Reaction Status Date / Time animal dander Allergy Rash/Hives Verified 01/19/24 20:25 celery Allergy Rash/Hives Verified 01/19/24 20:25 Iodinated Contrast Media Allergy Rash/Hives Verified 01/19/24 20:25 [Iodinated Contrast- Oral and IV Dye] latex Allergy Rash/Hives Verified 01/19/24 20:25 lettuce Allergy Rash/Hives Verified 01/19/24 20:25 mold Allergy Rash/Hives Verified 01/19/24 20:25 shellfish derived [Shellfish] Allergy Rash/Hives Verified 01/19/24 20:25 strawberry Allergy Rash/Hives Verified 01/19/24 20:25 tomato Allergy Rash/Hives Verified 01/19/24 20:25 Review of Systems ROS Statement: Those systems with pertinent positive or pertinent negative responses have been documented in the HPI. ROS Other: All systems not noted in ROS Statement are negative. Past Medical History Past Medical History: Fibromyalgia, GI Bleed, Hypertension, Sleep Apnea/CPAP/BIPAP Additional Past Medical History / Comment(s): Arnold-Chiari malformation, migraine headaches, IBS poss - hx loose stools, Sleep Apnea , the patient used to use CPAP therapy in the past, none for now, obesity, bipolar disorder, a nxiety, history of opiate dependence, history of alcohol abuse, depression, migraines, hypertension, chronic nonalcoholic liver disease, coronary malformation, c/o blood in stool History of Any Multi-Drug Resistant Organisms: None Reported Past Surgical History: Hysterectomy, Tubal Ligation, Uterine Ablation Additional Past Surgical History / Comment(s): Brain surgery for Arnold-Chiari Malformation - 2011 at [facility]. Colonoscopy 2010, EGD 09/08/21 Past Anesthesia/Blood Transfusion Reactions: No Reported Reaction Past Psychological History: Anxiety, Bipolar, Depression, PTSD Smoking Status: Former smoker Past Alcohol Use History: None Reported Past Drug Use History: None Reported - Past Family History Father Family Medical History: Coronary Artery Disease (CAD) Additional Family Medical History / Comment(s): Father is age 65 and has history of coronary artery disease and depression. Mother Family Medical History: Blood Disorder Additional Family Medical History / Comment(s): Mother is age 59, has clotting disorder. Patient has 1 brother with no major medical problems. She has 3 sons and one has bipolar disorder. Maternal grandmother - breast cancer General Exam - General Exam Comments Initial Comments: Visual Physical Exam Vital signs reviewed General: Well-appearing, nontoxic, no acute distress. Head: Normocephalic, atraumatic Eyes: PERRLA, EOMI ENT: Airway patent Chest: Nonlabored breathing Skin: No visual rash, normal skin tone Neuro: Alert and oriented 3 Musculoskeletal: No gross abnormalities Limitations: no limitations General appearance: alert, in no apparent distress Head exam: Present: atraumatic, normocephalic, normal inspection Eye exam: Present: normal appearance, PERRL, EOMI. Absent: scleral icterus, conjunctival injection, periorbital swelling ENT exam: Present: normal exam, mucous membranes moist Respiratory exam: Present: normal lung sounds bilaterally. Absent: respiratory distress, wheezes, rales, rhonchi, stridor Cardiovascular Exam: Present: regular rate, normal rhythm, normal heart sounds. Absent: systolic murmur, diastolic murmur, rubs, gallop, clicks GI/Abdominal exam: Present: soft, normal bowel sounds. Absent: distended, tenderness, guarding, rebound, rigid Extremities exam: Present: normal inspection, full ROM, normal capillary refill. Absent: tenderness, pedal edema, joint swelling, calf tenderness Neurological exam: Present: alert, oriented X3, CN II-XII intact Skin exam: Present: warm, dry, intact, normal color. Absent: rash Course Vital Signs 01/19/24 01/19/24 01/19/24 18:49 20:05 20:32 Temperature 98.2 F Pulse Rate 102 H 75 77 Respiratory 20 18 Rate Blood Pressure 185/126 200/125 192/141 O2 Sat by Pulse 99 97 Oximetry 01/19/24 01/19/24 01/19/24 21:22 21:45 22:14 Temperature Pulse Rate 73 Respiratory 18 Rate Blood Pressure 194/122 194/122 183/104 O2 Sat by Pulse Oximetry 01/19/24 22:32 Temperature Pulse Rate Respiratory Rate Blood Pressure 175/100 O2 Sat by Pulse Oximetry Medical Decision Making - Medical Decision Making Was pt. sent in by a medical professional or institution (, [employer], VAMP CUT OUT WORKER, urgent care, hospital, or senior living...) When possible be specific @ -Patient was advised by urgent care to report to the emergency department yesterday for further evaluation of hypertension. However patient states that she was able to come yesterday but while she was at home she began to experience mild pain is concerned that she had hypertension as well. Did you speak to anyone other than the patient for history (EMS, parent, family, police, friend...)? What history was obtained from this source @ -No Did you review nursing and triage notes (agree or disagree)? Why? @ -I reviewed and agree with nursing and triage notes Were old charts reviewed (outside hosp., previous admission, EMS record, old EKG, old radiological studies, urgent care reports/EKG's, senior living records)? Report findings @ -No old charts were reviewed Differential Diagnosis (chest pain, altered mental status, abdominal pain women, abdominal pain men, vaginal bleeding, weakness, fever, dyspnea, syncope, headache, dizziness, GI bleed, back pain, seizure, CVA, palpatations, mental health, musculoskeletal)? @ -Hypertensive urgency, hypertensive emergency, NSTEMI, STEMI, pulmonary embolism, this list is not all inclusive EKG interpreted by me (3pts min.). @ -Completed at 1918 sinus rhythm with sinus arrhythmia, ventricular rate 87, parable 154, QTc 396. No acute signs of ischemia. X-rays interpreted by me (1pt min.). @ -None done CT interpreted by me (1pt min.). @ -None done U/S interpreted by me (1pt. min.). @ -None done What testing was considered but not performed or refused? (CT, X-rays, U/S, labs)? Why? @ -Previous studies were considered but deferred at this time. There was 1 attempt to draw labs however this was unsuccessful and patient refuses further attempts at this time. What meds were considered but not given or refused? Why? @ -None Did you discuss the management of the patient with other professionals (professionals i.e. , PA, VAMP CUT OUT WORKER, lab, RT, psych nurse, social service technician, investment fund manager, teacher, hospital chief financial officer, rehabilitation case coordinator)? Give summary @ -No Was smoking cessation discussed for >3mins.? @ -No Was critical care preformed (if so, how long)? @ -No Were there social determinants of health that impacted care today? How? (Homelessness, low income, unemployed, alcoholism, drug addiction, transportation, low edu. Level, literacy, decrease access to med. care, half-way, rehab)? @ -No Was there de-escalation of care discussed even if they declined (Discuss DNR or withdrawal of care, Hospice)? DNR status @ -No What co-morbidities impacted this encounter? (DM, HTN, Smoking, COPD, CAD, Cancer, CVA, ARF, Chemo, Hep., AIDS, mental health diagnosis, sleep apnea, morbid obesity)? @ -None Was patient admitted / discharged? Hospital course, mention meds given and route, prescriptions, significant lab abnormalities, going to OR and other pertinent info. @ -Discharged. 43-year-old female with hypertension. Patient's blood pressure on arrival is elevated at 185/126 with a heart rate of 102. She states that she is having some mild pressure in her chest and a headache. Initial attempt to draw labs and patient is unsuccessful and she has refused further lab draws at this time. EKG reveals sinus rhythm. Patient is provided with oral dose of clonidine with minimal responsiveness to blood pressure. Patient is then provided with second dose of oral hydralazine with effects lowering blood pressure with a level of 175/100. Patient is pleased with lowering effects and states that her headache and chest pain have began to subside. Patient does have an appointment scheduled with cardiology next week. Recommend that she continue her outpatient regimen for high blood pressure and follow-up as scheduled with clerk manager. All questions answered at bedside strict return parameters discussed with the patient she is verbalized understanding. Case discussed with Dr. Weller Undiagnosed new problem with uncertain prognosis? @ -No Drug Therapy requiring intensive monitoring for toxicity (Heparin, Nitro, Insulin, Cardizem)? @ -No Were any procedures done? @ -No Diagnosis/symptom? @ -Hypertensive urgency Acute, or Chronic, or Acute on Chronic? @ -Acute Uncomplicated (without systemic symptoms) or Complicated (systemic symptoms)? @ -Uncomplicated Side effects of treatment? @ -No Exacerbation, Progression, or Severe Exacerbation? @ -No Poses a threat to life or bodily function? How? (Chest pain, [place], NV, pneumonia, PE, COPD, DKA, ARF, appy, cholecystitis, CVA, Diverticulitis, Homicidal, Suicidal, threat to staff... and all critical care pts) @ -No Disposition Clinical Impression: Hypertensive urgency Disposition: HOME SELF-CARE Condition: Good Additional Instructions: Return to emergency department for any new or worsening symptoms. Recommend that you continue antihypertensive as prescribed. Follow-up with your clerk manager next week for further evaluation as scheduled. Is patient prescribed a controlled substance at d/c from ED?: No Referrals: Chidi Bolivar MD [Primary Care Provider] - 1-2 days Time of Disposition: 22:38
[2024-01-19 20:07] VITALS: RESP 18
[2024-01-19] MEDS: cloNIDine HCL 0.1 MG TAB PO STA (20:56)
[2024-01-19 21:23] VITALS: PULSE 73
[2024-01-19] MEDS: hydrALAZINE HCL 25 MG TAB PO STA (21:52)
[2024-01-19 22:32] VITALS: BP 175/100
== END 2024-01-19 22:53 | disposition home or self-care (01) ==
LOC: EC 18:43
CPT/HCPCS: 93005; 99283